=== PATIENT | female | born 1940 | race Caucasian/White ===

== ENCOUNTER 2022-06-25 14:17 | Outpatient (RCR) | payer MEDICARE, OTHER, SELFPAY ==
--- NOTE | 2022-06-26 09:41 | BUSTOPEVAL1 ---
Assessment and note entered by Mimi Patino TRANSPORTATION OPERATIONS MANAGER Evaluation Information Assessment Status Evaluation Reported Pain Level Pain Score 0: Self Report Assessment ST Clinical Summary Daly Larry is an 82 year old female who was referred to our clinic due to voice and swallowing concerns. Patient has a past medical history significant for essential tremors that impacts her voice. She also describes that when speaking a lot in one day , her voice becomes hoarse but she has never become aphonic. Patient lives alone and might go a day or more without using her voice, but then might have a day where she uses her voice extensively. On those days, she experiences difficulty, but never finds that she cannot communicate what she needs. She also reports that when she receives bad news that results in stress, her voice quality declines. Patient also reports an increase in difficulty/ coughing when swallowing both food and drink for the past 2-3 months. Because she lives alone, this has provided some anxiety. She has been able to compensate with solid food by eating more slowing and increasing mastication time, but has not found any compensatory strategies to prevent coughing when consuming liquids. Patient completed an oral mechanism evaluation with no significant findings other than slight perceived decrease in base of tongue strength (will confirm physiological impairment in Modified Barium Swallow Study). Patient trialed thin liquid, puree, and solid consistencies with no overt clinical signs of aspiration; however, it was noted that patinet consistently requires 2-3 swallows to clear a single bolus. Patient completed the EAT-10 Swallow Screening tool with a score of 8/40 indicating a likelihood of deficit to swallow efficiently and safely. Recommend patient to receive a Modified Barium Swallow Study in order to ensure a safe diet is being consumed and identify any impairments to target in a home exercise program. Additionally, recommend patient to receive skilled ST services 1x/week for 4 weeks in order to target deficits in voice and swallowing t
== END 2022-09-23 23:59 | disposition home or self-care (01) ==
LOC: ANHGOSHST 14:17
PROVIDERS: PCP Internal Medicine Endocrinology, Diabetes & Metabolism; Visit Provider Otolaryngology
DX: R13.10 Dysphagia, unspecified (principal); R49.8 Other voice and resonance disorders
CPT/HCPCS: 92524; 92610

== ENCOUNTER 2022-07-17 08:03 | Outpatient (CLI) | payer MEDICARE, OTHER, SELFPAY ==
--- NOTE | ~2022-07-17 | XR_ITS ---
EXAMINATION: XR barium swallow modified DATE: 07/17/2022 09:11 INDICATION: Dysphagia TECHNIQUE: Modified barium esophagram was performed by myself who administered fluoroscopy, in conju nction with speech pathologist who administered barium in varying consistencies as per speech patholo gist documentation. This was recorded on tape. A single fluoroscopic spot image was recorded. Fluoros copy exposure time was 2.6 minutes. The DAP for this procedure was 1.738 Gycm2. FINDINGS: Oral stage: Adequate function. Pharyngeal phase: Adequate function. Laryngeal penetration: None. Aspiration: None. Laryngeal sensitivity: Not applicable. IMPRESSION: Unremarkable modified esophagram. Please refer to speech pathologist findings and specifi c feeding recommendations. Reviewed, dictated and finalized at location A. IMPRESSION: Unremarkable modified esophagram. Please refer to speech pathologis t findings and specific feeding recommendations.
--- NOTE | 2022-07-17 13:48 | REHSTMBS ---
Assessment and note entered by Colleen Fontanez, PERIOPERATIVE MANAGER Modified Barium Swallow Evaluation Feeding Type Recommended Oral Food Consistency Regular, Level 7 Liquid Consistency Thin (0) Treatment Recommendations Effortful Swallow, Effortful Swallow ST Clinical Summary The patient was seen for an outpatient Modified Barium Swallow study at the request of her physician, Dr. Carranza. She reports she has essential tremors in her voice and hands and is going to be evaluated for possible Parkinson's disease. Patient states that she has difficulty swallowing dry foods, such as cookies and crackers and that she get choked and has to cough occasionally. Patient reports that her ENT informed her that she had thinning vocal cords and wondered if Speech Therapy would be beneficial as she feels her voice is not as strong as it used to be. Today the patient was presented with graduated amounts of thin liquid, pudding mixed with semi- solid contrast medium, and then cracker and cut-up fruit coated with the semi-solid mixture. She exhibited quick swallows with no evidence of penetration or aspiration. She may remain on Regular Diet and Regular Liquids. She was instructed in the use of head flexion to assist with swallowing. Patient may benefit from a Voice Evaluation by Speech Therapy at this facility to further assess her complaints with her voice. Please order Speech Therapy for Voice Evaluation and fax to [facility] for outpatient Speech Therapy. Thank you for this referral.
== END 2022-07-17 08:04 | disposition home or self-care (01) ==
PROVIDERS: PCP Internal Medicine Endocrinology, Diabetes & Metabolism; Visit Provider Otolaryngology
DX: R49.8 Other voice and resonance disorders (principal); R13.10 Dysphagia, unspecified
CPT/HCPCS: 92611

== ENCOUNTER 2022-08-28 09:06 | Observation (INO) | payer MEDICARE, OTHER, SELFPAY ==
[2022-08-28] VITALS (33 sets, daily range): BP systolic 108–158; BP diastolic 54–108; PULSE 57–100; RESP 14–18; TEMP 36.4–36.6; O2SAT 92–97; BMI 20.7
--- NOTE | ~2022-08-28 | XR_ITS ---
EXAMINATION: XR chest 1V portable DATE: 08/28/2022 21:30 INDICATION: Cough. TECHNIQUE: A single frontal view of the chest was obtained. COMPARISON: None. FINDINGS: The lungs are hyperexpanded with lucencies, consistent with emphysema. There is mild atelec tasis at the lung bases. No pleural effusion or pneumothorax. The heart size is normal. IMPRESSION: 1. Emphysema. 2. Mild atelectasis at the lung bases. Reviewed, dictated and finalized at location A. ME PLATER
--- NOTE | ~2022-08-28 | CT_ITS ---
EXAMINATION: CT lumbar spine wo con DATE: 08/28/2022 16:28 INDICATION: low back and left hip pain after a fall . TECHNIQUE: Computed tomography (CT) of the lumbar spine was performed without intravenous contrast. A utomated exposure control and iterative reconstruction technique were employed. The dose-length produ ct was 295.08 mGy-cm. COMPARISON: None. FINDINGS: 5 nonrib-bearing lumbar-type vertebral bodies. Pedicles intact. Normal vertebral body align ment. Vertebral body heights preserved. Multilevel mild and moderate degenerative disc disease. Multi level mild facet arthropathy. No severe central canal or neural foraminal narrowing. Nonobstructive b ilateral renal calculi. No suspicious renal mass. No hydronephrosis. Atherosclerotic aortic and arter ial calcifications. Ectatic abdominal aorta, with mild fusiform dilation up to 2.4 cm. IMPRESSION: No acute fracture or traumatic malalignment in the lumbar spine. Reviewed, dictated and finalized at location K. ING MACHINE OPERATOR
--- NOTE | ~2022-08-28 | XR_ITS ---
EXAMINATION: XR hip LT 2V w AP pelvis DATE: 08/28/2022 10:32 INDICATION: Left hip pain. Fall. TECHNIQUE: An anteroposterior view of the pelvis and 2 views of left hip were obtained. COMPARISON: None. FINDINGS: Bone alignment is normal. No fracture. There is mild osteoarthritis of the hips. There is m oderate lumbar spondylosis. IMPRESSION: 1. Mild osteoarthritis of the hips. Reviewed, dictated and finalized at location A. EWORK SUPERVISOR
--- NOTE | ~2022-08-28 | CT_ITS ---
EXAMINATION: CT hip LT wo con DATE: 08/28/2022 13:23 INDICATION: Left hip pain post trauma TECHNIQUE: High resolution computed tomography (CT) of the left hip was performed without intravenous contrast. Additional sagittal and coronal reconstructions were performed. The dose-length product wa s 95.44 mGy-cm. COMPARISON: Left hip and pelvis radiographs dated 08/28/2022 FINDINGS: Normal alignment at the left hip. No fracture. Mild osteoarthritis at the left hip with posterior pre dominant mild nonuniform joint space narrowing. Small amount of heterotopic ossification along the gr eater trochanteric insertion of the piriformis tendon. No left hip joint effusion or evident hematoma s. The uterus is not identified and has likely been surgically resected. Visualized portions of the b ladder and bowels are normal. No pathologically enlarged left pelvic or inguinal lymphadenopathy. Sma ll amount of atherosclerotic calcific location along the left common femoral artery. IMPRESSION: 1. Mild left hip osteoarthritis. No joint effusion or acute osseous abnormality. Reviewed, dictated and finalized at location A. ROAD CAR INSPECTOR IMPRESSION: 1. Mild left hip osteoarthritis. No joint effusion or acute osseous abnormality .
--- NOTE | 2022-08-28 10:11 | ED.GENADULT ---
HPI - General Adult General Chief complaint: Back Pain/Injury Stated complaint: LEFT SIDE PAIN Time Seen by Provider: 08/28/22 09:09 History of Present Illness HPI narrative: 82-year-old female presents for evaluation of left low back, hip pain which radiates down her posterior left leg to her ankle. Symptoms have been present and worsening for the past 3 days after she had a mechanical fall at home she is taking tramadol with minimal relief. Patient lives alone and is able to ambulate with a walker. The discomfort she feels is making it more difficult. Related Data Home Medications Medication Instructions Recorded Confirmed amlodipine 5 mg-valsartan 320 mg 1 tablet PO DAILY 04/06/20 04/24/22 tablet digoxin 250 mcg/mL (0.25 mg/mL) 0.2 mg IM DAILY 04/06/20 04/24/22 injection solution propranolol 120 mg capsule,24 120 mg PO DAILY 04/06/20 04/24/22 hr,extended release warfarin 5 mg tablet 5 mg PO DAILY 04/06/20 04/24/22 codeine 10 mg-guaifenesin 100 mg/5 5 ml PO 04/24/22 04/24/22 mL oral liquid primidone 50 mg tablet 50 mg PO 04/24/22 04/24/22 Allergies Allergy/AdvReac Type Severity Reaction Status Date / Time Sulfa (Sulfonamide Allergy Unknown Verified 08/28/22 09:22 Antibiotics) Review of Systems Review of Systems: CONSTITUTIONAL: Denies fever, chills, or sweats. EYES: Denies visual changes, redness, or discharge. ENT: Denies rhinorrhea, congestion, sore throat, or otalgia. CARDIOVASCULAR: Denies chest pain, palpitations, or edema. RESPIRATORY: Denies cough or dyspnea. GASTROINTESTINAL: Denies abdominal pain, nausea, vomiting, or diarrhea. GENITOURINARY: Denies dysuria or hematuria. SKIN: Denies rash or itching. MUSCULOSKELETAL: Denies back pain, joint pain, or myalgia. NEUROLOGIC: Denies headache, numbness, or weakness. PSYCHIATRIC: Denies anxiety or depression. [facility] Past Medical History Medical History (Updated 08/28/22 @ 15:31 by Ngozi Dpuont PA-C) Hypertension Social History Social History (Updated 08/28/22 @ 15:23 by Ngozi Dupont PA-C) Social History: Surrogate medical decision maker: Code status: Full code. Smoking status: Never smoker Exam Narrative: GENERAL: Well-appearing, well-nourished, and in no acute distress. HEAD: Normocephalic, atraumatic. EYES: PERRLA and EOMI. ENT: Nares clear, no rhinorrhea or epistaxis. Mucous membranes moist. NECK: Supple. CHEST: Clear to auscultation. No respiratory distress. HEART: Regular rate and rhythm. No murmur heard. Normal peripheral pulses. ABDOMEN: Soft, nontender, nondistended, normal active bowel sounds. EXTREMITIES: Normal range of motion. No edema. SKIN: Warm, dry, no rash. NEURO: No focal deficits. Alert and oriented x3. PSYCH: Normal mood and affect. Unable to ambulate due to discomfort Course Vital Signs Vital signs: Vital Signs Temperature 97.9 F 08/28/22 09:07 Pulse Rate 65 08/28/22 09:07 Respiratory Rate 15 08/28/22 09:07 Blood Pressure 126/96 H 08/28/22 09:07 Pulse Oximetry 95 08/28/22 09:07 Oxygen Delivery Room Air 08/28/22 09:07 Temperature 97.9 F 08/28/22 09:07 Pulse Rate 65 08/28/22 09:07 Respiratory Rate 15 08/28/22 09:07 Blood Pressure 126/96 H 08/28/22 09:07 Pulse Oximetry 95 08/28/22 09:07 Oxygen Delivery Room Air 08/28/22 09:07 Medical Decision Making MDM Narrative Medical decision making narrative: X-ray and CT without acute fracture. Patient is unable to ambulate despite pain medication. Her son is very concerned as she lives alone and has no help. Physical therapy has evaluated patient and due to the holiday we will be unable to do a physical therapy evaluation at home or provide any assistance. I discussed the case with Adrienne the hospitalist was accepted admission. Vital Signs Vital Signs: Vital Signs Temperature 97.9 F 08/28/22 09:07 Pulse Rate 65 08/28/22 09:07 Respiratory Rate 15 08/28/22 09:07 Blood Pressur
[2022-08-28] MEDS: DEXAMETHASONE 2 MG TABLET 10 MG PO (11:06)
[2022-08-28] MEDS: HYDROcodone/acetaminophen (*CRX) 5-325 MG TABLET 1 TAB PO (11:06)
--- NOTE | 2022-08-28 14:45 | PM.IMHP ---
H&P: HPI History of Present Illness Date/Time: 08/28/22 14:45 Chief Complaint: Difficulties ambulating after fall. Narrative: This is a very pleasant 82-year-old female with history of lupus, DVT, hypertension and paroxysmal atrial fibrillation who presented to the ED via EMS for evaluation of difficulties ambulating after fall. She lives alone and is typically quite independent. Two weeks ago while caring groceries into the home she got tripped up on a step and fell down onto her buttocks. She did not hurt herself and that fall however several days ago on Saturday she had a similar episode when she was caring a basket full of laundry and she fell down hard onto her left buttocks. Since that time she has had sharp and shooting pain radiating down her her left leg and the pain is worse with weight-bearing. Tylenol and tramadol have not helped much, heating pad and diclofenac have helped a little bit. Since that time she has been using a walker though she feels off balance as she cannot put much weight on the left leg and she is frightened that she is going to fall. She denies head trauma and loss of consciousness in the fall. There was no prodrome prior to the falls and she reports that it was strictly mechanical. Imaging of the hip, pelvis, and lumbar spine in the emergency department showed no acute findings but did demonstrate mild left hip osteoarthritis. PT/OT evaluated the patient in the emergency department at which time she required at least 1 person assist using gait belt and a walker. She is being admitted in this setting for pain control and further PT/OT as she is clearly unsafe to return home at this time due to being such a high fall risk. Review of Systems Review of Systems: Twelve systems were reviewed. No syncope or presyncope. She has had a mild cough the last couple of weeks, occasionally productive of clear to light yellow sputum. No fever, chills, or sweats. No sick contacts. She denies nausea and vomiting but reports not having a good appetite the last couple of days. No chest pain or shortness of breath. No focal weakness and paresthesias. Except as documented, all other systems were reviewed and are negative. [facility] Past Medical History Medical History (Updated 08/28/22 @ 21:10 by Ngozi Dupont PA-C) Chronic anticoagulation Essential tremor Hypertension Kidney stones Paroxysmal atrial fibrillation Recurrent deep vein thrombosis (DVT) Systemic lupus erythematosus Uterine cancer Surgical History Surgical History (Updated 08/28/22 @ 21:07 by Ngozi Dupont PA-C) History of cardiac catheterization History of hysterectomy For uterine cancer. History of tonsillectomy Status post excision of lipoma Family History Family History (Updated 08/28/22 @ 21:07 by Ngozi Dupont PA-C) Other Cancer Hypertension Social History Social History (Updated 08/28/22 @ 21:08 by Ngozi Dupont PA-C) Social History: Healthcare power of staff attorney: Kapil Song, son. Code status: Do not resuscitate. Smoking packs per day: 0.5 Smoking cigarettes per day: 10.0 Years smoked: 62 Smoking pack-years: 31.00 Smoking status: Current every day smoker Tobacco type: cigarettes Alcohol intake: never Substance use: never Lack of Transportation: No Lack of Food: Never True Current Housing: I Do Not Have Housing Concerned About Future Housing: No Difficulty Paying Gas/Electric Bills: No Difficulty Paying for Meds: No Currently Unemployed: No Education: Bachelor's Degree Difficulty w/ Childcare or Family Care: No Spiritual care concerns: No Meds Home Medications and Allergies Home Medications Medication Instructions Recorded Confirmed Type amlodipine 5 mg-valsartan 320 mg 1 tablet PO DAILY 04/06/20 08/28/22 History tablet digoxin 250 mcg/mL (0.25 mg/mL) 0.2 mg IM DAILY 04/06/20 08/28/22 History injection solution propranolol 120 mg capsule,24 120 mg PO HS 07
[2022-08-28 14:50] LABS: Basophils Percent Auto 0.4 % (0.2-1.2); Eosinophils Percent Auto 0.1 % (0-4.4); Hematocrit 43.9 % (37.0-47.0); Hemoglobin 14.9 g/dL (12.0-15.0); Immature Granulocyte Absolute 0.02 K/mm3 (0.00-0.031); Immature Granulocyte Percent A 0.2 % (0-0.5); Lymphocytes Absolute Auto 0.46 K/mm3 (0.9-3.2); Lymphocytes Percent Auto 5.6 % (18.3-44.2); Mean Corpuscular HGB Conc 33.9 g/dl (32-36); Mean Corpuscular Hemoglobin 33.8 pg (26-34); Mean Corpuscular Volume 99.5 fl (80-100); Mean Platelet Volume 10.6 fl (7.4-10.4); Monocytes Absolute Auto 0.1 K/mm3 (0.1-0.6); Monocytes Percent Auto 1.2 % (2.6-8.5); Neutrophils Absolute Auto 7.6 K/mm3 (1.3-6.7); Neutrophils Percent Auto 92.5 % (45.5-73.1); Platelet Count Result 242 k/mm3 (150-375); Red Blood Count 4.41 M/mm3 (4.2-5.4); Red Cell Distribution Width 12.3 % (11.5-14.5); White Blood Count 8.2 K/mm3 (4.5-10.0)
--- NOTE | 2022-08-28 14:56 | PCCCNOTE ---
Requested to set up HH and PT/OT for pt. Pt has [facility] as primary doctor so referral sent to [facility]. ([phone]).
[2022-08-28 15:03] LABS: Alanine Aminotransferase 13 U/L (6-35); Albumin Level 4.4 g/dL (3.5-5.1); Alkaline Phosphatase 69 U/L (38-126); Anion Gap 12 mmol/L (8-16); Aspartate Amino Transferase 21 U/L (14-36); Bilirubin,Total 0.8 mg/dL (0.2-1.3); Blood Urea Nitrogen 16 mg/dL (7-17); Calcium 8.9 mg/dL (8.4-10.2); Carbon Dioxide 26 mmol/L (22-30); Chloride 102 mmol/L (98-107); Estimated Glomerular Filt Rate > 60; Glucose 113 mg/dL (65-110); Potassium 4.2 mmol/L (3.4-5.0); Sodium 140 mmol/L (137-145)
[2022-08-28 17:15] LABS: Appearance Urine Slightly Cloudy (Clear); Bilirubin Urine 2+ (Negative); Blood Urine Negative (Negative); Color Urine Yellow (Yellow); Glucose Urine UA Negative (Negative); Ketones Urine 3+ mg/dL (Negative); Leukocyte Esterase Ur Negative LEU/UL (Negative); Nitrate Urine Negative (Negative); Protein Urine 1+ mg/dL (Negative); Specific Grav Ur >= 1.030 (1.001-1.035); pH Urine 5.5 (5.0-9.0)
--- NOTE | 2022-08-28 17:15 | ADMGEN ---
This patient, Daly Larry, was admitted to 2 Medical Room 258-01. Patient/family oriented to hospital policies and general routines including ID bracelet, bed and alarms, visiting hours, pain management, procedures, bathroom and other care routines, personal items, smoking policy, room service/diet, and visiting hours. Information on how to activate the Rapid Response Team has been discussed. Patient/Family are encouraged to report perceived risks to care and to ask questions if they do not understand what they are told or what they should do.
[2022-08-28 17:19] LABS: Bacteria Urine Trace /hpf; Mucus Urine Few /lpf; Squamous Epithelial Cell Urine Moderate /hpf (Few); WBC Urine 0-3 /hpf
[2022-08-28 17:21] LABS: Add Urine Microscopic? YES
[2022-08-28] MEDS: SODIUM CHLORIDE 0.9% IV 1,000 ML 100 ML IV CONT (22:21)
[2022-08-28] MEDS: traMADol HCL (*CRX) 25 MG TABLET PO (22:22)
[2022-08-28 23:07] LABS: INR 1.5; Prothrombin Time 17.9 Seconds (11.1-14.7)
[2022-08-28 23:47] LABS: Digoxin < 0.5 ng/mL (0.8-2.0)
[2022-08-29] VITALS (12 sets, daily range): BP systolic 125–151; BP diastolic 51–70; PULSE 51–100; RESP 14–20; TEMP 36.5–37.2; O2SAT 93–99
[2022-08-29] MEDS: PROPRANOLOL HCL 60 MG CAPSULE CR 120 MG PO ×2 (00:57→21:12)
[2022-08-29] MEDS: PRIMIDONE 50 MG TABLET PO ×2 (00:57→21:19)
[2022-08-29 05:55] LABS: Hematocrit 39.3 % (37.0-47.0); Hemoglobin 13.4 g/dL (12.0-15.0); Mean Corpuscular HGB Conc 34.1 g/dl (32-36); Mean Corpuscular Hemoglobin 34.2 pg (26-34); Mean Corpuscular Volume 100.3 fl (80-100); Mean Platelet Volume 11.1 fl (7.4-10.4); Platelet Count Result 236 k/mm3 (150-375); Red Blood Count 3.92 M/mm3 (4.2-5.4); Red Cell Distribution Width 12.2 % (11.5-14.5); White Blood Count 7.3 K/mm3 (4.5-10.0)
[2022-08-29 06:03] LABS: Anion Gap 5 mmol/L (8-16); Blood Urea Nitrogen 19 mg/dL (7-17); Calcium 8.5 mg/dL (8.4-10.2); Carbon Dioxide 28 mmol/L (22-30); Chloride 105 mmol/L (98-107); Estimated CRCL calculation 47 ml/min; Estimated Glomerular Filt Rate > 60; Glucose 135 mg/dL (65-110); Magnesium 1.9 mg/dL (1.6-2.3); Potassium 4.5 mmol/L (3.4-5.0); Sodium 138 mmol/L (137-145)
--- NOTE | 2022-08-29 07:36 | PC.NURSE ---
Lab called process description writer and reprots the COVID,FLU RSV PCR was collected in wrong swab median will need to be re-swabbed.
[2022-08-29] MEDS: DIGOXIN 250 MCG TABLET PO (09:00)
[2022-08-29] MEDS: amLODIPine BESYLATE 5 MG TABLET BY MOUTH (09:01)
[2022-08-29] MEDS: VALSARTAN 160 MG TABLET 320 MG BY MOUTH (09:01)
[2022-08-29 10:11] LABS: Influenza A QL RT-PCR Negative (Negative); Influenza B QL RT-PCR Negative (Negative); RSV RNA, RT-PCR Negative (Negative); SARS-CoV-2 RNA PCR Negative
[2022-08-29] MEDS: SODIUM CHLORIDE 0.9% IV 1,000 ML 100 ML IV CONT (12:25)
[2022-08-29] MEDS: traMADol HCL (*CRX) 25 MG TABLET PO (13:57)
--- NOTE | 2022-08-29 16:56 | PM.IMPN ---
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 CT hip and lumbar imaging showing no fracture. RSV, COVID and influenza negative. CXR showing emphysema and mild atelectasis. She has left-sided sciatica and was given a dose of dexamethasone in the ED but not continued. Analgesics available as needed in the form of Tramadol and Acetaminophen. She is asking for [place]. She was dehydrated on admission due to poor appetite. Digoxin level <0.5. Anti-HTN medications resumed. INR noted. Continue Coumadin. Daily INR. Continue with PT/OT. Heating pad. Check swallow given her complaints. Concern she may be constipated which could be causing her poor appetite. Add miralax. Add supplements. Subjective Date/time seen: 08/29/22 16:56 Interval history: 82yo female here for falls and left sciatic pain. She has had this issue for 5 weeks. Merline was taking Tramadol at home without benefit. She lives alone. She has had poor appetite. Eats very little breakfast and dinner and lunch is her bigget meal. She may have lost weight because her clothes are looser. No abd pain. No n/v. Does have chocking episodes with eating 1-2x/week. Since Saturday, she has been unable to walk due to pain. She wa able to walk 64 feet today with contact guard. Exam Narrative: AF 98.9 125/56 58 16 99% ra Gen - NARD Chest - CTA bilaterally, nml RR CV - RRR S1/S2 with 2/6 systolic murmur Abd - Soft, minimal LLQ pain. Ext - No pedal edema Psych - Nml mood and affect Skin - Warm and dry Objective Data Vital Signs Vital Signs: Vital Signs - 24 hr 08/28/22 18:01 08/28/22 21:28 08/28/22 21:48 Temperature 97.6 F Pulse Rate 70 71 Respiratory Rate 16 Blood Pressure 126/75 133/72 Pulse Oximetry 97 Oxygen Delivery Room Air 08/28/22 21:51 08/28/22 21:55 08/29/22 00:57 Temperature Pulse Rate 84 100 100 Respiratory Rate Blood Pressure 132/84 117/74 Pulse Oximetry Oxygen Delivery 08/28/22 22:00 08/29/22 06:17 08/29/22 09:00 Temperature 97.7 F Pulse Rate 60 65 Respiratory Rate 14 Blood Pressure 132/60 Pulse Oximetry 93 Oxygen Delivery Room Air 08/29/22 08:00 08/29/22 08:00 08/29/22 14:43 Temperature 97.8 F 97.9 F Pulse Rate 59 L 65 Respiratory Rate 16 16 Blood Pressure 135/56 L 131/66 Pulse Oximetry 99 99 Oxygen Delivery Room Air 08/29/22 14:44 08/29/22 14:00 Temperature 98.9 F 98.8 F Pulse Rate 58 L 57 L Respiratory Rate 16 16 Blood Pressure 125/56 L 135/56 L Pulse Oximetry 99 99 Oxygen Delivery Intake/Output Intake/Output: Intake & Output 08/26/22 08/27/22 08/28/22 08/29/22 23:59 23:59 23:59 23:59 Intake Total 1290 Balance 1290 Meds/Results Medications: Active Medications Generic Name Dose Route Start Last Admin Trade Name Freq PRN Reason Stop Dose Admin Acetaminophen 650 mg 08/28/22 21:15 Acetaminophen 325 Mg Tablet PO Q6H PRN Mild Pain (1-3) or Fever Amlodipine Besylate 5 mg 08/29/22 09
[2022-08-29] MEDS: WARFARIN (*PBKC) 4 MG TABLET PO (17:44)
[2022-08-29] MEDS: polyethylene glycoL 3350 17 GM POWD.PACK PO (17:44)
--- NOTE | 2022-08-29 17:54 | PCSTNOTE ---
Please refer to the Bedside Swallow Evaluation in the EMR. Please note, silent aspiration cannot be ruled out at bedside.
[2022-08-29] MEDS: traMADol HCL (*CRX) 50 MG TABLET PO (21:18)
[2022-08-30] MEDS: SODIUM CHLORIDE 0.9% IV 1,000 ML 60 ML IV CONT (03:04)
[2022-08-30 05:14] LABS: Anion Gap 8 mmol/L (8-16); Blood Urea Nitrogen 15 mg/dL (7-17); Calcium 8.2 mg/dL (8.4-10.2); Carbon Dioxide 28 mmol/L (22-30); Chloride 104 mmol/L (98-107); Estimated CRCL calculation 46 ml/min; Estimated Glomerular Filt Rate > 60; Glucose 86 mg/dL (65-110); INR 1.7; Potassium 3.9 mmol/L (3.4-5.0); Prothrombin Time 19.3 Seconds (11.1-14.7); Sodium 140 mmol/L (137-145)
[2022-08-30 06:48] VITALS: BP 136/42; PULSE 56; RESP 18; TEMP 36.7; O2SAT 96
[2022-08-30] MEDS: VALSARTAN 160 MG TABLET 320 MG BY MOUTH (08:39)
[2022-08-30 08:40] VITALS: PULSE 60
[2022-08-30] MEDS: DIGOXIN 250 MCG TABLET PO (08:40)
[2022-08-30] MEDS: polyethylene glycoL 3350 17 GM POWD.PACK PO (08:40)
[2022-08-30] MEDS: amLODIPine BESYLATE 5 MG TABLET BY MOUTH (08:40)
[2022-08-30] MEDS: traMADol HCL (*CRX) 50 MG TABLET PO (10:36)
--- NOTE | 2022-08-30 14:16 | PM.DS ---
DS: Admitting Diagnosis Discharge Date 08/30/22 Admitting Diagnosis Falls and left leg pain DS: Discharge Diagnosis Discharge Diagnosis (1) Fall from ground level: Code(s): W18.30XA - Fall on same level, unspecified, initial encounter Status: Acute (2) Left sided sciatica: Code(s): M54.32 - Sciatica, left side Status: Acute (3) Inability to ambulate due to left hip: Code(s): R26.2 - Difficulty in walking, not elsewhere classified Status: Acute (4) Dehydration: Code(s): E86.0 - Dehydration Status: Acute (5) Hypertension: Code(s): I10 - Essential (primary) hypertension Status: Acute (6) Chronic anticoagulation: Code(s): Z79.01 - watermaster (current) use of anticoagulants Status: Acute (7) Paroxysmal atrial fibrillation: Code(s): I48.0 - Paroxysmal atrial fibrillation Status: Acute (8) Essential tremor: Code(s): G25.0 - Essential tremor Status: Acute DS: Summary Hospital Course Reason for hospitalization: 82yo female here for falls and left sciatic pain. Please see H&P for details Hospital Course: The patient presents to ED for evaluation of difficulties walking after sustaining 2 falls in the last 2 weeks related to left sciatic pain. CT hip and lumbar imaging showing no fracture. RSV, COVID and influenza negative. CXR showing emphysema and mild atelectasis. She has left-sided sciatica and was given a dose of dexamethasone in the ED but steroids not continued. Analgesics available as needed in the form of [place], Tramadol and Acetaminophen. She did not require [place]. She was dehydrated on admission due to poor appetite. Digoxin level <0.5. Anti-HTN medications resumed. INR 1.7; patient on Coumadin 4mg and this was verified and continued. She worked with therapy. Care coordination discussed options with the patient. She did now want to go to a skilled facility but was agreeable for home health which was arranged. She was having dysphagia symptoms but bedside swallow evaluation was okay. She has poor appetite so supplements added. Patient felt the pain was better controlled and she was walking to the bathroom. Family was wanting steroids but explained the risks associated with steroids and anticoagulation. Family was agreeable with these risks but patient was not. She has tramadol at home so not ordered. She feels comfortable with discharge. She overall did well and was able to be discharged home on 08/30/22. All questions answered to the satisfaction of the patient and family. Status at Discharge Cognitive/behavioral status at discharge: stable Time Spent with Patient Time attestation: Total time spent providing and/or coordinating discharge services: 34 minutes Time spent: Greater than 30 minutes Specific discharge activities: Family discussion Exam Narrative: Feels tired. She doesn't 'feel well' but with further questioning, this is mostly her concerns about becoming dependent on others. 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 Left leg pain better. Up walking to the BR. INR usually very stable. AF 98.0 136/42 60 18 96% ra Gen - NARD Chest - left base crackles o/w clear CV - RRR S1/S2 Abd - Soft, NT/ND Ext - No pedal edema Psych - Nml mood and affect Skin - Warm and dry DS: Data Data Completed and Pending Labs on day of discharge: Labs from last 24 hours 08/30/22 08/30/22 08/28/22 04:51 04:51 22:46 PT 19.3 H INR 1.7 Sodium 140 Potassium 3.9 Chloride 104 Carbon Dioxide 28 Anion Gap 8 BUN 15 Creatinine 0.70 Estim Creat Clear Calc 46 Estimated GFR > 60 Glucose 86 Calcium 8.2 L Influenza A (RT-PCR) Cancelled Influenza B (RT-PCR) Cancelled RSV (RT-PCR) Cancelled SARS-CoV-2 RNA (RT-PCR) Cancelled Discharge Plan Discharge Attending physician on discharge: Bradford Celis Discharging Clinician: Bradford Celis
[2022-08-30] MEDS: WARFARIN (*PBKC) 4 MG TABLET PO (15:00)
[2022-08-30] MEDS: WARFARIN (*PBKC) 2 MG TABLET PO (15:00)
== END 2022-08-30 15:29 | disposition home health service (06) ==
LOC: ANHED 15:30 → ANH2MED 17:37
PROVIDERS: Physician Assistant; Admitting Provider Internal Medicine; Emergency Provider Emergency Medicine; PCP Internal Medicine Endocrinology, Diabetes & Metabolism; Visit Provider Internal Medicine
DX: M54.32 Sciatica, left side (principal); E86.0 Dehydration; R26.2 Difficulty in walking, not elsewhere classified; M32.9 Systemic lupus erythematosus, unspecified; I10 Essential (primary) hypertension; I48.0 Paroxysmal atrial fibrillation; M16.9 Osteoarthritis of hip, unspecified; R25.1 Tremor, unspecified; R13.10 Dysphagia, unspecified; F17.210 Nicotine dependence, cigarettes, uncomplicated; W18.30XA Fall on same level, unspecified, initial encounter; Z20.822 Contact with and (suspected) exposure to COVID-19; Z79.01 Long term (current) use of anticoagulants; Z86.718 Personal history of other venous thrombosis and embolism; Z85.42 Personal history of malignant neoplasm of other parts of uterus; Z87.442 Personal history of urinary calculi; Z90.710 Acquired absence of both cervix and uterus
CPT/HCPCS: 36415; 71045; 72131; 73502; 73700; 80048; 80053; 80162; 81001; 83735; 85025; 85027; 85610; 87637; 92610; 96360; 96361; 97110; 97161; 97165; 97530; 99285; A9270; G0378; J7030; J8540

== ENCOUNTER 2022-09-03 13:02 | Outpatient (NON) | payer MEDICARE, OTHER, SELFPAY ==
[2022-09-03 14:42] LABS: INR 1.6; Prothrombin Time 18.7 Seconds (11.1-14.7)
== END 2022-09-03 13:03 | disposition home or self-care (01) ==
LOC: HOME HLTH 13:05
PROVIDERS: PCP Internal Medicine Endocrinology, Diabetes & Metabolism; Visit Provider Internal Medicine
DX: I48.0 Paroxysmal atrial fibrillation (principal)
CPT/HCPCS: 85610

== ENCOUNTER 2023-03-02 15:46 | Inpatient (IN) | payer MEDICARE, OTHER, SELFPAY ==
[2023-03-02] VITALS (14 sets, daily range): BP systolic 117–130; BP diastolic 64–91; PULSE 69–81; RESP 14–22; TEMP 36.6–36.7; O2SAT 91–99; BMI 21.3
--- NOTE | ~2023-03-02 | XR_ITS ---
EXAMINATION: XR hip RT 2V w AP pelvis DATE: 03/02/2023 16:59 INDICATION: Right hip pain and deformity post fall TECHNIQUE: Anteroposterior view of the pelvis and anteroposterior and frog-leg lateral views of the r ight hip were obtained. COMPARISON: 08/28/2022 FINDINGS: Transcervical fracture of the proximal right femur with some external rotation, 1.5 cm proximal migra tion and 70 degree varus angulation. The right femoral head remains normally centered in the acetabul um but is rotated as with abduction. No other fractures identified. Joint space at the bilateral hips appear relatively preserved with tiny marginal osteophytes consistent with minimal osteoarthritis. A therosclerotic calcific a cyst at the bilateral iliac arteries. IMPRESSION: 1. , Displaced and angulated transcervical fracture of the proximal right femur with some additional external rotation. Reviewed, dictated and finalized at location A.
--- NOTE | ~2023-03-02 | XR_ITS ---
EXAMINATION: XR chest 1V portable DATE: 03/02/2023 16:58 INDICATION: Status post fall TECHNIQUE: frontal view of the chest was obtained. COMPARISON: Chest radiograph dated 08/28/2022 FINDINGS: Again seen is mild hyperexpansion of the lungs. Skinfold projects along the lateral aspect of the lef t lung. Mild curvilinear likely discoid atelectasis/scarring at the right lung base. No other airspac e opacities, pulmonary edema, pleural effusion or pneumothorax. Heart size is normal. IMPRESSION: 1. Hyperexpansion of lungs suggestive but not diagnostic of COPD. 2. Mild right basilar discoid atelectasis. Reviewed, dictated and finalized at location A.
--- NOTE | ~2023-03-02 | XR_ITS ---
EXAMINATION: XR hip RT min 2V DATE: 03/04/2023 10:07 INDICATION: Right hip arthroplasty. Postop. TECHNIQUE: 2 views of right hip were obtained. COMPARISON: Right hip radiograph 03/02/2023 FINDINGS: There is a bipolar right hip hemiarthroplasty in near-anatomic alignment. No fracture. Ther e is gas in the soft tissues, consistent with recent surgery. IMPRESSION: 1. Bipolar right hip hemiarthroplasty in near-anatomic alignment. Reviewed, dictated and finalized at location A.
--- NOTE | ~2023-03-02 | XR_ITS ---
EXAMINATION: XR hip RT 1V DATE: 03/02/2023 18:37 INDICATION: Right hip fracture TECHNIQUE: Cross-table lateral views of the right hip were obtained. COMPARISON: None. FINDINGS/IMPRESSION: No significant anteroposterior displacement of the previous noted fracture of the right femoral neck. Reviewed, dictated and finalized at location A.
[2023-03-02] MEDS: ONDANSETRON INJ 4 MG/2 ML VIAL IV PUSH (16:11)
--- NOTE | 2023-03-02 16:11 | ECG_ITS ---
Measurements Intervals Wallace Rate: 67 P: 80 MD: 180 QRS: 75 QRSD: 97 T: 81 QT: 434 QTc: 461 Interpretive Statements SINUS RHYTHM BASELINE ARTIFACT- I, II, III, AVR, AVL, AVF BORDERLINE ECG NO PREVIOUS ECG AVAILABLE FOR COMPARISON Electronically Signed On 03-03-2023 7:00:31 CDT by Panfilo Puentes D.O.
[2023-03-02] MEDS: MORPHINE SULFATE (*CRX) 4 MG/ML INJ IV PUSH (16:14)
--- NOTE | 2023-03-02 16:21 | ED.LOWEXIN ---
HPI - Extremity Injury (Lower) General Chief Complaint: Extremity Injury, Lower <MARLA Chen Last Filed: 03/02/23 18:41> Stated Complaint: fall - hip injury <MARLA Chen Last Filed: 03/02/23 18:41> Time Seen by Provider: 03/02/23 15:57 <MARLA Chen Last Filed: 03/02/23 18:41> Source: patient <MARLA Chen Last Filed: 03/02/23 18:41> Mode of arrival: EMS <MARLA Chen Last Filed: 03/02/23 18:41> Limitations: no limitations <MARLA Chen Last Filed: 03/02/23 18:41> History of Present Illness HPI Narrative: Patient is an 83-year-old female, with PMH of Parkinson's disease, who presents to the ED via EMS with report of right hip pain. Patient reports reports she stood up from the couch just prior to arrival and lost her balance and fell. She denied feeling dizzy or lightheaded prior to the fall. She landed on her right side and hip. She did not hit her head or lose consciousness. She was unable to get up off the ground due to the pain in her hip. EMS was called. Patient denies any other areas of pain. Denies numbness or tingling. She is on warfarin due to history of atrial fibrillation and blood clots related to SLE. <MARLA Chen Last Filed: 03/02/23 18:41> Related Data Home Medications: Home Medications Medication Instructions Recorded Confirmed amlodipine 5 mg-valsartan 320 mg 1 tablet PO DAILY 04/06/20 08/28/22 tablet propranolol 120 mg capsule,24 120 mg PO HS 04/06/20 08/28/22 hr,extended release primidone 50 mg tablet 50 mg PO HS 04/24/22 08/28/22 <MARLA Chen Last Filed: 03/02/23 18:41> Allergies/Adverse Reactions: Allergies Allergy/AdvReac Type Severity Reaction Status Date / Time Sulfa (Sulfonamide Allergy Unknown Verified 03/02/23 15:57 Antibiotics) <Jade Garcia PA-C - Last Filed: 03/02/23 18:41> Review of Systems Review of Systems: CONSTITUTIONAL: Denies fever, chills, or sweats. EYES: Denies visual changes. CARDIOVASCULAR: Denies chest pain. RESPIRATORY: Denies dyspnea. GASTROINTESTINAL: Denies abdominal pain, nausea, vomiting. MUSCULOSKELETAL: See HPI. NEUROLOGIC: See HPI. <Jade Garcia PA-C - Last Filed: 03/02/23 18:41> All systems reviewed & are unremarkable except as noted in HPI and below <Jade Garcia PA-C - Last Filed: 03/02/23 18:41> [facility] Past Medical History Medical History: Medical History Chronic anticoagulation Essential tremor Hypertension Kidney stones Paroxysmal atrial fibrillation Recurrent deep vein thrombosis (DVT) Systemic lupus erythematosus Uterine cancer <Jade Garcia PA-C - Last Filed: 03/02/23 18:41> Surgical History Surgical History: Surgical History History of cardiac catheterization History of hysterectomy For uterine cancer. History of tonsillectomy Status post excision of lipoma <Jade Garcia PA-C - Last Filed: 03/02/23 18:41> Family History Family History: Family History (Updated 03/02/23 @ 18:03 by Priya Harris NP) Father Cancer Mother Hypertension Sibling Hypertension <Jade Garcia PA-C - Last Filed: 03/02/23 18:41> Social History Social History: Social History (Updated 03/02/23 @ 18:06 by Priya Harris NP) Social History: lives alone and has 2 children and 2 step child. retired [employer]. 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 Code status: full code Smoking packs per day: 0.5 Smoking cigarettes per day: 10.0 Years smoked: 62 Smoking pack-years: 31.00 Smoking status: Current every day smoker Tobacco type: cigarettes Alcohol intake: never Substance use: never Lack of Transportation: No Lack of
[2023-03-02 16:27] LABS: Basophils Percent Auto 0.5 % (0.2-1.2); Eosinophils Absolute Auto 0.3 K/mm3 (0-0.3); Eosinophils Percent Auto 3.7 % (0-4.4); Hematocrit 37.6 % (37.0-47.0); Hemoglobin 12.9 g/dL (12.0-15.0); Immature Granulocyte Absolute 0.06 K/mm3 (0.00-0.031); Immature Granulocyte Percent A 0.8 % (0-0.5); Lymphocytes Absolute Auto 1.41 K/mm3 (0.9-3.2); Lymphocytes Percent Auto 19.1 % (18.3-44.2); Mean Corpuscular HGB Conc 34.3 g/dl (32-36); Mean Corpuscular Hemoglobin 34.6 pg (26-34); Mean Corpuscular Volume 100.8 fl (80-100); Mean Platelet Volume 10.8 fl (7.4-10.4); Monocytes Absolute Auto 0.6 K/mm3 (0.1-0.6); Monocytes Percent Auto 7.7 % (2.6-8.5); Neutrophils Percent Auto 68.2 % (45.5-73.1); Platelet Count Result 220 k/mm3 (150-375); Red Blood Count 3.73 M/mm3 (4.2-5.4); Red Cell Distribution Width 12.4 % (11.5-14.5); White Blood Count 7.4 K/mm3 (4.5-10.0)
[2023-03-02 16:37] LABS: INR 1.5; Prothrombin Time 19.1 Seconds (11.1-14.7)
[2023-03-02 16:39] LABS: Partial Thromboplastin Time 26.2 SECONDS (22.3-36.8)
[2023-03-02 16:40] LABS: Alanine Aminotransferase 9 U/L (6-35); Albumin Level 4.1 g/dL (3.5-5.1); Alkaline Phosphatase 48 U/L (38-126); Anion Gap 1 mmol/L (8-16); Aspartate Amino Transferase 26 U/L (14-36); Bilirubin,Total 0.6 mg/dL (0.2-1.3); Blood Urea Nitrogen 30 mg/dL (7-17); Calcium 8.4 mg/dL (8.4-10.2); Carbon Dioxide 34 mmol/L (22-30); Chloride 104 mmol/L (98-107); Estimated CRCL calculation 34 ml/min; Estimated Glomerular Filt Rate 60; Glucose 93 mg/dL (65-110); Potassium 4.7 mmol/L (3.4-5.0); Sodium 139 mmol/L (137-145)
[2023-03-02] MEDS: HYDROmorphone HCL INJ (*CRX) 1 MG/ML SYR 0.5 MG IV PUSH (17:46)
--- NOTE | 2023-03-02 18:01 | PM.IMHP ---
H&P: HPI History of Present Illness Date/Time: 03/02/23 18:01 Chief Complaint: Fall Narrative: this is a 83-year-old female patient who has a history of Parkinson's disease. The patient came to the emergency room with complaints of right hip pain. The patient stated that she stood up from the couch when she lost her balance. She denied feeling dizzy or lightheaded prior to the fall. The patient stated that she landed on her right side and hurt her hip. She denies hitting her head or losing consciousness. The patient was unable to get up off the ground due to the pain. The patient was noticed to have an externally rotated right lower extremity. When I assessed her she did not have any discomfort. The patient is on Coumadin for atrial fibrillation and a history of having multiple blood clots. Hip x-ray was read as No significant anteroposterior displacement of the previous noted fracture of the right femoral neck. hip and pelvis x-ray was read as a following 1. , Displaced and angulated transcervical fracture of the proximal right femur with some additional external rotation. chest x-ray was read as the following. Hyperexpansion of lungs suggestive but not diagnostic of COPD. 2. Mild right basilar discoid atelectasis. the patient was given morphine, Zofran, Dilaudid And vitamin K . Dr. WOODY was notified per ED provider and it was recommended that the patient receive vitamin K since her INR is 1.5. The patient is being admitted to observation status on the date of service of 03/02/2023. Review of Systems Review of Systems: All systems reviewed & are unremarkable except as noted in HPI and below Constitutional: Constitutional: Reports as per HPI and Reports no additional constitutional complaints Eyes: Eyes: Reports as per HPI and Reports no additional eye complaints ENT: Reports system reviewed and no additional complaints, except as documented and Reports Normal hearing present Cardiovascular: Cardiovascular: Reports no additional cardiovascular complaints Respiratory: Respiratory: Reports no additional respiratory complaints and Reports no additional respiratory complaints Gastrointestinal: Gastrointestinal: Reports as per HPI and Reports no additional gastrointestinal complaints Musculoskeletal: Musculoskeletal: Reports no additional musculoskeletal complaints Integumentary/Breasts: Skin/Breast: Reports system reviewed and no additional complaints, except as docu and Reports as per HPI Neurologic: Reports system reviewed and no additional complaints, except as documented, Reports as per HPI and Reports Normal hearing present Psychiatric: Psychiatric: Reports no additional psychiatric complaints and Reports as per HPI Endocrine: Endocrine: Reports no additional endocrine complaints Hematologic/Lymphatic: Hematologic/Lymphatic: Reports no additional hematologic/lymphatic complaints Allergic/Immunologic: Allergic/Immunologic: Reports no additional allergic/immunologic complaints [facility] Past Medical History Medical History Chronic anticoagulation Essential tremor Hypertension Kidney stones Paroxysmal atrial fibrillation Recurrent deep vein thrombosis (DVT) Systemic lupus erythematosus Uterine cancer Surgical History Surgical History History of cardiac catheterization History of hysterectomy For uterine cancer. History of tonsillectomy Status post excision of lipoma Family History Family History Father Cancer Mother Hypertension Sibling Hypertension Social History Social History (Updated 03/02/23 @ 21:31 by Priya Harris NP) Social History: lives alone and has 2 children and 2 step child. retired from [employer]. Healthcare power of home specialist: Kapil Song, son. Code status: full code Smoking packs per day: 0.5 Smoking
--- NOTE | 2023-03-02 20:10 | ADMGEN ---
This patient, Daly Larry, was admitted to 3 [facility] Room 315-01. Patient/family oriented to hospital policies and general routines including ID bracelet, bed and alarms, visiting hours, pain management, procedures, bathroom and other care routines, personal items, smoking policy, room service/diet, and visiting hours. Information on how to activate the Rapid Response Team has been discussed. Patient/Family are encouraged to report perceived risks to care and to ask questions if they do not understand what they are told or what they should do.
[2023-03-02] MEDS: PHYTONADIONE INJ 10 MG/ML AMP 5 MG SUB-Q (20:17)
[2023-03-02] MEDS: LORazepam INJ (*CRX) 2 MG/ML VIAL 0.5 MG IV PUSH (21:40)
[2023-03-02] MEDS: MORPHINE SULFATE (*CRX) 2 MG/ML INJ IV PUSH (21:42)
[2023-03-02] MEDS: PROPRANOLOL HCL 60 MG CAPSULE CR 120 MG PO (22:18)
[2023-03-02] MEDS: CARBIDOPA/LEVODOPA 25/100 MG TABLET 1 TABLET PO (22:18)
[2023-03-03] VITALS (9 sets, daily range): BP systolic 121–149; BP diastolic 54–79; PULSE 69–76; RESP 16–20; TEMP 36.4–36.8; O2SAT 88–96
[2023-03-03] MEDS: MORPHINE SULFATE (*CRX) 2 MG/ML INJ IV PUSH ×4 (05:32→19:51)
[2023-03-03] MEDS: LORazepam INJ (*CRX) 2 MG/ML VIAL 0.5 MG IV PUSH ×2 (05:33→19:50)
[2023-03-03 05:57] LABS: Basophils Percent Auto 0.4 % (0.2-1.2); Eosinophils Absolute Auto 0.1 K/mm3 (0-0.3); Eosinophils Percent Auto 1.3 % (0-4.4); Hematocrit 38.4 % (37.0-47.0); Immature Granulocyte Absolute 0.05 K/mm3 (0.00-0.031); Immature Granulocyte Percent A 0.6 % (0-0.5); Lymphocytes Percent Auto 14.3 % (18.3-44.2); Mean Corpuscular HGB Conc 33.9 g/dl (32-36); Mean Corpuscular Hemoglobin 34.3 pg (26-34); Mean Corpuscular Volume 101.3 fl (80-100); Mean Platelet Volume 10.9 fl (7.4-10.4); Monocytes Absolute Auto 0.8 K/mm3 (0.1-0.6); Monocytes Percent Auto 9.5 % (2.6-8.5); Neutrophils Absolute Auto 6.2 K/mm3 (1.3-6.7); Neutrophils Percent Auto 73.9 % (45.5-73.1); Platelet Count Result 214 k/mm3 (150-375); Red Blood Count 3.79 M/mm3 (4.2-5.4); Red Cell Distribution Width 12.4 % (11.5-14.5); White Blood Count 8.4 K/mm3 (4.5-10.0)
[2023-03-03 06:10] LABS: Anion Gap 5 mmol/L (8-16); Blood Urea Nitrogen 26 mg/dL (7-17); Calcium 8.5 mg/dL (8.4-10.2); Carbon Dioxide 32 mmol/L (22-30); Chloride 102 mmol/L (98-107); Estimated CRCL calculation 41 ml/min; Estimated Glomerular Filt Rate > 60; Glucose 104 mg/dL (65-110); INR 1.4; Potassium 4.7 mmol/L (3.4-5.0); Prothrombin Time 17.8 Seconds (11.1-14.7); Sodium 139 mmol/L (137-145)
--- NOTE | 2023-03-03 07:48 | PM.CNOR ---
Assessment and Plan Assessment and plan (1) Transcervical fracture of right femur: Qualifiers: Encounter type: initial encounter Fracture type: closed Qualified Code(s): S72.031A - Displaced midcervical fracture of right femur, initial encounter for closed fracture Code(s): S72.031A - Displaced midcervical fracture of right femur, initial encounter for closed fracture Status: Acute Assessment and Plan: 83-year-old female who has got an acute transcervical right femoral neck fracture. Best course of treatment for her is going to be surgical repair with bipolar replacement. Tentatively this is schedule for tomorrow morning. I did discuss with the hospitalist and I am anticipating medical clearance. The INR this morning is 1.4. Got vitamin K yesterday so by tomorrow morning it should be fine. She will be put back on her Coumadin postoperatively. Thank you for the consultation. History of Present Illness HPI Consult date: 03/03/23 Chief complaint: R Prox Femur Fx,GLF,Chronic Anticoagulation Narrative: This document created with [id number] technology and is subject to seat coverer irregularities. 83-year-old female who fell yesterday at her home when she lost her balance. She suffered a transcervical right femoral neck fracture. She is a reasonably active ambulator. This will need to be repaired surgically. She is a . She has to adult children in the area, one son and one daughter. She has a history of a familial tremor that she said during the workup was inconclusive for Parkinsonism. She is chronically anticoagulated and has a history of atrial fibrillation with heart disease. Upon admission she was subtherapeutic with her INR. She did get sublingual vitamin K yesterday. INR this morning is 1.4. Review of Systems Constitutional: Constitutional: Reports no additional constitutional complaints, Denies excessive sweating and Denies fatigue Eyes: Eyes: Reports no additional eye complaints ENT: Reports system reviewed and no additional complaints, except as documented Cardiovascular: Cardiovascular: Denies chest pain at rest and Denies dyspnea Respiratory: Respiratory: Reports no additional respiratory complaints and Denies dyspnea Gastrointestinal: Gastrointestinal: Reports no additional gastrointestinal complaints Musculoskeletal: Musculoskeletal: Reports as per HPI Integumentary/Breasts: Skin/Breast: Reports system reviewed and no additional complaints, except as docu Neurologic: Reports as per HPI Endocrine: Endocrine: Denies excessive sweating and Denies fatigue Hematologic/Lymphatic: Hematologic/Lymphatic: Denies easy bleeding and Denies easy bruising PMFSH Past Medical History Medical History Chronic anticoagulation Essential tremor Hypertension Kidney stones Paroxysmal atrial fibrillation Recurrent deep vein thrombosis (DVT) Systemic lupus erythematosus Uterine cancer Surgical History Surgical History History of cardiac catheterization History of hysterectomy For uterine cancer. History of tonsillectomy Status post excision of lipoma Family History Family History Father Cancer Mother Hypertension Sibling Hypertension Social History Social History Social History: lives alone and has 2 children and 2 step child. retired from [employer] in [employer]. Healthcare power of defense attorney: Kapil Song, son. Code status: full code Smoking packs per day: 0.5 Smoking cigarettes per day: 10.0 Years smoked: 62 Smoking pack-years: 31.00 Smoking status: Current every day smoker Tobacco type: cigarettes Alcohol intake: never Substance use: never Lack of Transportation: No Lack of Food: Never True Current Housing: I Do Not Have Housing
[2023-03-03] MEDS: ceFAZolin 2 GM/D5W 50 ML 2 GM/50 ML BAG IVPB (08:45)
[2023-03-03] MEDS: CARBIDOPA/LEVODOPA 25/100 MG TABLET 1 TABLET PO ×3 (08:46→16:44)
[2023-03-03] MEDS: amLODIPine BESYLATE 5 MG TABLET PO (08:46)
--- NOTE | 2023-03-03 09:55 | PM.IMPN ---
Progress Note: A&P Assessment and Plan (1) Transcervical fracture of right femur: Qualifiers: Encounter type: initial encounter Fracture type: closed Qualified Code(s): S72.031A - Displaced midcervical fracture of right femur, initial encounter for closed fracture Code(s): S72.031A - Displaced midcervical fracture of right femur, initial encounter for closed fracture Status: Acute Assessment and Plan: Dr. Arias orthopedic surgery Has been consulted. Plan to go to OR tomorrow. continue with analgesics the patient had an INR 1.5 and was given vitamin K. Coumadin is currently on hold at this time. Hold valsartan for surgery (2) Systemic lupus erythematosus: Code(s): M32.9 - Systemic lupus erythematosus, unspecified Status: Acute Assessment and Plan: Continue with current medications. (3) Essential tremor: Code(s): G25.0 - Essential tremor Status: Acute Assessment and Plan: Continue with propanolol a and carbidopa levodopa (4) Paroxysmal atrial fibrillation: Code(s): I48.0 - Paroxysmal atrial fibrillation Status: Acute Assessment and Plan: the patient is currently on propanolol and her Coumadin is on hold at this point due to possible surgery tomorrow. 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 The patient has a history of AFib as well as PEs and DVTs. Daily PT INR. (6) Hypertension: Code(s): I10 - Essential (primary) hypertension Status: Acute Assessment and Plan: Continue with amlodipine and propanolol. Hold valsartan to avoid any acute kidney injury Subjective Date/time seen: 03/03/23 09:55 Interval history: Limited range of motion. No other complaint Review of Systems Review of Systems: All systems reviewed & are unremarkable except as noted in HPI and below Constitutional: Constitutional: Reports as per HPI and Reports no additional constitutional complaints Eyes: Eyes: Reports as per HPI and Reports no additional eye complaints ENT: Reports system reviewed and no additional complaints, except as documented and Reports Normal hearing present Cardiovascular: Cardiovascular: Reports no additional cardiovascular complaints Respiratory: Respiratory: Reports no additional respiratory complaints and Reports no additional respiratory complaints Gastrointestinal: Gastrointestinal: Reports as per HPI and Reports no additional gastrointestinal complaints Musculoskeletal: Musculoskeletal: Reports no additional musculoskeletal complaints Integumentary/Breasts: Skin/Breast: Reports system reviewed and no additional complaints, except as docu and Reports as per HPI Neurologic: Reports system reviewed and no additional complaints, except as documented, Reports as per HPI and Reports Normal hearing present Psychiatric: Psychiatric: Reports no additional psychiatric complaints and Reports as per HPI Endocrine: Endocrine: Reports no additional endocrine complaints Hematologic/Lymphatic: Hematologic/Lymphatic: Reports no additional hematologic/lymphatic complaints Allergic/Immunologic: Allergic/Immunologic: Reports no additional allergic/immunologic complaints Exam Const: General: cooperative, healthy appearing, comfortable, no acute distress, well developed, alert, awake, Physically active, average body habitus and well nourished Nutritional Appearance: average body habitus and well nourished Orientation/consciousness: oriented to person, oriented to place, oriented to time and patient oriented x3 Limitations: no limitations HENMT: Head: normal to inspection, No palpable skull fracture present, normocephalic and atraumatic Ears: hearing grossly normal bilaterally and external ears normal Face/Nose/Sinus: Normal external nose present and Normal nares present Eyes: General: appe
[2023-03-03] MEDS: PROPRANOLOL HCL 60 MG CAPSULE CR 120 MG PO (20:40)
[2023-03-04] VITALS (21 sets, daily range): BP systolic 78–194; BP diastolic 53–101; PULSE 64–84; RESP 12–26; TEMP 36.2–36.7; O2SAT 90–97
[2023-03-04] MEDS: MORPHINE SULFATE (*CRX) 2 MG/ML INJ IV PUSH (04:58)
--- NOTE | 2023-03-04 07:53 | WPDANESEPPF ---
Anes - Initial Pre Proc Eval Procedure: Operation Date: 03/04/23 08:00 Proposed Procedures p Bipolar Hip Replacement(Right) - Lele Arias MD Date/Time: 03/04/23 07:53 Surgeon: Mj Celis MD Pre Op Diagnosis: R Prox Femur Fx,GLF,Chronic Anticoagulation Patient Data Age: 83 Gender: F Height: 1.63 m Weight: 56.4 kg Last Vital Signs Temp 36.2 C L 03/04/23 06:00 Pulse 64 03/04/23 06:00 Resp 16 03/04/23 06:00 BP 109/53 L 03/04/23 06:00 Pulse Ox 96 03/04/23 06:00 O2 Del Method Nasal Cannula 03/03/23 21:35 O2 Flow Rate 4 03/03/23 21:35 FiO2 36 03/03/23 21:35 Allergies Allergy/AdvReac Type Severity Reaction Status Date / Time Sulfa (Sulfonamide Allergy Unknown Verified 03/02/23 15:57 Antibiotics) Home Medications Medication Instructions Recorded Confirmed Type amlodipine 5 mg-valsartan 320 mg 1 tablet PO DAILY 04/06/20 03/02/23 History tablet propranolol 120 mg capsule,24 120 mg PO HS 04/06/20 03/02/23 History hr,extended release carbidopa 25 mg-levodopa 100 mg 1 tablet PO TID 03/02/23 03/02/23 History tablet warfarin 5 mg tablet 4 mg PO HS 03/02/23 03/03/23 History Patient hx anesthesia problems: none Family hx anesthesia problems: none Results Review: All pre-operative results and documents have been reviewed as part of the pre-operative evaluation. [facility] Past Medical History Medical History Chronic anticoagulation Essential tremor Hypertension Kidney stones Paroxysmal atrial fibrillation Recurrent deep vein thrombosis (DVT) Systemic lupus erythematosus Uterine cancer Surgical History Surgical History History of cardiac catheterization History of hysterectomy For uterine cancer. History of tonsillectomy Status post excision of lipoma Family History Family History Father Cancer Mother Hypertension Sibling Hypertension Social History Social History Social History: lives alone and has 2 children and 2 step child. retired from [employer] in [employer]. Healthcare power of report checker: Kapil Song, son. Code status: full code Smoking packs per day: 0.5 Smoking cigarettes per day: 10.0 Years smoked: 62 Smoking pack-years: 31.00 Smoking status: Current every day smoker Tobacco type: cigarettes Alcohol intake: never Substance use: never Lack of Transportation: No Lack of Food: Never True Current Housing: I Do Not Have Housing Concerned About Future Housing: No Difficulty Paying Gas/Electric Bills: No Difficulty Paying for Meds: No Currently Unemployed: No Education: Bachelor's Degree Difficulty w/ Childcare or Family Care: No Spiritual care concerns: No Anes - Eval Final PreProcedure Day of Procedure 03/04/23 07:53 Patient weight: normal Heart: regular rate and rhythm Lungs: clear to auscultation Airway: Mallampati scale class III Neurological: alert and oriented Last oral intake: >/= 8 hours ASA classification: III Emergent: no Anesthetic plan: proceed Anesthesia type and monitoring: general ETT and standard monitoring Results Review: All pre-operative results and documents have been reviewed as part of the pre-operative evaluation. Informed Consent: The patient's anesthetic plan and its attendant risks and benefits were discussed with the patient/family/POA. Questions were solicited and answers provided to the satisfaction of the patient/family/POA.
--- NOTE | 2023-03-04 07:57 | WPDHPUPDATE1 ---
History and Physical Update Update Date/Time: 03/04/23 07:57 History and Physical has been reviewed, including an updated exam of the patient. There are NO changes in the patient's condition. Risks, benefits, and alternatives have been discussed and questions answered. Patient agrees to proceed with procedure.
[2023-03-04] MEDS: ceFAZolin 2 GM/D5W 50 ML 2 GM/50 ML BAG IVPB ×2 (07:58→16:18)
[2023-03-04] MEDS: BUPivacaine HCL 0.5% 10 ML AMP 30 ML INFILTRATE (08:49)
--- NOTE | 2023-03-04 09:08 | PC.NURSE ---
To OR per bed at 0740, IV saline locked. Report given to HEIDY Barfield.
[2023-03-04] MEDS: LACTATED RINGERS 1,000 ML 30 ML IV CONT ×2 (09:53→09:55)
--- NOTE | 2023-03-04 10:03 | P.OP_ITS ---
Procedure Note - Detailed Date of Procedure 03/04/23 Pre-op Diagnosis transcervical right femoral neck fracture Post-op Diagnosis Same Procedure Performed bipolar right hip hemiarthroplasty Surgeon Lele Arias MD Player Services Representative Moy Moreno Anesthesia General Description of Procedure The patient was identified and proper site identified, then taken back to the operating room and transferred to the OR table. After general anesthetic induction and intubation, the patient was positioned in the left lateral decubitus position in the usual manner for a right hip procedure, and secured with padded hip positioner making sure the torso and extremities were properly padded. The right lower extremity was prepped and draped in the usual sterile fashion. A curvilinear incision was made over the greater trochanter and sharp dissection carried down through the subcutaneous tissue to the gluteus fascia and IT band which were divided in line with the incision. The anterior 1/2 of the abductors were sharply dissected off the greater trochanter developing the interval between the abductors and the capsule. The capsule was divided in an inverted-T fashion exposing the fracture site. A neck cut was made about one fingerbreadth above the level of the lesser trochanter. Head fragment was removed and the acetabulum cleared of debris. The acetabulum was sized to 47 mm. The proximal femur was prepared for the size nine Press-Fit. Trial reduction was undertaken and the hip was noted to be stable through range of motion. A size nine echo stem was impacted in about 15? of anteversion following the patient's anatomy. Through trialing it was noted that a 28, -6 head with 47 bipolar cup configuration gave mandaen of leg lengths with excellent stability. The neck of the femoral component was cleaned and dried and the real components in those sizes were attached to the femoral stem. After final thorough lavage of the joint, the hip was again reduced. The capsule and tremaine-incisional tissues were infiltrated with 30 milliliters of 0.5% plain Marcaine. Surgicel powder was placed deep and superficial to the deep fascia during the closure. The capsule was repaired with #2 Vicryl suture. The abductors were repaired to the greater trochanter with #5 Ethibond suture passed through a bony bridge. The deep fascia was reapproximated with 0 looped PDS suture. Deeper layers of the subcu reapproximated with 0 looped PDS. 3-0 Monocryl, 2-0 strata fix and tissue adhesive were used for the skin, and a sterile dressing was applied. Procedure was well tolerated and there were no known intraoperative complications. Estimated Blood Loss 100 Drains No Packing No Pathology None sent Complications No immediate complications Condition Stable Disposition PACU [facility] Billing Surgery - Charge Forward: Surgery Billing ([id number])
[2023-03-04] MEDS: fentaNYL CITRATE INJ (*CRX) 100 MCG/2 ML VIAL 25 MCG IV PUSH ×4 (10:36→11:45)
[2023-03-04] MEDS: LEVALBUTEROL NEB 1.25 MG/3 ML INHALATION (10:45)
--- NOTE | 2023-03-04 11:31 | PM.IMPN ---
Progress Note: A&P Assessment and Plan (1) Transcervical fracture of right femur: Qualifiers: Encounter type: initial encounter Fracture type: closed Qualified Code(s): S72.031A - Displaced midcervical fracture of right femur, initial encounter for closed fracture Code(s): S72.031A - Displaced midcervical fracture of right femur, initial encounter for closed fracture Status: Acute Assessment and Plan: Dr. Arias orthopedic surgery Has been consulted. Patient going for surgery today. Will continue to follow continue with analgesics Coumadin is currently on hold at this time. Hold valsartan for surgery (2) Systemic lupus erythematosus: Code(s): M32.9 - Systemic lupus erythematosus, unspecified Status: Acute Assessment and Plan: Continue with current medications. (3) Essential tremor: Code(s): G25.0 - Essential tremor Status: Acute Assessment and Plan: Continue with propanolol and carbidopa levodopa (4) Paroxysmal atrial fibrillation: Code(s): I48.0 - Paroxysmal atrial fibrillation Status: Acute Assessment and Plan: the patient is currently on propanolol and her Coumadin is on hold at this point due to surgery (5) Chronic anticoagulation: Code(s): Z79.01 - jail (current) use of anticoagulants Status: Acute Assessment and Plan: Coumadin is on hold. The patient has a history of AFib as well as PEs and DVTs. (6) Hypertension: Code(s): I10 - Essential (primary) hypertension Status: Acute Assessment and Plan: Continue with amlodipine and propanolol. Hold valsartan to avoid any acute kidney injury Subjective Date/time seen: 03/04/23 11:31 Interval history: Patient going for surgery today Review of Systems Review of Systems: All systems reviewed & are unremarkable except as noted in HPI and below Constitutional: Constitutional: Reports as per HPI and Reports no additional constitutional complaints Eyes: Eyes: Reports as per HPI and Reports no additional eye complaints ENT: Reports system reviewed and no additional complaints, except as documented and Reports Normal hearing present Cardiovascular: Cardiovascular: Reports no additional cardiovascular complaints Respiratory: Respiratory: Reports no additional respiratory complaints and Reports no additional respiratory complaints Gastrointestinal: Gastrointestinal: Reports as per HPI and Reports no additional gastrointestinal complaints Musculoskeletal: Musculoskeletal: Reports no additional musculoskeletal complaints Integumentary/Breasts: Skin/Breast: Reports system reviewed and no additional complaints, except as docu and Reports as per HPI Neurologic: Reports system reviewed and no additional complaints, except as documented, Reports as per HPI and Reports Normal hearing present Psychiatric: Psychiatric: Reports no additional psychiatric complaints and Reports as per HPI Endocrine: Endocrine: Reports no additional endocrine complaints Hematologic/Lymphatic: Hematologic/Lymphatic: Reports no additional hematologic/lymphatic complaints Allergic/Immunologic: Allergic/Immunologic: Reports no additional allergic/immunologic complaints Exam Const: General: cooperative, healthy appearing, comfortable, no acute distress, well developed, alert, awake, Physically active, average body habitus and well nourished Nutritional Appearance: average body habitus and well nourished Orientation/consciousness: oriented to person, oriented to place, oriented to time and patient oriented x3 Limitations: no limitations HENMT: Head: normal to inspection, No palpable skull fracture present, normocephalic and atraumatic Ears: hearing grossly normal bilaterally and external ears normal Face/Nose/Sinus: Normal external nose present and Normal nares present Eyes: General: appearance normal, both eyes and all related structures Alignment and Po
--- NOTE | 2023-03-04 12:25 | PC.NURSE ---
Returned from OR per bed at 1205. Report received from HEIDY Salmeron.
[2023-03-04] MEDS: FUROSEMIDE INJ 40 MG/4 ML VIAL 20 MG IV PUSH (12:39)
[2023-03-04] MEDS: CARBIDOPA/LEVODOPA 25/100 MG TABLET 1 TABLET PO ×2 (14:53→18:01)
[2023-03-04] MEDS: amLODIPine BESYLATE 5 MG TABLET PO (14:53)
[2023-03-04] MEDS: HYDROcodone/acetaminophen (*CRX) 7.5-325 MG TABLET 1 TAB PO (14:58)
[2023-03-04] MEDS: SENNA/DOCUSATE SODIUM TABLET 2 TAB PO (18:01)
[2023-03-04] MEDS: SODIUM CHLORIDE 0.9% IV 500 ML 999 ML IV CONT (18:36)
[2023-03-04] MEDS: FAMOTIDINE 20 MG TABLET PO (20:15)
[2023-03-04] MEDS: WARFARIN (*PBKC) 5 MG TABLET 10 MG PO (20:15)
[2023-03-04] MEDS: SODIUM CHLORIDE 0.9% IV 500 ML IV CONT (20:32)
[2023-03-05] VITALS (7 sets, daily range): BP systolic 90–106; BP diastolic 40–67; PULSE 70–84; RESP 16–20; TEMP 36.5–36.9; O2SAT 92–98
[2023-03-05] MEDS: HYDROcodone/acetaminophen (*CRX) 7.5-325 MG TABLET 1 TAB PO (04:46)
[2023-03-05 06:20] LABS: Basophils Percent Auto 0.3 % (0.2-1.2); Eosinophils Percent Auto 0.2 % (0-4.4); Hematocrit 32.2 % (37.0-47.0); Hemoglobin 11.1 g/dL (12.0-15.0); Immature Granulocyte Absolute 0.03 K/mm3 (0.00-0.031); Immature Granulocyte Percent A 0.3 % (0-0.5); Lymphocytes Absolute Auto 0.52 K/mm3 (0.9-3.2); Lymphocytes Percent Auto 5.8 % (18.3-44.2); Mean Corpuscular HGB Conc 34.5 g/dl (32-36); Mean Corpuscular Hemoglobin 34.4 pg (26-34); Mean Corpuscular Volume 99.7 fl (80-100); Mean Platelet Volume 10.4 fl (7.4-10.4); Monocytes Absolute Auto 0.9 K/mm3 (0.1-0.6); Neutrophils Absolute Auto 7.5 K/mm3 (1.3-6.7); Neutrophils Percent Auto 83.4 % (45.5-73.1); Platelet Count Result 154 k/mm3 (150-375); Red Blood Count 3.23 M/mm3 (4.2-5.4); Red Cell Distribution Width 12.3 % (11.5-14.5); White Blood Count 8.9 K/mm3 (4.5-10.0)
[2023-03-05 06:32] LABS: Anion Gap 4 mmol/L (8-16); Blood Urea Nitrogen 23 mg/dL (7-17); Calcium 7.7 mg/dL (8.4-10.2); Carbon Dioxide 31 mmol/L (22-30); Chloride 101 mmol/L (98-107); Estimated CRCL calculation 41 ml/min; Estimated Glomerular Filt Rate > 60; Glucose 112 mg/dL (65-110); Potassium 3.8 mmol/L (3.4-5.0); Sodium 136 mmol/L (137-145)
--- NOTE | 2023-03-05 07:41 | WPDANESPN ---
Anes - Prog Note Post-Op Date/Time: 03/05/23 07:41 Vital Signs: Last Vital Signs Temp 36.6 C 03/05/23 05:45 Pulse 84 03/05/23 05:45 Resp 20 03/05/23 05:45 BP 100/50 L 03/05/23 05:45 Pulse Ox 97 03/05/23 05:45 O2 Del Method Nasal Cannula 03/04/23 18:06 O2 Flow Rate 3 03/04/23 18:06 FiO2 36 03/03/23 21:35 Pain Score (VAS): 2 I/O: Intake & Output 03/04/23 03/04/23 03/05/23 15:59 23:59 07:59 Intake Total 800 650 500 Output Total 1000 Balance 800 -350 500 Laboratory Tests 03/05/23 06:16 03/05/23 06:16 03/05/23 06:16 WBC 8.9 RBC 3.23 L Hgb 11.1 L Hct 32.2 L MCV 99.7 MCH 34.4 H MCHC 34.5 RDW 12.3 Plt Count 154 MPV 10.4 Immature Gran % (Auto) 0.3 Neut % (Auto) 83.4 H Lymph % (Auto) 5.8 L [place] % (Auto) 10.0 H Eos % (Auto) 0.2 Baso % (Auto) 0.3 Lymph # (Auto) 0.52 L [place] # (Auto) 0.9 H Eos # (Auto) 0.0 Baso # (Auto) 0.0 Abs Immat Gran (auto) 0.03 Absolute Neuts (auto) 7.5 H Absolute Nucleated RBC 0.0 Nucleated RBC % 0.0 Sodium 136 L Potassium 3.8 Chloride 101 Carbon Dioxide 31 H Anion Gap 4 L BUN 23 H Creatinine 0.80 Estim Creat Clear Calc 41 Estimated GFR > 60 Glucose 112 H Calcium 7.7 L Patient Feedback: Patient satisfied with anesthetic care.
[2023-03-05] MEDS: ceFAZolin 2 GM/D5W 50 ML 2 GM/50 ML BAG IVPB ×2 (08:28)
[2023-03-05] MEDS: SENNA/DOCUSATE SODIUM TABLET 2 TAB PO ×2 (08:29→17:09)
[2023-03-05] MEDS: FAMOTIDINE 20 MG TABLET PO ×2 (08:30→19:48)
[2023-03-05] MEDS: CARBIDOPA/LEVODOPA 25/100 MG TABLET 1 TABLET PO ×3 (08:30→17:08)
[2023-03-05] MEDS: polyethylene glycoL 3350 17 GM POWD.PACK PO (08:38)
--- NOTE | 2023-03-05 10:52 | PM.IMPN ---
Progress Note: A&P Assessment and Plan (1) Transcervical fracture of right femur: Qualifiers: Encounter type: initial encounter Fracture type: closed Qualified Code(s): S72.031A - Displaced midcervical fracture of right femur, initial encounter for closed fracture Code(s): S72.031A - Displaced midcervical fracture of right femur, initial encounter for closed fracture Status: Acute Assessment and Plan: Status post surgical fixation continue with analgesics Coumadin resumed Resume valsartan Pending PT OT and rehab placement (2) Systemic lupus erythematosus: Code(s): M32.9 - Systemic lupus erythematosus, unspecified Status: Acute Assessment and Plan: Continue with current medications. (3) Essential tremor: Code(s): G25.0 - Essential tremor Status: Acute Assessment and Plan: Continue with propanolol and carbidopa levodopa (4) Paroxysmal atrial fibrillation: Code(s): I48.0 - Paroxysmal atrial fibrillation Status: Acute Assessment and Plan: the patient is currently on propanolol and her Coumadin is on hold at this point due to surgery (5) Chronic anticoagulation: Code(s): Z79.01 - residential (current) use of anticoagulants Status: Acute Assessment and Plan: The patient has a history of AFib as well as PEs and DVTs. Coumadin restarted (6) Hypertension: Code(s): I10 - Essential (primary) hypertension Status: Acute Assessment and Plan: Continue with amlodipine and propanolol. Resume valsartan with holding parameters Subjective Date/time seen: 03/05/23 10:52 Interval history: Patient reports pain around the surgical site. No other complaints Review of Systems Review of Systems: All systems reviewed & are unremarkable except as noted in HPI and below Constitutional: Constitutional: Reports as per HPI and Reports no additional constitutional complaints Eyes: Eyes: Reports as per HPI and Reports no additional eye complaints ENT: Reports system reviewed and no additional complaints, except as documented and Reports Normal hearing present Cardiovascular: Cardiovascular: Reports no additional cardiovascular complaints Respiratory: Respiratory: Reports no additional respiratory complaints and Reports no additional respiratory complaints Gastrointestinal: Gastrointestinal: Reports as per HPI and Reports no additional gastrointestinal complaints Musculoskeletal: Musculoskeletal: Reports no additional musculoskeletal complaints Integumentary/Breasts: Skin/Breast: Reports system reviewed and no additional complaints, except as docu and Reports as per HPI Neurologic: Reports system reviewed and no additional complaints, except as documented, Reports as per HPI and Reports Normal hearing present Psychiatric: Psychiatric: Reports no additional psychiatric complaints and Reports as per HPI Endocrine: Endocrine: Reports no additional endocrine complaints Hematologic/Lymphatic: Hematologic/Lymphatic: Reports no additional hematologic/lymphatic complaints Allergic/Immunologic: Allergic/Immunologic: Reports no additional allergic/immunologic complaints Exam Const: General: cooperative, alert, awake and Physically active Nutritional Appearance: average body habitus and well nourished Orientation/consciousness: oriented to person, oriented to place, oriented to time and patient oriented x3 Limitations: no limitations HENMT: Head: normal to inspection, No palpable skull fracture present, normocephalic and atraumatic Ears: hearing grossly normal bilaterally and external ears normal Face/Nose/Sinus: Normal external nose present and Normal nares present Eyes: General: appearance normal, both eyes and all related structures Alignment and Position: alignment normal Periorbital: periorbital findings normal Eyelids: eyelids normal Sclera: sclerae normal Pupils: Equal, round and reactive pupils
[2023-03-05 11:08] LABS: INR 1.6; Prothrombin Time 19.7 Seconds (11.1-14.7)
--- NOTE | 2023-03-05 12:56 | PM.PNORT ---
Progress Note: A&P Assessment and Plan (1) Transcervical fracture of right femur: Qualifiers: Encounter type: initial encounter Fracture type: closed Qualified Code(s): S72.031A - Displaced midcervical fracture of right femur, initial encounter for closed fracture Code(s): S72.031A - Displaced midcervical fracture of right femur, initial encounter for closed fracture Status: Resolved Plan plan to start to mobilize. Agree with the tentative plan of acute rehab followed by longer term convalescence. I spoke with her son who indicated the desire to have her venture sleepy in assisted living and I would agree with that plan. I think moving forward she should use a walker full-time and not try to progress back to a cane. We also did discuss in detail yesterday and today the implications of this type of an injury in somebody of her age and with her medical issues. Coumadin has been restarted. Was subtherapeutic on admission and so the current home dose may need to be adjusted. Subjective Subjective Date/Time Seen: 03/05/23 12:56 Post Op day: 1 ( Right hip bipolar replacement) Interval history: 83-year-old female postop day one right hip bipolar replacement. Appears a bit more comfortable than yesterday. Is complaining of some pain in the right hip area, not unexpected. Review of Systems Review of Systems: ROS unobtainable: Yes other ( No change from admission) Exam Const: General: cooperative and no acute distress GI: Inspection: non-distended Extrem: Other: right hip wound dry. No significant bruising. Very little swelling. Grossly motor and sensory function intact right lower extremity however exam limited somewhat secondary to right hip discomfort. Radiology Reports: Comments: EXAMINATION: XR hip RT min 2V DATE: 03/04/2023 10:07 INDICATION: Right hip arthroplasty. Postop. TECHNIQUE: 2 views of right hip were obtained. COMPARISON: Right hip radiograph 03/02/2023 FINDINGS: There is a bipolar right hip hemiarthroplasty in near-anatomic alignment. No fracture. There is gas in the soft tissues, consistent with recent surgery. IMPRESSION: 1. Bipolar right hip hemiarthroplasty in near-anatomic alignment. Reviewed, dictated and finalized at location A. Objective Data Vital Signs Vital Signs: Vital Signs - 24 hr 03/04/23 13:45 03/04/23 18:06 03/04/23 17:45 Temperature 97.5 F L 97.5 F L Pulse Rate 82 69 Respiratory Rate 16 14 Blood Pressure 113/62 78/54 L Pulse Oximetry 96 92 97 Oxygen Delivery Nasal Cannula Oxygen Flow Rate 3 03/04/23 19:12 03/04/23 21:27 03/05/23 00:35 Temperature 97.2 F L 98.4 F Pulse Rate 73 73 Respiratory Rate 20 20 Blood Pressure 102/70 104/55 L 104/56 L Pulse Oximetry 95 96 Oxygen Delivery Oxygen Flow Rate 03/05/23 05:45 03/05/23 07:35 03/05/23 08:27 Temperature 97.8 F 97.9 F Pulse Rate 84 78 Respiratory Rate 20 20 Blood Pressure 100/50 L 90/60 L Pulse Oximetry 97 94 Oxygen Delivery Nasal Cannula Oxygen Flow Rate 1 03/05/23 08:00 03/05/23 07:54 03/05/23 08:00 Temperature Pulse Rate Respiratory Rate Blood Pressure 106/54 L Pulse Oximetry 97 Oxygen Delivery Nasal Cannula Nasal Cannula Oxygen Flow Rate 3 1 03/05/23 08:05 03/05/23 12:14 Temperature 97.7 F Pulse Rate 81 Respiratory Rate 16 Blood Pressure 96/67 L Pulse Oximetry 92 98 Oxygen Delivery Nasal Cannula Oxygen Flow Rate 1 Intake/Output Intake/Output: Intake & Output 03/02/23 03/03/23 03/04/23 03/05/23 23:59 23:59 23:59 23:59 Intake Total 305 / 305 1450 / 1450 550 / 550 Output Total 975 / 975 1300 / 1300 Balance -670 / -670 150 / 150 550 / 550 Meds/Results Medications: Active Medications Generic Name Dose Route Start Last Admin Trade Name Freq PRN Reaso
[2023-03-05] MEDS: ACETAMINOPHEN 325 MG TABLET 650 MG PO ×2 (13:57→19:46)
[2023-03-05] MEDS: WARFARIN (*PBKC) 4 MG TABLET PO (19:48)
[2023-03-05] MEDS: KETOROLAC 15 MG/ML VIAL (*BKC) IV PUSH (23:42)
[2023-03-06] MEDS: HYDROcodone/acetaminophen (*CRX) 7.5-325 MG TABLET 1 TAB PO (01:48)
[2023-03-06 06:32] LABS: INR 1.9
[2023-03-06 06:33] VITALS: BP 123/56; PULSE 70; RESP 20; TEMP 37.2; O2SAT 96
[2023-03-06 09:27] VITALS: BP 110/72
[2023-03-06] MEDS: SENNA/DOCUSATE SODIUM TABLET 2 TAB PO (09:33)
[2023-03-06] MEDS: FAMOTIDINE 20 MG TABLET PO (09:33)
[2023-03-06] MEDS: CARBIDOPA/LEVODOPA 25/100 MG TABLET 1 TABLET PO (09:33)
[2023-03-06] MEDS: polyethylene glycoL 3350 17 GM POWD.PACK PO (09:34)
--- NOTE | 2023-03-06 12:57 | PM.PNORT ---
Progress Note: A&P Assessment and Plan (1) Transcervical fracture of right femur: Qualifiers: Encounter type: initial encounter Fracture type: closed Qualified Code(s): S72.031A - Displaced midcervical fracture of right femur, initial encounter for closed fracture Code(s): S72.031A - Displaced midcervical fracture of right femur, initial encounter for closed fracture Status: Resolved Plan Agree with plan for acute rehab. Instructions put into the discharge orders for follow-up with me in eight weeks. Subjective Subjective Date/Time Seen: 03/06/23 12:57 Post Op day: 3 Interval history: 83-year-old female postop day three right bipolar replacement. Doing little bit better each day. Exam Const: General: cooperative and no acute distress GI: Inspection: non-distended Extrem: Other: Right hip wound clean and dry. No erythema or swelling of significance. Neurovascular status right lower extremity grossly intact. Calves negative. Objective Data Vital Signs Vital Signs: Vital Signs - 24 hr 03/05/23 20:00 03/06/23 06:33 03/06/23 09:27 Temperature 98.5 F 98.9 F Pulse Rate 70 70 Respiratory Rate 20 20 Blood Pressure 92/40 L 123/56 L 110/72 Pulse Oximetry 97 96 Intake/Output Intake/Output: Intake & Output 03/03/23 03/04/23 03/05/23 03/06/23 23:59 23:59 23:59 23:59 Intake Total 305 / 305 1450 / 1450 550 / 550 120 / 120 Output Total 975 / 975 1300 / 1300 175 / 175 Balance -670 / -670 150 / 150 550 / 550 -55 / -55 Meds/Results Medications: Active Medications Generic Name Dose Route Start Last Admin Trade Name Freq PRN Reason Stop Dose Admin Acetaminophen 650 mg 03/02/23 21:21 Acetaminophen 325 Mg Tablet PO Q4H PRN Headache Acetaminophen 650 mg 03/04/23 12:00 03/05/23 19:46 Acetaminophen 325 Mg Tablet PO 650 mg Q6H PRN Administration Mild Pain (1-3) or Fever Hydrocodone Bitart/Acetaminophen 1 tab 03/05/23 08:29 03/06/23 01:48 Hydrocodone/Acetaminophen (*Crx) 7.5-325 Mg Tablet PO 1 tab Q4H PRN Administration Pain Rated 4-6 Amlodipine Besylate 5 mg 03/03/23 09:00 03/06/23 09:32 Amlodipine Besylate 5 Mg Tablet PO 04/02/23 08:59 Not Given DAILY JOSY Carbidopa/Levodopa 1 tablet 03/02/23 21:20 03/06/23 09:33 Carbidopa/Levodopa 25/100 Mg Tablet PO 1 tablet TID JOSY Administration Famotidine 20 mg 03/04/23 21:00 03/06/23 09:33 Famotidine 20 Mg Tablet PO 20 mg Q12HR JOSY Administration Fentanyl Citrate 25 mcg 03/04/23 07:54 03/04/23 11:45 Fentanyl Citrate Inj (*Crx) 100 Mcg/2 Ml Vial IV PUSH 25 mcg Q2M PRN Administration Pain Lorazepam 0.5 mg 03/02/23 21:18 03/03/23 19:50 Lorazepam Inj (*Crx) 2 Mg/Ml Vial IV PUSH 0.5 mg Q6H PRN Administration Anxiety Naloxone HCl 0.1 mg 03/04/23 12:00 Naloxone Hcl 0.4 Mg/Ml Vial IV PUSH Q2M PRN Opiate Reversal Ondansetron HCl 4 mg 03/02/23 23:18 Ondansetron Inj 4 Mg/2 Ml Vial IV PUSH Q4H PRN Nausea And Vomiting Polyethylene Glycol 17 gm 03/05/23 09:00 03/06/23 09:34 Polyethylene Glycol 3350 17 Gm Powd.Pack PO 17 gm QAM JOSY Administration Propranolol HCl 120 mg 03/02/23 21:00 03/05/23 19:43 Propranolol Hcl 60 Mg Capsule Cr PO 04/01/23 20:59 Not Given HS JOSY Senna/Docusate Sodium 2 tab 03/04/23 17:00 03/06/23 09:33 Senna/Docusate Sodium Tablet PO 2 tab BID JOSY Administration Valsartan 320 mg 03/06/23 09:00 03/06/23 09:33 Valsartan 160 Mg Tablet PO Not Given DAILY JOSY Warfarin Sodium 4 mg 03/05/23 21:00 03/05/23 19:48 Warfarin (*Pbkc) 4 Mg Tablet PO 4 mg HS JOSY Administration Radiology Results: ITS Impressions Chest X-Ray 03/02/23 17:04 IMPRESSION: 1. Hyperexpansion of lungs suggestive but not diagnostic of COPD. 2. Mild right basilar discoid atelectasis. Hip/Pelvis X-Ray 03/02/23 17:09 IMPRESSION: 1. , Di
--- NOTE | 2023-04-04 16:38 | PM.DS ---
DS: Admitting Diagnosis Discharge Date 03/06/23 Admitting Diagnosis Femur fracture DS: Discharge Diagnosis Discharge Diagnosis (1) Transcervical fracture of right femur: Qualifiers: Encounter type: initial encounter Fracture type: closed Qualified Code(s): S72.031A - Displaced midcervical fracture of right femur, initial encounter for closed fracture Code(s): S72.031A - Displaced midcervical fracture of right femur, initial encounter for closed fracture Status: Resolved Assessment and Plan: Status post surgical fixation continue with analgesics Coumadin resumed Resume valsartan Pending PT OT and rehab placement (2) Systemic lupus erythematosus: Code(s): M32.9 - Systemic lupus erythematosus, unspecified Status: Acute Assessment and Plan: Continue with current medications. 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 Coumadin restarted (6) Hypertension: Code(s): I10 - Essential (primary) hypertension Status: Acute Assessment and Plan: Continue with amlodipine and propanolol. Resume valsartan with holding parameters DS: Summary Hospital Course Hospital Course: Patient is admitted for femoral fracture. Status post fixation by Orthopedics. Anticoagulation on discharge. Otherwise patient can be discharged to rehab facility Time Spent with Patient Time attestation: Total time spent providing and/or coordinating discharge services: Exam Const: General: cooperative, healthy appearing, comfortable, no acute distress, well developed, alert, awake, Physically active, average body habitus and well nourished Nutritional Appearance: average body habitus and well nourished Orientation/consciousness: oriented to person, oriented to place, oriented to time and patient oriented x3 Limitations: no limitations HENMT: Head: normal to inspection, No palpable skull fracture present, normocephalic and atraumatic Ears: hearing grossly normal bilaterally and external ears normal Face/Nose/Sinus: Normal external nose present and Normal nares present Eyes: General: appearance normal, both eyes and all related structures Alignment and Position: alignment normal Periorbital: periorbital findings normal Eyelids: eyelids normal Sclera: sclerae normal Pupils: Equal, round and reactive pupils present EOM: EOMs intact bilaterally Neck: Neck: normal visual inspection, full ROM, no lymphadenopathy, trachea midline and supple Chest: Chest palpation & inspection: normal inspection of the chest Resp: Effort & Inspection: normal respiratory effort Auscultation: clear to auscultation bilaterally Cardio: Palpation: normal PMI Rate: regular rate Rhythm: regular rhythm Heart sounds: S1 normal heart sound present and S2 normal heart sound present Peripheral pulses: Peripheral pulses 2+ throughout GI: Inspection: normal to inspection Auscultation: normal bowel sounds Rectal Exam: deferred Back/Spine/Pelvis: Cervical Spine: cervical ROM normal Skin: General skin exam: normal color Lesions: no lesions Rashes: no rashes Trauma: no lacerations or abrasions Wounds: no wounds Hair: normal Nails: normal Neuro: General: oriented to person, oriented to place, oriented to time and patient oriented x3 Cranial nerves: Yes Equal, round and reactive pupils present and Yes Normal hearing present Cognition (Neuro): normal cognit
== END 2023-03-06 13:20 | DRG 522 ==
LOC: ANHED 16:02 → ANH3MEDSUR 18:18
PROVIDERS: Orthopaedic Surgery; Admitting Provider Internal Medicine; Emergency Provider Physician Assistant; PCP Internal Medicine Endocrinology, Diabetes & Metabolism; Visit Provider Chiropractor
PROC: 0SRR01A Replacement of Right Hip Joint, Femoral Surface with Metal Synthetic Substitute, Uncemented, Open Approach (ICD-10-PCS; CPT 27125; principal; 2023-03-04 08:00)
DX: S72.031A Displaced midcervical fracture of right femur, initial encounter for closed fracture (principal); G20 Parkinson's disease; W19.XXXA Unspecified fall, initial encounter; I48.0 Paroxysmal atrial fibrillation; M32.9 Systemic lupus erythematosus, unspecified; F17.210 Nicotine dependence, cigarettes, uncomplicated; Z79.01 Long term (current) use of anticoagulants; Z85.42 Personal history of malignant neoplasm of other parts of uterus; Z90.710 Acquired absence of both cervix and uterus; Z86.718 Personal history of other venous thrombosis and embolism; Z87.442 Personal history of urinary calculi
CPT/HCPCS: 36415; 51702; 71045; 73501; 73502; 80048; 80053; 85025; 85610; 85730; 93005; 94640; 96374; 96375; 96376; 97110; 97161; 97165; 97530; 97535; 99285; A9270; C1776; G0378; J0690; J1170; J1885; J1940; J2060; J2270; J2405; J3010; J3430; J7030; J7040; J7120

== ENCOUNTER 2025-01-19 15:25 | Outpatient (CLI) | payer MEDICARE, OTHER, SELFPAY ==
--- OUTSIDE RECORDS SUMMARY | 2025-01-19 16:28 | XMS_ITS | Encounter Summary ---
Author Organization [facility] Address [address] [place] [address] Care Team Providers Care First Grade Teacher Name Role Phone Josiah Mccormick MD Primary Care Provider + Encounter Details Date Type Department Care Team (Late st Contact Info) Description 01/12/2025 Results Follow-Up [facility] [address] [facility] [address], [place] [phone] Josiah Mccormick MD [address] [facility] [address], [place] [id number] Social History Tobacco Use Types Packs/Day Years Used Date Smoking Tobacco: Former Cigarettes 0.5 40 0 02/1983 - 02/2023 Smokeless Tobacco: Never Alcohol Use Standard Drinks/Week Comments Not Currently 0 (1 standard drink = 0.6 oz pur e alcohol) Comments No Sex and Gender Information Value Date Recorded Sex Assigned at Not on file Legal Sex 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
--- OUTSIDE RECORDS SUMMARY | 2025-01-19 16:28 | XMS_ITS | Referral Summary ---
Author Organization [place] [id number] Address [address] [place] [address] Care Team Providers Care Disaster Recovery Manager Name Role Phone Josiah Mccormick MD Primary Care Provider + Encounters Date Type Department Care Team Description 01/12/2025 Results Follow-Up [facility] [address] [place] [phone] Josiah Mccormick MD 01/12/2025 10:30 AM CDT Office Visit [facility] [address] [place] [phone] Josiah Gary MD 01/11/2025 3:45 PM CDT Lab [facility] [address] [place] [phone] Essential hypertension; Parkinson's disease, unspecified whether dyskinesia present, unspecified whether manifestations fluctuate (HCC); Essential tremor; Longstanding persistent atrial fibrillation (HCC); Lupus anticoagulant disorder; Vitamin D deficiency 01/11/2025 12:00 PM CDT Office Visit [facility] [address] [place] [phone] Josiah Mccormick MD Essential hypertension (Primary Dx); Parkinson's disease, unspecified whether dyskinesia present, unspecified whether manifestations fluctuate (HCC); Essential tremor; Longstanding persistent atrial fibrillation (HCC); Lupus anticoagulant disorder; Vitamin D deficiency from Last 3 Months Allergies Active Allergy Reactions Criticality Noted Date Comments Sulfa (Sulfonamide Antibiotics) Unknown 06/2020 Medications guaiFENesin-cod eine (GUAITUSS AC) liquid 100-10 mg/5 mL Take 10 mL by mouth 4 (four) times a day as needed for cough 120 mL 1 01/16/2024 Active propranolol LA (INDERAL LA) 120 mg 24 hr capsule TAKE 1 CAPSULE BY MOUTH EVERYDAY AT BEDTIME 90 capsule 3 01/22/2024 Active Eliquis 5 mg tablet TAKE 1 TABLET BY MOUTH TWICE A DAY 180 tablet 3 05/22/2024 Active amlodipine-vals jesús (EXFORGE) 5-320 mg per tablet TAKE 1 TABLET BY MOUTH EVERY DAY 90 tablet 3 05/22/2024 Active carbidopa-levod opa (SINEMET) 25-100 mg per tablet TAKE 1 TABLET BY MOUTH THREE TIMES A DAY 270 tablet 3 09/24/2024 Active flecainide (TAMBOCOR) 50 mg tablet TAKE 1 TABLET BY MOUTH EVERY 12 HOURS 180 tablet 1 11/05/2024 Active Active Problems Problem Noted Date Diagnosed Date Parkinson's disease, unspeci fied whether dyskinesia present, unspecified whether manifestations fluctuate 01/16/2024 Essential tremor 02/14/2023 Essential hypertension 2021 Longstanding persistent atrial fibrillation 02/2021 Assessment & Plan (09/18/2022 2:29 PM BERRY PICKER MACHINE OPERATOR): Irr Irr HR noted today, reports SOB and fatigue ER encouraged, son and patient in agreement Resolved Problems Problem Noted Date Diagnosed Date Resolved Date Weight loss, non-intentional 09/04/2022 01/11/2025 Assessment & Plan (09/04/2022 2:28 PM BERRY PICKER MACHINE OPERATOR): Will get CXR Records for recent hospitalization requested Left leg pain 09/04/2022 09/18/2022 Assessment & Plan (09/04/2022 2:31 PM BERRY PICKER MACHINE OPERATOR): Suspect some lumbar stenosis may be contributing, will try to obtain OSH records and go from there Will do MDP, advised she needs to eat with this Gait difficulty 07/10/2022 01/16/2024 Assessment & Plan (09/04/2022 2:28 PM BERRY PICKER MACHINE OPERATOR): Home PT/OT Unsteadiness on feet 07/10/2022 022 Overview (07/10/2022): order physical therapy for balance Parkinsonian tremor 07/11/2021 07/30/20 Assessment & Plan (09/04/2022 2:29 PM BERRY PICKER MACHINE OPERATOR): Has upcoming Neuro appt 09/21/22 Lupus anticoagulant disorder 2021 07/30/2024 Immunizations Immunization Administration Dates Next Due Influenza, Quad, Adjuvantate d, Intramuscular 07/24/2021 Influenza, Quadrivalent, Meka l Culture-based MDCK, Preservative Free, Antibiotic Free, Intramuscular 07/24/2019 Influenza, Quadrivalent, Hig h Dose, Preservative Free, Intrr 07/25/2020 Influenza, Trivalent, High D ose, Split, Preservative Free, Intramuscular 07/27/2018,07/26/2018,07/10/2016,07/16 Moderna SARS-CoV-2 Monovalen t Vaccination (12+ YRS) 12/26/2020,11/24/2020 ZOSTER LIVE 10/03/2014 Social History Tobacco Use Types Packs/Day Years Used Date Smoking Tobacco: Former Cigarettes 0.5 40 0 02/1983 - 02/2023 Smokeless Tobacco: Never Tobacco Cessation:Counseling Given: Not Answered Alcohol Use Standard Drinks/Week Comments Not Currently 0 (1 standard drink = 0.6 oz pur e alcohol) Comments No Sex and Gender Information Value Date Recorded Sex Assigned at Not on file Legal Sex Female 7:53 AM BERRY PICKER MACHINE OPERATOR Gender Identity Not on file Sexual Orientation Not on file Last Filed Vital Signs Vital Sign Reading Time Taken Comments Blood Pressure 121/58 01/12/2025 10:35 AM CDT Pulse 120 01/12/2025 10:35 AM CDT Temperature 37 C (98.6 F) 01/16/2024 9:53 AM CDT Respiratory Rate 18 01/28/2024 1:56 PM CDT Oxygen Saturation 94% 01/12/2025 10:35 AM CDT Inhaled Oxygen Concentration - - Weight 56.8 kg (125 lb 3.2 oz) 01/12/2025 10:35 AM CDT Height 162.6 cm (5' 4.02 ) 01/12/2025 10:35 AM C DT Body Mass Index 21.48 01/12/2025 10:35 AM CDT Plan of Treatment Not on file Procedures Procedure Name Priority Date/Time Associated Diagnosis Comments EGFR Routine 01/11/2025 1:33 PM CDT Essential hypertension Parkinson's disease, unspecified whether dyskinesia present, unspecified whether manifestations fluctuate (HCC) Essential tremor Longstanding persistent atrial fibrillation (HCC) Lupus anticoagulant disorder Vitamin D deficiency DIFFERENTIAL AUTO Routine 01/11/2025 1:3 3 PM CDT Essential hypertension Parkinson's disease, unspecified whether dyskinesia present, unspecified whether manifestations fluctuate (HCC) Essential tremor Longstanding persistent atrial fibrillation (HCC) Lupus anticoagulant disorder Vitamin D deficiency CBC WITH AUTO DIFFERENTIAL Routine 01/11/2025 1:33 PM CDT Essential hypertension Parkinson's disease, unspecified whether dyskinesia present, unspecified whether manifestations fluctuate (HCC) Essential tremor Longstanding persistent atrial fibrillation (HCC) Lupus anticoagulant disorder Vitamin D deficiency COMPREHENSIVE METABOLIC PANEL Routine 01/11/2025 1:33 PM CDT Essential hypertension Parkinson's disease, unspecified whether dyskinesia present, unspecified whether manifestations fluctuate (HCC) Essential tremor Longstanding persistent atrial fibrillation (HCC) Lupus anticoagulant disorder Vitamin D deficiency T4, FREE Routine 01/11/2025 1:33 PM CDT Essential hypertension Parkinson's disease, unspecified whether dyskinesia present, unspecified whether manifestations fluctuate (HCC) Essential tremor Longstanding persistent atrial fibrillation (HCC) Lupus anticoagulant disorder Vitamin D deficiency TSH Routine 01/11/2025 1:33 PM CDT Essential hypertension Parkinson's disease, unspecified whether dyskinesia present, unspecified whether manifestations fluctuate (HCC) Essential tremor Longstanding persistent atrial fibrillation (HCC) Lupus anticoagulant disorder Vitamin D deficiency VITAMIN D 25 HYDROXY Routine 01/11/2025 1:33 PM CDT Essential hypertension Parkinson's disease, unspecified whether dyskinesia present, unspecified whether manifestations fluctuate (HCC) Essential tremor Longstanding persistent atrial fibrillation (HCC) Lupus anticoagulant disorder Vitamin D deficiency from Last 3 Months Results * eGFR (01/11/2025 1:33 PM CDT) eGFR 66 >=60 mL/min/1. 73 m2 Comment: Interpretive Data Reference Interval Normal >/= 90 mL/min/1.73m2 Mildly decreased* 60 - 89 mL/min/1.73m2 Mildly to moderately decreased 45 - 59 mL/min/1.73m2 Moderately to severely decreased 30 - 44 mL/min/1.73m2 Severely decreased 15 - 29 mL/min/1.73m2 Kidney Failure < 15 mL/min/1.73m2 *Relative to young adult level Estimated glomerular filtration rate is determined by the 2020 CKD-EPI equation recommended by the National Kidney Foundation (A Unifying Approach to GFR Estimation: Recommendations of the NKF-ASK Task Force on Reassessing the Inclusion of Race in Diagnosing Kidney Disease, JASN 2020). The CKD-EPI equation should not be used for patients with unstable renal function and has not been validated in children and those over 70. Current interpretive data was last reviewed 2021. Blood 01/11/2025 1:33 PM CDT 01/11/2025 2:51 PM CDT us Josiah Mccormick MD LAB BLOOD ORDERABLES Fin al Result [facility] Department [place] [address] * Differential, auto (01/11/2025 1:33 PM CDT) Neutrophil abs 5.02 1.50 - 6.50 K/cumm Imm gran abs 0.02 0.00 - 0.10 K/cumm [facility] Lymphocyte abs 0.86 0.80 - 3.30 K/cumm [facility] Monocyte abs 0.49 0.20 - 0.80 K/cumm [facility] Eosinophil abs 0.13 0.00 - 0.50 K/cumm [facility] Basophil abs 0.02 0.00 - 0.10 K/cumm [facility] Neutrophil pct 76.8 % [facility] Comment: Interpretive Data Percent cell count reference ranges are not reported, since discordance with absolute values may lead to misinterpretation of CBC data. Current Interpretive Data was last revised on 2018. Imm gran pct 0.3 % [facility] Comment: Interpretive Data Percent cell count reference ranges are not reported, since discordance with absolute values may lead to misinterpretation of CBC data. Current Interpretive Data was last revised on 2018. Lymphocyte pct 13.1 % [facility] Comment: Interpretive Data Percent cell count reference ranges are not reported, since discordance with absolute values may lead to misinterpretation of CBC data. Current Interpretive Data was last revised on 2018. Monocyte pct 7.5 % [facility] Comment: Interpretive Data Percent cell count reference ranges are not reported, since discordance with absolute values may lead to misinterpretation of CBC data. Current Interpretive Data was last revised on 2018. Eosinophil pct 2.0 % [facility] Comment: Interpretive Data Percent cell count reference ranges are not reported, since discordance with absolute values may lead to misinterpretation of CBC data. Current Interpretive Data was last revised on 2018. Basophil pct 0.3 % [facility] Comment: Interpretive Data Percent cell count reference ranges are not reported, since discordance with absolute values may lead to misinterpretation of CBC data. Current Interpretive Data was last revised on 2018. Blood 01/11/2025 1:33 PM CDT 01/11/2025 2:51 PM CDT us Josiah Mccormick MD LAB BLOOD ORDERABLES Fin al Result [facility] Department [place] [address] * (ABNORMAL) CBC with auto differential (01/11/2025 1:33 PM CDT) WBC 6.54 3.80 - 9.90 K/cumm Hgb 14.3 11.9 - 15.5 g/dL [facility] Hct 41.3 35.6 - 45.5 % [facility] Plt 267 150 - 400 K/cumm [facility] MPV 10.8 9.1 - 12.3 fL [facility] RBC 4.13 3.90 - 5.20 M/cumm [facility] MCV 100.0(H) 81.3 - 96.4 fL [facility] MCH 34.6(H) 27.1 - 33.3 pg [facility] MCHC 34.6 32.3 - 35.7 g/dL [facility] RDW CV 12.1 11.1 - 14.9 % [facility] RDW SD 44.8 35.7 - 48.1 fL [facility] NRBC abs 0.00 0.00 - 0.01 K/cumm [facility] Blood 01/11/2025 1:33 PM CDT 01/11/2025 2:51 PM CDT Josiah Mccormick MD LAB BLOOD ORDERABLES Fin al Result Performing Organization Address City/[facility]/ZIP Co de Phone Number [facility] [place] [address] * Vitamin D 25 hydroxy (01/11/2025 1:33 PM CDT) [facility] Vitamin D 25-OH 43 30 - 80 ng/mL Blood 01/11/2025 1:33 PM CDT 01/11/2025 2:51 PM CDT Josiah Mccormick MD LAB BLOOD ORDERABLES Fin al Result [facility] [place] [address] * TSH (01/11/2025 1:33 PM CDT) [facility] Thyroid Stimulating Hormone 1.59 0.30 - 4.20 mcIUnit/mL Blood 01/11/2025 1:33 PM CDT 01/11/2025 2:51 PM CDT Josiah Mccormick MD LAB BLOOD ORDERABLES Fin al Result Performing Organization Address City/[facility] Co de Phone Number [facility] [place] [address] * T4, free (01/11/2025 1:33 PM CDT) Free T4 1.26 0.90 - 1.70 ng/dL Blood 01/11/2025 1:33 PM CDT 01/11/2025 2:51 PM CDT Josiah Mccormick MD LAB BLOOD ORDERABLES Fin al Result Performing Organization Address [facility] de Phone Number [facility] [place] [address] * (ABNORMAL) Comprehensive metabolic panel (01/11/2025 1:33 PM CDT) [facility] Sodium 143 135 - 145 mmol/L Potassium, pl 4.3 3.3 - 4.9 mmol/L [facility] Chloride 104 97 - 110 mmol/L [facility] CO2 29 22 - 32 mmol/L [facility] Anion gap 10 2 - 15 mmol/L [facility] BUN 23 6 - 25 mg/dL [facility] Creatinine 0.87 0.60 - 1.10 mg/dL [facility] Glucose 83 70 - 199 mg/dL [facility] Comment: Interpretive Data Fasting glucose >/= 126 mg/dl is diagnostic for diabetes. Fasting is defined as no caloric intake for at least 8 hours. Fasting glucose between 100 mg/dl to 125 mg/dl is diagnostic of prediabetes. In a patient with classic symptoms of hyperglycemia or hyperglycemic crisis, a random glucose >/= 200 mg/dl is diagnostic for diabetes. In the absence of unequivocal hyperglycemia, results should be confirmed by repeat testing. The classification and Diagnosis of Diabetes Diabetes Care 2021; 46: S19-S40. Current interpretive data was last revised 2022. Calcium 9.4 8.5 - 10.3 mg/dL [facility] Bilirubin, total 0.6 0.1 - 1.2 mg/dL [facility] Protein, pl 7.4 6.5 - 8.5 g/dL [facility] Albumin 4.3 3.5 - 5.0 g/dL [facility] Alk phos 68 40 - 130 Units/L [facility] ALT 5(L) 7 - 45 Units/L [facility] AST 21 10 - 45 Units/L [facility] Blood 01/11/2025 1:33 PM CDT 01/11/2025 2:51 PM CDT Josiah Mccormick MD LAB BLOOD ORDERABLES Fin al Result [facility] Department [place] [address] from Last 3 [place] [phone] MEDICARE [facility] MEDIC[facility] [place] MEDICARE [facility] [employer] [employer] [place] Care Teams Disaster Recovery Manager Relationship Specialty Start Date End Date Josiah Mccormick MD [address] [facility] [address] [place] [address] PCP - General 10/06/17
--- OUTSIDE RECORDS SUMMARY | 2025-01-19 16:28 | XMS_ITS | Clinical Summary ---
Author Organization [place] [address] [facility] Address [address] [place] [address] Care Team Providers Care Memorial Adviser Name Role Phone Josiah Mccormick MD Primary Care Provider + Allergies Active Allergy Reactions Criticality Noted Date [...] 02/2021 Assessment & Plan (09/18/2022 2:29 PM FIELD RESEARCH ASSISTANT): Irr Irr HR noted today, reports SOB and fatigue ER encouraged, son and patient in agreement Resolved Problems Problem Noted Date Diagnosed Date Resolved Date Weight loss, non-intentional 09/04/2022 01/11/2025 Assessment & Plan (09/04/2022 2:28 PM FIELD RESEARCH ASSISTANT): Will get CXR Records for recent hospitalization requested Left leg pain 09/04/2022 09/18/2022 Assessment & Plan (09/04/2022 2:31 PM FIELD RESEARCH ASSISTANT): Suspect some lumbar stenosis may be contributing, will try to obtain OSH records and go from there Will do MDP, advised she needs to eat with this Gait difficulty 07/10/2022 01/16/2024 Assessment & Plan (09/04/2022 2:28 PM FIELD RESEARCH ASSISTANT): Home PT/OT Unsteadiness on feet 07/10/2022 022 Overview (07/10/2022): order physical therapy for balance Parkinsonian tremor 07/11/2021 07/30/20 Assessment & Plan (09/04/2022 2:29 PM FIELD RESEARCH ASSISTANT): Has upcoming Neuro appt 09/21/22 Lupus anticoagulant disorder 2021 07/30/2024 Encounters Date Type Department Care Team Description 01/12/2025 10:30 AM CDT Office Visit [facility] [address] [place] [address] [address] [place] [id number] Josiah Gary MD 01/12/2025 Results Follow-Up [facility] [address] [facility] [facility] [address] [facility] [place] [phone] Josiah Mccormick MD 01/11/2025 3:45 PM CDT Lab [facility] [address] [place] [phone] Essential hypertension; Parkinson's disease, unspecified whether dyskinesia present, unspecified whether manifestations fluctuate (HCC); Essential tremor; Longstanding persistent atrial fibrillation (HCC); Lupus anticoagulant disorder; Vitamin D deficiency 01/11/2025 12:00 PM CDT Office Visit [facility] [address] [facility] [facility] [address] [place] [address] Josiah Mccormick MD Essential hypertension (Primary Dx); Parkinson's disease, unspecified whether dyskinesia present, unspecified whether manifestations fluctuate (HCC); Essential tremor; Longstanding persistent atrial fibrillation (HCC); Lupus anticoagulant disorder; Vitamin D deficiency from Last 3 Months Immunizations Immunization Administration Dates Next Due Influenza, Quad, Adjuvantate d, Intramuscular 07/24/2021 Influenza, Quadrivalent, Meka l Culture-based MDCK, Preservative Free, Antibiotic Free, Intramuscular 07/24/2019 Influenza, Quadrivalent, Hig h Dose, Preservative Free, Intrr 07/25/2020 Influenza, Trivalent, High D ose, Split, Preservative Free, Intramuscular 07/27/2018,07/26/2018,07/10/2016,07/16 Moderna SARS-CoV-2 Monovalen t Vaccination (12+ YRS) 12/26/2020,11/24/2020 ZOSTER LIVE 10/03/2014 Surgical History Surgery Date Site/Laterality Comments HYSTERECTOMY Medical History Medical History Date Comments Atrial fibrillation (HCC) Hypertension Lupus Tremor Uterine cancer (HCC) Social History Tobacco Use Types Packs/Day Years [...] on file Legal Sex Female 7:53 AM FIELD RESEARCH ASSISTANT Gender Identity Not on file Sexual Orientation Not on file Obstetrics History Last Filed Vital Signs Vital Sign Reading [...] 01/12/2025 10:35 AM CDT Plan of Treatment Health Maintenance Due Date Last Done Comments Depression Screening 1941 Fall Risk Assessment 1941 Osteoporosis Screening-Bone Density Scan 1941 DTaP/Tdap/Td Vaccine (1 - Tdap) 01/10/1952 Hepatitis B Screening 1959 Pneumococcal vaccine 65+ (1 of 1 - PCV) 1991 Well Visit 65+ 2006 Zoster Vaccine (2 of 3) 11/28/2014 10/03/2014 Covid-19 Vaccine (4 - 2023-2 5 season) 2024 08/24/2021, 12/26/2020, 11/24/2020 Influenza Vaccine Completed 08/22/2024, , 07/25/2020, Additional history exists Procedures Procedure Name Priority Date/Time Associated Diagnosis [...] MD LAB BLOOD ORDERABLES Fin al Result [facility] [place] [address] * Differential, auto (01/11/2025 1:33 PM CDT) Pathologist [facility] Neutrophil abs 5.02 1.50 - 6.50 K/cumm Imm gran abs 0.02 0.00 - 0.10 K/cumm [facility] Lymphocyte abs 0.86 0.80 - 3.30 K/cumm [facility] Monocyte abs 0.49 0.20 - 0.80 K/cumm [facility] Eosinophil abs 0.13 0.00 - 0.50 K/cumm [facility] Basophil abs 0.02 0.00 - 0.10 K/cumm [facility] Neutrophil pct 76.8 % [facility] Comment: Interpretive Data Percent cell count reference ranges are not reported, since discordance with absolute values may lead to misinterpretation of CBC data. Current Interpretive Data was last revised on 2018. Imm gran pct 0.3 % [facility] Comment: Interpretive Data Percent cell count reference ranges are not reported, since discordance with absolute values may lead to misinterpretation of CBC data. Current Interpretive Data was last revised on 2018. Lymphocyte pct 13.1 % [facility] Comment: Interpretive Data Percent cell count reference ranges are not reported, since discordance with absolute values may lead to misinterpretation of CBC data. Current Interpretive Data was last revised on 2018. Monocyte pct 7.5 % [facility] Comment: Interpretive Data Percent cell count reference ranges are not reported, since discordance with absolute values may lead to misinterpretation of CBC data. Current Interpretive Data was last revised on 2018. Eosinophil pct 2.0 % [facility] Comment: Interpretive Data Percent cell count reference ranges are not reported, since discordance with absolute values may lead to misinterpretation of CBC data. Current Interpretive Data was last revised on 2018. Basophil pct 0.3 % [facility] Comment: Interpretive Data Percent cell count reference ranges are not reported, since discordance with absolute values may lead to misinterpretation of CBC data. Current Interpretive Data was last revised on 2018. Blood 01/11/2025 1:33 PM CDT 01/11/2025 2:51 PM CDT Josiah Mccormick MD LAB BLOOD ORDERABLES Fin al Result Performing Organization Address City/[facility]/ZIP Co de Phone Number [facility] [place] [address] * (ABNORMAL) CBC with auto differential (01/11/2025 1:33 PM CDT) WBC 6.54 3.80 - 9.90 K/cumm Hgb 14.3 11.9 - 15.5 g/dL [facility] Hct 41.3 35.6 - 45.5 % [facility] Plt 267 150 - 400 K/cumm [facility] MPV 10.8 9.1 - 12.3 fL [facility] RBC 4.13 3.90 - 5.20 M/cumm [facility] MCV 100.0(H) 81.3 - 96.4 fL [facility] MCH 34.6(H) 27.1 - 33.3 pg [facility] MCHC 34.6 32.3 - 35.7 g/dL [facility] RDW CV 12.1 11.1 - 14.9 % [facility] RDW SD 44.8 35.7 - 48.1 fL [facility] NRBC abs 0.00 0.00 - 0.01 K/cumm [facility] Blood 01/11/2025 1:33 PM CDT 01/11/2025 2:51 PM CDT Josiah Mccormick MD LAB BLOOD ORDERABLES Fin al Result Performing Organization Address City/[facility]/ZIP Co de Phone Number [facility] [place] [address] * Vitamin D 25 hydroxy (01/11/2025 1:33 PM CDT) Pathologist [facility] Vitamin D 25-OH 43 30 - 80 ng/mL Blood 01/11/2025 1:33 PM CDT 01/11/2025 2:51 PM CDT Josiah Mccormick MD LAB BLOOD ORDERABLES Fin al Result [facility] [place] [address] * TSH (01/11/2025 1:33 PM CDT) [facility] Thyroid Stimulating Hormone 1.59 0.30 - 4.20 mcIUnit/mL Blood 01/11/2025 1:33 PM CDT 01/11/2025 2:51 PM CDT Josiah Mccormick MD LAB BLOOD ORDERABLES Fin al Result Performing Organization Address City/[facility] Co de Phone Number [facility] [place] [address] * T4, free (01/11/2025 1:33 PM CDT) [facility] Free T4 1.26 0.90 - 1.70 ng/dL Blood 01/11/2025 1:33 PM CDT 01/11/2025 2:51 PM CDT Josiah Mccormick MD LAB BLOOD ORDERABLES Fin al Result Performing Organization Address City/[facility]/[place] [address] * (ABNORMAL) Comprehensive metabolic panel (01/11/2025 1:33 PM CDT) Sodium 143 135 - 145 mmol/L Potassium, pl 4.3 3.3 - 4.9 mmol/L [facility] Chloride 104 97 - 110 mmol/L [facility] CO2 29 22 - 32 mmol/L [facility] Anion gap 10 2 - 15 mmol/L [facility] BUN 23 6 - 25 mg/dL [facility] Creatinine 0.87 0.60 - 1.10 mg/dL [facility] Glucose 83 70 - 199 mg/dL [facility] Comment: Interpretive Data Fasting glucose >/= 126 [...] 2022. Calcium 9.4 8.5 - 10.3 mg/dL [facility] Bilirubin, total 0.6 0.1 - 1.2 mg/dL [facility] Protein, pl 7.4 6.5 - 8.5 g/dL [facility] Albumin 4.3 3.5 - 5.0 g/dL [facility] Alk phos 68 40 - 130 Units/L [facility] ALT 5(L) 7 - 45 Units/L [facility] AST 21 10 - 45 Units/L [facility] Blood 01/11/2025 1:33 PM CDT 01/11/2025 2:51 PM CDT us Josiah Mccormick MD LAB BLOOD ORDERABLES Fin al Result [facility] [place] [address] from Last 3 Months Insurance MEDICARE [facility] [employer] MEDICARE MEDICARE [facility] [place] [address] [facility] [employer] MEDICARE Care Teams Memorial Adviser Relationship Specialty Start Date End Date Josiah Mccormick MD [address] [facility] [address], [place] [address] PCP - General 10/06/17
--- OUTSIDE RECORDS SUMMARY | 2025-01-19 16:28 | XMS_ITS | Continuity of Care Document ---
Author Organization [facility] Address [address] [place] [address] [address] [place] [address] Phone Care Team Providers Care Lay Out Technician Name Role Phone Randall Uribe Unavailable Unavailable Advance Directives Directive Yes / No Effective Date File Name No Information Encounters Encounter Description Practice Location Reason(s) For Visit Diagnoses Date Provider Providers Copied on Encounter [facility], [id number] [place] [address] [address], [place], [place], [id number], [place] tel:[phone] [facility] No Information 6-[address]. [address] , [address], [place], [address], [place]. tel:[phone] Referring Provider: Pasquale Neely, [address] [facility], [place], [address]. tel:[phone] Family History Family Member Type Diagnosis Age At Onset No Information Payers Payer name Insurance type Covered republican ID Authoriza tion(s) No Information Social History Type Description Quantity Date Captured Comments Sex Female Smoking Status No Information Chief Complaint And Reason For Visit No Information Reason For Referral Reason For Referral No Information History Of Present Illness Encounter Date Complaint History Of Prese nt Illness No Information Functional Status Date Functional Assessmen t No Information Instructions Date Instruction Additional Infor mation No Information Assessments Type Assessment Date No Information Patient Care Teams Name Effective Dates (start - stop) Status Members No Information
== END 2025-01-19 15:26 | disposition home or self-care (01) ==
LOC: ANHGOSHLAB 15:26
PROVIDERS: PCP Nurse Practitioner Family; Visit Provider Nurse Practitioner Family
DX: I48.91 Unspecified atrial fibrillation (principal)
CPT/HCPCS: 36415; 84443

== ENCOUNTER 2025-03-29 12:22 | Inpatient (IN) | payer MEDICARE, OTHER, SELFPAY ==
[2025-03-29] VITALS (7 sets, daily range): BP systolic 103–144; BP diastolic 47–85; PULSE 73–83; RESP 16–20; TEMP 36.5–37; O2SAT 94–98; BMI 21.3
--- NOTE | ~2025-03-29 | XR_ITS ---
HISTORY: fall COMPARISON: 05/01/2023 and 08/28/2022 TECHNIQUE: 2 views of the bilateral hips along with an AP view of the pelvis FINDINGS: Vertical lucency is identified within the left superior and inferior pubic ramus artifactual in origi n as only present on the AP left hip. Right-sided total hip prosthetic in position, unchanged from 2022. No periprosthetic fracture is appreciated. Superior lateral sclerosis of the left femoral acetabular joint space is present consistent with oste oarthritis. Densely calcified atherosclerotic disease. Age-appropriate mineralization. IMPRESSION: Degenerative disease without acute fracture or dislocation. If clinical suspicion persists, cross-sectional imaging (noncontrast enhanced CT examination of the p miguel) is suggested for further evaluation. Reviewed, dictated and finalized at location A. IMPRESSION: Degenerative disease without acute fracture or dislocation. If clinical suspicion persists, cross-sectional imaging (noncontrast enhanced C T examination of the pelvis) is suggested for further evaluation.
--- NOTE | ~2025-03-29 | XR_ITS ---
MODIFIED ESOPHAGRAM HISTORY: Dysphagia. TECHNIQUE: Modified barium esophagram was performed by speech pathologist under radiologist fluorosco pic guidance. This was recorded on tape. The exam was reviewed on 04/06/2025 16:41 CDT. The DAP for this procedure was 0.62 Gycm2. Fluoroscopy time is 1.2 minutes. FINDINGS: Lateral projection of the cervical spine demonstrates age-appropriate degenerative change . No penetration or aspiration is identified. IMPRESSION: No penetration or aspiration. Reviewed, dictated and finalized at location A.
--- NOTE | ~2025-03-29 | XR_ITS ---
EXAMINATION: XR chest 1V portable Exam Date/Time: 04/03/2025 18:40 CDT HISTORY: productive cough Comparison: 03/29/2025. RESULT: Lines, tubes, and devices: None. Lungs and pleura: Emphysematous/senescent change. Biapical pleural scarring and calcification. Cardiomediastinal silhouette: Stable. Other: No acute osseous or upper abdominal finding. IMPRESSION: No acute cardiopulmonary process. Reviewed, dictated and finalized at location K.
--- NOTE | ~2025-03-29 | CT_ITS ---
CT thoracic spine wo con Ordering provider: Dia Lindquist PA-C History: . unwitnessed fall . Comparison: None. Technique: CT thoracic spine without contrast. Automated exposure control and iterative reconstructi on technique were employed. The dose-length product was 447.58 mGy-cm. FINDINGS: VERTEBRAE: Normal height and alignment. No subluxation or visible acute fracture. Degenerative change s of the spine. DISC SPACES: Well maintained. PARASPINOUS SOFT TISSUES: Normal. Left apical nodule is seen measuring 6 mm. Right apical pleural thickening. Atelectatic changes in th e left lung base. IMPRESSION: No acute osseous abnormality of the thoracic spine. Reviewed, dictated and finalized at location A.
--- NOTE | ~2025-03-29 | CT_ITS ---
CT brain wo con Ordering provider: Dia Lindquist PA-C History: 85 years Female with . fall . Comparison: None. Technique: CT of the head without contrast. Radiation reduction technique utilized. The dose-length p roduct was 605.33 mGy-cm. FINDINGS: BRAIN PARENCHYMA AND CSF SPACES: Mild leukoaraiosis and diffuse cortical atrophy. Mild atheromatous d isease. No midline shift, mass effect or hemorrhage. The brain parenchyma and CSF spaces are otherwise norm al. VISUALIZED PARANASAL SINUSES: Well aerated. MASTOIDS: Well aerated. BONES: The bones appear intact. SOFT TISSUES: Visualized nasopharynx is normal. Superficial soft tissues are normal. IMPRESSION: No acute intracranial findings. Reviewed, dictated and finalized at location A.
--- NOTE | ~2025-03-29 | XR_ITS ---
CHEST RADIOGRAPH CLINICAL HISTORY: weak . COMPARISON: 03/02/2023 TECHNIQUE: Single portable view of the chest. FINDINGS The cardiomediastinal silhouette is unremarkable. The lungs are clear. IMPRESSION: No focal infiltrate or effusion. Reviewed, dictated and finalized at location A.
--- NOTE | ~2025-03-29 | MR_ITS ---
EXAMINATION: MR hip LT wo con, MR hip RT wo con DATE: 03/31/2025 13:44 INDICATION: Bilateral hip pain post fall TECHNIQUE: 1. Magnetic resonance imaging (MRI) of the left hip was performed without intravenous contrast. Seque nces included full-field axial and coronal fluid sensitive FSE STIR and T1-weighted FSE, coronal of t he pelvis with T2-weighted FSE, small field of view of the left hip with axial, sagittal and coronal PD-weighted FS FSE, coronal T2-weighted FSE and additional radial T1-weighted FGR oriented orthogona l to the acetabular rim were obtained for evaluation of the labrum. 2. MRI of the right hip was performed without intravenous contrast. Sequences included small field of view of the right hip with axial, sagittal and coronal PD-weighted FS FSE, coronal T2-weighted FSE and additional radial T1-weighted FGR oriented orthogonal to the acetabular rim were obtained for alana luation of the labrum. COMPARISON: Radiographs dated 03/29/2025 FINDINGS: Bones/labrum/cartilage: Magnetic metallic field artifact associated with a bipolar type right hip hemiarthroplasty. Alignment is normal. No fracture, avascular necrosis or pathologic marrow replacing process. Left acetabular labrum is normal. Mild left hip and bilateral sacroiliac osteoarthritis. Mild lower lumbar spondylosi s. Fluid: Physiologic amount fluid in the left hip joint. No evident right hip joint effusion although assessme nt is limited in the immediate vicinity of the field artifact associated with the arthroplasty. Soft tissues: Relatively symmetric mild diffuse likely age-related muscle atrophy with normal muscle signal.. The i liopsoas, gluteal and proximal hamstring tendons are normal. Mild diverticulosis along the sigmoid co matt without adjacent comparison to suggest diverticulitis. The uterus is not identified and has likel y been surgically resected. Limited evaluation of visceral organs of the pelvis is otherwise unremark able. No pathologically enlarged pelvic/inguinal lymphadenopathy. IMPRESSION: 1. No fracture or other acute osseous abnormality in the pelvis or bilateral hips. 2. Bipolar type right hip hemiarthroplasty. Reviewed, dictated and finalized at location A. IMPRESSION: 1. No fracture or other acute osseous abnormality in the pelvis or bilateral hi ps. 2. Bipolar type right hip hemiarthroplasty.
--- NOTE | ~2025-03-29 | MR_ITS ---
EXAMINATION: MR brain/brain stem wo/w con DATE: 04/02/2025 14:12 INDICATION: Transient paralysis TECHNIQUE: Magnetic resonance imaging (MRI) of the brain and brainstem was performed without and with 11 mL ProHance intravenous contrast. Sequences included sagittal and axial T1-weighted SE, axial dif fusion-weighted FS SE, axial 3D SWAN, axial T2-weighted FLAIR, and axial T2-weighted FSE. Postcontras t axial and coronal T1-weighted SE was obtained. Apparent diffusion coefficient (ADC) maps were creat ed. COMPARISON: Head CT dated 03/29/2025 FINDINGS: There are no areas of restricted diffusion to suggest acute infarction. No intracranial hemorrhage or abnormal intracranial mass lesion. There are scattered areas of nonspecific increased T2-weighted si gnal intensity in the cerebral white matter, predominantly involving the deep and periventricular whi te matter. There are no intraparenchymal signal abnormalities seen on the other pulse sequences. Symm etric prominence of the sulci and ventricles consistent with mild age-appropriate diffuse cerebral vo lume loss. There are no abnormal extra-axial fluid collections. Flow voids are seen in the cerebral arteries on the T2-weighted sequences consistent with their expected patency. Changes of bilateral i ntraocular lens replacement. Visualized orbits and soft tissues are unremarkable. There are no areas of abnormal enhancement on the post contrast images. IMPRESSION: 1. No acute intracranial process or abnormally enhancing brain lesions. 2. Age-related changes including mild diffuse volume loss and mild to moderate scattered nonspecific white matter T2 hyperintensity consistent with chronic small vessel ischemic disease. Reviewed, dictated and finalized at location A. IMPRESSION: 1. No acute intracranial process or abnormally enhancing brain lesions. 2. Age-related changes including mild diffuse volume loss and mild to moderate scattered nonspecific white matter T2 hyperintensity consistent with chronic sm all vessel ischemic disease.
--- NOTE | ~2025-03-29 | MR_ITS ---
MRI of the thoracic spine Clinical History: Injury and paralysis Technique: Axial T2-weighted and gradient images, and sagittal T1-weighted, T2-weighted, and STIR raman ges were acquired. Following intravenous administration of 11 cc MultiHance gadolinium, T1-weighted f at-sat imaging was performed in the axial and sagittal planes. Findings: There is acute mild compression fracture of T11, mild loss of height no associated marrow e connie, and hypointense fracture line. No other fracture or subluxation seen in the thoracic spine. No other bone marrow signal seen in the thoracic spine. No significant disc bulge or herniation seen at any thoracic level. No spinal canal stenosis or cord compression identified. Neural foramina are preserved throughout the thoracic spine. No abnormal signal seen in the spinal cord. Paravertebral soft tissues are unremarkable. There is mild enhancement involving the fracture T11. No other abnormal enhancement identified. Impression: Mild acute compression fracture of T11. Reviewed, dictated and finalized at [facility]. Impression: Mild acute compression fracture of T11.
--- NOTE | ~2025-03-29 | MR_ITS ---
EXAMINATION: MR cervical spine wo/w con DATE: 04/02/2025 14:13 INDICATION: Transient paralysis TECHNIQUE: Magnetic resonance imaging (MRI) of the cervical spine was performed without and with 11 m L ProHance intravenous contrast. Sequences included sagittal T2-weighted FSE, sagittal T2-weighted FS FSE, sagittal T1-weighted FSE, axial T2-weighted FSE, and axial T1-weighted SE. Postcontrast sequenc es included sagittal T1-weighted FS FSE, and axial T1-weighted FS SE. . COMPARISON: Cervical spine CT dated 03/29/2023 FINDINGS: Moderate motion artifact on the axial T1 and T2*sequences as well as the axial and sagittal post cont rast sequences. Mild motion artifact in the remaining precontrast images. Bone alignment is normal. N o interval change in minimal chronic anterior wedging at C7 and T1 and chronic Schmorl's node along t he superior endplate of T1. Bone marrow signal intensity is normal. Severe disc height loss at C5-C6 and moderate disc height loss at C6-C7. Mild disc height loss at C2-C3 through C4-C5. Cord signal int ensity is normal. No abnormally enhancing lesions identified on the postcontrast imaging. The followi ng disc levels are specifically discussed: C2-C3: Disc is mildly bulging. There is mild right uncovertebral joint osteoarthritis. There is sever e bilateral facet joint osteoarthritis. There is no neural foraminal stenosis. There is no central ca nal stenosis. C3-C4: The disc does not extend beyond the endplate margin. There is mild left and moderate right unc overtebral joint osteoarthritis. There is severe bilateral facet joint osteoarthritis. There is mild bilateral neural foraminal stenosis. There is no central canal stenosis. C4-C5: The disc does not extend beyond the endplate margin. There is mild bilateral uncovertebral viri nt osteoarthritis. There is moderate left and severe right facet joint osteoarthritis. There is no ne ural foraminal stenosis. There is no central canal stenosis. C5-C6: Posterior disc osteophyte complex. There is severe left and moderate right uncovertebral joint osteoarthritis. There is mild bilateral facet joint osteoarthritis. There is mild bilateral neural f oraminal stenosis. There is mild central canal stenosis. C6-C7: Posterior disc osteophyte complex. There is severe bilateral uncovertebral joint osteoarthriti s. There is mild bilateral facet joint osteoarthritis. There is mild bilateral neural foraminal steno sis. There is mild central canal stenosis. C7-T1: The disc does not extend beyond the endplate margin. There is mild bilateral uncovertebral viri nt osteoarthritis. There is mild bilateral facet joint osteoarthritis. There is no neural foraminal s tenosis. There is no central canal stenosis. IMPRESSION: 1. Severe cervical spondylosis. No cord signal abnormalities or abnormally enhancing lesions. Evaluat ion mildly limited by some motion artifact primarily on the post contrast imaging. Reviewed, dictated and finalized at location A. IMPRESSION: 1. Severe cervical spondylosis. No cord signal abnormalities or abnormally enha ncing lesions. Evaluation mildly limited by some motion artifact primarily on t he post contrast imaging.
--- NOTE | ~2025-03-29 | CT_ITS ---
EXAMINATION: CT cervical spine wo con DATE: 03/29/2025 15:34 INDICATION: Unwitnessed fall TECHNIQUE: Computed tomography (CT) of the cervical spine was performed without intravenous contrast. Automated exposure control and iterative reconstruction technique were employed. The dose-length pro duct was 115.58 mGy-cm. COMPARISON: None FINDINGS: Alignment is normal. Chronic appearing mild anterior wedging at T1 with Schmorl's node along the supe rior endplate. Cervical vertebral body heights are normal. No fracture. Severe disc height loss with prominent degenerative endplate changes at C5-C6. Moderate disc height loss at C6-C7. Posterior disc osteophyte complexes result in mild central canal stenosis at both levels. Mild disc height loss at C 2-C3 through C4-C5. Severe uncovertebral osteoarthritis on the right at C3-C4, left at C5-C6 and bila terally at C6-C7 and moderate uncovertebral osteoarthritis on the right at C5-C6. Mild uncovertebral osteoarthritis at the remaining cervical levels. There is also a multilevel cervical facet osteoarthr itis, severe the bilaterally at C3-C4 and on the right at C4-C5. Mild to moderate facet osteoarthriti s the remaining cervical levels. There is mild neural foraminal stenosis at the majority the bilatera l cervical neural foramina. Atherosclerotic calcification at the bilateral carotid bulbs. Cervical so ft tissues are otherwise unremarkable. Biapical calcified pleural-parenchymal scarring. IMPRESSION: 1. Severe cervical spondylosis with no acute osseous abnormality. Reviewed, dictated and finalized at location A.
--- NOTE | ~2025-03-29 | MR_ITS ---
MRI of the lumbar spine Clinical History: Transient paralysis Technique: Axial T2-weighted images, and sagittal T1-weighted, T2-weighted, and T2 fat-sat images wer e acquired. Following intravenous administration of 11 cc MultiHance gadolinium, T1-weighted fat-sat imaging was performed in the axial and sagittal planes. Findings: There is acute compression fracture near the superior plate of L3 with minimal loss of heig ht, but T1 hypointense fracture line is running marrow edema are present. No other fracture or sublux ation lumbar spine. No other bone marrow signal abnormality. At L1-L2, there is no significant disc bulge or herniation. No spinal canal stenosis or neural forami nal narrowing. At L2-L3, there is mild degenerative thinning. There is minimal disc bulge and mild facet arthropathy . No central canal stenosis or definite neural foraminal narrowing. At L3-L4, there is minimal disc bulge with mild facet hypertrophy. No spinal canal stenosis or neural foraminal narrowing. At L4-L5, there is mild disc bulge. No spinal canal stenosis or neural foraminal narrowing. At L5-S1, there is minimal disc bulge with mild facet arthropathy. No central canal stenosis or neura l foraminal narrowing. Paravertebral soft tissues are unremarkable. No suspicious postcontrast enhancement seen. There is mi ld enhancement involving the fracture noted above. Impression: Minimal acute compression fracture of L3. Minimal degenerative spondylosis, as above. Reviewed, dictated and finalized at [facility]. Impression: Minimal acute compression fracture of L3. Minimal degenerative spondylosis, as above.
--- NOTE | 2025-03-29 12:51 | PC.NURSE ---
Pt. taken to bathroom in [place] by arch support technician. Attempted for urine sample but missed the cup.
--- NOTE | 2025-03-29 14:41 | ECG_ITS ---
Test Date: 2025-03-29 16:25:52 Measurements Intervals [place] Rate: 81 P: 92 WY: 191 QRS: 75 QRSD: 102 T: 78 QT: 415 QTc: 484 Interpretive Statements SINUS RHYTHM BORDERLINE ST-T WAVE ABNORMALITY- ANTEROLAT/HIGH LAT LEADS BASELINE ARTIFACT- I, II, III, AVR, AVL, AVF, V1-V6 BORDERLINE ECG No previous ECG available for comparison Electronically Signed On 03-29-2025 16:28:23 CDT by Panfilo Puentes D.O.
--- NOTE | 2025-03-29 14:43 | ED_ITS ---
HPI - Fall General Chief Complaint: Fall <Dia Lindquist PA-C - Last Filed: 03/29/25 19:00> Stated Complaint: fall-back pain <Dia Lindquist PA-C - Last Filed: 03/29/25 19:00> Time Seen by Provider: 03/29/25 16:09 <Dia Lindquist PA-C - Last Filed: 03/29/25 19:00> Focused HPI: 85-year-old female presents to the ED with son at bedside for a fall that occurred at 4:00 a.m. this morning. Patient lives at home alone. States she got up in the middle the night to go to the bathroom when she lost her balance and fell backwards landing on her midback. She does not believe she hit her head or lost consciousness. She is on Eliquis. She states she laid on the floor from 4:00 a.m. until noon until her neighbor noticed she was not partaking in her normal routine, so her neighbor called her son who came over and her on floor. She is reporting diffuse weakness and unsteadiness on her feet. She normally ambulates with a walker. She also endorses bilateral groin/hip pain that she noticed last night when she flexes her hips. She denies saddle anesthesia, bowel or bladder incontinence, chest pain of breath, other injuries acquired. GENERAL: Elderly, frail HEAD: Normocephalic, atraumatic. NECK: Minimal midline cervical spinous tenderness without crepitus, step-offs or deformities BACK: Tenderness over the midthoracic spine without crepitus, step-offs or deformities. No tenderness to the lumbar spine EXT: Full range of motion of lower extremities with pain to bilateral hips with anterior flexion. Extremities are pink, warm and dry. CHEST: Clear to auscultation. ?No respiratory distress. No tenderness to chest wall HEART: Regular rate and rhythm.? NEURO: ?Alert and oriented x3. Patient screened in triage and initial orders placed.? ?Additional care and disposition to be based upon?diagnostic testing and treatment. <Dia Lindquist PA-C - Last Filed: 03/29/25 19:00> History of Present Illness HPI Narrative: as per mse <Daivd Cook III, DO - Last Filed: 03/29/25 20:24> Related Data Home Medications: Home Medications ?Medication ?Instructions ?Recorded ?Confirmed ?Last Taken ?Type flecainide 50 mg tablet 50 mg PO Q12H 05/01/23 03/29/25 Unknown History codeine 10 mg-guaifenesin 100 mg/5 10 ml PO QID PRN cough 03/29/25 03/29/25 Unknown History mL oral liquid propranolol 60 mg capsule,24 120 mg PO HS 03/29/25 03/29/25 Unknown History hr,extended release (Inderal LA) <Dia Lindquist PA-C - Last Filed: 03/29/25 19:00> Allergies/Adverse Reactions: Allergies Allergy/AdvReac Type Severity Reaction Status Date / Time Sulfa (Sulfonamide Allergy Unknown Verified 03/29/25 12:36 Antibiotics) <Dia Lindquist PA-C - Last Filed: 03/29/25 19:00> Review of Systems 2 Review of Systems: All systems reviewed & are unremarkable except as noted in HPI and below <David Cook III, DO - Last Filed: 03/29/25 20:24> [facility] Past Medical History Medical History: Medical History (Updated 03/29/25 @ 17:44 by David Cook III, DO) Immunization due 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 <Dia Lindquist PA-C - Last Filed: 03/29/25 19:00> Family History Family History: Family History Father Cancer Mother Dementia Hypertension Migraine headache Sibling Hypertension Migraine headache <Dia Lindquist PA-C - Last Filed: 03/29/25 19:00> Social History Social History: Social History Social History: lives alone and has 2 children and 2 step child. retired from [employer] in [employer]. Healthcare power of deputy county attorney: Kapil Song, son. Code status: full code Smoking packs per day: 0.5 Smoking cigarettes per day: 10.0 Years smoked: 63 Smoking pack-years: 31.50 Smoking status: Former smoker Tobacco type: cigarettes Smoking end date: 03/04/23 Alcohol intake: never Substance use: never Do You Feel Safe in your Home?: Yes Lack of Transportation: No Lack of Food: Never True Current Housing: I Have Housing Concerned About Future Housing: No Difficulty Paying Gas/Electric Bills: No Difficulty Paying for Meds: No Currently Unemployed: No Education: Bachelor's Degree Difficulty w/ Childcare or Family Care: No Living arrangements: alone Occupation/Education: retired Spiritual care concerns: No <Dia Lindquist PA-C - Last Filed: 03/29/25 19:00> Exam 2 Const: General: healthy appearing and no acute distress <David Yfn Cook III, DO - Last Filed: 03/29/25 20:24> Nutritional Appearance: thin <David Yfn Cook III, DO - Last Filed: 03/29/25 20:24> Orientation/consciousness: patient oriented x3 <David Yfn Cook III, DO - Last Filed: 03/29/25 20:24> Limitations: no limitations <David Yfn Cook III, DO - Last Filed: 03/29/25 20:24> HENMT: Head: normal to inspection <David Yfn Cook III, DO - Last Filed: 03/29/25 20:24> Neck: Neck: normal visual inspection and no meningeal signs <David Yfn Cook III, DO - Last Filed: 03/29/25 20:24> Chest: Chest palpation & inspection: normal inspection of the chest < David Yfn Cook III, DO - Last Filed: 03/29/25 20:24> Resp: Effort & Inspection: normal respiratory effort <David Yfn Cook III, DO - Last Filed: 03/29/25 20:24> Auscultation: clear to auscultation bilaterally <David Yfn Cook III, DO - Last Filed: 03/29/25 20:24> Cardio: Rate: regular rate <Daivd Yfn Cook III, DO - Last Filed: 03/29/25 20:24> Rhythm: regular rhythm <David Yfn Cook III, DO - Last Filed: 03/29/25 20:24> GI: GI Palp: Yes Soft to palpation and No Tenderness to palpation present (GI) <David Yfn Cook III, DO - Last Filed: 03/29/25 20:24> Auscultation: normal bowel sounds <David Yfn Cook III, DO - Last Filed: 03/29/25 20:24> Back/Spine/Pelvis: Other: tender mid t spine to palpation no crepitance or step off <David Yfn Cook III, DO - Last Filed: 03/29/25 20:24> Skin: General skin exam: normal color <David Yfn Cook III, DO - Last Filed: 03/29/25 20:24> Rashes: no rashes <David Yfn Cook III, DO - Last Filed: 03/29/25 20:24> Wounds: no wounds <David Yfn Cook III, DO - Last Filed: 03/29/25 20:24> Neuro: General: patient oriented x3, moves all extremities, no meningeal signs, no focal motor deficits and CN's II-XI intact bilaterally <David Yfn Cook III, DO - Last Filed: 03/29/25 20:24> Cranial nerves: Yes Nystagmus not present <David Yfn Cook III, DO - Last Filed: 03/29/25 20:24> Speech: normal speech <David Yfn Cook III, DO - Last Filed: 03/29/25 20:24> Extrem: General: normal to inspection and no clubbing, cyanosis or edema < David Yfn Cook III, DO - Last Filed: 03/29/25 20:24> Psych: Mental Status: mental status grossly normal <David Yfn Cook III, DO - Last Filed: 03/29/25 20:24> Affect: normal affect <David Yfn Cook III, DO - Last Filed: 03/29/25 20:24> Attitude: cooperative <Davidsandip Coulter Cook III, DO - Last Filed: 03/29/25 20:24> Course Vital Signs Vital signs: Vital Signs Temperature 98.6 F 03/29/25 12:33 Pulse Rate 81 03/29/25 12:33 Respiratory Rate 18 03/29/25 12:33 Blood Pressure 103/60 03/29/25 12:33 Pulse Oximetry 95 03/29/25 12:33 Oxygen Delivery Room Air 03/29/25 12:33 Temperature 97.8 F 03/29/25 17:15 Pulse Rate 83 03/29/25 19:41 Respiratory Rate 18 03/29/25 19:41 Blood Pressure 111/75 03/29/25 17:15 Pulse Oximetry 96 03/29/25 19:41 Oxygen Delivery Room Air 03/29/25 19:41 <Dia Lindquist PA-C - Last Filed: 03/29/25 19:00> Vital Signs Temperature 98.6 F 03/29/25 12:33 Pulse Rate 81 03/29/25 12:33 Respiratory Rate 18 03/29/25 12:33 Blood Pressure 103/60 03/29/25 12:33 Pulse Oximetry 95 03/29/25 12:33 Oxygen Delivery Room Air 03/29/25 12:33 Temperature 97.8 F 03/29/25 17:15 Pulse Rate 83 03/29/25 19:41 Respiratory Rate 18 03/29/25 19:41 Blood Pressure 111/75 03/29/25 17:15 Pulse Oximetry 96 03/29/25 19:41 Oxygen Delivery Room Air 03/29/25 19:41 <David Yfn Cook III, DO - Last Filed: 03/29/25 20:24> MDM - Fall MDM Narrative Medical decision making narrative: no fx on ct or hip x rays. tried to get patient up to assess gait and not able to get out of bed to walker. discussed with Anni Persaud and agrees to admit and get rehab <David Coulter Cook III, DO - Last Filed: 03/29/25 20:24> Lab Data Result diagrams: 03/29/25 16:22 03/29/25 16:22 <Dia Lindquist PA-C - Last Filed: 03/29/25 19:00> Labs: Lab Results 03/29/25 Range/Units 16:22 WBC 9.8 (4.5-10.0) K/mm3 RBC 3.90 L (4.2-5.4) M/mm3 Hgb 13.4 (12.0-15.0) g/dL Hct 38.9 (37.0-47.0) % MCV 99.7 (80-100) fl MCH 34.4 H (26-34) pg MCHC 34.4 (32-36) g/dl RDW 11.9 (11.5-14.5) % Plt Count 217 (150-375) k/mm3 MPV 9.9 (7.4-10.4) fl Immature Gran % (Auto) 0.6 H (0-0.5) % Neut % (Auto) 88.2 H (45.5-73.1) % Lymph % (Auto) 4.2 L (18.3-44.2) % Adams % (Auto) 6.9 (2.6-8.5) % Eos % (Auto) 0.0 (0-4.4) % Baso % (Auto) 0.1 L (0.2-1.2) % Lymph # (Auto) 0.41 L (0.9-3.2) K/mm3 Adams # (Auto) 0.7 H (0.1-0.6) K/mm3 Eos # (Auto) 0.0 (0-0.3) K/mm3 Baso # (Auto) 0.0 (0.0-0.1) K/mm3 Abs Immat Gran (auto) 0.06 H (0.00-0.031) K/mm3 Absolute Neuts (auto) 8.7 H (1.3-6.7) K/mm3 Absolute Nucleated RBC 0.000 (0.0-0.012) K/mm3 Nucleated RBC % 0.0 (0.0-0.2) % PT 15.7 H (11.1-14.7) Seconds INR 1.3 APTT 28.2 (22.3-36.8) Seconds Sodium 138 (137-145) mmol/L Potassium 4.1 (3.4-5.0) mmol/L Chloride 101 (98-107) mmol/L Carbon Dioxide 27 (22-30) mmol/L Anion Gap 10 (4-12) mmol/L BUN 18 H (7-17) mg/dL Creatinine 0.78 (0.7-1.0) mg/dL Estim Creat Clear Calc 40 ml/min Estimated GFR > 60 (59 - ) Glucose 114 H (65-110) mg/dL Calcium 9.2 (8.4-10.2) mg/dL Magnesium 1.9 (1.6-2.3) mg/dL Total Bilirubin 1.1 (0.2-1.3) mg/dL AST 33 (14-36) U/L ALT 26 (6-35) U/L Alkaline Phosphatase 62 (38-126) U/L Total Creatine Kinase 82 (30-135) U/L Total Protein 7.6 (6.3-8.2) g/dL Albumin 4.5 (3.5-5.1) g/dL <Dia Lindquist PA-C - Last Filed: 03/29/25 19:00> Lab Results 03/29/25 Range/Units 16:22 WBC 9.8 (4.5-10.0) K/mm3 RBC 3.90 L (4.2-5.4) M/mm3 Hgb 13.4 (12.0-15.0) g/dL Hct 38.9 (37.0-47.0) % MCV 99.7 (80-100) fl MCH 34.4 H (26-34) pg MCHC 34.4 (32-36) g/dl RDW 11.9 (11.5-14.5) % Plt Count 217 (150-375) k/mm3 MPV 9.9 (7.4-10.4) fl Immature Gran % (Auto) 0.6 H (0-0.5) % Neut % (Auto) 88.2 H (45.5-73.1) % Lymph % (Auto) 4.2 L (18.3-44.2) % Adams % (Auto) 6.9 (2.6-8.5) % Eos % (Auto) 0.0 (0-4.4) % Baso % (Auto) 0.1 L (0.2-1.2) % Lymph # (Auto) 0.41 L (0.9-3.2) K/mm3 Adams # (Auto) 0.7 H (0.1-0.6) K/mm3 Eos # (Auto) 0.0 (0-0.3) K/mm3 Baso # (Auto) 0.0 (0.0-0.1) K/mm3 Abs Immat Gran (auto) 0.06 H (0.00-0.031) K/mm3 Absolute Neuts (auto) 8.7 H (1.3-6.7) K/mm3 Absolute Nucleated RBC 0.000 (0.0-0.012) K/mm3 Nucleated RBC % 0.0 (0.0-0.2) % PT 15.7 H (11.1-14.7) Seconds INR 1.3 APTT 28.2 (22.3-36.8) Seconds Sodium 138 (137-145) mmol/L Potassium 4.1 (3.4-5.0) mmol/L Chloride 101 (98-107) mmol/L Carbon Dioxide 27 (22-30) mmol/L Anion Gap 10 (4-12) mmol/L BUN 18 H (7-17) mg/dL Creatinine 0.78 (0.7-1.0) mg/dL Estim Creat Clear Calc 40 ml/min Estimated GFR > 60 (59 - ) Glucose 114 H (65-110) mg/dL Calcium 9.2 (8.4-10.2) mg/dL Magnesium 1.9 (1.6-2.3) mg/dL Total Bilirubin 1.1 (0.2-1.3) mg/dL AST 33 (14-36) U/L ALT 26 (6-35) U/L Alkaline Phosphatase 62 (38-126) U/L Total Creatine Kinase 82 (30-135) U/L Total Protein 7.6 (6.3-8.2) g/dL Albumin 4.5 (3.5-5.1) g/dL <David Cook III, DO - Last Filed: 03/29/25 20:24> Discharge Plan Discharge Clinical Impression: Fall from ground level, Back pain, Unsteady gait when walking <Dia Lindquist PA-C - Last Filed: 03/29/25 19:00> Patient Disposition: Still a Patient <Dia Lindquist PA-C - Last Filed: 03/29/25 19:00> Condition: Stable <Dia Lindquist PA-C - Last Filed: 03/29/25 19:00>
--- NOTE | 2025-03-29 15:22 | PC.NURSE ---
Pt called for VS, no answer. Pt reported to be in CT by family.
[2025-03-29 16:25] LABS: Hematocrit 38.9 % (37.0-47.0); Hemoglobin 13.4 g/dL (12.0-15.0); Immature Granulocyte Percent A 0.6 % (0-0.5); Lymphocytes Absolute Auto 0.41 K/mm3 (0.9-3.2); Mean Corpuscular HGB Conc 34.4 g/dl (32-36); Mean Corpuscular Hemoglobin 34.4 pg (26-34); Mean Corpuscular Volume 99.7 fl (80-100); Nucleated Red Blood Cells Absolute Auto 0.000 K/mm3 (0.0-0.012); Nucleated Red Blood Cells Perc 0.0 % (0.0-0.2); Platelet Count Result 217 k/mm3 (150-375); Red Blood Count 3.90 M/mm3 (4.2-5.4); White Blood Count 9.8 K/mm3 (4.5-10.0)
[2025-03-29 16:35] LABS: Alanine Aminotransferase 26 U/L (6-35); Albumin Level 4.5 g/dL (3.5-5.1); Alkaline Phosphatase 62 U/L (38-126); Anion Gap 10 mmol/L (4-12); Aspartate Amino Transferase 33 U/L (14-36); Bilirubin,Total 1.1 mg/dL (0.2-1.3); Blood Urea Nitrogen 18 mg/dL (7-17); Calcium 9.2 mg/dL (8.4-10.2); Carbon Dioxide 27 mmol/L (22-30); Chloride 101 mmol/L (98-107); Creatine Kinase 82 U/L (30-135); Estimated CRCL calculation 40 ml/min; Estimated Glomerular Filt Rate > 60; Glucose 114 mg/dL (65-110); Magnesium 1.9 mg/dL (1.6-2.3); Potassium 4.1 mmol/L (3.4-5.0); Sodium 138 mmol/L (137-145); Total Protein 7.6 g/dL (6.3-8.2)
[2025-03-29 16:42] LABS: INR 1.3; Prothrombin Time 15.7 Seconds (11.1-14.7)
[2025-03-29 16:43] LABS: Partial Thromboplastin Time 28.2 Seconds (22.3-36.8)
[2025-03-29] MEDS: ONDANSETRON INJ 4 MG/2 ML VIAL IV PUSH (16:47)
[2025-03-29] MEDS: MORPHINE SULFATE (*CRX) 2 MG/ML INJ IV PUSH (16:47)
--- NOTE | 2025-03-29 19:44 | ADMGEN ---
This patient, Daly Larry, was admitted to Medical Room 343-01. Patient/family oriented to hospital policies and general routines including ID bracelet, bed and alarms, visiting hours, pain management, procedures, bathroom and other care routines, personal items, smoking policy, room service/diet, and visiting hours. Information on how to activate the Rapid Response Team has been discussed. Patient/Family are encouraged to report perceived risks to care and to ask questions if they do not understand what they are told or what they should do.
[2025-03-29 20:48] LABS: Add Urine Microscopic? YES; Appearance Urine Cloudy (Clear); Glucose Urine UA Negative (Negative); Leukocyte Esterase Ur 1+ LEU/UL (Negative); Nitrate Urine Negative (Negative); Non Pathogenic Casts 0-2; Specific Grav Ur 1.022 (1.001-1.035)
[2025-03-30] MEDS: APIXABAN 5 MG TABLET PO ×3 (02:14→20:55)
[2025-03-30] MEDS: ACETAMINOPHEN 325 MG TABLET 650 MG PO ×2 (02:14→10:34)
[2025-03-30] MEDS: FLECAINIDE ACETATE 50 MG TABLET PO ×3 (02:14→20:55)
[2025-03-30 06:00] VITALS: BP 120/56; PULSE 69; RESP 16; TEMP 36.7; O2SAT 93
[2025-03-30 08:00] VITALS: O2SAT 93
[2025-03-30 09:34] VITALS: BMI 21.3
--- NOTE | 2025-03-30 09:53 | PM.IMHP ---
H&P: HPI History of Present Illness Date/Time: 03/30/25 09:53 Chief Complaint: Fall Narrative: Patient is an 85 year old female that lost her balance when she got up to go to the bathroom and fell backwards landing on her mid back. Patient rates pain in mid back and bilateral groins a 6, pain is constant, and aching. Patient denies chest pain, palpitations, headache, dizziness, nausea, or vomiting. Patient lives alone and uses a wheeled walker for mobility. Son reports that patient had a fall before that they did not see the break on X-ray and that they found on an MRI. ER work up: BUN 18. Urine cloudy, 1+ protein, 1+ ketones, 1+ leukocytes, RBC 11-20, WBC 11-20. Urine culture pending. No urinary symptoms. Chest x-ray showed no focal infiltrate or effusion. Xray of hips and pelvis: Degenerative disease without acute fracture or dislocation. Head CT negative. Cervical spine CT showed Severe cervical spondylosis with no acute osseous abnormality. Thoracic spine CT: No acute osseous abnormality of the thoracic spine. Ekg SR 81 with QTc 484. 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 Family History Family History Father Cancer Mother Dementia Hypertension Migraine headache Sibling Hypertension Migraine headache Social History Social History Social History: lives alone and has 2 children and 2 step child. retired from [employer] in [employer]. Healthcare power of matchbook maker: Kapil Song, son. Code status: full code Smoking packs per day: 0.5 Smoking cigarettes per day: 10.0 Years smoked: 63 Smoking pack-years: 31.50 Smoking status: Former smoker Tobacco type: cigarettes Smoking end date: 03/04/23 Alcohol intake: never Substance use: never Do You Feel Safe in your Home?: Yes Lack of Transportation: No Lack of Food: Never True Current Housing: I Have Housing Concerned About Future Housing: No Difficulty Paying Gas/Electric Bills: No Difficulty Paying for Meds: No Currently Unemployed: No Education: Bachelor's Degree Difficulty w/ Childcare or Family Care: No Living arrangements: alone Occupation/Education: retired Spiritual care concerns: No Meds Home Medications and Allergies Home Medications ?Medication ?Instructions ?Recorded ?Confirmed ?Type amlodipine 5 mg tablet (Norvasc) 5 mg PO QAM 03/20/23 03/29/25 Rx carbidopa 25 mg-levodopa 100 mg 1 tablet PO TID 03/20/23 03/29/25 Rx tablet (Sinemet) flecainide 50 mg tablet 50 mg PO Q12H 05/01/23 03/29/25 History apixaban 5 mg tablet (Eliquis) 5 mg PO BID #60 tabs 01/19/25 03/29/25 Rx codeine 10 mg-guaifenesin 100 mg/5 10 ml PO QID PRN cough 03/29/25 03/29/25 History mL oral liquid propranolol 60 mg capsule,24 120 mg PO HS 03/29/25 03/29/25 History hr,extended release (Inderal [place]) Allergies Allergy/AdvReac Type Severity Reaction Status Date / Time Sulfa (Sulfonamide Allergy Unknown Verified 03/29/25 12:36 Antibiotics) Vital Signs Vital Signs - 24 hr 03/29/25 12:33 03/29/25 16:21 03/29/25 16:40 Temperature 98.6 F 98.0 F Pulse Rate 81 73 82 Respiratory Rate 18 18 18 Blood Pressure 103/60 144/85 H 120/70 Pulse Oximetry 95 94 98 Oxygen Delivery Room Air Room Air Fraction of Inspired Oxygen 03/29/25 17:15 03/29/25 19:41 03/29/25 21:34 Temperature 97.8 F Pulse Rate 83 83 73 Respiratory Rate 18 18 20 Blood Pressure 111/75 Pulse Oximetry 96 96 96 Oxygen Delivery Room Air Room Air Fraction of Inspired Oxygen 03/29/25 22:21 03/30/25 06:00 03/30/25 08:18 Temperature 97.7 F 98.0 F Pulse Rate 78 69 Respiratory Rate 16 16 Blood Pressure 117/47 L 120/56 L Pulse Oximetry 94 93 Oxygen Delivery Room Air Fraction of Inspired Oxygen Exam Const: General: no acute distress and uncomfortable Eyes: Sclera: sclerae normal Resp: Effort & Inspection: normal respiratory effort Auscultation: clear to auscultation bilaterally Cardio: Rate: regular rate Rhythm: regular rhythm GI: GI Palp: Yes Soft to palpation Auscultation: normal bowel sounds Neuro: Speech: normal speech Extrem: General: no pedal edema Other: Right hand tremor. Psych: Mental Status: mental status grossly normal Affect: normal affect H&P: Results Labs Labs: Short CBC 03/29/25 Range/Units 16:22 WBC 9.8 (4.5-10.0) K/mm3 Hgb 13.4 (12.0-15.0) g/dL Hct 38.9 (37.0-47.0) % Plt Count 217 (150-375) k/mm3 BMP 03/29/25 16:22 Sodium 138 Potassium 4.1 Chloride 101 Carbon Dioxide 27 BUN 18 H Creatinine 0.78 Glucose 114 H Calcium 9.2 Cardiac Enzymes 03/29/25 Range/Units 16:22 Total Creatine Kinase 82 (30-135) U/L Liver Function 03/29/25 Range/Units 16:22 Total Bilirubin 1.1 (0.2-1.3) mg/dL AST 33 (14-36) U/L ALT 26 (6-35) U/L Alkaline Phosphatase 62 (38-126) U/L Albumin 4.5 (3.5-5.1) g/dL Urine 03/29/25 Range/Units 20:36 Urine Color Yellow (Yellow) Urine Appearance Cloudy H (Clear) Urine pH 5.5 (5.0-9.0) Ur Specific [place] 1.022 (1.001-1.035) Urine Protein 1+ H (Negative) mg/dL Urine Glucose (UA) Negative (Negative) mg/dL Assessment and Plan Assessment and plan (1) Fall from ground level: Code(s): W18.30XA - Fall on same level, unspecified, initial encounter Status: Acute Assessment and Plan: Urine cloudy, 1+ protein, 1+ ketones, 1+ leukocytes, RBC 11-20, WBC 11-20. Urine culture pending. No urinary symptoms. Chest x-ray showed no focal infiltrate or effusion. Xray of hips and pelvis: Degenerative disease without acute fracture or dislocation. Head CT negative. Cervical spine CT showed Severe cervical spondylosis with no acute osseous abnormality. Thoracic spine CT: No acute osseous abnormality of the thoracic spine. MRI of hips/pelvis ordered. Patient would like to wait to start PT until verified on MRI no fracture. (2) Back pain: Code(s): M54.9 - Dorsalgia, unspecified Status: Acute Assessment and Plan: Acetaminophen and Tramadol. (3) Parkinson disease: Code(s): G20 - Parkinson's disease Status: Acute Assessment and Plan: Carbidopa/ Levodopa. Quality VTE Prophylaxis VTE prophylaxis: pharmacologic ordered Hospitalist [facility] Advance Care Plan I have confirmed that the patient's Advanced Care Plan is present, code status is documented, or surrogate decision maker is listed in patient medical record.: Yes Medication Reconciliation I have utilized all available resources to obtain, update and review the patients current medications (includes all prescriptions, OTC, herbals, cannabis, and nutritional supplements).: Yes
[2025-03-30 10:38] VITALS: PULSE 80
[2025-03-30] MEDS: CARBIDOPA/LEVODOPA 25/100 MG TABLET 1 TABLET PO ×3 (10:39→17:59)
--- NOTE | 2025-03-30 13:54 | PCPTNOTE ---
Attempted PT evaluation. Per hospitalist, ok to hold therapy if pt wants MRI first. Pt would like MRI prior to physical therapy. Will follow.
[2025-03-30] MEDS: traMADol HCL (*CRX) 50 MG TABLET PO ×2 (15:12→20:55)
[2025-03-30 15:22] VITALS: BP 106/51; PULSE 63; RESP 18; TEMP 36.6; O2SAT 93
[2025-03-30 20:33] VITALS: BP 121/71; PULSE 80; RESP 16; TEMP 36.9; O2SAT 94
[2025-03-30] MEDS: PROPRANOLOL HCL 60 MG CAPSULE CR 120 MG PO (20:55)
[2025-03-31 03:54] VITALS: BP 120/60; PULSE 63; RESP 16; TEMP 36.4; O2SAT 93
[2025-03-31] MEDS: traMADol HCL (*CRX) 50 MG TABLET PO ×3 (04:11→21:55)
[2025-03-31 06:02] LABS: Hematocrit 36.3 % (37.0-47.0); Hemoglobin 12.1 g/dL (12.0-15.0); Immature Granulocyte Percent A 0.4 % (0-0.5); Lymphocytes Absolute Auto 0.48 K/mm3 (0.9-3.2); Mean Corpuscular HGB Conc 33.3 g/dl (32-36); Mean Corpuscular Hemoglobin 34.3 pg (26-34); Mean Corpuscular Volume 102.8 fl (80-100); Nucleated Red Blood Cells Absolute Auto 0.000 K/mm3 (0.0-0.012); Nucleated Red Blood Cells Perc 0.0 % (0.0-0.2); Platelet Count Result 181 k/mm3 (150-375); Red Blood Count 3.53 M/mm3 (4.2-5.4); White Blood Count 4.8 K/mm3 (4.5-10.0)
[2025-03-31 06:13] LABS: Alanine Aminotransferase 11 U/L (6-35); Albumin Level 3.6 g/dL (3.5-5.1); Alkaline Phosphatase 49 U/L (38-126); Anion Gap 7 mmol/L (4-12); Aspartate Amino Transferase 33 U/L (14-36); Bilirubin,Total 0.6 mg/dL (0.2-1.3); Blood Urea Nitrogen 20 mg/dL (7-17); Calcium 8.4 mg/dL (8.4-10.2); Carbon Dioxide 27 mmol/L (22-30); Chloride 103 mmol/L (98-107); Estimated CRCL calculation 41 ml/min; Estimated Glomerular Filt Rate > 60; Glucose 87 mg/dL (65-110); Magnesium 2.0 mg/dL (1.6-2.3); Potassium 3.8 mmol/L (3.4-5.0); Sodium 137 mmol/L (137-145); Total Protein 6.3 g/dL (6.3-8.2)
[2025-03-31 08:49] VITALS: PULSE 63
[2025-03-31] MEDS: CARBIDOPA/LEVODOPA 25/100 MG TABLET 1 TABLET PO ×3 (08:49→16:47)
[2025-03-31] MEDS: FLECAINIDE ACETATE 50 MG TABLET PO ×2 (08:49→21:53)
[2025-03-31] MEDS: APIXABAN 5 MG TABLET PO ×2 (08:49→21:53)
--- NOTE | 2025-03-31 09:19 | P.PNIM_ITS ---
Progress Note: A&P Assessment and Plan (1) Fall from ground level: Code(s): W18.30XA - Fall on same level, unspecified, initial encounter Status: Acute Assessment and Plan: * Urine cloudy, 1+ protein, 1+ ketones, 1+ leukocytes, RBC 11-20, WBC 11-20. Urine culture pending. No urinary symptoms. * Chest x-ray showed no focal infiltrate or effusion. * Xray of hips and pelvis: Degenerative disease without acute fracture or dislocation. * Head CT negative. * Cervical spine CT showed Severe cervical spondylosis with no acute osseous abnormality. * Thoracic spine CT: No acute osseous abnormality of the thoracic spine. * MRI of hips/pelvis ordered. * Lumbar spine x-ray * PT/OT (2) Back pain: Code(s): M54.9 - Dorsalgia, unspecified Status: Acute Assessment and Plan: * Acetaminophen and Tramadol, oxycodone prn (3) Parkinson disease: Code(s): G20 - Parkinson's disease Status: Acute Assessment and Plan: * Carbidopa/ Levodopa. (4) Transient limb paralysis: Code(s): R29.818 - Other symptoms and signs involving the nervous system Status: Acute Assessment and Plan: She reports inability to move arms and legs during episode for several hours, which is atypical --Neurology consult --MRI Total spine if new symptoms or not resolving Time Spent With Patient Time: 53 minutes Subjective Date/time seen: 03/31/25 09:19 Interval history: VSS 85 y/o F admitted after a fall at home. She reports that her legs gave out, and her arms gave out. Unable to move at all for several hours. Symptoms resolved Review of Systems Review of Systems: All systems reviewed & are unremarkable except as noted in HPI and below Exam Narrative: General - Awake and alert. No acute distress Eyes - PERRLA, EOM intact ENT - No thrush, No erythema Neck - No noticeable or palpable swelling Lymph Nodes - No lymphadenopathy Cardiovascular - RRR no m/r/g, no JVD Lungs: Clear to auscultation, No wheezing, use of accessory muscles, no crackles or wheezes. Skin - Skin warm and dry, no wounds or rashes Abdomen - Normal bowel sounds, abdomen soft and nontender Extremities - No edema, cyanosis or clubbing Musculoskeletal - 4/5 strength, normal range of motion, no swollen or er ythematous joints. Pain to low back and hips Neurological ? Alert and oriented x 3, CN 2-12 grossly intact. Psych: Normal mood and affect Objective Data Vital Signs Vital Signs: Vital Signs - 24 hr 03/30/25 10:38 03/30/25 15:22 03/30/25 20:00 Temperature 97.8 F Pulse Rate 80 63 Respiratory Rate 18 Blood Pressure 106/51 L Pulse Oximetry 93 Oxygen Delivery Room Air 03/30/25 20:33 03/31/25 03:54 03/31/25 08:49 Temperature 98.4 F 97.6 F Pulse Rate 80 63 63 Respiratory Rate 16 16 Blood Pressure 121/71 120/60 Pulse Oximetry 94 93 Oxygen Delivery Intake/Output Intake/Output: Intake & Output 03/28/25 03/29/25 03/30/25 03/31/25 23:59 23:59 23:59 23:59 Intake Total 1760 250 Balance 1760 250 Meds/Results Medications: Active Medications Generic Name Dose Route Start Last Admin Trade Name Freq PRN Reason Stop Dose Admin Acetaminophen 650 mg 03/29/25 20:06 03/30/25 10:34 Acetaminophen 325 Mg Tablet PO 650 mg Q4H PRN Administration Mild Pain (1-3) or Fever Amlodipine Besylate 5 mg 03/30/25 09:00 03/31/25 08:49 Amlodipine Besylate 5 Mg Tablet PO 5 mg QAM OJSY Administration Apixaban 5 mg 03/29/25 22:30 03/31/25 08:49 Apixaban 5 Mg Tablet PO 5 mg Q12HR JOSY Administration Calcium Carbonate 200 mg 03/29/25 20:06 Calcium Carbonate (Tums) 500 Mg (200 Mg Elemental) PO Q6H PRN Indigestion Carbidopa/Levodopa 1 tablet 03/30/25 08:00 03/31/25 08:49 Carbidopa/Levodopa 25/100 Mg Tablet PO 1 tablet TIDWM JOSY Administration Flecainide Acetate 50 mg 03/29/25 22:25 03/31/25 08:49 Flecainide Acetate 50 Mg Tablet PO 50 mg Q12HR JOSY Administration Propranolol HCl 120 mg 03/30/25 21:00 03/30/25 20:55 Propranolol Hcl 60 Mg Capsule Cr PO 120 mg HS JOSY Administration Tramadol HCl 50 mg 03/30/25 10:42 03/31/25 04:11 Tramadol Hcl (*Crx) 50 Mg Tablet PO 50 mg Q6H PRN Administration Pain Rated 4-6 Radiology Results: ITS Impressions Chest X-Ray 03/29/25 15:19 IMPRESSION: No focal infiltrate or effusion. Hip/Pelvis X-Ray 03/29/25 15:19 IMPRESSION: Degenerative disease without acute fracture or dislocation. If clinical suspicion persists, cross-sectional imaging (noncontrast enhanced CT examination of the pelvis) is suggested for further evaluation. Head CT 03/29/25 15:34 IMPRESSION: No acute intracranial findings. Cervical Spine CT 03/29/25 15:36 IMPRESSION: 1. Severe cervical spondylosis with no acute osseous abnormality. Thoracic Spine CT 03/29/25 15:46 IMPRESSION: No acute osseous abnormality of the thoracic spine. Labs Labs: Laboratory Results - last 24 hr 03/31/25 05:41 WBC 4.8 RBC 3.53 L Hgb 12.1 Hct 36.3 L MCV 102.8 H MCH 34.3 H MCHC 33.3 RDW 12.3 Plt Count 181 MPV 10.4 Immature Gran % (Auto) 0.4 Neut % (Auto) 72.9 Lymph % (Auto) 10.1 L [place] % (Auto) 15.1 H Eos % (Auto) 1.3 Baso % (Auto) 0.2 Lymph # (Auto) 0.48 L [place] # (Auto) 0.7 H Eos # (Auto) 0.1 Baso # (Auto) 0.0 Abs Immat Gran (auto) 0.02 Absolute Neuts (auto) 3.5 Absolute Nucleated RBC 0.000 Nucleated RBC % 0.0 Sodium 137 Potassium 3.8 Chloride 103 Carbon Dioxide 27 Anion Gap 7 BUN 20 H Creatinine 0.77 Estim Creat Clear Calc 41 Estimated GFR > 60 Glucose 87 Calcium 8.4 Magnesium 2.0 Total Bilirubin 0.6 AST 33 ALT 11 Alkaline Phosphatase 49 Total Protein 6.3 Albumin 3.6 Quality VTE Prophylaxis VTE prophylaxis: pharmacologic ordered Hospitalist [facility] Advance Care Plan I have confirmed that the patient's Advanced Care Plan is present, code status is documented, or surrogate decision maker is listed in patient medical record.: Yes Medication Reconciliation I have utilized all available resources to obtain, update and review the patients current medications (includes all prescriptions, OTC, herbals, cannabis, and nutritional supplements).: Yes
--- NOTE | 2025-03-31 11:58 | PCOTNOTE ---
Patient out of the room at this time. Patient went down for a MRI, per RN, wait till results to see. Will check back at a later time.
--- NOTE | 2025-03-31 13:40 | PCOTNOTE ---
Per RN, awaiting MRI results prior to therapy session. Patient also still needs her PT evaluation completed. Will check back tomorrow for OT treatment session.
[2025-03-31 14:00] VITALS: BP 125/55; PULSE 63; RESP 16; TEMP 36.8; O2SAT 93
[2025-03-31] MEDS: oxyCODONE HCL (*CRX) 2.5 MG TAB IR PO (16:47)
[2025-03-31] MEDS: MORPHINE SULFATE (*CRX) 2 MG/ML INJ 1 MG IV PUSH (19:36)
[2025-03-31] MEDS: ONDANSETRON INJ 4 MG/2 ML VIAL IV PUSH (19:36)
[2025-03-31 20:52] VITALS: BP 114/58; PULSE 60; RESP 16; TEMP 36.5; O2SAT 92
[2025-03-31] MEDS: PROPRANOLOL HCL 60 MG CAPSULE CR 120 MG PO (21:52)
[2025-04-01] VITALS (7 sets, daily range): BP systolic 101–118; BP diastolic 55–60; PULSE 49–92; RESP 16–18; TEMP 36–36.8; O2SAT 92–94
[2025-04-01] MEDS: MORPHINE SULFATE (*CRX) 2 MG/ML INJ 1 MG IV PUSH (00:57)
[2025-04-01] MEDS: traMADol HCL (*CRX) 50 MG TABLET PO ×2 (06:07→12:04)
[2025-04-01 06:21] LABS: Hematocrit 38.8 % (37.0-47.0); Hemoglobin 13.1 g/dL (12.0-15.0); Immature Granulocyte Percent A 0.2 % (0-0.5); Lymphocytes Absolute Auto 0.70 K/mm3 (0.9-3.2); Mean Corpuscular HGB Conc 33.8 g/dl (32-36); Mean Corpuscular Hemoglobin 34.2 pg (26-34); Mean Corpuscular Volume 101.3 fl (80-100); Nucleated Red Blood Cells Absolute Auto 0.000 K/mm3 (0.0-0.012); Nucleated Red Blood Cells Perc 0.0 % (0.0-0.2); Platelet Count Result 203 k/mm3 (150-375); Red Blood Count 3.83 M/mm3 (4.2-5.4); White Blood Count 4.1 K/mm3 (4.5-10.0)
[2025-04-01 06:39] LABS: Alanine Aminotransferase 6 U/L (6-35); Albumin Level 3.6 g/dL (3.5-5.1); Alkaline Phosphatase 48 U/L (38-126); Anion Gap 8 mmol/L (4-12); Aspartate Amino Transferase 31 U/L (14-36); Bilirubin,Total 0.5 mg/dL (0.2-1.3); Blood Urea Nitrogen 16 mg/dL (7-17); Calcium 8.4 mg/dL (8.4-10.2); Carbon Dioxide 28 mmol/L (22-30); Chloride 102 mmol/L (98-107); Estimated CRCL calculation 48 ml/min; Estimated Glomerular Filt Rate > 60; Glucose 83 mg/dL (65-110); Magnesium 2.0 mg/dL (1.6-2.3); Potassium 3.5 mmol/L (3.4-5.0); Sodium 138 mmol/L (137-145); Total Protein 6.5 g/dL (6.3-8.2)
[2025-04-01] MEDS: FLECAINIDE ACETATE 50 MG TABLET PO ×2 (08:56→20:55)
[2025-04-01] MEDS: APIXABAN 5 MG TABLET PO ×2 (08:56→20:55)
[2025-04-01] MEDS: CARBIDOPA/LEVODOPA 25/100 MG TABLET 1 TABLET PO ×4 (08:56→23:53)
[2025-04-01] MEDS: POTASSIUM CHLORIDE 20 MEQ ER TABLET PO (08:57)
--- NOTE | 2025-04-01 12:09 | P.CONNEU_ITS ---
Assessment and Plan Assessment and plan (1) Parkinson disease: Code(s): G20 - Parkinson's disease Status: Acute (2) Paroxysmal atrial fibrillation: Code(s): I48.0 - Paroxysmal atrial fibrillation Status: Acute Plan The patient was noted to have rest tremor and cogwheeling. I do not find any evidence to suggest essential tremor at this time. She appears to have mild Parkinson disease nevertheless sometimes freezing spells can occur and that may have been the reason why she fell at 4:00 a.m. in the morning. The patient states that her arms and legs felt weak but this can happen due to freezing spells also. S dose of Sinemet taken in the evening may be out of her system by that time. She may require some further adjustment of medications. We can increase the dose of Sinemet to 25/101 tablet 4 times a day and further adjustment depending upon the progress. Another option would be to consider a long-acting formulation of Sinemet to be taken at bedtime if she has a frequent problem when she gets up to go to bathroom at night. She requires continued follow-up with a neurologist and she has [address] [facility] I can defer this to them. She also should have a physical therapy for gait strengthening and balance training which is common problem given her diagnosis in the particularly in this age group. A CT scan of the brain and that of the cervical and thoracic spine was performed did not show any significant abnormalities. She had MRI of the right hip which also did not show any evidence for Fractures. She has had a surgery in the right hip in the past additionally I did not find any evidence to suggest myelopathy on the clinical examination however if she has any frequent fall further investigations can be under if necessary. During the course of examination she also states that she sees double more to the right than left side. I did not see any asymmetry of the visual axis. This may require some follow-up. Her P was also equal reactive to light. The possibility is mild right 6th nerve palsy cannot be ruled out. Hence an MRI of the brain and blood work for acetylcholine receptor antibody is recommended. Consult date: 04/01/25 HPI: Daly Larry is a 85 year old female with history of Parkinson's disease presented to the hospital her own home with history of fall. She is also having pain in the right hip. She follows up with a neurologist and [facility] and is currently on Sinemet 25/100 1 tablet 3 times a day. Shear injury to the right hip where she also had a hip replacement in the past. She is able to take care of herself at home and also has a son who helps. According history the patient woke up at 4:00 a.m. in the morning and drove past and as she stood up her legs gave away and she fell backward. She laid on the floor from 4:00 a.m. until known what her neibour noted that she was not taking part in her normal routine and she called her son who came over and found her on the floor. She was feeling of generalized weakness and unsteadiness on her feet. She normally ambulates with a walker. She denies any bowel or bladder incontinence however she states that she cannot get to the bathroom fast enough but sometimes the leakage due to that but she has a feeling when she wants to go. She denies any headache. No history of seizures or stroke or any significant cardiac disease. Review of Systems 2 Review of Systems: In general the patient is able to get around using the walker in her own home. She denies any problem with memory. She is on Eliquis with history of intermittent atrial fibrillation. She denies any vertigo. she denies any difficulty with the swallowing or speech. The tremors appear to be more when she is at rest and she pointed out that she also have tremor of the jaw however she has no tremor of the head or voice. She is also having pain in the right hip where she has had surgery in the past. She has her MRI of the right hip which did not show any acute injuries. No other symptoms reported. 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 Family History Family History Father Cancer Mother Dementia Hypertension Migraine headache Sibling Hypertension Migraine headache Social History Social History Social History: lives alone and has 2 children and 2 step child. retired from [employer] in [place]. 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 Code status: full code Smoking packs per day: 0.5 Smoking cigarettes per day: 10.0 Years smoked: 63 Smoking pack-years: 31.50 Smoking status: Former smoker Tobacco type: cigarettes Smoking end date: 03/04/23 Alcohol intake: never Substance use: never Do You Feel Safe in your Home?: Yes Lack of Transportation: No Lack of Food: Never True Current Housing: I Have Housing Concerned About Future Housing: No Difficulty Paying Gas/Electric Bills: No Difficulty Paying for Meds: No Currently Unemployed: No Education: Bachelor's Degree Difficulty w/ Childcare or Family Care: No Living arrangements: alone Occupation/Education: retired Spiritual care concerns: No Meds Home Medications and Allergies Home Medications ?Medication ?Instructions ?Recorded ?Confirmed ?Type amlodipine 5 mg tablet (Norvasc) 5 mg PO QAM 03/20/23 03/29/25 Rx carbidopa 25 mg-levodopa 100 mg 1 tablet PO TID 03/20/23 03/29/25 Rx tablet (Sinemet) flecainide 50 mg tablet 50 mg PO Q12H 05/01/23 03/29/25 History apixaban 5 mg tablet (Eliquis) 5 mg PO BID #60 tabs 01/19/25 03/29/25 Rx codeine 10 mg-guaifenesin 100 mg/5 10 ml PO QID PRN cough 03/29/25 03/29/25 History mL oral liquid propranolol 60 mg capsule,24 120 mg PO HS 03/29/25 03/29/25 History hr,extended release (Inderal LA) Allergies Allergy/AdvReac Type Severity Reaction Status Date / Time Sulfa (Sulfonamide Allergy Unknown Verified 03/29/25 12:36 Antibiotics) Vital Signs Vital Signs - 24 hr 03/31/25 14:00 03/31/25 15:02 03/31/25 20:00 Temperature 98.2 F Pulse Rate 63 Respiratory Rate 16 Blood Pressure 125/55 L Pulse Oximetry 93 Oxygen Delivery Room Air Room Air 03/31/25 20:52 04/01/25 05:03 04/01/25 08:56 Temperature 97.7 F 97.6 F Pulse Rate 60 58 L 58 L Respiratory Rate 16 18 Blood Pressure 114/58 L 101/60 Pulse Oximetry 92 92 Oxygen Delivery 04/01/25 09:00 Temperature Pulse Rate Respiratory Rate Blood Pressure Pulse Oximetry Oxygen Delivery Room Air Exam 2 Const: General: cooperative, well developed and alert O rientation/consciousness: patient oriented x3 HENMT: Head: atraumatic Mouth: Yes oropharynx normal Eyes: Alignment and Position: position normal Pupils: Equal, round and reactive pupils present EOM: EOMs intact bilaterally Neck: Neck: supple Resp: Effort & Inspection: normal respiratory effort Cardio: Rate: regular rate Rhythm: regular rhythm Skin: General skin exam: normal color Neuro: General: patient oriented x3 Cranial nerves: Yes CN's II-XII intact bilaterally, Yes facial sensation intact/muscles of mastication intact, Yes Equal, round and reactive pupils present, Yes facial symmetry and Yes Midline tongue present Cognition (Neuro): normal cognition Speech: normal speech Motor exam (neuro): 5/5 motor strength present throughout Coordination: f [id number] test normal Other: Rest tremor of both hands were noted slightly more on the right than left side. Also mild tremor of the lower jaw noted. No tremor of the voice or head were seen. She has mild cogwheeling. Gait could not be tested at this time. No dyskinesia were seen. Extrem: General: normal to inspection Psych: Mental Status: mental status grossly normal Affect: normal affect Results Labs 04/01/25 05:46 04/01/25 05:46 Labs: Short CBC 04/01/25 Range/Units 05:46 WBC 4.1 L (4.5-10.0) K/mm3 Hgb 13.1 (12.0-15.0) g/dL Hct 38.8 (37.0-47.0) % Plt Count 203 (150-375) k/mm3 [facility] 04/01/25 05:46 Sodium 138 Potassium 3.5 Chloride 102 Carbon Dioxide 28 BUN 16 Creatinine 0.65 L Glucose 83 Calcium 8.4 Liver Function 04/01/25 Range/Units 05:46 Total Bilirubin 0.5 (0.2-1.3) mg/dL AST 31 (14-36) U/L ALT 6 (6-35) U/L Alkaline Phosphatase 48 (38-126) U/L Albumin 3.6 (3.5-5.1) g/dL
--- NOTE | 2025-04-01 13:55 | PM.IMPN ---
Progress Note: A&P Assessment and Plan (1) Fall from ground level: Code(s): W18.30XA - Fall on same level, unspecified, initial encounter Status: Acute Assessment and Plan: Urine cloudy, 1+ protein, 1+ ketones, 1+ leukocytes, RBC 11-20, WBC 11-20. Urine culture pending. No urinary symptoms. Chest x-ray showed no focal infiltrate or effusion. Xray of hips and pelvis: Degenerative disease without acute fracture or dislocation. Head CT negative. Cervical spine CT showed Severe cervical spondylosis with no acute osseous abnormality. Thoracic spine CT: No acute osseous abnormality of the thoracic spine. MRI of hips/pelvis no acute findings Lumbar spine x-ray PT/OT (2) Back pain: Code(s): M54.9 - Dorsalgia, unspecified Status: Acute Assessment and Plan: Acetaminophen and Tramadol, oxycodone prn (3) Parkinson disease: Code(s): G20 - Parkinson's disease Status: Acute Assessment and Plan: Carbidopa/ Levodopa. (4) Transient limb paralysis: Code(s): R29.818 - Other symptoms and signs involving the nervous system Status: Acute Assessment and Plan: She reports inability to move arms and legs during episode for several hours, which is atypical --Neurology consulted, appreciate recommendations --MRI brain with contrast --MRI Total spine since on chronic eliquis --Acetylcholinesterase ab Time Spent With Patient Time: 56 minutes Subjective Date/time seen: 04/01/25 13:55 Interval history: VSS 85 y/o F admitted after a fall at home. She reports that her legs gave out, and her arms gave out. Unable to move at all for several hours. Symptoms resolved Neurology consulted Review of Systems Review of Systems: All systems reviewed & are unremarkable except as noted in HPI and below Exam Narrative: General - Awake and alert. No acute distress Eyes - PERRLA, EOM intact ENT - No thrush, No erythema Neck - No noticeable or palpable swelling Lymph Nodes - No lymphadenopathy Cardiovascular - RRR no m/r/g, no JVD Lungs: Clear to auscultation, No wheezing, use of accessory muscles, no crackles or wheezes. Skin - Skin warm and dry, no wounds or rashes Abdomen - Normal bowel sounds, abdomen soft and nontender Extremities - No edema, cyanosis or clubbing Musculoskeletal - 4/5 strength, normal range of motion, no swollen or erythematous joints. Pain to low back and hips Neurological ? Alert and oriented x 3, CN 2-12 grossly intact. Psych: Normal mood and affect Objective Data Vital Signs Vital Signs: Vital Signs - 24 hr 03/31/25 14:00 03/31/25 15:02 03/31/25 20:00 Temperature 98.2 F Pulse Rate 63 Respiratory Rate 16 Blood Pressure 125/55 L Pulse Oximetry 93 Oxygen Delivery Room Air Room Air 03/31/25 20:52 04/01/25 05:03 04/01/25 08:56 Temperature 97.7 F 97.6 F Pulse Rate 60 58 L 58 L Respiratory Rate 16 18 Blood Pressure 114/58 L 101/60 Pulse Oximetry 92 92 Oxygen Delivery 04/01/25 09:00 Temperature Pulse Rate Respiratory Rate Blood Pressure Pulse Oximetry Oxygen Delivery Room Air Intake/Output Intake/Output: Intake & Output 03/29/25 03/30/25 03/31/25 04/01/25 23:59 23:59 23:59 23:59 Intake Total 1760 1010 699 Output Total 600 Balance 1760 410 699 Meds/Results Medications: Active Medications Generic Name Dose Route Start Last Admin Trade Name Freq PRN Reason Stop Dose Admin Acetaminophen 1,000 mg 04/01/25 13:00 Acetaminophen 500 Mg Tablet PO TID [facility] Amlodipine Besylate 5 mg 03/30/25 09:00 04/01/25 08:56 Amlodipine Besylate 5 Mg Tablet PO 5 mg QAM JOSY Administration Apixaban 5 mg 03/29/25 22:30 04/01/25 08:56 Apixaban 5 Mg Tablet PO 5 mg Q12HR [facility] Administration Calcium Carbonate 200 mg 03/29/25 20:06 Calcium Carbonate (Tums) 500 Mg (200 Mg Elemental) PO Q6H PRN Indigestion Carbidopa/Levodopa 1 tablet 04/01/25 18:00 Carbidopa/Levodopa 25/100 Mg Tablet PO Q6HR [facility] Flecainide Acetate 50 mg 03/29/25 22:25 04/01/25 08:56 Flecainide Acetate 50 Mg Tablet PO 50 mg Q12HR [facility] Administration Ketorolac Tromethamine 15 mg 04/01/25 12:07 Ketorolac 15 Mg/Ml Vial (*Bk) IV PUSH 04/04/25 12:06 Q6H PRN Breakthrough Pain Morphine Sulfate 1 mg 03/31/25 16:35 04/01/25 00:57 Morphine Sulfate (*Crx) 2 Mg/Ml Inj IV PUSH 1 mg Q4H PRN Administration Breakthrough Pain Ondansetron HCl 4 mg 04/01/25 12:22 Ondansetron Inj 4 Mg/2 Ml Vial IV PUSH Q6H PRN Nausea And Vomiting Oxycodone HCl 2.5 mg 03/31/25 16:35 03/31/25 16:47 Oxycodone Hcl (*Crx) 2.5 Mg Tab Ir PO 2.5 mg Q4H PRN Administration Pain Rated 7-10 Pantoprazole Sodium 40 mg 04/02/25 09:00 Pantoprazole 40 Mg Tablet PO QAM JOSY Propranolol HCl 120 mg 03/30/25 21:00 03/31/25 21:52 Propranolol Hcl 60 Mg Capsule Cr PO 120 mg HS JOSY Administration Tramadol HCl 50 mg 03/30/25 10:42 04/01/25 12:04 Tramadol Hcl (*Crx) 50 Mg Tablet PO 50 mg Q6H PRN Administration Pain Rated 4-6 Radiology Results: ITS Impressions Chest X-Ray 03/29/25 15:19 IMPRESSION: No focal infiltrate or effusion. Hip/Pelvis X-Ray 03/29/25 15:19 IMPRESSION: Degenerative disease without acute fracture or dislocation. If clinical suspicion persists, cross-sectional imaging (noncontrast enhanced CT examination of the pelvis) is suggested for further evaluation. Head CT 03/29/25 15:34 IMPRESSION: No acute intracranial findings. Cervical Spine CT 03/29/25 15:36 IMPRESSION: 1. Severe cervical spondylosis with no acute osseous abnormality. Thoracic Spine CT 03/29/25 15:46 IMPRESSION: No acute osseous abnormality of the thoracic spine. Hip MRI 03/31/25 15:24 IMPRESSION: 1. No fracture or other acute osseous abnormality in the pelvis or bilateral hips. 2. Bipolar type right hip hemiarthroplasty. Hip MRI 03/31/25 15:24 IMPRESSION: 1. No fracture or other acute osseous abnormality in the pelvis or bilateral hips. 2. Bipolar type right hip hemiarthroplasty. Labs Labs: Laboratory Results - last 24 hr 04/01/25 05:46 WBC 4.1 L RBC 3.83 L Hgb 13.1 Hct 38.8 MCV 101.3 H MCH 34.2 H MCHC 33.8 RDW 12.0 Plt Count 203 MPV 10.4 Immature Gran % (Auto) 0.2 Neut % (Auto) 61.7 Lymph % (Auto) 17.2 L Wise % (Auto) 17.0 H Eos % (Auto) 3.4 Baso % (Auto) 0.5 Lymph # (Auto) 0.70 L Wise # (Auto) 0.7 H Eos # (Auto) 0.1 Baso # (Auto) 0.0 Abs Immat Gran (auto) 0.01 Absolute Neuts (auto) 2.5 Absolute Nucleated RBC 0.000 Nucleated RBC % 0.0 Sodium 138 Potassium 3.5 Chloride 102 Carbon Dioxide 28 Anion Gap 8 BUN 16 Creatinine 0.65 L Estim Creat Clear Calc 48 Estimated GFR > 60 Glucose 83 Calcium 8.4 Magnesium 2.0 Total Bilirubin 0.5 AST 31 ALT 6 Alkaline Phosphatase 48 Total Protein 6.5 Albumin 3.6 Quality VTE Prophylaxis VTE prophylaxis: pharmacologic ordered Hospitalist [facility] Advance Care Plan I have confirmed that the patient's Advanced Care Plan is present, code status is documented, or surrogate decision maker is listed in patient medical record.: Yes Medication Reconciliation I have utilized all available resources to obtain, update and review the patients current medications (includes all prescriptions, OTC, herbals, cannabis, and nutritional supplements).: Yes
[2025-04-01 14:59] LABS: Vitamin B12 > 1000.0 pg/mL (239-931)
[2025-04-01] MEDS: ACETAMINOPHEN 500 MG TABLET 1000 MG PO (16:03)
[2025-04-01] MEDS: PROPRANOLOL HCL 60 MG CAPSULE CR 120 MG PO (20:56)
[2025-04-01] MEDS: guaiFENesin 12 HR 600 MG TABCR PO (23:53)
[2025-04-02 04:27] VITALS: BP 106/58; PULSE 55; RESP 16; TEMP 36.6; O2SAT 92
[2025-04-02] MEDS: CARBIDOPA/LEVODOPA 25/100 MG TABLET 1 TABLET PO ×4 (05:33→23:16)
[2025-04-02 07:29] LABS: Hematocrit 37.0 % (37.0-47.0); Hemoglobin 12.3 g/dL (12.0-15.0); Immature Granulocyte Percent A 0.4 % (0-0.5); Lymphocytes Absolute Auto 0.59 K/mm3 (0.9-3.2); Mean Corpuscular HGB Conc 33.2 g/dl (32-36); Mean Corpuscular Hemoglobin 33.6 pg (26-34); Mean Corpuscular Volume 101.1 fl (80-100); Nucleated Red Blood Cells Absolute Auto 0.000 K/mm3 (0.0-0.012); Nucleated Red Blood Cells Perc 0.0 % (0.0-0.2); Platelet Count Result 204 k/mm3 (150-375); Red Blood Count 3.66 M/mm3 (4.2-5.4); White Blood Count 5.3 K/mm3 (4.5-10.0)
--- NOTE | 2025-04-02 07:42 | P.PNIM_ITS ---
Progress Note: A&P Assessment and Plan (1) Fall from ground level: Code(s): W18.30XA - Fall on same level, unspecified, initial encounter Status: Acute Assessment and Plan: * Urine cloudy, 1+ protein, 1+ ketones, 1+ leukocytes, RBC 11-20, WBC 11-20. Urine culture pending. No urinary symptoms. * Chest x-ray showed no focal infiltrate or effusion. * Xray of hips and pelvis: Degenerative disease without acute fracture or dislocation. * Head CT negative. * Cervical spine CT showed Severe cervical spondylosis with no acute osseous abnormality. * Thoracic spine CT: No acute osseous abnormality of the thoracic spine. * MRI of hips/pelvis no acute findings * Lumbar spine x-ray * PT/OT (2) Back pain: Code(s): M54.9 - Dorsalgia, unspecified Status: Acute Assessment and Plan: * Acetaminophen and Tramadol, oxycodone prn (3) Parkinson disease: Code(s): G20 - Parkinson's disease Status: Acute Assessment and Plan: * Carbidopa/ Levodopa. * Patient hasn't noticed a difference in tremors after taking medication. Will discuss with neurology if she needs a higher dose (4) Transient limb paralysis: Code(s): R29.818 - Other symptoms and signs involving the nervous system Status: Acute Assessment and Plan: She reports inability to move arms and legs during episode for several hours, which is an atypical symptom and she has never experienced before. Differential incluses parkinson's, transient cord compression, transient vascular spinal event. She has double vision but normal with one eye covered (has been told he has a weak eye muscle on the left) --Neurology consulted, appreciate recommendations --MRI Thoracic and lumbar spine tomorrow. --On chronic eliquis --Acetylcholinesterase ab pending 04/02 MRI Brain showed: 1. No acute intracranial process or abnormally enhancing brain lesions. 2. Age-related changes including mild diffuse volume loss and mild to moderate scattered nonspecific white matter T2 hyperintensity consistent with chronic small vessel ischemic disease. 04/02 MRI C-spine Severe cervical spondylosis. No cord signal abnormalities or abnormally enhancing lesions. Evaluation mildly limited by some motion artifact primarily on the post contrast imaging. Time Spent With Patient Time: 48 minutes Subjective Date/time seen: 04/02/25 07:42 Interval history: VSS Still having mid back pain and strength not yet back to baseline prior to fall, though is improved MRI Brain and Cspine completed but unable to complete entire test due to pain. Second half scheduled for tomorrow. MRI brain no acute findings. C-spine read showed no cord signal abnormalities but does have severe cervical spondylosis Review of Systems Review of Systems: All systems reviewed & are unremarkable except as noted in HPI and below Exam Narrative: General - Awake and alert. No acute distress Eyes - PERRLA, EOM intact ENT - No thrush, No erythema Neck - No noticeable or palpable swelling Lymph Nodes - No lymphadenopathy Cardiovascular - RRR no m/r/g, no JVD Lungs: Clear to auscultation, No wheezing, use of accessory muscles, no crackles or wheezes. Skin - Skin warm and dry, no wounds or rashes Abdomen - Normal bowel sounds, abdomen soft and nontender Extremities - No edema, cyanosis or clubbing Musculoskeletal - 4/5 strength, range of motion limited by pain, pain with straight leg raise, no swollen or erythematous joints. Pain to low back and hips Neurological ? Alert and oriented x 3, CN 2-12 grossly intact with exception of left eye disconjugate gaze. Tremors to bilateral arms/hands noted Psych: Normal mood and affect Objective Data Vital Signs Vital Signs: Vital Signs - 24 hr 04/01/25 08:56 04/01/25 09:00 04/01/25 14:00 Temperature 96.8 F L Pulse Rate 58 L 49 L Respiratory Rate 16 Blood Pressure 111/58 L Pulse Oximetry 92 Oxygen Delivery Room Air 04/01/25 19:53 04/01/25 20:00 04/01/25 20:55 Temperature 98.2 F Pulse Rate 55 L 92 Respiratory Rate 16 Blood Pressure 118/55 L Pulse Oximetry 94 Oxygen Delivery Room Air 04/01/25 20:56 04/01/25 22:18 04/02/25 04:27 Temperature 97.9 F Pulse Rate 62 55 L Respiratory Rate 16 Blood Pressure 106/58 L Pulse Oximetry 94 92 Oxygen Delivery Room Air Intake/Output Intake/Output: Intake & Output 03/30/25 03/31/25 04/01/25 04/02/25 23:59 23:59 23:59 23:59 Intake Total 1760 1010 1179 240 Output Total 600 Balance 6937 430 7654 240 Meds/Results Medications: Active Medications Generic Name Dose Route Start Last Admin Trade Name Freq PRN Reason Stop Dose Admin Acetaminophen 1,000 mg 04/01/25 13:00 04/01/25 16:03 Acetaminophen 500 Mg Tablet PO 1,000 mg TID JOSY Administration Amlodipine Besylate 5 mg 03/30/25 09:00 04/01/25 08:56 Amlodipine Besylate 5 Mg Tablet PO 5 mg QAM JOSY Administration Apixaban 5 mg 03/29/25 22:30 04/01/25 20:55 Apixaban 5 Mg Tablet PO 5 mg Q12HR JOSY Administration Calcium Carbonate 200 mg 03/29/25 20:06 Calcium Carbonate (Tums) 500 Mg (200 Mg Elemental) PO Q6H PRN Indigestion Carbidopa/Levodopa 1 tablet 04/01/25 18:00 04/02/25 05:33 Carbidopa/Levodopa 25/100 Mg Tablet PO 1 tablet Q6HR JOSY Administration Flecainide Acetate 50 mg 03/29/25 22:25 04/01/25 20:55 Flecainide Acetate 50 Mg Tablet PO 50 mg Q12HR JOSY Administration Guaifenesin 600 mg 04/01/25 22:30 04/01/25 23:53 Guaifenesin 12 Hr 600 Mg Tabcr PO 600 mg Q12HR JOSY Administration Ketorolac Tromethamine 15 mg 04/01/25 12:07 Ketorolac 15 Mg/Ml Vial (*Bkc) IV PUSH 04/04/25 12:06 Q6H PRN Breakthrough Pain Morphine Sulfate 1 mg 03/31/25 16:35 04/01/25 00:57 Morphine Sulfate (*Crx) 2 Mg/Ml Inj IV PUSH 1 mg Q4H PRN Administration Breakthrough Pain Ondansetron HCl 4 mg 04/01/25 12:22 Ondansetron Inj 4 Mg/2 Ml Vial IV PUSH Q6H PRN Nausea And Vomiting Oxycodone HCl 2.5 mg 03/31/25 16:35 03/31/25 16:47 Oxycodone Hcl (*Crx) 2.5 Mg Tab Ir PO 2.5 mg Q4H PRN Administration Pain Rated 7-10 Pantoprazole Sodium 40 mg 04/02/25 09:00 Pantoprazole 40 Mg Tablet PO QAM [facility] Propranolol HCl 120 mg 03/30/25 21:00 04/01/25 20:56 Propranolol Hcl 60 Mg Capsule Cr PO 120 mg HS JOSY Administration Tramadol HCl 50 mg 03/30/25 10:42 04/01/25 12:04 Tramadol Hcl (*Crx) 50 Mg Tablet PO 50 mg Q6H PRN Administration Pain Rated 4-6 Radiology Results: ITS Impressions Chest X-Ray 03/29/25 15:19 IMPRESSION: No focal infiltrate or effusion. Hip/Pelvis X-Ray 03/29/25 15:19 IMPRESSION: Degenerative disease without acute fracture or dislocation. If clinical suspicion persists, cross-sectional imaging (noncontrast enhanced CT examination of the pelvis) is suggested for further evaluation. Head CT 03/29/25 15:34 IMPRESSION: No acute intracranial findings. Cervical Spine CT 03/29/25 15:36 IMPRESSION: 1. Severe cervical spondylosis with no acute osseous abnormality. Thoracic Spine CT 03/29/25 15:46 IMPRESSION: No acute osseous abnormality of the thoracic spine. Hip MRI 03/31/25 15:24 IMPRESSION: 1. No fracture or other acute osseous abnormality in the pelvis or bilateral hips. 2. Bipolar type right hip hemiarthroplasty. Hip MRI 03/31/25 15:24 IMPRESSION: 1. No fracture or other acute osseous abnormality in the pelvis or bilateral hips. 2. Bipolar type right hip hemiarthroplasty. Labs Labs: Laboratory Results - last 24 hr 04/01/25 04/02/25 13:19 06:34 WBC 5.3 RBC 3.66 L Hgb 12.3 Hct 37.0 MCV 101.1 H MCH 33.6 MCHC 33.2 RDW 12.1 Plt Count 204 MPV 10.8 H Immature Gran % (Auto) 0.4 Neut % (Auto) 70.4 Lymph % (Auto) 11.2 L [place] % (Auto) 14.4 H Eos % (Auto) 3.4 Baso % (Auto) 0.2 Lymph # (Auto) 0.59 L [place] # (Auto) 0.8 H Eos # (Auto) 0.2 Baso # (Auto) 0.0 Abs Immat Gran (auto) 0.02 Absolute Neuts (auto) 3.7 Absolute Nucleated RBC 0.000 Nucleated RBC % 0.0 Vitamin B12 > 1000.0 H Vitamin D 25-Hydroxy 35.6 Folate > 20.0 H Quality VTE Prophylaxis VTE prophylaxis: pharmacologic ordered Hospitalist [facility] Advance Care Plan I have confirmed that the patient's Advanced Care Plan is present, code status is documented, or surrogate decision maker is listed in patient medical record.: Yes Medication Reconciliation I have utilized all available resources to obtain, update and review the patients current medications (includes all prescriptions, OTC, herbals, cannabis, and nutritional supplements).: Yes
[2025-04-02 08:02] LABS: Albumin Level 3.4 g/dL (3.5-5.1); Alkaline Phosphatase 46 U/L (38-126); Anion Gap 9 mmol/L (4-12); Aspartate Amino Transferase 28 U/L (14-36); Bilirubin,Total 0.8 mg/dL (0.2-1.3); Blood Urea Nitrogen 17 mg/dL (7-17); Calcium 8.5 mg/dL (8.4-10.2); Carbon Dioxide 25 mmol/L (22-30); Chloride 102 mmol/L (98-107); Estimated CRCL calculation 47 ml/min; Estimated Glomerular Filt Rate > 60; Glucose 79 mg/dL (65-110); Magnesium 2.0 mg/dL (1.6-2.3); Sodium 136 mmol/L (137-145); Total Protein 6.1 g/dL (6.3-8.2)
[2025-04-02 08:03] LABS: Potassium 3.5 mmol/L (3.4-5.0)
[2025-04-02] MEDS: FLECAINIDE ACETATE 50 MG TABLET PO ×2 (08:39→21:17)
[2025-04-02] MEDS: ACETAMINOPHEN 500 MG TABLET 1000 MG PO ×3 (08:39→18:22)
[2025-04-02] MEDS: APIXABAN 5 MG TABLET PO ×2 (08:39→21:16)
[2025-04-02] MEDS: PANTOPRAZOLE 40 MG TABLET PO (08:39)
[2025-04-02] MEDS: guaiFENesin 12 HR 600 MG TABCR PO (08:40)
[2025-04-02] MEDS: traMADol HCL (*CRX) 50 MG TABLET PO (08:41)
[2025-04-02 09:36] LABS: Alanine Aminotransferase < 6 U/L (6-35)
[2025-04-02] MEDS: MORPHINE SULFATE (*CRX) 2 MG/ML INJ 1 MG IV PUSH (11:17)
[2025-04-02] MEDS: ONDANSETRON INJ 4 MG/2 ML VIAL IV PUSH (11:18)
--- NOTE | 2025-04-02 12:40 | PCOTNOTE ---
Patient out of the room at this time. Patient having MRI, per RN, will be a while until she returns.
[2025-04-02 13:32] VITALS: BP 109/43; PULSE 54; RESP 18; TEMP 36.6; O2SAT 92
[2025-04-02] MEDS: guaiFENesin 12 HR 600 MG TABCR 1200 MG PO (21:16)
[2025-04-02 21:17] VITALS: PULSE 59
[2025-04-02] MEDS: PROPRANOLOL HCL 60 MG CAPSULE CR 120 MG PO (21:17)
[2025-04-02 22:00] VITALS: BP 103/55; PULSE 52; RESP 16; TEMP 36.9; O2SAT 94
[2025-04-03] VITALS (10 sets, daily range): BP systolic 97–106; BP diastolic 44–58; PULSE 56–73; RESP 16–20; TEMP 36.3–36.8; O2SAT 89–97
[2025-04-03] MEDS: CARBIDOPA/LEVODOPA 25/100 MG TABLET 1 TABLET PO ×3 (05:57→17:58)
[2025-04-03 06:02] LABS: Hematocrit 36.1 % (37.0-47.0); Hemoglobin 12.2 g/dL (12.0-15.0); Immature Granulocyte Percent A 0.3 % (0-0.5); Lymphocytes Absolute Auto 0.66 K/mm3 (0.9-3.2); Mean Corpuscular HGB Conc 33.8 g/dl (32-36); Mean Corpuscular Hemoglobin 34.7 pg (26-34); Mean Corpuscular Volume 102.6 fl (80-100); Nucleated Red Blood Cells Absolute Auto 0.020 K/mm3 (0.0-0.012); Nucleated Red Blood Cells Perc 0.3 % (0.0-0.2); Platelet Count Result 210 k/mm3 (150-375); Red Blood Count 3.52 M/mm3 (4.2-5.4); White Blood Count 7.0 K/mm3 (4.5-10.0)
[2025-04-03 06:17] LABS: Albumin Level 3.4 g/dL (3.5-5.1); Alkaline Phosphatase 49 U/L (38-126); Anion Gap 10 mmol/L (4-12); Aspartate Amino Transferase 25 U/L (14-36); Bilirubin,Total 0.6 mg/dL (0.2-1.3); Blood Urea Nitrogen 19 mg/dL (7-17); Calcium 8.3 mg/dL (8.4-10.2); Carbon Dioxide 24 mmol/L (22-30); Chloride 102 mmol/L (98-107); Estimated CRCL calculation 45 ml/min; Estimated Glomerular Filt Rate > 60; Glucose 80 mg/dL (65-110); Magnesium 2.0 mg/dL (1.6-2.3); Potassium 3.3 mmol/L (3.4-5.0); Sodium 136 mmol/L (137-145); Total Protein 6.0 g/dL (6.3-8.2)
--- NOTE | 2025-04-03 07:00 | PM.IMPN ---
Progress Note: A&P Assessment and Plan (1) Fall from ground level: Code(s): W18.30XA - Fall on same level, unspecified, initial encounter Status: Acute Assessment and Plan: Urine cloudy, 1+ protein, 1+ ketones, 1+ leukocytes, RBC 11-20, WBC 11-20. Urine culture pending. No urinary symptoms. Chest x-ray showed no focal infiltrate or effusion. Xray of hips and pelvis: Degenerative disease without acute fracture or dislocation. Head CT negative. Cervical spine CT showed Severe cervical spondylosis with no acute osseous abnormality. Thoracic spine CT: No acute osseous abnormality of the thoracic spine. MRI of hips/pelvis no acute findings Lumbar spine x-ray PT/OT (2) Back pain: Code(s): M54.9 - Dorsalgia, unspecified Status: Acute Assessment and Plan: Acetaminophen and Tramadol, oxycodone prn (3) Parkinson disease: Code(s): G20 - Parkinson's disease Status: Acute Assessment and Plan: Carbidopa/ Levodopa. Patient hasn't noticed a difference in tremors after taking medication. Discuss dose with neurology before discharge (4) Transient limb paralysis: Code(s): R29.818 - Other symptoms and signs involving the nervous system Status: Acute Assessment and Plan: She reports inability to move arms and legs during episode for several hours, which is an atypical symptom and she has never experienced before. Differential incluses parkinson's, transient cord compression, transient vascular spinal event. She has double vision but normal with one eye covered (has been told he has a weak eye muscle on the left) --Neurology consulted, appreciate recommendations --MRI Thoracic and lumbar spine tomorrow. --On chronic eliquis --Acetylcholinesterase ab pending 04/02 MRI Brain showed: 1. No acute intracranial process or abnormally enhancing brain lesions. 2. Age-related changes including mild diffuse volume loss and mild to moderate scattered nonspecific white matter T2 hyperintensity consistent with chronic small vessel ischemic disease. 04/02 MRI C-spine Severe cervical spondylosis. No cord signal abnormalities or abnormally enhancing lesions. Evaluation mildly limited by some motion artifact primarily on the post contrast imaging. (5) Cough: Code(s): R05.9 - Cough, unspecified Status: Acute Assessment and Plan: Intermittently productive cough, not on oxygen --Guaifenesin BID, tessalon perles 200 TID prn --Repeat x-ray, check --Incentive spirometer Time Spent With Patient Time: 47 minutes Subjective Date/time seen: 04/03/25 07:00 Interval history: Mid back pain slighly improved but weakness to arms and legs not back to baseline yet Vital signs stable. MRI read pending today Potassium 3.3. 40meq kcl Intermittently productive cough, repeating chest x-ray & viral swab Review of Systems Review of Systems: All systems reviewed & are unremarkable except as noted in HPI and below Exam Narrative: General - Awake and alert. No acute distress Eyes - PERRLA, EOM intact ENT - No thrush, No erythema Neck - No noticeable or palpable swelling Lymph Nodes - No lymphadenopathy Cardiovascular - RRR no m/r/g, no JVD Lungs: Clear to auscultation, No wheezing, use of accessory muscles, no crackles or wheezes. Skin - Skin warm and dry, no wounds or rashes Abdomen - Normal bowel sounds, abdomen soft and nontender Extremities - No edema, cyanosis or clubbing Musculoskeletal - 4/5 strength, range of motion limited by pain, pain with straight leg raise, no swollen or erythematous joints. Pain to mid back and hips Neurological ? Alert and oriented x 3, CN 2-12 grossly intact with exception of left eye disconjugate gaze (chronic) Tremors to bilateral arms/hands noted Psych: Normal mood and affect Objective Data Vital Signs Vital Signs: Vital Signs - 24 hr 04/02/25 08:44 04/02/25 13:32 04/02/25 21:17 Temperature 97.8 F Pulse Rate 54 L 59 L Respiratory Rate 18 Blood Pressure 109/43 L Pulse Oximetry 92 Oxygen Delivery Room Air 04/02/25 21:17 04/02/25 22:00 Temperature 98.4 F Pulse Rate 59 L 52 L Respiratory Rate 16 Blood Pressure 103/55 L Pulse Oximetry 94 Oxygen Delivery Intake/Output Intake/Output: Intake & Output 03/31/25 04/01/25 04/02/25 04/03/25 23:59 23:59 23:59 23:59 Intake Total 1010 1179 880 Output Total 600 500 Balance 410 1179 880 -500 Meds/Results Medications: Active Medications Generic Name Dose Route Start Last Admin Trade Name Freq PRN Reason Stop Dose Admin Acetaminophen 1,000 mg 04/01/25 13:00 04/02/25 18:22 Acetaminophen 500 Mg Tablet PO 1,000 mg TID JOSY Administration Amlodipine Besylate 5 mg 03/30/25 09:00 04/02/25 08:39 Amlodipine Besylate 5 Mg Tablet PO 5 mg QAM JOSY Administration Apixaban 5 mg 03/29/25 22:30 04/02/25 21:16 Apixaban 5 Mg Tablet PO 5 mg Q12HR JOSY Administration Benzonatate 200 mg 04/03/25 18:55 Benzonatate 100 Mg Capsule PO TID JOSY Calcium Carbonate 200 mg 03/29/25 20:06 Calcium Carbonate (Tums) 500 Mg (200 Mg Elemental) PO Q6H PRN Indigestion Carbidopa/Levodopa 1 tablet 04/01/25 18:00 04/03/25 05:57 Carbidopa/Levodopa 25/100 Mg Tablet PO 1 tablet Q6HR [facility] Administration Flecainide Acetate 50 mg 03/29/25 22:25 04/02/25 21:17 Flecainide Acetate 50 Mg Tablet PO 50 mg Q12HR [facility] Administration Guaifenesin 1,200 mg 04/02/25 21:00 04/02/25 21:16 Guaifenesin 12 Hr 600 Mg Tabcr PO 1,200 mg Q12HR [facility] Administration Ketorolac Tromethamine 15 mg 04/01/25 12:07 Ketorolac 15 Mg/Ml Vial (*Bkc) IV PUSH 04/04/25 12:06 Q6H PRN Breakthrough Pain Morphine Sulfate 1 mg 03/31/25 16:35 04/02/25 11:17 Morphine Sulfate (*Crx) 2 Mg/Ml Inj IV PUSH 1 mg Q4H PRN Administration Breakthrough Pain Ondansetron HCl 4 mg 04/01/25 12:22 04/02/25 11:18 Ondansetron Inj 4 Mg/2 Ml Vial IV PUSH 4 mg Q6H PRN Administration Nausea And Vomiting Oxycodone HCl 2.5 mg 03/31/25 16:35 03/31/25 16:47 Oxycodone Hcl (*Crx) 2.5 Mg Tab Ir PO 2.5 mg Q4H PRN Administration Pain Rated 7-10 Pantoprazole Sodium 40 mg 04/02/25 09:00 04/02/25 08:39 Pantoprazole 40 Mg Tablet PO 40 mg QAM JOSY Administration Propranolol HCl 120 mg 03/30/25 21:00 04/02/25 21:17 Propranolol Hcl 60 Mg Capsule Cr PO 120 mg HS JOSY Administration Tramadol HCl 50 mg 03/30/25 10:42 04/02/25 08:41 Tramadol Hcl (*Crx) 50 Mg Tablet PO 50 mg Q6H PRN Administration Pain Rated 4-6 Radiology Results: ITS Impressions Chest X-Ray 03/29/25 15:19 IMPRESSION: No focal infiltrate or effusion. Hip/Pelvis X-Ray 03/29/25 15:19 IMPRESSION: Degenerative disease without acute fracture or dislocation. If clinical suspicion persists, cross-sectional imaging (noncontrast enhanced CT examination of the pelvis) is suggested for further evaluation. Head CT 03/29/25 15:34 IMPRESSION: No acute intracranial findings. Cervical Spine CT 03/29/25 15:36 IMPRESSION: 1. Severe cervical spondylosis with no acute osseous abnormality. Thoracic Spine CT 03/29/25 15:46 IMPRESSION: No acute osseous abnormality of the thoracic spine. Hip MRI 03/31/25 15:24 IMPRESSION: 1. No fracture or other acute osseous abnormality in the pelvis or bilateral hips. 2. Bipolar type right hip hemiarthroplasty. Hip MRI 03/31/25 15:24 IMPRESSION: 1. No fracture or other acute osseous abnormality in the pelvis or bilateral hips. 2. Bipolar type right hip hemiarthroplasty. Brain MRI 04/02/25 14:19 IMPRESSION: 1. No acute intracranial process or abnormally enhancing brain lesions. 2. Age-related changes including mild diffuse volume loss and mild to moderate scattered nonspecific white matter T2 hyperintensity consistent with chronic small vessel ischemic disease. Cervical Spine MRI 04/02/25 16:59 IMPRESSION: 1. Severe cervical spondylosis. No cord signal abnormalities or abnormally enhancing lesions. Evaluation mildly limited by some motion artifact primarily on the post contrast imaging. Labs Labs: Laboratory Results - last 24 hr 04/02/25 04/03/25 06:34 05:23 WBC 5.3 7.0 RBC 3.66 L 3.52 L Hgb 12.3 12.2 Hct 37.0 36.1 L MCV 101.1 H 102.6 H MCH 33.6 34.7 H MCHC 33.2 33.8 RDW 12.1 12.2 Plt Count 204 210 MPV 10.8 H 11.0 H Immature Gran % (Auto) 0.4 0.3 Neut % (Auto) 70.4 76.6 H Lymph % (Auto) 11.2 L 9.5 L [place] % (Auto) 14.4 H 11.4 H Eos % (Auto) 3.4 1.9 Baso % (Auto) 0.2 0.3 Lymph # (Auto) 0.59 L 0.66 L [place] # (Auto) 0.8 H 0.8 H Eos # (Auto) 0.2 0.1 Baso # (Auto) 0.0 0.0 Abs Immat Gran (auto) 0.02 0.02 Absolute Neuts (auto) 3.7 5.3 Absolute Nucleated RBC 0.000 0.020 H Nucleated RBC % 0.0 0.3 H Sodium 136 L 136 L Potassium 3.5 3.3 L Chloride 102 102 Carbon Dioxide 25 24 Anion Gap 9 10 BUN 17 19 H Creatinine 0.66 L 0.70 Estim Creat Clear Calc 47 45 Estimated GFR > 60 > 60 Glucose 79 80 Calcium 8.5 8.3 L Magnesium 2.0 2.0 Total Bilirubin 0.8 0.6 AST 28 25 ALT < 6 L Alkaline Phosphatase 46 49 Total Protein 6.1 L 6.0 L Albumin 3.4 L 3.4 L Quality VTE Prophylaxis VTE prophylaxis: mechanical ordered and pharmacologic ordered Hospitalist MIPS Advance Care Plan I have confirmed that the patient's Advanced Care Plan is present, code status is documented, or surrogate decision maker is listed in patient medical record.: Yes Medication Reconciliation I have utilized all available resources to obtain, update and review the patients current medications (includes all prescriptions, OTC, herbals, cannabis, and nutritional supplements).: Yes
[2025-04-03 07:20] LABS: Alanine Aminotransferase < 6 U/L (6-35)
[2025-04-03] MEDS: POTASSIUM CHLORIDE 20 MEQ PACKET (FOR LIQUID) 40 MEQ PO (09:02)
[2025-04-03] MEDS: guaiFENesin 12 HR 600 MG TABCR 1200 MG PO ×2 (09:02→20:36)
[2025-04-03] MEDS: FLECAINIDE ACETATE 50 MG TABLET PO ×2 (09:02→20:36)
[2025-04-03] MEDS: ACETAMINOPHEN 500 MG TABLET 1000 MG PO ×3 (09:02→17:58)
[2025-04-03] MEDS: PANTOPRAZOLE 40 MG TABLET PO (09:04)
[2025-04-03] MEDS: APIXABAN 5 MG TABLET PO ×2 (09:04→20:36)
[2025-04-03] MEDS: traMADol HCL (*CRX) 50 MG TABLET PO (09:05)
[2025-04-03] MEDS: MORPHINE SULFATE (*CRX) 2 MG/ML INJ 1 MG IV PUSH (15:36)
[2025-04-03] MEDS: BENZONATATE 100 MG CAPSULE 200 MG PO (18:03)
[2025-04-03] MEDS: PROPRANOLOL HCL 60 MG CAPSULE CR 120 MG PO (20:38)
[2025-04-03 21:16] LABS: Influenza A QL RT-PCR Negative (Negative); Influenza B QL RT-PCR Negative (Negative); RSV RNA, RT-PCR Negative (Negative); SARS-CoV-2 RNA PCR Positive (Negative)
[2025-04-04] MEDS: KCL 20 MEQ/D5/0.9% SOD CHL 1,000 ML 100 ML IV CONT (00:35)
[2025-04-04] MEDS: CARBIDOPA/LEVODOPA 25/100 MG TABLET 1 TABLET PO ×5 (00:35→23:47)
[2025-04-04 06:00] VITALS: BP 125/56; PULSE 63; RESP 18; TEMP 36.9; O2SAT 96
[2025-04-04 06:08] LABS: Hematocrit 38.3 % (37.0-47.0); Hemoglobin 12.6 g/dL (12.0-15.0); Immature Granulocyte Percent A 0.5 % (0-0.5); Lymphocytes Absolute Auto 0.79 K/mm3 (0.9-3.2); Mean Corpuscular HGB Conc 32.9 g/dl (32-36); Mean Corpuscular Hemoglobin 34.1 pg (26-34); Mean Corpuscular Volume 103.8 fl (80-100); Nucleated Red Blood Cells Absolute Auto 0.000 K/mm3 (0.0-0.012); Nucleated Red Blood Cells Perc 0.0 % (0.0-0.2); Platelet Count Result 216 k/mm3 (150-375); Red Blood Count 3.69 M/mm3 (4.2-5.4); White Blood Count 10.1 K/mm3 (4.5-10.0)
[2025-04-04 06:22] LABS: Albumin Level 3.3 g/dL (3.5-5.1); Alkaline Phosphatase 53 U/L (38-126); Anion Gap 9 mmol/L (4-12); Aspartate Amino Transferase 26 U/L (14-36); Bilirubin,Total 0.6 mg/dL (0.2-1.3); Blood Urea Nitrogen 18 mg/dL (7-17); Calcium 8.4 mg/dL (8.4-10.2); Carbon Dioxide 24 mmol/L (22-30); Chloride 106 mmol/L (98-107); Estimated CRCL calculation 43 ml/min; Estimated Glomerular Filt Rate > 60; Glucose 105 mg/dL (65-110); Magnesium 2.1 mg/dL (1.6-2.3); Potassium 3.8 mmol/L (3.4-5.0); Sodium 139 mmol/L (137-145); Total Protein 6.1 g/dL (6.3-8.2)
[2025-04-04 06:29] LABS: Alanine Aminotransferase < 6 U/L (6-35)
[2025-04-04 06:33] LABS: CRP 19.0 mg/dL (<1.0)
[2025-04-04 08:00] VITALS: O2SAT 94
--- NOTE | 2025-04-04 08:29 | P.PNIM_ITS ---
Progress Note: A&P Assessment and Plan (1) Fall from ground level: Code(s): W18.30XA - Fall on same level, unspecified, initial encounter Status: Acute Assessment and Plan: * Urine cloudy, 1+ protein, 1+ ketones, 1+ leukocytes, RBC 11-20, WBC 11-20. Urine culture pending. No urinary symptoms. * Chest x-ray showed no focal infiltrate or effusion. * Xray of hips and pelvis: Degenerative disease without acute fracture or dislocation. * Head CT negative. * Cervical spine CT showed Severe cervical spondylosis with no acute osseous abnormality. * Thoracic spine CT: No acute osseous abnormality of the thoracic spine. * MRI of hips/pelvis no acute findings * Lumbar spine x-ray * PT/OT (2) Back pain: Code(s): M54.9 - Dorsalgia, unspecified Status: Acute Assessment and Plan: * Acetaminophen and Tramadol, oxycodone prn (3) Parkinson disease: Code(s): G20 - Parkinson's disease Status: Acute Assessment and Plan: * Carbidopa/ Levodopa. Neurology increased to q6 * Patient hasn't noticed a difference in tremors after taking medication but family noticed she didn't have tremors in the afternoon yesterday when she was there * Planning to follow up with neurology (4) Transient limb paralysis: Code(s): R29.818 - Other symptoms and signs involving the nervous system Status: Acute Assessment and Plan: She reports inability to move arms and legs during episode for several hours, which is an atypical symptom and she has never experienced before. Differential incluses parkinson's, transient cord compression, transient vascular spinal event. She has double vision but normal with one eye covered (has been told he has a weak eye muscle on the left). Still having mid and low back pain and generalized weakness, not back to baseline. --Neurology consulted, appreciate recommendations --MRI Thoracic and lumbar spine tomorrow. --On chronic eliquis --Acetylcholinesterase ab pending --Spine surgery consulted, recommended brace as needed for pain. Does not need to wear if not having pain IMAGING 04/02 MRI Brain showed: 1. No acute intracranial process or abnormally enhancing brain lesions. 2. Age-related changes including mild diffuse volume loss and mild to moderate scattered nonspecific white matter T2 hyperintensity consistent with chronic small vessel ischemic disease. 04/02 MRI C-spine Severe cervical spondylosis. No cord signal abnormalities or abnormally enhancing lesions. Evaluation mildly limited by some motion artifact primarily on the post contrast imaging. 04/04 MRI Tspine Mild acute compression fracture of T11. 04/04 MRI Lspine Minimal acute compression fracture of L3. Minimal degenerative spondylosis, as above. (5) Cough: Code(s): R05.9 - Cough, unspecified Status: Acute Assessment and Plan: Intermittently productive cough, not on oxygen --Guaifenesin BID, tessalon perles 200 TID prn --Repeat x-ray no acute findings --Incentive spirometer (6) COVID: Code(s): U07.1 - COVID-19 Status: Acute Assessment and Plan: Viral swab positive for covid --Start Remdesivir 250mg IV then 100mg daily x4 days. Does not need to stay inpatient to complete. --On 1L O2 for sat 89%. Start dexamethasone 6mg daily --Guaifenesin, Tessalon perles PRN (7) Acute respiratory failure: Code(s): J96.00 - Acute respiratory failure, unspecified whether with hypoxia or hypercapnia Status: Acute Assessment and Plan: Likely 2/2 covid. On 1 L O2 --Wean as tolerated for sats >92% --treatment of covid--remdesivir and steroids Time Spent With Patient Time: 46 minutes Subjective Date/time seen: 04/04/25 10:25 Interval history: MRI Thoracic spine showed a mild compression fracture T11, lumbar MRI showed a minimal acute compression fracture of L3. Spine surgery recommending a brace prn for pain Intermittently productive cough, repeat chest x-ray no acute findings. New oxygen requriement. Now on 1L O2 for sat 89% so starting steroids Viral swab positive for COVID, starting remdesivir Updated family, son Kapil Song Review of Systems Review of Systems: All systems reviewed & are unremarkable except as noted in HPI and below Exam Narrative: General - Awake and alert. No acute distress Eyes - PERRLA, EOM intact ENT - No thrush, No erythema Neck - No noticeable or palpable swelling Lymph Nodes - No lymphadenopathy Cardiovascular - RRR no m/r/g, no JVD Lungs: Mildly coarse, No wheezing, use of accessory muscles, no crackles or wheezes. Skin - Skin warm and dry, no wounds or rashes Abdomen - Normal bowel sounds, abdomen soft and nontender Extremities - No edema, cyanosis or clubbing Musculoskeletal - 4/5 strength, range of motion limited by pain, pain with straight leg raise, no swollen or erythematous joints. Pain to mid back and hips Neurological ? Alert and oriented x 3, CN 2-12 grossly intact with exception of left eye disconjugate gaze (chronic) Tremors to bilateral arms/hands noted Psych: Normal mood and affect Const: General: no acute distress and uncomfortable Eyes: Sclera: sclerae normal Resp: Effort & Inspection: normal respiratory effort Auscultation: clear to auscultation bilaterally Cardio: Rate: regular rate Rhythm: regular rhythm GI: Auscultation: normal bowel sounds Neuro: Speech: normal speech Extrem: General: no pedal edema Other: Right hand tremor. Psych: Mental Status: mental status grossly normal Affect: normal affect Objective Data Vital Signs Vital Signs: Vital Signs - 24 hr 04/03/25 09:00 04/03/25 09:02 04/03/25 14:00 Temperature 97.4 F L Pulse Rate 60 56 L Respiratory Rate 16 Blood Pressure 97/44 L Pulse Oximetry 92 Oxygen Delivery Room Air Oxygen Flow Rate 04/03/25 19:57 04/03/25 20:36 04/03/25 20:38 Temperature Pulse Rate 60 56 L 56 L Respiratory Rate 20 Blood Pressure Pulse Oximetry 91 Oxygen Delivery Room Air Oxygen Flow Rate 04/03/25 20:45 04/03/25 20:46 04/03/25 21:00 Temperature Pulse Rate 56 L 56 L Respiratory Rate 16 Blood Pressure 100/58 L Pulse Oximetry 89 L 94 Oxygen Delivery Room Air Nasal Cannula Oxygen Flow Rate 1 04/03/25 22:00 04/04/25 06:00 Temperature 98.2 F 98.4 F Pulse Rate 73 63 Respiratory Rate 16 18 Blood Pressure 125/56 L Pulse Oximetry 97 96 Oxygen Delivery Oxygen Flow Rate Intake/Output Intake/Output: Intake & Output 04/01/25 04/02/25 04/03/25 04/04/25 23:59 23:59 23:59 23:59 Intake Total 9986 468 0016 Output Total 1600 Balance 1179 880 270 Meds/Results Medications: Active Medications Generic Name Dose Route Start Last Admin Trade Name Freq PRN Reason Stop Dose Admin Acetaminophen 1,000 mg 04/01/25 13:00 04/03/25 17:58 Acetaminophen 500 Mg Tablet PO 1,000 mg TID JOSY Administration Amlodipine Besylate 5 mg 03/30/25 09:00 04/03/25 09:04 Amlodipine Besylate 5 Mg Tablet PO 5 mg QAM JOSY Administration Apixaban 5 mg 03/29/25 22:30 04/03/25 20:36 Apixaban 5 Mg Tablet PO 5 mg Q12HR JOSY Administration Benzonatate 200 mg 04/03/25 18:55 04/03/25 18:03 Benzonatate 100 Mg Capsule PO 200 mg TID [facility] Administration Calcium Carbonate 200 mg 03/29/25 20:06 Calcium Carbonate (Tums) 500 Mg (200 Mg Elemental) PO Q6H PRN Indigestion Carbidopa/Levodopa 1 tablet 04/01/25 18:00 04/04/25 06:06 Carbidopa/Levodopa 25/100 Mg Tablet PO 1 tablet Q6HR JOSY Administration Flecainide Acetate 50 mg 03/29/25 22:25 04/03/25 20:36 Flecainide Acetate 50 Mg Tablet PO 50 mg Q12HR [facility] Administration Guaifenesin 1,200 mg 04/02/25 21:00 04/03/25 20:36 Guaifenesin 12 Hr 600 Mg Tabcr PO 1,200 mg Q12HR JOSY Administration Potassium Chloride/Dextrose/Sod Cl 1,000 mls @ 100 mls/hr 04/03/25 23:55 04/04/25 00:35 Kcl 20 Meq/D5/0.9% Sod Chl IV CONT 04/04/25 09:54 100 mls/hr .Q10H ONE Administration Ketorolac Tromethamine 15 mg 04/01/25 12:07 Ketorolac 15 Mg/Ml Vial (*Bkc) IV PUSH 04/04/25 12:06 Q6H PRN Breakthrough Pain Morphine Sulfate 1 mg 03/31/25 16:35 04/03/25 15:36 Morphine Sulfate (*Crx) 2 Mg/Ml Inj IV PUSH 1 mg Q4H PRN Administration Breakthrough Pain Ondansetron HCl 4 mg 04/01/25 12:22 04/02/25 11:18 Ondansetron Inj 4 Mg/2 Ml Vial IV PUSH 4 mg Q6H PRN Administration Nausea And Vomiting Oxycodone HCl 2.5 mg 03/31/25 16:35 03/31/25 16:47 Oxycodone Hcl (*Crx) 2.5 Mg Tab Ir PO 2.5 mg Q4H PRN Administration Pain Rated 7-10 Pantoprazole Sodium 40 mg 04/02/25 09:00 04/03/25 09:04 Pantoprazole 40 Mg Tablet PO 40 mg QAM JOSY Administration Propranolol HCl 120 mg 03/30/25 21:00 04/03/25 20:38 Propranolol Hcl 60 Mg Capsule Cr PO 120 mg HS JOSY Administration Tramadol HCl 50 mg 03/30/25 10:42 04/03/25 09:05 Tramadol Hcl (*Crx) 50 Mg Tablet PO 50 mg Q6H PRN Administration Pain Rated 4-6 Radiology Results: ITS Impressions Hip/Pelvis X-Ray 03/29/25 15:19 IMPRESSION: Degenerative disease without acute fracture or dislocation. If clinical suspicion persists, cross-sectional imaging (noncontrast enhanced CT examination of the pelvis) is suggested for further evaluation. Head CT 03/29/25 15:34 IMPRESSION: No acute intracranial findings. Cervical Spine CT 03/29/25 15:36 IMPRESSION: 1. Severe cervical spondylosis with no acute osseous abnormality. Thoracic Spine CT 03/29/25 15:46 IMPRESSION: No acute osseous abnormality of the thoracic spine. Hip MRI 03/31/25 15:24 IMPRESSION: 1. No fracture or other acute osseous abnormality in the pelvis or bilateral hips. 2. Bipolar type right hip hemiarthroplasty. Hip MRI 03/31/25 15:24 IMPRESSION: 1. No fracture or other acute osseous abnormality in the pelvis or bilateral hips. 2. Bipolar type right hip hemiarthroplasty. Brain MRI 04/02/25 14:19 IMPRESSION: 1. No acute intracranial process or abnormally enhancing brain lesions. 2. Age-related changes including mild diffuse volume loss and mild to moderate scattered nonspecific white matter T2 hyperintensity consistent with chronic small vessel ischemic disease. Cervical Spine MRI 04/02/25 16:59 IMPRESSION: 1. Severe cervical spondylosis. No cord signal abnormalities or abnormally e nhancing lesions. Evaluation mildly limited by some motion artifact primarily on the post contrast imaging. Chest X-Ray 04/03/25 19:38 IMPRESSION: No acute cardiopulmonary process. Lumbar Spine MRI 04/04/25 07:18 Impression: Minimal acute compression fracture of L3. Minimal degenerative spondylosis, as above. Thoracic Spine MRI 04/04/25 07:21 Impression: Mild acute compression fracture of T11. Labs Labs: Laboratory Results - last 24 hr 04/03/25 04/04/25 20:33 05:17 WBC 10.1 H RBC 3.69 L Hgb 12.6 Hct 38.3 MCV 103.8 H MCH 34.1 H MCHC 32.9 RDW 12.1 Plt Count 216 MPV 10.5 H Immature Gran % (Auto) 0.5 Neut % (Auto) 82.3 H Lymph % (Auto) 7.8 L [place] % (Auto) 8.2 Eos % (Auto) 1.0 Baso % (Auto) 0.2 Lymph # (Auto) 0.79 L [place] # (Auto) 0.8 H Eos # (Auto) 0.1 Baso # (Auto) 0.0 Abs Immat Gran (auto) 0.05 H Absolute Neuts (auto) 8.3 H Absolute Nucleated RBC 0.000 Nucleated RBC % 0.0 Sodium 139 Potassium 3.8 Chloride 106 Carbon Dioxide 24 Anion Gap 9 BUN 18 H Creatinine 0.73 Estim Creat Clear Calc 43 Estimated GFR > 60 Glucose 105 Calcium 8.4 Magnesium 2.1 Total Bilirubin 0.6 AST 26 ALT < 6 L Alkaline Phosphatase 53 C-Reactive Protein 19.0 H Total Protein 6.1 L Albumin 3.3 L Influenza A (RT-PCR) Negative Influenza B (RT-PCR) Negative RSV (RT-PCR) Negative SARS-CoV-2 RNA (RT-PCR) Positive A Quality VTE Prophylaxis VTE prophylaxis: mechanical ordered and pharmacologic ordered Hospitalist MIPS Advance Care Plan I have confirmed that the patient's Advanced Care Plan is present, code status is documented, or surrogate decision maker is listed in patient medical record.: Yes Medication Reconciliation I have utilized all available resources to obtain, update and review the patients current medications (includes all prescriptions, OTC, herbals, cannabis, and nutritional supplements).: Yes
[2025-04-04 10:42] VITALS: PULSE 68
[2025-04-04] MEDS: guaiFENesin 12 HR 600 MG TABCR 1200 MG PO ×2 (10:42→21:42)
[2025-04-04] MEDS: PANTOPRAZOLE 40 MG TABLET PO (10:42)
[2025-04-04] MEDS: FLECAINIDE ACETATE 50 MG TABLET PO ×2 (10:42→21:38)
[2025-04-04] MEDS: BENZONATATE 100 MG CAPSULE 200 MG PO ×3 (10:43→17:44)
[2025-04-04] MEDS: ACETAMINOPHEN 500 MG TABLET 1000 MG PO ×3 (10:43→17:44)
[2025-04-04] MEDS: APIXABAN 5 MG TABLET PO ×2 (10:43→21:38)
[2025-04-04] MEDS: REMDESIVIR 200 MG/NS 250 ML 200 MG/250 ML BAG 250 MG IVPB (12:50)
[2025-04-04 14:00] VITALS: BP 93/66; PULSE 100; RESP 18; TEMP 36.9; O2SAT 97
[2025-04-04 19:28] LABS: Methylmalonic Acid. 225 nmol/L (85-423)
[2025-04-04 21:38] VITALS: PULSE 82
[2025-04-04] MEDS: PROPRANOLOL HCL 60 MG CAPSULE CR 120 MG PO (21:38)
[2025-04-04 22:06] VITALS: BP 105/57; PULSE 65; RESP 16; TEMP 36.4; O2SAT 96
[2025-04-05 06:00] VITALS: BP 116/73; PULSE 70; RESP 16; TEMP 36.3; O2SAT 96
[2025-04-05] MEDS: CARBIDOPA/LEVODOPA 25/100 MG TABLET 1 TABLET PO ×4 (06:03→23:02)
[2025-04-05 06:29] LABS: Hematocrit 36.6 % (37.0-47.0); Hemoglobin 12.0 g/dL (12.0-15.0); Immature Granulocyte Percent A 0.7 % (0-0.5); Lymphocytes Absolute Auto 0.50 K/mm3 (0.9-3.2); Mean Corpuscular HGB Conc 32.8 g/dl (32-36); Mean Corpuscular Hemoglobin 33.7 pg (26-34); Mean Corpuscular Volume 102.8 fl (80-100); Nucleated Red Blood Cells Absolute Auto 0.000 K/mm3 (0.0-0.012); Nucleated Red Blood Cells Perc 0.0 % (0.0-0.2); Platelet Count Result 212 k/mm3 (150-375); Red Blood Count 3.56 M/mm3 (4.2-5.4); White Blood Count 7.2 K/mm3 (4.5-10.0)
[2025-04-05 06:45] LABS: Alanine Aminotransferase 6 U/L (6-35); Albumin Level 3.4 g/dL (3.5-5.1); Alkaline Phosphatase 54 U/L (38-126); Anion Gap 7 mmol/L (4-12); Aspartate Amino Transferase 19 U/L (14-36); Bilirubin,Total 0.4 mg/dL (0.2-1.3); Blood Urea Nitrogen 21 mg/dL (7-17); Calcium 8.6 mg/dL (8.4-10.2); Carbon Dioxide 24 mmol/L (22-30); Chloride 108 mmol/L (98-107); Estimated CRCL calculation 50 ml/min; Estimated Glomerular Filt Rate > 60; Glucose 124 mg/dL (65-110); Magnesium 2.0 mg/dL (1.6-2.3); Potassium 4.3 mmol/L (3.4-5.0); Sodium 139 mmol/L (137-145); Total Protein 6.1 g/dL (6.3-8.2)
[2025-04-05 08:00] VITALS: O2SAT 94
[2025-04-05 08:40] VITALS: PULSE 78
[2025-04-05] MEDS: BENZONATATE 100 MG CAPSULE 200 MG PO ×3 (08:40→17:09)
[2025-04-05] MEDS: FLECAINIDE ACETATE 50 MG TABLET PO ×2 (08:40→21:01)
[2025-04-05] MEDS: PANTOPRAZOLE 40 MG TABLET PO (08:40)
[2025-04-05] MEDS: guaiFENesin 12 HR 600 MG TABCR 1200 MG PO ×2 (08:41→21:01)
[2025-04-05] MEDS: ACETAMINOPHEN 500 MG TABLET 1000 MG PO ×3 (08:42→17:09)
[2025-04-05] MEDS: APIXABAN 5 MG TABLET PO ×2 (08:42→21:01)
[2025-04-05] MEDS: REMDESIVIR 100 MG/NS 250 ML 100 MG/250 ML BAG 250 MG IVPB (09:52)
--- NOTE | 2025-04-05 11:36 | PCNFU ---
Nutrition Follow-Up Complete: Inadequate Oral Intake as related to back pain/fall as evidenced by poor po intake reported. Goal: Meet estimated nutritional needs. Patient has limted progress towards goal. We will continue current goal. Pt current nutrition is Heart Healthy with Ensure Plus High Protein TID. Last recorded weight is 56.4 kg, no new weight to report. Bowel Motility: Last reported BM 04/04 Labs Reviewed: Glu 124, Hct 36.6, Alb 3.4, BUN 21, Cr 0.62 Meds Noted: Remdesivir, Dexamethasone, Protonix. Skin: WNL Additional Notes: Patient currently on heart healthy diet with diet supplements TID. Patient diagnosed this admit with COVID. PO intake has been poor. Patient is consuming diet supplements providing an additional 350 kcal and 20 gm protein. Agree with diet orders. Will monitor weight, labs, skin, diet orders, meds every 5 days.
[2025-04-05 11:53] LABS: Homocysteine. 11.5 umol/L (< or = 13.4)
[2025-04-05 14:00] VITALS: BP 116/66; PULSE 60; RESP 18; TEMP 36.4; O2SAT 94
[2025-04-05 15:13] LABS: Vitamin B1. >1200 nmol/L (8-30)
--- NOTE | 2025-04-05 17:23 | P.PNIM_ITS ---
Progress Note: A&P Assessment and Plan (1) Fall from ground level: Code(s): W18.30XA - Fall on same level, unspecified, initial encounter Status: Acute Assessment and Plan: * Urine cloudy, 1+ protein, 1+ ketones, 1+ leukocytes, RBC 11-20, WBC 11-20. Urine culture pending. No urinary symptoms. * Chest x-ray showed no focal infiltrate or effusion. * Xray of hips and pelvis: Degenerative disease without acute fracture or dislocation. * Head CT negative. * Cervical spine CT showed Severe cervical spondylosis with no acute osseous abnormality. * Thoracic spine CT: No acute osseous abnormality of the thoracic spine. * MRI of hips/pelvis no acute findings * Lumbar spine x-ray * PT/OT (2) Back pain: Code(s): M54.9 - Dorsalgia, unspecified Status: Acute Assessment and Plan: * Acetaminophen and Tramadol, oxycodone prn (3) Parkinson disease: Code(s): G20 - Parkinson's disease Status: Acute Assessment and Plan: * Carbidopa/ Levodopa. Neurology increased to q6 * Patient hasn't noticed a difference in tremors after taking medication but family noticed she didn't have tremors in the afternoon yesterday when she was there * Planning to follow up with neurology (4) Transient limb paralysis: Code(s): R29.818 - Other symptoms and signs involving the nervous system Status: Acute Assessment and Plan: She reports inability to move arms and legs during episode for several hours, which is an atypical symptom and she has never experienced before. Differential incluses parkinson's, transient cord compression, transient vascular spinal event. She has double vision but normal with one eye covered (has been told he has a weak eye muscle on the left). Still having mid and low back pain and generalized weakness, not back to baseline. --Neurology consulted, appreciate recommendations --MRI Thoracic and lumbar spine tomorrow. --On chronic eliquis --Acetylcholinesterase ab pending --Spine surgery consulted, recommended brace as needed for pain. Does not need to wear if not having pain IMAGING 04/02 MRI Brain showed: 1. No acute intracranial process or abnormally enhancing brain lesions. 2. Age-related changes including mild diffuse volume loss and mild to moderate scattered nonspecific white matter T2 hyperintensity consistent with chronic small vessel ischemic disease. 04/02 MRI C-spine Severe cervical spondylosis. No cord signal abnormalities or abnormally enhancing lesions. Evaluation mildly limited by some motion artifact primarily on the post contrast imaging. 04/04 MRI Tspine Mild acute compression fracture of T11. 04/04 MRI Lspine Minimal acute compression fracture of L3. Minimal degenerative spondylosis, as above. (5) Cough: Code(s): R05.9 - Cough, unspecified Status: Acute Assessment and Plan: Intermittently productive cough, not on oxygen --Guaifenesin BID, tessalon perles 200 TID prn --Repeat x-ray no acute findings --Incentive spirometer (6) COVID: Code(s): U07.1 - COVID-19 Status: Acute Assessment and Plan: Viral swab positive for covid --Start Remdesivir 250mg IV then 100mg daily x4 days. Does not need to stay inpatient to complete. --On 1L O2 for sat 89%. Start dexamethasone 6mg daily --Guaifenesin, Tessalon perles PRN (7) Acute respiratory failure: Code(s): J96.00 - Acute respiratory failure, unspecified whether with hypoxia or hypercapnia Status: Acute Assessment and Plan: Likely 2/2 covid. On 1 L O2 --Wean as tolerated for sats >92% --treatment of covid--remdesivir and steroids Plan MRI Thoracic spine showed a mild compression fracture T11, lumbar MRI showed a minimal acute compression fracture of L3. Spine surgery recommending a brace prn for pain Intermittently productive cough, repeat chest x-ray no acute findings. New oxygen requirement. Now on 1L O2 for sat 89% as patient is being treated with dexamethasone and remdesivir, patient had a chocking episode, will consult speech pathologist for further recommendation. today patient is present and gave updates. Viral swab positive for COVID, starting remdesivir Updated son Kapil Song Subjective Date/time seen: 04/05/25 17:23 Interval history: MRI Thoracic spine showed a mild compression fracture T11, lumbar MRI showed a minimal acute compression fracture of L3. Spine surgery recommending a brace prn for pain Intermittently productive cough, repeat chest x-ray no acute findings. New oxygen requirement. Now on 1L O2 for sat 89% as patient is being treated with dexamethasone and remdesivir, patient had a chocking episode, will consult spe ech pathologist for further recommendation. today patient is present and gave updates. Viral swab positive for COVID, starting remdesivir Updated son Kapil Song Review of Systems Review of Systems: All systems reviewed & are unremarkable except as noted in HPI and below Exam Narrative: Elderly frail Patient is comfortable, NAD HEENT: eyes are clear and none icteric LUNGS:CTA HEART: RR S1S2 ABD: BS+, Soft and nontender Lower extremities: no edema SKIN: nonjaundiced Neuro: grossly intact. Objective Data Vital Signs Vital Signs: Vital Signs - 24 hr 04/04/25 21:38 04/04/25 21:38 04/04/25 22:06 Temperature 36.4 C Pulse Rate 82 82 65 Respiratory Rate 16 Blood Pressure 105/57 L Pulse Oximetry 96 04/05/25 06:00 04/05/25 08:40 04/05/25 14:00 Temperature 36.3 C L 36.4 C Pulse Rate 70 78 60 Respiratory Rate 16 18 Blood Pressure 116/73 116/66 Pulse Oximetry 96 94 Intake/Output Intake/Output: Intake & Output 04/02/25 04/03/25 04/04/25 04/05/25 23:59 23:59 23:59 23:59 Intake Total 880 5592 921 8117 Output Total 1600 200 800 Balance 880 270 720 480 Meds/Results Medications: Active Medications Generic Name Dose Route Start Last Admin Trade Name Freq PRN Reason Stop Dose Admin Acetaminophen 1,000 mg 04/01/25 13:00 04/05/25 17:09 Acetaminophen 500 Mg Tablet PO 1,000 mg TID JOSY Administration Amlodipine Besylate 5 mg 03/30/25 09:00 04/05/25 08:41 Amlodipine Besylate 5 Mg Tablet PO 5 mg QAM JOSY Administration Apixaban 5 mg 03/29/25 22:30 04/05/25 08:42 Apixaban 5 Mg Tablet PO 5 mg Q12HR JOSY Administration Benzonatate 200 mg 04/03/25 18:55 04/05/25 17:09 Benzonatate 100 Mg Capsule PO 200 mg TID JOSY Administration Calcium Carbonate 200 mg 03/29/25 20:06 Calcium Carbonate (Tums) 500 Mg (200 Mg Elemental) PO Q6H PRN Indigestion Carbidopa/Levodopa 1 tablet 04/01/25 18:00 04/05/25 17:09 Carbidopa/Levodopa 25/100 Mg Tablet PO 1 tablet Q6HR JOSY Administration Dexamethasone 6 mg 04/04/25 10:30 04/05/25 08:40 Dexamethasone 2 Mg Tablet PO 04/13/25 08:01 6 mg DAILY@0800 JOSY Administration Flecainide Acetate 50 mg 03/29/25 22:25 04/05/25 08:40 Flecainide Acetate 50 Mg Tablet PO 50 mg Q12HR JOSY Administration Guaifenesin 1,200 mg 04/02/25 21:00 04/05/25 08:41 Guaifenesin 12 Hr 600 Mg Tabcr PO 1,200 mg Q12HR JOSY Administration Remdesivir 100 mg in 250 mls @ 250 mls/hr 04/05/25 10:00 04/05/25 09:52 IVPB 04/08/25 10:59 250 mls/hr Q24H JOSY Administration Morphine Sulfate 1 mg 03/31/25 16:35 04/03/25 15:36 Morphine Sulfate (*Crx) 2 Mg/Ml Inj IV PUSH 1 mg Q4H PRN Administration Breakthrough Pain Ondansetron HCl 4 mg 04/01/25 12:22 04/02/25 11:18 Ondansetron Inj 4 Mg/2 Ml Vial IV PUSH 4 mg Q6H PRN Administration Nausea And Vomiting Oxycodone HCl 2.5 mg 03/31/25 16:35 03/31/25 16:47 Oxycodone Hcl (*Crx) 2.5 Mg Tab Ir PO 2.5 mg Q4H PRN Administration Pain Rated 7-10 Pantoprazole Sodium 40 mg 04/02/25 09:00 04/05/25 08:40 Pantoprazole 40 Mg Tablet PO 40 mg QAM JOSY Administration Propranolol HCl 120 mg 03/30/25 21:00 04/04/25 21:38 Propranolol Hcl 60 Mg Capsule Cr PO 120 mg HS JOSY Administration Tramadol HCl 50 mg 03/30/25 10:42 04/03/25 09:05 Tramadol Hcl (*Crx) 50 Mg Tablet PO 50 mg Q6H PRN Administration Pain Rated 4-6 Radiology Results: ITS Impressions Hip/Pelvis X-Ray 03/29/25 15:19 IMPRESSION: Degenerative disease without acute fracture or dislocation. If clinical suspicion persists, cross-sectional imaging (noncontrast enhanced CT examination of the pelvis) is suggested for further evaluation. Head CT 03/29/25 15:34 IMPRESSION: No acute intracranial findings. Cervical Spine CT 03/29/25 15:36 IMPRESSION: 1. Severe cervical spondylosis with no acute osseous abnormality. Thoracic Spine CT 03/29/25 15:46 IMPRESSION: No acute osseous abnormality of the thoracic spine. Hip MRI 03/31/25 15:24 IMPRESSION: 1. No fracture or other acute osseous abnormality in the pelvis or bilateral hips. 2. Bipolar type right hip hemiarthroplasty. Hip MRI 03/31/25 15:24 IMPRESSION: 1. No fracture or other acute osseous abnormality in the pelvis or bilateral hips. 2. Bipolar type right hip hemiarthroplasty. Brain MRI 04/02/25 14:19 IMPRESSION: 1. No acute intracranial process or abnormally enhancing brain lesions. 2. Age-related changes including mild diffuse volume loss and mild to moderate scattered nonspecific white matter T2 hyperintensity consistent with chronic small vessel ischemic disease. Cervical Spine MRI 04/02/25 16:59 IMPRESSION: 1. Severe cervical spondylosis. No cord signal abnormalities or abnormally enhancing lesions. Evaluation mildly limited by some motion artifact primarily on the post contrast imaging. Chest X-Ray 04/03/25 19:38 IMPRESSION: No acute cardiopulmonary process. Lumbar Spine MRI 04/04/25 07:18 Impression: Minimal acute compression fracture of L3. Minimal degenerative spondylosis, as above. Thoracic Spine MRI 04/04/25 07:21 Impression: Mild acute compression fracture of T11. Labs Labs: Laboratory Results - last 24 hr 04/01/25 04/05/25 13:19 06:03 WBC 7.2 RBC 3.56 L Hgb 12.0 Hct 36.6 L MCV 102.8 H MCH 33.7 MCHC 32.8 RDW 12.0 Plt Count 212 MPV 10.5 H Immature Gran % (Auto) 0.7 H Neut % (Auto) 88.0 H Lymph % (Auto) 7.0 L [place] % (Auto) 4.3 Eos % (Auto) 0.0 Baso % (Auto) 0.0 L Lymph # (Auto) 0.50 L [place] # (Auto) 0.3 Eos # (Auto) 0.0 Baso # (Auto) 0.0 Abs Immat Gran (auto) 0.05 H Absolute Neuts (auto) 6.3 Absolute Nucleated RBC 0.000 Nucleated RBC % 0.0 Sodium 139 Potassium 4.3 Chloride 108 H Carbon Dioxide 24 Anion Gap 7 BUN 21 H Creatinine 0.62 L Estim Creat Clear Calc 50 Estimated GFR > 60 Glucose 124 H Calcium 8.6 Magnesium 2.0 Total Bilirubin 0.4 AST 19 ALT 6 Alkaline Phosphatase 54 Total Protein 6.1 L Albumin 3.4 L Vitamin B1 >1200 H Methylmalonic Acid 225 Homocysteine 11.5 Quality VTE Prophylaxis VTE prophylaxis: mechanical ordered and pharmacologic ordered
[2025-04-05 19:29] VITALS: PULSE 73; RESP 20; O2SAT 97
[2025-04-05 21:00] VITALS: BP 131/60; PULSE 65; RESP 18; TEMP 36.7; O2SAT 97
[2025-04-05] MEDS: PROPRANOLOL HCL 60 MG CAPSULE CR 120 MG PO (21:01)
[2025-04-06] MEDS: traMADol HCL (*CRX) 50 MG TABLET PO ×2 (04:47→21:10)
[2025-04-06] MEDS: CARBIDOPA/LEVODOPA 25/100 MG TABLET 1 TABLET PO ×4 (05:09→23:53)
[2025-04-06 05:40] LABS: Hematocrit 36.6 % (37.0-47.0); Hemoglobin 11.9 g/dL (12.0-15.0); Immature Granulocyte Percent A 1.1 % (0-0.5); Lymphocytes Absolute Auto 0.65 K/mm3 (0.9-3.2); Mean Corpuscular HGB Conc 32.5 g/dl (32-36); Mean Corpuscular Hemoglobin 33.4 pg (26-34); Mean Corpuscular Volume 102.8 fl (80-100); Nucleated Red Blood Cells Absolute Auto 0.000 K/mm3 (0.0-0.012); Nucleated Red Blood Cells Perc 0.0 % (0.0-0.2); Platelet Count Result 264 k/mm3 (150-375); Red Blood Count 3.56 M/mm3 (4.2-5.4); White Blood Count 10.6 K/mm3 (4.5-10.0)
[2025-04-06 06:00] VITALS: BP 128/65; PULSE 76; RESP 18; TEMP 36.7; O2SAT 96
[2025-04-06 07:46] LABS: Alanine Aminotransferase 8 U/L (6-35); Albumin Level 3.3 g/dL (3.5-5.1); Alkaline Phosphatase 54 U/L (38-126); Anion Gap 9 mmol/L (4-12); Aspartate Amino Transferase 28 U/L (14-36); Bilirubin,Total 0.4 mg/dL (0.2-1.3); Blood Urea Nitrogen 23 mg/dL (7-17); Calcium 8.9 mg/dL (8.4-10.2); Carbon Dioxide 24 mmol/L (22-30); Chloride 108 mmol/L (98-107); Estimated CRCL calculation 48 ml/min; Estimated Glomerular Filt Rate > 60; Glucose 135 mg/dL (65-110); Magnesium 2.1 mg/dL (1.6-2.3); Potassium 4.2 mmol/L (3.4-5.0); Sodium 141 mmol/L (137-145); Total Protein 6.1 g/dL (6.3-8.2)
[2025-04-06 08:00] VITALS: O2SAT 95
--- NOTE | 2025-04-06 08:42 | PCSTNOTE ---
Please refer to the Bedside Swallow Evaluation in the EMR. Please note, silent aspiration cannot be ruled out at bedside. The patient is an 85 year old female admitted s/p fall. She is currently covid-19 positive with a new diagnosis of Parkinson's within the last year. Per staff reports she experienced a significant coughing episode with her evening meal last night and a bedside swallow was recommended. The patient was positioned upright and assessed with the following consistencies: tsp thin liquid, cup thin liquid, pudding/puree consistency, and cracker solid consistency. Oral Stage: Timely oral preparation and transit. Pharyngeal Stage: Upon presentation of all consistencies the patient had a mildly delayed trigger of the swallow and completed multiple swallows for each trial/consistency. Vocal quality was clear and there was no viewed coughing or choking. The patient had a slight raspy quality prior to initiating the evaluation which maybe due to her covid-19 or previous questionable aspiration episode last night. She does report that she has had to do multiple swallows for sometime since the Parkinson's diagnosis. She also has notable tremors which makes it difficult to self feed and control her bolus size when eating and drinking. Recommend: Minced and moist diet/ Level 5 Thin Liquid/ Level 0, Small bites and drinks, upright all meals, slow rate of intake, and multiple swallows. MBS Study to better assess overall swallow function and rule out aspiration risk.
[2025-04-06] MEDS: oxyCODONE HCL (*CRX) 2.5 MG TAB IR PO (09:13)
[2025-04-06] MEDS: REMDESIVIR 100 MG/NS 250 ML 100 MG/250 ML BAG 250 MG IVPB (09:30)
[2025-04-06] MEDS: guaiFENesin 12 HR 600 MG TABCR 1200 MG PO ×2 (09:30→21:10)
[2025-04-06 09:31] VITALS: PULSE 68
[2025-04-06] MEDS: PANTOPRAZOLE 40 MG TABLET PO (09:31)
[2025-04-06] MEDS: FLECAINIDE ACETATE 50 MG TABLET PO ×2 (09:31→21:11)
[2025-04-06] MEDS: ACETAMINOPHEN 500 MG TABLET 1000 MG PO ×3 (09:31→17:14)
[2025-04-06] MEDS: APIXABAN 5 MG TABLET PO ×2 (09:39→21:10)
[2025-04-06] MEDS: BENZONATATE 100 MG CAPSULE 200 MG PO ×3 (09:39→17:13)
--- NOTE | 2025-04-06 13:23 | PCSTNOTE ---
Please refer to the Modified Barium Swallow Evaluation in the EMR. The patient is a 85 year old female referred for an MBS Study based on bedside swallow evaluation results and a recent choking episode with solids. The patient was positioned in a lateral view and presented the following consistencies: 5cc/tsp thin liquid barium, cup drink thin liquid barium ,pudding mixed with barium paste, and cracker coated with barium paste. Oral Stage: Timely oral preparation and transit of the bolus was viewed for all consistencies. Pharyngeal Stage: Swallow initiation was timely without viewed aspiration or penetration for all consistencies. In addition, no residual was viewed to remain in the vallecula or pyriform sinus across all consistencies. Recommend Regular Diet Level 7, Thin Liquid Level 0, small bites and drinks, and upright when eating.
[2025-04-06 15:25] VITALS: BP 107/50; PULSE 69; RESP 16; TEMP 36.9; O2SAT 95
--- NOTE | 2025-04-06 17:23 | P.PNIM_ITS ---
Progress Note: A&P Assessment and Plan (1) Fall from ground level: Code(s): W18.30XA - Fall on same level, unspecified, initial encounter Status: Acute Assessment and Plan: * Urine cloudy, 1+ protein, 1+ ketones, 1+ leukocytes, RBC 11-20, WBC 11-20. Urine culture pending. No urinary symptoms. * Chest x-ray showed no focal infiltrate or effusion. * Xray of hips and pelvis: Degenerative disease without acute fracture or dislocation. * Head CT negative. * Cervical spine CT showed Severe cervical spondylosis with no acute osseous abnormality. * Thoracic spine CT: No acute osseous abnormality of the thoracic spine. * MRI of hips/pelvis no acute findings * Lumbar spine x-ray * PT/OT (2) Back pain: Code(s): M54.9 - Dorsalgia, unspecified Status: Acute Assessment and Plan: * Acetaminophen and Tramadol, oxycodone prn (3) Parkinson disease: Code(s): G20 - Parkinson's disease Status: Acute Assessment and Plan: * Carbidopa/ Levodopa. Neurology increased to q6 * Patient hasn't noticed a difference in tremors after taking medication but family noticed she didn't have tremors in the afternoon yesterday when she was there * Planning to follow up with neurology (4) Transient limb paralysis: Code(s): R29.818 - Other symptoms and signs involving the nervous system Status: Acute Assessment and Plan: She reports inability to move arms and legs during episode for several hours, which is an atypical symptom and she has never experienced before. Differential incluses parkinson's, transient cord compression, transient vascular spinal event. She has double vision but normal with one eye covered (has been told he has a weak eye muscle on the left). Still having mid and low back pain and generalized weakness, not back to baseline. --Neurology consulted, appreciate recommendations --MRI Thoracic and lumbar spine tomorrow. --On chronic eliquis --Acetylcholinesterase ab pending --Spine surgery consulted, recommended brace as needed for pain. Does not need to wear if not having pain IMAGING 04/02 MRI Brain showed: 1. No acute intracranial process or abnormally enhancing brain lesions. 2. Age-related changes including mild diffuse volume loss and mild to moderate scattered nonspecific white matter T2 hyperintensity consistent with chronic small vessel ischemic disease. 04/02 MRI C-spine Severe cervical spondylosis. No cord signal abnormalities or abnormally enhancing lesions. Evaluation mildly limited by some motion artifact primarily on the post contrast imaging. 04/04 MRI Tspine Mild acute compression fracture of T11. 04/04 MRI Lspine Minimal acute compression fracture of L3. Minimal degenerative spondylosis, as above. (5) Cough: Code(s): R05.9 - Cough, unspecified Status: Acute Assessment and Plan: Intermittently productive cough, not on oxygen --Guaifenesin BID, tessalon perles 200 TID prn --Repeat x-ray no acute findings --Incentive spirometer (6) COVID: Code(s): U07.1 - COVID-19 Status: Acute Assessment and Plan: Viral swab positive for covid --Start Remdesivir 250mg IV then 100mg daily x4 days. Does not need to stay inpatient to complete. --On 1L O2 for sat 89%. Start dexamethasone 6mg daily --Guaifenesin, Tessalon perles PRN (7) Acute respiratory failure: Code(s): J96.00 - Acute respiratory failure, unspecified whether with hypoxia or hypercapnia Status: Acute Assessment and Plan: Likely 2/2 covid. On 1 L O2 --Wean as tolerated for sats >92% --treatment of covid--remdesivir and steroids Plan MRI Thoracic spine showed a mild compression fracture T11, lumbar MRI showed a minimal acute compression fracture of L3. Spine surgery recommending a brace prn for pain Intermittently productive cough, repeat chest x-ray no acute findings. New oxygen requirement. today on 1L O2 for sat 95% as patient is being treated with dexamethasone and remdesivir, day 3, patient had a chocking episode, will consult speech pathologist for further recommendation. patient was seen by speech pathologist and had MBS and she did well and able to swallow. today patie nt was able to sit on the chair for 30min felt better, will CPM, and monitor. Subjective Date/time seen: 04/06/25 17:23 Interval history: MRI Thoracic spine showed a mild compression fracture T11, lumbar MRI showed a minimal acute compression fracture of L3. Spine surgery recommending a brace prn for pain Intermittently productive cough, repeat chest x-ray no acute findings. New oxygen requirement. today on 1L O2 for sat 95% as patient is being treated with dexamethasone and remdesivir, day 3, patient had a chocking episode, will consult speech pathologist for further recommendation. patient was seen by speech pathologist and had MBS and she did well and able to swallow. today patient was able to sit on the chair for 30min felt better, will CPM, and monitor. Review of Systems Review of Systems: All systems reviewed & are unremarkable except as noted in HPI and below Exam Narrative: Elderly frail Patient is comfortable, NAD HEENT: eyes are clear and none icteric LUNGS:CTA HEART: RR S1S2 ABD: BS+, Soft and nontender Lower extremities: no edema SKIN: nonjaundiced Neuro: grossly intact. Objective Data Vital Signs Vital Signs: Vital Signs - 24 hr 04/05/25 19:29 04/05/25 20:00 04/05/25 21:00 Temperature 36.7 C Pulse Rate 73 65 Respiratory Rate 20 18 Blood Pressure 131/60 Pulse Oximetry 97 97 Oxygen Delivery Room Air Room Air Fraction of Inspired Oxygen 21 04/06/25 06:00 04/06/25 08:00 04/06/25 09:31 Temperature 36.7 C Pulse Rate 76 68 Respiratory Rate 18 Blood Pressure 128/65 Pulse Oximetry 96 95 Oxygen Delivery Room Air Fraction of Inspired Oxygen 04/06/25 15:25 Temperature 36.9 C Pulse Rate 69 Respiratory Rate 16 Blood Pressure 107/50 L Pulse Oximetry 95 Oxygen Delivery Fraction of Inspired Oxygen Intake/Output Intake/Output: Intake & Output 04/03/25 04/04/25 04/05/25 04/06/25 23:59 23:59 23:59 23:59 Intake Total 4887 449 2080 870 Output Total 0983 184 5751 1000 Balance 998 389 9727 -130 Meds/Results Medications: Active Medications Generic Name Dose Route Start Last Admin Trade Name Freq PRN Reason Stop Dose Admin Acetaminophen 1,000 mg 04/01/25 13:00 04/06/25 17:14 Acetaminophen 500 Mg Tablet PO 1,000 mg TID JOSY Administration Amlodipine Besylate 5 mg 03/30/25 09:00 04/06/25 09:31 Amlodipine Besylate 5 Mg Tablet PO 5 mg QAM JOSY Administration Apixaban 5 mg 03/29/25 22:30 04/06/25 09:39 Apixaban 5 Mg Tablet PO 5 mg Q12HR JOSY Administration Benzonatate 200 mg 04/03/25 18:55 04/06/25 17:13 Benzonatate 100 Mg Capsule PO 200 mg TID JOSY Administration Calcium Carbonate 200 mg 03/29/25 20:06 Calcium Carbonate (Tums) 500 Mg (200 Mg Elemental) PO Q6H PRN Indigestion Carbidopa/Levodopa 1 tablet 04/01/25 18:00 04/06/25 17:14 Carbidopa/Levodopa 25/100 Mg Tablet PO 1 tablet Q6HR JOSY Administration Dexamethasone 6 mg 04/04/25 10:30 04/06/25 09:31 Dexamethasone 2 Mg Tablet PO 04/13/25 08:01 6 mg DAILY@0800 JOSY Administration Flecainide Acetate 50 mg 03/29/25 22:25 04/06/25 09:31 Flecainide Acetate 50 Mg Tablet PO 50 mg Q12HR JOSY Administration Guaifenesin 1,200 mg 04/02/25 21:00 04/06/25 09:30 Guaifenesin 12 Hr 600 Mg Tabcr PO 1,200 mg Q12HR JOSY Administration Remdesivir 100 mg in 250 mls @ 250 mls/hr 04/05/25 10:00 04/06/25 09:30 IVPB 04/08/25 10:59 250 mls/hr Q24H [facility] Administration Morphine Sulfate 1 mg 03/31/25 16:35 04/03/25 15:36 Morphine Sulfate (*Crx) 2 Mg/Ml Inj IV PUSH 1 mg Q4H PRN Administration Breakthrough Pain Ondansetron HCl 4 mg 04/01/25 12:22 04/02/25 11:18 Ondansetron Inj 4 Mg/2 Ml Vial IV PUSH 4 mg Q6H PRN Administration Nausea And Vomiting Oxycodone HCl 2.5 mg 03/31/25 16:35 04/06/25 09:13 Oxycodone Hcl (*Crx) 2.5 Mg Tab Ir PO 2.5 mg Q4H PRN Administration Pain Rated 7-10 Pantoprazole Sodium 40 mg 04/02/25 09:00 04/06/25 09:31 Pantoprazole 40 Mg Tablet PO 40 mg QAM JOSY Administration Propranolol HCl 120 mg 03/30/25 21:00 04/05/25 21:01 Propranolol Hcl 60 Mg Capsule Cr PO 120 mg HS JOSY Administration Tramadol HCl 50 mg 03/30/25 10:42 04/06/25 04:47 Tramadol Hcl (*Crx) 50 Mg Tablet PO 50 mg Q6H PRN Administration Pain Rated 4-6 Radiology Results: ITS Impressions Hip/Pelvis X-Ray 03/29/25 15:19 IMPRESSION: Degenerative disease without acute fracture or dislocation. If clinical suspicion persists, cross-sectional imaging (noncontrast enhanced CT examination of the pelvis) is suggested for further evaluation. Head CT 03/29/25 15:34 IMPRESSION: No acute intracranial findings. Cervical Spine CT 03/29/25 15:36 IMPRESSION: 1. Severe cervical spondylosis with no acute osseous abnormality. Thoracic Spine CT 03/29/25 15:46 IMPRESSION: No acute osseous abnormality of the thoracic spine. Hip MRI 03/31/25 15:24 IMPRESSION: 1. No fracture or other acute osseous abnormality in the pelvis or bilateral hips. 2. Bipolar type right hip hemiarthroplasty. Hip MRI 03/31/25 15:24 IMPRESSION: 1. No fracture or other acute osseous abnormality in the pelvis or bilateral hips. 2. Bipolar type right hip hemiarthroplasty. Brain MRI 04/02/25 14:19 IMPRESSION: 1. No acute intracranial process or abnormally enhancing brain lesions. 2. Age-related changes including mild diffuse volume loss and mild to moderate scattered nonspecific white matter T2 hyperintensity consistent with chronic small vessel ischemic disease. Cervical Spine MRI 04/02/25 16:59 IMPRESSION: 1. Severe cervical spondylosis. No cord signal abnormalities or abnormally enhancing lesions. Evaluation mildly limited by some motion artifact primarily on the post contrast imaging. Chest X-Ray 04/03/25 19:38 IMPRESSION: No acute cardiopulmonary process. Lumbar Spine MRI 04/04/25 07:18 Impression: Minimal acute compression fracture of L3. Minimal degenerative spondylosis, as above. Thoracic Spine MRI 04/04/25 07:21 Impression: Mild acute compression fracture of T11. Modified Barium Swallow 04/06/25 16:40 IMPRESSION: No penetration or aspiration. Labs Labs: Laboratory Results - last 24 hr 04/06/25 05:33 WBC 10.6 H RBC 3.56 L Hgb 11.9 L Hct 36.6 L MCV 102.8 H MCH 33.4 MCHC 32.5 RDW 12.1 Plt Count 264 MPV 10.0 Immature Gran % (Auto) 1.1 H Neut % (Auto) 87.7 H Lymph % (Auto) 6.1 L [place] % (Auto) 5.0 Eos % (Auto) 0.0 Baso % (Auto) 0.1 L Lymph # (Auto) 0.65 L [place] # (Auto) 0.5 Eos # (Auto) 0.0 Baso # (Auto) 0.0 Abs Immat Gran (auto) 0.12 H Absolute Neuts (auto) 9.3 H Absolute Nucleated RBC 0.000 Nucleated RBC % 0.0 Sodium 141 Potassium 4.2 Chloride 108 H Carbon Dioxide 24 Anion Gap 9 BUN 23 H Creatinine 0.64 L Estim Creat Clear Calc 48 Estimated GFR > 60 Glucose 135 H Calcium 8.9 Magnesium 2.1 Total Bilirubin 0.4 AST 28 ALT 8 Alkaline Phosphatase 54 Total Protein 6.1 L Albumin 3.3 L Quality VTE Prophylaxis VTE prophylaxis: mechanical ordered and pharmacologic ordered
[2025-04-06] MEDS: PROPRANOLOL HCL 60 MG CAPSULE CR 120 MG PO (21:10)
[2025-04-06 21:15] VITALS: BP 111/64; PULSE 62; RESP 19; TEMP 36.2; O2SAT 96
[2025-04-07] MEDS: CARBIDOPA/LEVODOPA 25/100 MG TABLET 1 TABLET PO ×4 (05:36→23:32)
[2025-04-07 05:43] VITALS: BP 149/52; PULSE 58; RESP 14; TEMP 36.3; O2SAT 93
[2025-04-07 05:43] LABS: Hematocrit 37.2 % (37.0-47.0); Hemoglobin 12.3 g/dL (12.0-15.0); Immature Granulocyte Percent A 0.9 % (0-0.5); Lymphocytes Absolute Auto 0.59 K/mm3 (0.9-3.2); Mean Corpuscular HGB Conc 33.1 g/dl (32-36); Mean Corpuscular Hemoglobin 34.1 pg (26-34); Mean Corpuscular Volume 103.0 fl (80-100); Nucleated Red Blood Cells Absolute Auto 0.000 K/mm3 (0.0-0.012); Nucleated Red Blood Cells Perc 0.0 % (0.0-0.2); Platelet Count Result 284 k/mm3 (150-375); Red Blood Count 3.61 M/mm3 (4.2-5.4); White Blood Count 7.1 K/mm3 (4.5-10.0)
[2025-04-07 05:54] LABS: Alanine Aminotransferase 9 U/L (6-35); Albumin Level 3.3 g/dL (3.5-5.1); Alkaline Phosphatase 57 U/L (38-126); Anion Gap 9 mmol/L (4-12); Aspartate Amino Transferase 21 U/L (14-36); Bilirubin,Total 0.5 mg/dL (0.2-1.3); Blood Urea Nitrogen 23 mg/dL (7-17); Calcium 8.5 mg/dL (8.4-10.2); Carbon Dioxide 23 mmol/L (22-30); Chloride 106 mmol/L (98-107); Estimated CRCL calculation 48 ml/min; Estimated Glomerular Filt Rate > 60; Glucose 123 mg/dL (65-110); Magnesium 2.1 mg/dL (1.6-2.3); Potassium 4.2 mmol/L (3.4-5.0); Sodium 138 mmol/L (137-145); Total Protein 6.2 g/dL (6.3-8.2)
[2025-04-07 09:00] VITALS: PULSE 62
[2025-04-07] MEDS: PANTOPRAZOLE 40 MG TABLET PO (09:00)
[2025-04-07] MEDS: FLECAINIDE ACETATE 50 MG TABLET PO ×2 (09:00→20:33)
[2025-04-07] MEDS: APIXABAN 5 MG TABLET PO ×2 (09:01→20:33)
[2025-04-07] MEDS: BENZONATATE 100 MG CAPSULE 200 MG PO ×3 (09:01→17:48)
[2025-04-07] MEDS: ACETAMINOPHEN 500 MG TABLET 1000 MG PO ×3 (09:01→17:49)
[2025-04-07] MEDS: guaiFENesin 12 HR 600 MG TABCR 1200 MG PO ×2 (09:01→20:33)
[2025-04-07] MEDS: REMDESIVIR 100 MG/NS 250 ML 100 MG/250 ML BAG 250 MG IVPB (10:44)
--- NOTE | 2025-04-07 11:33 | PCNFU ---
Nutrition Follow-Up Complete: Inadequate Oral Intake as related to back pain/fall as evidenced by poor po intake reported. Meet estimated nutritional needs. - Progressing to goal. Continue with same goal Goal: Pt current nutrition is Heart healthy diet, Ensure +HP TID (350 kcal, 20 g protein) Nutrition recommendation: No new recommendations. Continue current nutrition care plan and orders. Agree with orders Last recorded weight is 56.4 kg. Bowel Motility: Last BM 04/05 Labs Reviewed: Alb 3.3, BUN 23, Cre 0.64, Glu 123 Meds Noted: Remdesivir, dexamethasone, mucinex, protonix Skin: No skin issues Additional Notes: Intakes improved 5-50% and drinking 100% Ensures. Continue current nutrition care plan and monitoring. Will monitor weight, labs, skin, diet orders, meds every 5 days.
[2025-04-07] MEDS: oxyCODONE HCL (*CRX) 2.5 MG TAB IR PO (12:56)
[2025-04-07 14:00] VITALS: BP 105/63; PULSE 56; RESP 16; TEMP 37.1; O2SAT 97
--- NOTE | 2025-04-07 14:10 | PCOTNOTE ---
Attempted to see Patient at this time. Patient is bed and states she just got back into bed and is done for today, Patient is going to take a nap, requested try back tomorrow. Patient declined any activity at this time.
--- NOTE | 2025-04-07 17:27 | P.PNIM_ITS ---
Progress Note: A&P Assessment and Plan (1) Fall from ground level: Code(s): W18.30XA - Fall on same level, unspecified, initial encounter Status: Acute Assessment and Plan: * Urine cloudy, 1+ protein, 1+ ketones, 1+ leukocytes, RBC 11-20, WBC 11-20. Urine culture pending. No urinary symptoms. * Chest x-ray showed no focal infiltrate or effusion. * Xray of hips and pelvis: Degenerative disease without acute fracture or dislocation. * Head CT negative. * Cervical spine CT showed Severe cervical spondylosis with no acute osseous abnormality. * Thoracic spine CT: No acute osseous abnormality of the thoracic spine. * MRI of hips/pelvis no acute findings * Lumbar spine x-ray * PT/OT (2) Back pain: Code(s): M54.9 - Dorsalgia, unspecified Status: Acute Assessment and Plan: * Acetaminophen and Tramadol, oxycodone prn (3) Parkinson disease: Code(s): G20 - Parkinson's disease Status: Acute Assessment and Plan: * Carbidopa/ Levodopa. Neurology increased to q6 * Patient hasn't noticed a difference in tremors after taking medication but family noticed she didn't have tremors in the afternoon yesterday when she was there * Planning to follow up with neurology (4) Transient limb paralysis: Code(s): R29.818 - Other symptoms and signs involving the nervous system Status: Acute Assessment and Plan: She reports inability to move arms and legs during episode for several hours, which is an atypical symptom and she has never experienced before. Differential incluses parkinson's, transient cord compression, transient vascular spinal event. She has double vision but normal with one eye covered (has been told he has a weak eye muscle on the left). Still having mid and low back pain and generalized weakness, not back to baseline. --Neurology consulted, appreciate recommendations --MRI Thoracic and lumbar spine tomorrow. --On chronic eliquis --Acetylcholinesterase ab pending --Spine surgery consulted, recommended brace as needed for pain. Does not need to wear if not having pain IMAGING 04/02 MRI Brain showed: 1. No acute intracranial process or abnormally enhancing brain lesions. 2. Age-related changes including mild diffuse volume loss and mild to moderate scattered nonspecific white matter T2 hyperintensity consistent with chronic small vessel ischemic disease. 04/02 MRI C-spine Severe cervical spondylosis. No cord signal abnormalities or abnormally enhancing lesions. Evaluation mildly limited by some motion artifact primarily on the post contrast imaging. 04/04 MRI Tspine Mild acute compression fracture of T11. 04/04 MRI Lspine Minimal acute compression fracture of L3. Minimal degenerative spondylosis, as above. (5) Cough: Code(s): R05.9 - Cough, unspecified Status: Acute Assessment and Plan: Intermittently productive cough, not on oxygen --Guaifenesin BID, tessalon perles 200 TID prn --Repeat x-ray no acute findings --Incentive spirometer (6) COVID: Code(s): U07.1 - COVID-19 Status: Acute Assessment and Plan: Viral swab positive for covid --Start Remdesivir 250mg IV then 100mg daily x4 days. Does not need to stay inpatient to complete. --On 1L O2 for sat 89%. Start dexamethasone 6mg daily --Guaifenesin, Tessalon perles PRN (7) Acute respiratory failure: Code(s): J96.00 - Acute respiratory failure, unspecified whether with hypoxia or hypercapnia Status: Acute Assessment and Plan: Likely 2/2 covid. On 1 L O2 --Wean as tolerated for sats >92% --treatment of covid--remdesivir and steroids Plan MRI Thoracic spine showed a mild compression fracture T11, lumbar MRI showed a minimal acute compression fracture of L3. Spine surgery recommending a brace prn for pain Intermittently productive cough, repeat chest x-ray no acute findings. New oxygen requirement. today on 1L O2 for sat 95% as patient is being treated with dexamethasone and remdesivir, day 4, patient had a chocking episode, will consult speech pathologist for further recommendation. patient was seen by speech pathologist and had MBS and she did well and able to swallow. today patie nt was able to sit on the chair for 30min felt better, will CPM, and monitor. today patient daughter is present in the room, patient stats feeling much better, will continue to monitor. Subjective Date/time seen: 04/07/25 17:27 Interval history: MRI Thoracic spine showed a mild compression fracture T11, lumbar MRI showed a minimal acute compression fracture of L3. Spine surgery recommending a brace prn for pain Intermittently productive cough, repeat chest x-ray no acute findings. New oxygen requirement. today on 1L O2 for sat 95% as patient is being treated with dexamethasone and remdesivir, day 4, patient had a chocking episode, will consult speech pathologist for further recommendation. patient was seen by speech pathologist and had MBS and she did well and able to swallow. today patient was able to sit on the chair for 30min felt better, will CPM, and monitor. today patient daughter is present in the room, patient stats feeling much better, will continue to monitor. Review of Systems Review of Systems: All systems reviewed & are unremarkable except as noted in HPI and below Exam Narrative: Elderly frail Patient is comfortable, NAD HEENT: eyes are clear and none icteric LUNGS:CTA HEART: RR S1S2 ABD: BS+, Soft and nontender Lower extremities: no edema SKIN: nonjaundiced Neuro: grossly intact. Objective Data Vital Signs Vital Signs: Vital Signs - 24 hr 04/06/25 20:00 04/06/25 21:15 04/07/25 05:43 Temperature 36.2 C L 36.3 C L Pulse Rate 62 58 L Respiratory Rate 19 14 Blood Pressure 111/64 149/52 H Pulse Oximetry 96 93 Oxygen Delivery Room Air 04/07/25 08:00 04/07/25 09:00 04/07/25 14:00 Temperature 37.1 C Pulse Rate 62 56 L Respiratory Rate 16 Blood Pressure 105/63 Pulse Oximetry 97 Oxygen Delivery Room Air Intake/Output Intake/Output: Intake & Output 04/04/25 04/05/25 04/06/25 04/07/25 23:59 23:59 23:59 23:59 Intake Total 920 2010 1360 1060 Output Total 200 1000 1000 200 Balance 720 1010 360 860 Meds/Results Medications: Active Medications Generic Name Dose Route Start Last Admin Trade Name Freq PRN Reason Stop Dose Admin Acetaminophen 1,000 mg 04/01/25 13:00 04/07/25 12:55 Acetaminophen 500 Mg Tablet PO 1,000 mg TID JOSY Administration Amlodipine Besylate 5 mg 03/30/25 09:00 04/07/25 09:01 Amlodipine Besylate 5 Mg Tablet PO 5 mg QAM JOSY Administration Apixaban 5 mg 03/29/25 22:30 04/07/25 09:01 Apixaban 5 Mg Tablet PO 5 mg Q12HR JOSY Administration Benzonatate 200 mg 04/03/25 18:55 04/07/25 12:55 Benzonatate 100 Mg Capsule PO 200 mg TID JOSY Administration Calcium Carbonate 200 mg 03/29/25 20:06 Calcium Carbonate (Tums) 500 Mg (200 Mg Elemental) PO Q6H PRN Indigestion Carbidopa/Levodopa 1 tablet 04/01/25 18:00 04/07/25 12:56 Carbidopa/Levodopa 25/100 Mg Tablet PO 1 tablet Q6HR JOSY Administration Dexamethasone 6 mg 04/04/25 10:30 04/07/25 09:00 Dexamethasone 2 Mg Tablet PO 04/13/25 08:01 6 mg DAILY@0800 JOSY Administration Flecainide Acetate 50 mg 03/29/25 22:25 04/07/25 09:00 Flecainide Acetate 50 Mg Tablet PO 50 mg Q12HR JOSY Administration Guaifenesin 1,200 mg 04/02/25 21:00 04/07/25 09:01 Guaifenesin 12 Hr 600 Mg Tabcr PO 1,200 mg Q12HR JOSY Administration Remdesivir 100 mg in 250 mls @ 250 mls/hr 04/05/25 10:00 04/07/25 10:44 IVPB 04/08/25 10:59 250 mls/hr Q24H JOSY Administration Morphine Sulfate 1 mg 03/31/25 16:35 04/03/25 15:36 Morphine Sulfate (*Crx) 2 Mg/Ml Inj IV PUSH 1 mg Q4H PRN Administration Breakthrough Pain Ondansetron HCl 4 mg 04/01/25 12:22 04/02/25 11:18 Ondansetron Inj 4 Mg/2 Ml Vial IV PUSH 4 mg Q6H PRN Administration Nausea And Vomiting Oxycodone HCl 2.5 mg 03/31/25 16:35 04/07/25 12:56 Oxycodone Hcl (*Crx) 2.5 Mg Tab Ir PO 2.5 mg Q4H PRN Administration Pain Rated 7-10 Pantoprazole Sodium 40 mg 04/02/25 09:00 04/07/25 09:00 Pantoprazole 40 Mg Tablet PO 40 mg QAM JOSY Administration Propranolol HCl 120 mg 03/30/25 21:00 04/06/25 21:10 Propranolol Hcl 60 Mg Capsule Cr PO 120 mg HS JOSY Administration Tramadol HCl 50 mg 03/30/25 10:42 04/06/25 21:10 Tramadol Hcl (*Crx) 50 Mg Tablet PO 50 mg Q6H PRN Administration Pain Rated 4-6 Radiology Results: ITS Impressions Hip/Pelvis X-Ray 03/29/25 15:19 IMPRESSION: Degenerative disease without acute fracture or dislocation. If clinical suspicion persists, cross-sectional imaging (noncontrast enhanced CT examination of the pelvis) is suggested for further evaluation. Head CT 03/29/25 15:34 IMPRESSION: No acute intracranial findings. Cervical Spine CT 03/29/25 15:36 IMPRESSION: 1. Severe cervical spondylosis with no acute osseous abnormality. Thoracic Spine CT 03/29/25 15:46 IMPRESSION: No acute osseous abnormality of the thoracic spine. Hip MRI 03/31/25 15:24 IMPRESSION: 1. No fracture or other acute osseous abnormality in the pelvis or bilateral hips. 2. Bipolar type right hip hemiarthroplasty. Hip MRI 03/31/25 15:24 IMPRESSION: 1. No fracture or other acute osseous abnormality in the pelvis or bilateral hips. 2. Bipolar type right hip hemiarthroplasty. Brain MRI 04/02/25 14:19 IMPRESSION: 1. No acute intracranial process or abnormally enhancing brain lesions. 2. Age-related changes including mild diffuse volume loss and mild to moderate scattered nonspecific white matter T2 hyperintensity consistent with chronic small vessel ischemic disease. Cervical Spine MRI 04/02/25 16:59 IMPRESSION: 1. Severe cervical spondylosis. No cord signal abnormalities or abnormally enhancing lesions. Evaluation mildly limited by some motion artifact primarily on the post contrast imaging. Chest X-Ray 04/03/25 19:38 IMPRESSION: No acute cardiopulmonary process. Lumbar Spine MRI 04/04/25 07:18 Impression: Minimal acute compression fracture of L3. Minimal degenerative spondylosis, as above. Thoracic Spine MRI 04/04/25 07:21 Impression: Mild acute compression fracture of T11. Modified Barium Swallow 04/06/25 16:40 IMPRESSION: No penetration or aspiration. Labs Labs: Laboratory Results - last 24 hr 04/07/25 05:29 WBC 7.1 RBC 3.61 L Hgb 12.3 Hct 37.2 MCV 103.0 H MCH 34.1 H MCHC 33.1 RDW 11.9 Plt Count 284 MPV 10.0 Immature Gran % (Auto) 0.9 H Neut % (Auto) 82.5 H Lymph % (Auto) 8.4 L [place] % (Auto) 8.1 Eos % (Auto) 0.0 Baso % (Auto) 0.1 L Lymph # (Auto) 0.59 L [place] # (Auto) 0.6 Eos # (Auto) 0.0 Baso # (Auto) 0.0 Abs Immat Gran (auto) 0.06 H Absolute Neuts (auto) 5.8 Absolute Nucleated RBC 0.000 Nucleated RBC % 0.0 Sodium 138 Potassium 4.2 Chloride 106 Carbon Dioxide 23 Anion Gap 9 BUN 23 H Creatinine 0.64 L Estim Creat Clear Calc 48 Estimated GFR > 60 Glucose 123 H Calcium 8.5 Magnesium 2.1 Total Bilirubin 0.5 AST 21 ALT 9 Alkaline Phosphatase 57 Total Protein 6.2 L Albumin 3.3 L Quality VTE Prophylaxis VTE prophylaxis: mechanical ordered and pharmacologic ordered
[2025-04-07 20:32] VITALS: BP 110/64; PULSE 61; RESP 18; TEMP 36.9; O2SAT 96
[2025-04-07] MEDS: PROPRANOLOL HCL 60 MG CAPSULE CR 120 MG PO (20:33)
[2025-04-07] MEDS: traMADol HCL (*CRX) 50 MG TABLET PO (20:34)
[2025-04-08] MEDS: CARBIDOPA/LEVODOPA 25/100 MG TABLET 1 TABLET PO ×2 (05:43→13:01)
[2025-04-08 06:00] VITALS: BP 114/74; PULSE 89; RESP 18; TEMP 36.7; O2SAT 98
[2025-04-08 09:55] VITALS: O2SAT 95
[2025-04-08] MEDS: ACETAMINOPHEN 500 MG TABLET 1000 MG PO (09:55)
[2025-04-08 09:56] VITALS: PULSE 61
[2025-04-08] MEDS: APIXABAN 5 MG TABLET PO (09:56)
[2025-04-08] MEDS: FLECAINIDE ACETATE 50 MG TABLET PO (09:56)
[2025-04-08] MEDS: PANTOPRAZOLE 40 MG TABLET PO (09:56)
[2025-04-08] MEDS: guaiFENesin 12 HR 600 MG TABCR 1200 MG PO (09:56)
[2025-04-08] MEDS: REMDESIVIR 100 MG/NS 250 ML 100 MG/250 ML BAG 250 MG IVPB (09:57)
[2025-04-08] MEDS: oxyCODONE HCL (*CRX) 2.5 MG TAB IR PO (10:01)
[2025-04-08] MEDS: BENZONATATE 100 MG CAPSULE 200 MG PO ×2 (10:01→13:01)
--- NOTE | 2025-04-08 12:49 | P.DS_ITS ---
DS: Admitting Diagnosis Discharge Date 04/08/25 Admitting Diagnosis Fall DS: Discharge Diagnosis Discharge Diagnosis (1) Fall from ground level: Code(s): W18.30XA - Fall on same level, unspecified, initial encounter Status: Acute Assessment and Plan: * Urine cloudy, 1+ protein, 1+ ketones, 1+ leukocytes, RBC 11-20, WBC 11-20. Urine culture pending. No urinary symptoms. * Chest x-ray showed no focal infiltrate or effusion. * Xray of hips and pelvis: Degenerative disease without acute fracture or dislocation. * Head CT negative. * Cervical spine CT showed Severe cervical spondylosis with no acute osseous abnormality. * Thoracic spine CT: No acute osseous abnormality of the thoracic spine. * MRI of hips/pelvis no acute findings * Lumbar spine x-ray * PT/OT (2) Back pain: Code(s): M54.9 - Dorsalgia, unspecified Status: Acute Assessment and Plan: * Acetaminophen and Tramadol, oxycodone prn (3) Parkinson disease: Code(s): G20 - Parkinson's disease Status: Acute Assessment and Plan: * Carbidopa/ Levodopa. Neurology increased to q6 * Patient hasn't noticed a difference in tremors after taking medication but family noticed she didn't have tremors in the afternoon yesterday when she was there * Planning to follow up with neurology (4) Transient limb paralysis: Code(s): R29.818 - Other symptoms and signs involving the nervous system Status: Acute Assessment and Plan: She reports inability to move arms and legs during episode for several hours, which is an atypical symptom and she has never experienced before. Differential incluses parkinson's, transient cord compression, transient vascular spinal event. She has double vision but normal with one eye covered (has been told he has a weak eye muscle on the left). Still having mid and low back pain and generalized weakness, not back to baseline. --Neurology consulted, appreciate recommendations --MRI Thoracic and lumbar spine tomorrow. --On chronic eliquis --Acetylcholinesterase ab pending --Spine surgery consulted, recommended brace as needed for pain. Does not need to wear if not having pain IMAGING 04/02 MRI Brain showed: 1. No acute intracranial process or abnormally enhancing brain lesions. 2. Age-related changes including mild diffuse volume loss and mild to moderate scattered nonspecific white matter T2 hyperintensity consistent with chronic small vessel ischemic disease. 04/02 MRI C-spine Severe cervical spondylosis. No cord signal abnormalities or abnormally enhancing lesions. Evaluation mildly limited by some motion artifact primarily on the post contrast imaging. 04/04 MRI Tspine Mild acute compression fracture of T11. 04/04 MRI Lspine Minimal acute compression fracture of L3. Minimal degenerative spondylosis, as above. (5) Cough: Code(s): R05.9 - Cough, unspecified Status: Acute Assessment and Plan: Intermittently productive cough, not on oxygen --Guaifenesin BID, tessalon perles 200 TID prn --Repeat x-ray no acute findings --Incentive spirometer (6) COVID: Code(s): U07.1 - COVID-19 Status: Acute Assessment and Plan: Viral swab positive for covid --Start Remdesivir 250mg IV then 100mg daily x4 days. Does not need to stay inpatient to complete. --On 1L O2 for sat 89%. Start dexamethasone 6mg daily --Guaifenesin, Tessalon perles PRN (7) Acute respiratory failure: Code(s): J96.00 - Acute respiratory failure, unspecified whether with hypoxia or hypercapnia Status: Acute Assessment and Plan: Likely 2/2 covid. On 1 L O2 --Wean as tolerated for sats >92% --treatment of covid--remdesivir and steroids Plan MRI Thoracic spine showed a mild compression fracture T11, lumbar MRI showed a minimal acute compression fracture of L3. Spine surgery recommending a brace prn for pain Intermittently productive cough, repeat chest x-ray no acute findings. New oxygen requirement. today on 1L O2 for sat 95% as patient is being treated with dexamethasone and remdesivir, day 4, patient had a chocking episode, will consult speech pathologist for further recommendation. patient was seen by speech pathologist and had MBS and she did well and able to swallow. today danica bhanu was able to sit on the chair for 30min felt better, will CPM, and monitor. today patient daughter is present in the room, patient stats feeling much better, will continue to monitor. DS: Summary Hospital Course Hospital Course: patient was COVID positive, has intermittently productive cough, repeat chest x- ray showed no acute findings. New oxygen requirement. now on 1L O2 for sat 95% as patient is being treated with dexamethasone and remdesivir, day 5, patient had a chocking episode, consulted speech pathologist for further recommendation. patient was seen by speech pathologist and had MBS and she did well and able to swallow. today patient was able to sit on the chair for 30min felt better, will CPM, and monitor. today patient daughter is present in the room, patient stats feeling much better, clinically stable her daughter is here with the patient, will dishcarge today. Time Spent with Patient Time attestation: Total time spent providing and/or coordinating discharge services: Exam Narrative: Elderly frail Patient is comfortable, NAD HEENT: eyes are clear and none icteric LUNGS:CTA HEART: RR S1S2 ABD: BS+, Soft and nontender Lower extremities: no edema SKIN: nonjaundiced Neuro: grossly intact. Discharge Plan Discharge Attending physician on discharge: Martha Mathews Consulting providers: Juanjose Ji; Trell Loo Discharging Clinician: Sydnee Burrows Patient Disposition: SNF Activity: as tolerated Diet: heart healthy Discharge Instructions: patient is instructed to avoid general public, wear mask and follow general hygiene. patient to follow up with her primary care provider as soon as possible, patient is instructed if any symptoms worsen to go to nearest ER. patient to follow up with her neurologist Patient Instructions: Antibiotic Form, Blood Thinners (GEN) Patient Language: Portuguese Stand Alone Forms: General Discharge Information Follow-up/Referrals: Karena Ko, [facility] [Primary Care Provider] - Piotr Crump MD [Physician] - 2 Weeks Discharge Medications: New benzonatate 100 mg Capsule 200 mg PO TID Qty: 30 0RF pantoprazole 40 mg Tablet,Delayed Release (Dr/Ec) 40 mg PO QAM Qty: 30 0RF calcium carbonate 500 mg calcium (1,250 mg) Tablet,Chewable 200 mg PO Q6H PRN (Reason: Indigestion) Qty: 30 0RF carbidopa-levodopa [Sinemet] 25-100 mg Tablet 1 tablet PO Q6HR Qty: 120 0RF guaifenesin [Mucus Relief ER] 600 mg Tablet Extended Release 12hr 1,200 mg PO Q12HR Qty: 30 0RF Continued Eliquis 5 mg tablet 5 mg PO BID Qty: 60 0RF flecainide 50 mg tablet 50 mg PO Q12H codeine-guaifenesin 10-100 mg/5 mL liquid 10 ml PO QID PRN (Reason: cough) propranolol [Inderal LA] 60 mg Capsule,Extended Release 24 Hr 120 mg PO HS amlodipine [Norvasc] 5 mg Tablet 5 mg PO QAM 0RF Discontinued carbidopa-levodopa [Sinemet] 25-100 mg Tablet 1 tablet PO TID 0RF Date of admission: 03/30/25 08:35 Primary Care Provider: Karena Ko Admitting Provider: Debbi Cheema Attending physician on admission: Martha Mathews Condition: Stable
[2025-04-08 14:00] VITALS: BP 118/68; PULSE 74; RESP 18; TEMP 36.7; O2SAT 98
[2025-04-08 18:28] LABS: Acetyl Rec Binding Ab <0.30 nmol/L
--- NOTE | 2025-04-12 07:02 | P.CDI_ITS ---
CDI Query Clarification Request 1)Please review the clinical information below and clarify the respiratory diagnosis the patient is being treated for: Hypoxia or hypoxemia without respiratory failure Respiratory distress without respiratory failure Acute respiratory failure with hypoxia Acute respiratory failure with hypercapnia Acute respiratory failure with hypoxia and hypercapnia Acute on chronic respiratory failure with hypoxia Acute on chronic respiratory failure with hypercapnia Acute on chronic respiratory failure with hypoxia and hypercapnia Acute respiratory distress syndrome (ARDS) Chronic respiratory failure with hypoxia Chronic respiratory failure with hypercapnia Chronic respiratory failure with hypoxia and hypercapnia Other explanation clinical findings, please specify Unable to determine 2) Please clarify if COVID was present on admission *Yes- condition was present at the time of inpatient admission ?? *No- condition was not present at the time of inpatient admission and it developed during the inpatient stay ? *W- provider is unable to clinically determine whether condition is present on admission The medical chart reflects the following: She is reporting diffuse weakness and unsteadiness on her feet. She normally ambulates with a walker. She also endorses bilateral groin/hip pain that she noticed last night when she flexes her hips. She denies saddle anesthesia, bowel or bladder incontinence, chest pain of breath, other injuries acquired. ER work up: BUN 18. Urine cloudy, 1+ protein, 1+ ketones, 1+ leukocytes, RBC 11- 20, WBC 11-20. Urine culture pending. No urinary symptoms. Chest x-ray showed no focal infiltrate or effusion. Xray of hips and pelvis: Degenerative disease without acute fracture or dislocation. Head CT negative. Cervical spine CT showed Severe cervical spondylosis with no acute osseous abnormality. Thoracic spine CT: No acute osseous abnormality of the thoracic spine. Ekg SR 81 with QTc 484 (5) Cough: Code(s): R05.9 - Cough, unspecified Status: Acute Assessment and Plan: Intermittently productive cough, not on oxygen --Guaifenesin BID, tessalon perles 200 TID prn --Repeat x-ray no acute findings --Incentive spirometer (6) COVID: Code(s): U07.1 - COVID-19 Status: Acute Assessment and Plan: Viral swab positive for covid --Start Remdesivir 250mg IV then 100mg daily x4 days. Does not need to stay inpatient to complete. --On 1L O2 for sat 89%. Start dexamethasone 6mg daily --Guaifenesin, Tessalon perles PRN (7) Acute respiratory failure: Code(s): J96.00 - Acute respiratory failure, unspecified whether with hypoxia or hypercapnia Status: Acute Assessment and Plan: Likely 2/2 covid. On 1 L O2 --Wean as tolerated for sats >92% --treatment of covid--remdesivir and steroids CXR 03/29: IMPRESSION: No focal infiltrate or effusion. CXR 04/03: IMPRESSION: No acute cardiopulmonary process. COVID collected and positive on 04/03 o2 given 04/03 r/t pulse ox documented at 89% remdesivir, dexamethasone, guaifenesin, tessalon perles <Bobbi Castelan RN - Last Filed: 04/12/25 07:14> Clarified Diagnosis Clarified Diagnosis: Acute respiratory failure with hypoxia due to covid Yes- condition was present at the time of inpatient admission <Sydnee Burrows MD - Last Filed: 04/26/25 07:44>
== END 2025-04-08 15:40 | DRG 551 ==
LOC: ANHED 17:44 → ANH3MED 18:53
PROVIDERS: Nurse Practitioner Acute Care; Nurse Practitioner Family; Physician Assistant; Psychiatry & Neurology Neurology; Admitting Provider Internal Medicine; Emergency Provider Emergency Medicine; PCP Nurse Practitioner Family; Visit Provider Family Medicine
DX: S32.039A Unspecified fracture of third lumbar vertebra, initial encounter for closed fracture (principal); J96.00 Acute respiratory failure, unspecified whether with hypoxia or hypercapnia; U07.1 COVID-19; S22.089A Unspecified fracture of T11-T12 vertebra, initial encounter for closed fracture; I48.0 Paroxysmal atrial fibrillation; I10 Essential (primary) hypertension; M32.9 Systemic lupus erythematosus, unspecified; M47.812 Spondylosis without myelopathy or radiculopathy, cervical region; M54.9 Dorsalgia, unspecified; G20.A1 Parkinson's disease without dyskinesia, without mention of fluctuations; G25.0 Essential tremor; R29.818 Other symptoms and signs involving the nervous system; W18.30XA Fall on same level, unspecified, initial encounter; Z79.01 Long term (current) use of anticoagulants; Z85.42 Personal history of malignant neoplasm of other parts of uterus; Z87.442 Personal history of urinary calculi; Z86.718 Personal history of other venous thrombosis and embolism; Z87.891 Personal history of nicotine dependence
CPT/HCPCS: 36415; 70450; 70553; 71045; 72125; 72128; 72156; 72157; 72158; 73521; 73721; 74230; 80053; 81001; 82306; 82550; 82607; 82746; 83090; 83735; 83921; 84425; 85025; 85610; 85652; 85730; 86041; 86140; 87086; 87637; 92610; 92611; 93005; 96374; 96375; 97110; 97116; 97162; 97165; 97530; 97535; 99285; A9270; A9577; A9579; G0378; J0248; J2270; J2405; J3480; J8540

== ENCOUNTER 2025-05-12 10:55 | Outpatient (CLI) | payer MEDICARE, OTHER, SELFPAY ==
--- OUTSIDE RECORDS SUMMARY | 2025-05-12 11:38 | XMS_ITS ---
Author Name Auto Generated, Auto Generated Organization [facility] Address [address] [place] [address] Phone [phone] Care Team Providers Care Liner Helper Name Role Phone Christiano Bentley Unavailable [phone] Edna Carrion Unavailable [phone] ZinaAlice johnson Unavailable Functional Status No Results Mental Status No Results Allergies and Intolerances Name Onset Date Reaction Severity Sulfa (Sulfonamide Antibiotics) (Allergy) Eunice 17:32:00 EDT 2024 Encounters Program Name Primary Diagnosis Admission Date/Time Dis charge Date/Time Intermediate Care Facility [facility] COVID-19 SatApr 08 12:31:00 EDT 2024 Immunizations Name Dates Status TST-PPD intradermal SatApr 11 01:00:00 EDT 2024 Completed TST-PPD intradermal SatApr 09 01:00:00 EDT 2024 Completed PCV 20 SatJan 19 01:00:00 EDT 2024 Com pleted Sat Aug 22 01:00:00 EST 2023 Com pleted Medications Medication Directions Start Date End Date guaiFENesin ER 600 mg tablet, extended release 12 hr 2 tabs/1200 mg TABLET, EXTENDED RELEASE 12 HR Oral PRN Every 12 Hours Indication: Congestion SatMay 03 16:04:00 EDT 2024May 03 16:05:00 EDT 2024 AsperFlex (lidocaine) 4 % topical patch 1 patch ADHESIVE PATCH, MEDICATED Topical 2 Times Daily Indication: . 1 patch to mid lower back on in am off at [facility] for pain Sat Apr 24 09:00:00 EDT 2024 potassium chloride ER 20 mEq tablet,extended release 2 Tablets TABLET, EXTENDED RELEASE Oral 1 Time Daily for 3 Days Indication: Take a total of 40meq daily x 3 daysHypokalemia SatApr 20 06:00:00 EDT 2024Apr 23 05:59:00 EDT 2024 potassium chloride ER 20 mEq tablet,extended release 1 Tablet TABLET, EXTENDED RELEASE Oral 1 Time Daily Indication: Hypokalemia SatApr 24 06:00:00 EDT 2024 potassium chloride ER 20 mEq tablet,extended release 3 tabs TABLET, EXTENDED RELEASE Oral 1 Time Daily for 1 Day Indication: hypokalemia SatApr 15 11:00:00 EDT 2024Apr 16 10:59:00 EDT 2024 benzonatate 100 mg capsule 100 mg CAPSULE Oral PRN Every 8 Hours Indication: Cough SatApr 13 01:00:00 EDT 2024 guaiFENesin ER 600 mg tablet, extended release 12 hr 2 tabs/1200 mg TABLET, EXTENDED RELEASE 12 HR Oral PRN Every 12 Hours Indication: Congestion SatApr 13 01:00:00 T 2024May 03 16:05:00 EDT 2024 acetaminophen 325 mg tablet 2 tabs TABLET Oral PRN Every 4 Hours Indication: pain SatApr 09 13:00:00 EDT 2024 pantoprazole 40 mg tablet,delayed release 1 tab TABLET, DELAYED RELEASE (ENTERIC COATED) Oral 1 Time Daily Indication: GERD SatApr 08 13:00:00 2024 benzonatate 100 mg capsule 1 capsule CAPSULE Oral 3 Times Daily Indication: Cough SatApr 08 16:00:00 2024Apr 13 01:15:00 EDT 2024 Calcium-500 500 mg (as calcium carbonate 1,250 mg) chewable tablet 1 tablet TABLET,CHEWABLE Oral PRN Every 6 Hours Indication: Indigestion SatApr 08 14:00:00 2024 carbidopa 25 mg-levodopa 100 mg tablet 1 tablet TABLET Oral Every 6 Hours Indication: Parkinsons SatApr 08 18:00:00 2024 Mucus Relief ER 600 mg tablet, extended release 1200mg TABLET, EXTENDED RELEASE 12 HR Oral Every 12 Hours Indication: Congestion SatApr 08 16:00:00 2024Apr 13 01:17:00 2024 amLODIPine 5 mg tablet 1 tablet TABLET O ral 1 Time Daily Indication: HTN SatApr 08 16:00:00 2024 Sun Apr 18 23:32:00 EDT 2024 flecainide 50 mg tablet 1 tablet TABLET Oral Every 12 Hours Indication: A-fib SatApr 08 19:00:00 EDT 2024 Eliquis 5 mg tablet 1 tablet TABLET Oral 2 Times Daily Indication: A-fib SatApr 08 16:00:00 EDT 2024 codeine 10 mg-guaifenesin 100 mg/5 mL oral liquid 10mL LIQUID (ML) Oral PRN 4 Times Daily Indication: Cough SatApr 08 16:00:00 EDT 2024 [place] May 06 12:49:00 EDT 2024 propranoloL ER 120 mg capsule,24 hr,extended release 1 capsule CAPSULE, EXTENDED RELEASE 24HR Oral 1 Time Daily Indication: A-fib SatApr 08 16:00:00 EDT 2024 TubersoL 5 tub. unit/0.1 mL intradermal injection solution 0.1 Milliliter VIAL (ML) Intradermal 1 Time Weekly for 1 Week Indication: . 1 Step PPD- Read between 48 and 72 hours SatApr 08 18:00:00 EDT 2024Apr 15 17:59:00 EDT 2024 TubersoL 5 tub. unit/0.1 mL intradermal injection solution 1 Application VIAL (ML) Other 1 Time Weekly for 1 Week Indication: . Read results between 48-72 hours after 1st and 2nd (1 week apart). Any reading of 10mm or greater results in a positive test, an x-ray will need to be ordered as a follow up. SatApr 08 16:00:00 EDT 2024Apr 15 15:59:00 EDT 2024 Problems Active Concerns * Fall on same level, unspecified, subsequent encounter* Code: * Start Date: SatApr 08 00:00:00 EDT 2024 * End Date: * Text: * Parkinson's disease without dyskinesia, without mention of fluctuations* Code: * Start Date: SatApr 08 00:00:00 EDT 2024 * End Date: * Text: * Transient paralysis* Code: * Start Date: SatApr 08 00:00:00 EDT 2024 * End Date: * Text: * Wedge compression fracture of T11-T12 vertebra, subsequent encounter for fracture with routine healing* Code: * Start Date: SatApr 08 00:00:00 EDT 2024 * End Date: * Text: * COVID-19* Code: * Start Date: SatApr 08 00:00:00 EDT 2024 * End Date: * Text: * Acute respiratory failure, unspecified whether with hypoxia or hypercapnia* Code: * Start Date: SatApr 08 00:00:00 EDT 2024 * End Date: * Text: * Gastro-esophageal reflux disease without esophagitis* Code: * Start Date: SatApr 08 00:00:00 EDT 2024 * End Date: * Text: * custodial (current) use of anticoagulants* Code: * Start Date: SatApr 08 00:00:00 EDT 2024 * End Date: * Text: * Paroxysmal atrial fibrillation* Code: * Start Date: SatApr 08 00:00:00 EDT 2024 * End Date: * Text: * Presence of right artificial hip joint* Code: * Start Date: SatApr 08 00:00:00 EDT 2024 * End Date: * Text: * Personal history of malignant neoplasm of other parts of uterus* Code: * Start Date: SatApr 08 00:00:00 EDT 2024 * End Date: * Text: * Acquired absence of both cervix and uterus* Code: * Start Date: SatApr 08 00:00:00 EDT 2024 * End Date: * Text: * Coronary angioplasty status* Code: * Start Date: SatApr 08 00:00:00 EDT 2024 * End Date: * Text: * Systemic lupus erythematosus, organ or system involvement unspecified* Code: * Start Date: SatApr 08 00:00:00 EDT 2024 * End Date: * Text: * Personal history of other venous thrombosis and embolism* Code: * Start Date: SatApr 08 00:00:00 EDT 2024 * End Date: * Text: * Personal history of nicotine dependence* Code: * Start Date: SatApr 08 00:00:00 EDT 2024 * End Date: * Text: * Dorsalgia, unspecified* Code: * Start Date: SatApr 08 00:00:00 EDT 2024 * End Date: * Text: * Wedge compression fracture of third lumbar vertebra, subsequent encounter for fracture with routinehealing* Code: * Start Date: SatApr 08 00:00:00 EDT 2024 * End Date: * Text: * Spondylosis without myelopathy or radiculopathy, lumbar region* Code: * Start Date: SatApr 08 00:00:00 EDT 2024 * End Date: * Text: * Other cervical disc displacement, unspecified cervical region* Code: * Start Date: SatApr 08 00:00:00 EDT 2024 * End Date: * Text: * Spondylosis without myelopathy or radiculopathy, cervical region* Code: * Start Date: SatApr 08 00:00:00 EDT 2024 * End Date: * Text: * Essential (primary) hypertension* Code: * Start Date: SatApr 08 00:00:00 EDT 2024 * End Date: * Text: * Hypotension due to drugs* Code: * Start Date: SatApr 18 00:00:00 EDT 2024 * End Date: * Text: * Adverse effect of other antihypertensive drugs, subsequent encounter* Code: * Start Date: SatApr 18 00:00:00 EDT 2024 * End Date: * Text: * Hypokalemia* Code: * Start Date: SatApr 18 00:00:00 EDT 2024 * End Date: * Text: * Personal history of malignant neoplasm of bladder* Code: * Start Date: SatApr 08 00:00:00 EDT 2024 * End Date: * Text: * [id number] Daly receives a therapeutic diet. (12)* Code: * Start Date: SatApr 19 00:00:00 EDT 2024 * End Date: * Text: [id number] Daly receives a therapeutic diet. (12) * LSS_Anticoagulant - Daly is at risk for bleeding* Code: * Start Date: SatApr 21 00:00:00 EDT 2024 * End Date: * Text: LSS_Anticoagulant - Daly is at risk for bleeding * LSS_Falls - Daly is at risk for falls/injury as evidenced by: history of falls, cognitive status/behavior, vision status, continence, mobility, balance.* Code: * Start Date: SatApr 21 00:00:00 EDT 2024 * End Date: * Text: LSS_Falls - Daly is at risk for falls/injury as evidenced by: history of falls, cognitive status/behavior, vision status, continence, mobility, balance. * LSS_Pain - Daly is experiencing pain or is at high risk for pain.* Code: * Start Date: SatApr 21 00:00:00 EDT 2024 * End Date: * Text: LSS_Pain - Daly is experiencing pain or is at high risk for pain. * LSS_Skin Integrity - (Potential Alteration of)- Daly is at risk for developing impaired skin integrity.* Code: * Start Date: SatApr 21 00:00:00 EDT 2024 * End Date: * Text: LSS_Skin Integrity - (Potential Alteration of)- Daly is at risk for developing impaired skinintegrity. * LSS_ADLs - Daly has ADL selfcare deficit related to decreased mobility and muscle weakness* Code: * Start Date: SatApr 21 00:00:00 EDT 2024 * End Date: * Text: LSS_ADLs - Daly has ADL selfcare deficit related to decreased mobility and muscle weakness * LSS_Activities - Daly's quality of life is better when she is able to do things that are most important to her. Daly is Sikh and would like to attend weekly anglican services at [facility].* Code: * Start Date: SatApr 21 00:00:00 EDT 2024 * End Date: * Text: LSS_Activities - Daly's quality of life is better when she is able to do things that are most important to her. Daly is Sikh and would like to attend weekly anglican services at [facility]. Vital Signs Vital Sign Measurement Date Systolic Blood Pressure 136.00 mm[Hg] SatMay 12:24:06 ED2024 Diastolic Blood Pressure 90.00 mm[Hg] SatMay 12:24:06 ED2024 Pulse Oximetry 71.00 % SatMay 12:24 :06 ED2024 Body weight 117.40 [lb_av] SatMay 12:24 :06 ED2024 Heart Rate 71.00 /min SatMay 12:24 :06 ED2024 Body temperature 97.60 [degF] SatMay 12:2 4:06 ED2024 Respiratory rate 16.00 /min SatMay 12: 4:06 ED2024 Systolic Blood Pressure 105.00 mm[Hg] SatMay 11 21:13:22 EDT 2024 Diastolic Blood Pressure 52.00 mm[Hg] SatMay 11 21:13:22 EDT 2024 Systolic Blood Pressure 105.00 mm[Hg] SatMay 11 21:13:22 EDT 2024 Diastolic Blood Pressure 52.00 mm[Hg] SatMay 11 21:13:22 EDT 2024 Pulse Oximetry 95.00 % SatMay 11 21:13 :22 EDT 2024 Heart Rate 62.00 /min SatMay 11 21:13 :22 EDT 2024 Heart Rate 62.00 /min SatMay 11 21:13 :22 EDT 2024 Body temperature 97.40 [degF] SatMay 11 21:1 3:22 EDT 2024 Respiratory rate 16.00 /min SatMay 11 21:1 3:22 EDT 2024 Body weight 115.20 [lb_av] SatMay 11 12:44 :54 EDT 2024 Systolic Blood Pressure 121.00 mm[Hg] SatMay 11 10:10:23 EDT 2024 Diastolic Blood Pressure 49.00 mm[Hg] SatMay 11 10:10:23 EDT 2024 Pulse Oximetry 91.00 % SatMay 11 10:10 :23 EDT 2024 Heart Rate 96.00 /min SatMay 11 10:10 :23 EDT 2024 Body temperature 98.00 [degF] SatMay 11 10:1 0:23 EDT 2024 Respiratory rate 18.00 /min SatMay 11 10:1 0:23 EDT 2024 Systolic Blood Pressure 149.00 mm[Hg] SatMay 10 22:36:45 EDT 2024 Diastolic Blood Pressure 60.00 mm[Hg] SatMay 10 22:36:45 EDT 2024 Pulse Oximetry 95.00 % SatMay 10 22:36 :45 EDT 2024 Heart Rate 86.00 /min SatMay 10 22:36 :45 EDT 2024 Body temperature 96.50 [degF] SatMay 10 22:3 6:45 EDT 2024 Respiratory rate 16.00 /min SatMay 10 22:3 6:45 EDT 2024 Systolic Blood Pressure 149.00 mm[Hg] SatMay 10 22:05:35 EDT 2024 Diastolic Blood Pressure 60.00 mm[Hg] SatMay 10 22:05:35 EDT 2024 Heart Rate 86.00 /min SatMay 10 22:05 :35 EDT 2024 Body weight 108.40 [lb_av] SatMay 10 15:15 :33 EDT 2024 Systolic Blood Pressure 159.00 mm[Hg] SatMay 10 10:39:00 EDT 2024 Diastolic Blood Pressure 67.00 mm[Hg] SatMay 10 10:39:00 EDT 2024 Pulse Oximetry 93.00 % SatMay 10 10:39 :00 EDT 2024 Heart Rate 56.00 /min SatMay 10 10:39 :00 EDT 2024 Body temperature 97.90 [degF] SatMay 10 10:3 9:00 EDT 2024 Respiratory rate 18.00 /min SatMay 10 10:3 9:00 EDT 2024 Systolic Blood Pressure 150.00 mm[Hg] SatMay 10 00:35:22 EDT 2024 Diastolic Blood Pressure 66.00 mm[Hg] SatMay 10 00:35:22 EDT 2024 Pulse Oximetry 94.00 % SatMay 10 00:35 :22 EDT 2024 Heart Rate 66.00 /min SatMay 10 00:35 :22 EDT 2024 Body temperature 96.70 [degF] [facility] May 10 00:3 5:22 EDT 2024 Respiratory rate 20.00 /min SatMay 10 00:3 5:22 EDT 2024 Systolic Blood Pressure 150.00 mm[Hg] [place] May 09 21:43:23 EDT 2024 Diastolic Blood Pressure 66.00 mm[Hg] [place] May 09 21:43:23 EDT 2024 Heart Rate 66.00 /min [place] May 09 21:43 :23 EDT 2024 Systolic Blood Pressure 138.00 mm[Hg] [place] May 09 10:09:13 EDT 2024 Diastolic Blood Pressure 73.00 mm[Hg] [place] May 09 10:09:13 EDT 2024 Pulse Oximetry 93.00 % [place] May 09 10:09 :13 EDT 2024 Body weight 113.80 [lb_av] [place] May 09 10:09 :13 EDT 2024 Heart Rate 64.00 /min [place] May 09 10:09 :13 EDT 2024 Body temperature 97.50 [degF] [place] May 09 10:0 9:13 EDT 2024 Respiratory rate 19.00 /min [place] May 09 10:0 9:13 EDT 2024 Systolic Blood Pressure 130.00 mm[Hg] [facility] May 08 23:54:14 EDT 2025 Diastolic Blood Pressure 81.00 mm[Hg] [facility] May 08 23:54:14 EDT 2024 Pulse Oximetry 98.00 % [facility] May 08 23:54 :14 EDT 2024 Heart Rate 81.00 /min SatMay 08 23:54 :14 EDT 2024 Body temperature 97.10 [degF] [facility] May 08 23:5 4:14 EDT 2024 Respiratory rate 20.00 /min [facility] May 08 23:5 4:14 EDT 2024 Systolic Blood Pressure 130.00 mm[Hg] [facility] May 08 22:23:56 EDT 2024 Diastolic Blood Pressure 81.00 mm[Hg] [facility] May 08 22:23:56 EDT 2024 Heart Rate 81.00 /min [facility] May 08 22:23 :56 EDT 2024 Systolic Blood Pressure 135.00 mm[Hg] [facility] May 08 11:21:41 EDT 2024 Diastolic Blood Pressure 112.00 mm[Hg] [facility] May 08 11:21:41 EDT 2024 Pulse Oximetry 95.00 % [facility] May 08 11:21 :41 EDT 2024 Body weight 115.90 [lb_av] [facility] May 08 11:21 :41 EDT 2024 Heart Rate 82.00 /min [facility] May 08 11:21 :41 EDT 2024 Body temperature 97.40 [degF] [facility] May 08 11:2 1:41 EDT 2024 Respiratory rate 18.00 /min [facility] May 08 11:2 1:41 EDT 2024 Systolic Blood Pressure 113.00 mm[Hg] SatMay 07 20:37:40 EDT 2024 Diastolic Blood Pressure 64.00 mm[Hg] SatMay 07 20:37:40 EDT 2024 Systolic Blood Pressure 113.00 mm[Hg] SatMay 07 20:37:40 EDT 2024 Diastolic Blood Pressure 64.00 mm[Hg] SatMay 07 20:37:40 EDT 2024 Pulse Oximetry 95.00 % SatMay 07 20:37 :40 EDT 2024 Heart Rate 81.00 /min SatMay 07 20:37 :40 EDT 2024 Heart Rate 81.00 /min SatMay 07 20:37 :40 EDT 2024 Body temperature 97.50 [degF] SatMay 07 20:3 7:40 EDT 2024 Respiratory rate 18.00 /min SatMay 07 20:3 7:40 EDT 2024 Body weight 116.70 [lb_av] SatMay 07 13:34 :23 EDT 2024 Systolic Blood Pressure 143.00 mm[Hg] SatMay 07 10:26:49 EDT 2024 Diastolic Blood Pressure 68.00 mm[Hg] SatMay 07 10:26:49 EDT 2024 Pulse Oximetry 96.00 % SatMay 07 10:26 :49 EDT 2024 Heart Rate 84.00 /min SatMay 07 10:26 :49 EDT 2024 Body temperature 98.20 [degF] SatMay 07 10:2 6:49 EDT 2024 Respiratory rate 20.00 /min SatMay 07 10:2 6:49 EDT 2024 Systolic Blood Pressure 107.00 mm[Hg] SatMay 06 21:44:31 EDT 2024 Diastolic Blood Pressure 62.00 mm[Hg] SatMay 06 21:44:31 EDT 2024 Systolic Blood Pressure 107.00 mm[Hg] SatMay 06 21:44:31 EDT 2024 Diastolic Blood Pressure 62.00 mm[Hg] SatMay 06 21:44:31 EDT 2024 Pulse Oximetry 96.00 % SatMay 06 21:44 :31 EDT 2024 Heart Rate 72.00 /min SatMay 06 21:44 :31 EDT 2024 Heart Rate 72.00 /min SatMay 06 21:44 :31 EDT 2024 Body temperature 97.40 [degF] SatMay 06 21:4 4:31 EDT 2024 Respiratory rate 18.00 /min SatMay 06 21:4 4:31 EDT 2024 Systolic Blood Pressure 164.00 mm[Hg] SatMay 06 09:55:49 EDT 2024 Diastolic Blood Pressure 47.00 mm[Hg] SatMay 06 09:55:49 EDT 2024 Pulse Oximetry 96.00 % SatMay 06 09:55 :49 EDT 2024 Body weight 116.00 [lb_av] SatMay 06 09:55 :49 EDT 2024 Heart Rate 70.00 /min SatMay 06 09:55 :49 EDT 2024 Body temperature 97.40 [degF] SatMay 06 09:5 5:49 EDT 2024 Respiratory rate 18.00 /min SatMay 06 09:5 5:49 EDT 2024 Systolic Blood Pressure 108.00 mm[Hg] SatMay 05 23:11:20 EDT 2024 Diastolic Blood Pressure 59.00 mm[Hg] SatMay 05 23:11:20 EDT 2024 Pulse Oximetry 97.00 % SatMay 05 23:11 :20 EDT 2024 Heart Rate 74.00 /min SatMay 05 23:11 :20 EDT 2024 Body temperature 97.10 [degF] SatMay 05 23:1 1:20 EDT 2024 Respiratory rate 15.00 /min SatMay 05 23:1 1:20 EDT 2024 Systolic Blood Pressure 108.00 mm[Hg] SatMay 05 21:34:17 EDT 2024 Diastolic Blood Pressure 59.00 mm[Hg] SatMay 05 21:34:17 EDT 2024 Heart Rate 74.00 /min SatMay 05 21:34 :17 EDT 2024 Systolic Blood Pressure 121.00 mm[Hg] SatMay 05 08:48:57 EDT 2024 Diastolic Blood Pressure 73.00 mm[Hg] SatMay 05 08:48:57 EDT 2024 Pulse Oximetry 98.00 % SatMay 05 08:48 :57 EDT 2024 Heart Rate 89.00 /min SatMay 05 08:48 :57 EDT 2024 Body temperature 98.20 [degF] SatMay 05 08:4 8:57 EDT 2024 Respiratory rate 18.00 /min SatMay 05 08:4 8:57 EDT 2024 Systolic Blood Pressure 97.00 mm[Hg] SatMay 05 02:10:39 EDT 2024 Diastolic Blood Pressure 54.00 mm[Hg] SatMay 05 02:10:39 EDT 2024 Pulse Oximetry 94.00 % SatMay 05 02:10 :39 EDT 2024 Heart Rate 75.00 /min SatMay 05 02:10 :39 EDT 2024 Body temperature 98.50 [degF] SatMay 05 02:1 0:39 EDT 2024 Respiratory rate 16.00 /min SatMay 05 02:1 0:39 EDT 2024 Systolic Blood Pressure 97.00 mm[Hg] SatMay 04 21:39:31 EDT 2024 Diastolic Blood Pressure 54.00 mm[Hg] SatMay 04 21:39:31 EDT 2024 Heart Rate 75.00 /min SatMay 04 21:39 :31 EDT 2024 Systolic Blood Pressure 110.00 mm[Hg] SatMay 04 14:31:10 EDT 2024 Diastolic Blood Pressure 70.00 mm[Hg] SatMay 04 14:31:10 EDT 2024 Pulse Oximetry 99.00 % SatMay 04 14:31 :10 EDT 2024 Body weight 115.90 [lb_av] SatMay 04 14:31 :10 EDT 2024 Heart Rate 85.00 /min SatMay 04 14:31 :10 EDT 2024 Body temperature 97.90 [degF] SatMay 04 14:3 1:10 EDT 2024 Respiratory rate 18.00 /min SatMay 04 14:3 1:10 EDT 2024 Systolic Blood Pressure 101.00 mm[Hg] SatMay 04 00:04:05 EDT 2024 Diastolic Blood Pressure 59.00 mm[Hg] SatMay 04 00:04:05 EDT 2024 Pulse Oximetry 95.00 % SatMay 04 00:04 :05 EDT 2024 Heart Rate 67.00 /min SatMay 04 00:04 :05 EDT 2024 Body temperature 97.20 [degF] SatMay 04 00:0 4:05 EDT 2024 Respiratory rate 16.00 /min SatMay 04 00:0 4:05 EDT 2024 Systolic Blood Pressure 101.00 mm[Hg] SatMay 03 22:27:43 EDT 2024 Diastolic Blood Pressure 59.00 mm[Hg] SatMay 03 22:27:43 EDT 2024 Heart Rate 67.00 /min SatMay 03 22:27 :43 EDT 2024 Body weight 115.40 [lb_av] SatMay 03 11:10 :29 EDT 2024 Systolic Blood Pressure 147.00 mm[Hg] SatMay 03 09:38:14 EDT 2024 Diastolic Blood Pressure 74.00 mm[Hg] SatMay 03 09:38:14 EDT 2024 Pulse Oximetry 98.00 % SatMay 03 09:38 :14 EDT 2024 Heart Rate 82.00 /min SatMay 03 09:38 :14 EDT 2024 Body temperature 97.70 [degF] SatMay 03 09:3 8:14 EDT 2024 Respiratory rate 18.00 /min SatMay 03 09:3 8:14 EDT 2024 Systolic Blood Pressure 111.00 mm[Hg] SatMay 02 20:18:44 EDT 2024 Diastolic Blood Pressure 55.00 mm[Hg] SatMay 02 20:18:44 EDT 2024 Systolic Blood Pressure 111.00 mm[Hg] SatMay 02 20:18:44 EDT 2024 Diastolic Blood Pressure 55.00 mm[Hg] SatMay 02 20:18:44 EDT 2024 Pulse Oximetry 93.00 % SatMay 02 20:18 :44 EDT 2024 Heart Rate 69.00 /min SatMay 02 20:18 :44 EDT 2024 Heart Rate 69.00 /min SatMay 02 20:18 :44 EDT 2024 Body temperature 97.80 [degF] SatMay 02 20:1 8:44 EDT 2024 Respiratory rate 20.00 /min SatMay 02 20:1 8:44 EDT 2024 Body weight 114.60 [lb_av] SatMay 02 11:18 :10 EDT 2024 Systolic Blood Pressure 147.00 mm[Hg] SatMay 02 09:23:30 EDT 2024 Diastolic Blood Pressure 74.00 mm[Hg] SatMay 02 09:23:30 EDT 2024 Pulse Oximetry 94.00 % SatMay 02 09:23 :30 EDT 2024 Heart Rate 65.00 /min SatMay 02 09:23 :30 EDT 2024 Body temperature 97.80 [degF] SatMay 02 09:2 3:30 EDT 2024 Respiratory rate 20.00 /min SatMay 02 09:2 3:30 EDT 2024 Systolic Blood Pressure 118.00 mm[Hg] [facility] May 01 21:20:36 EDT 2024 Diastolic Blood Pressure 68.00 mm[Hg] [facility] May 01 21:20:36 EDT 2024 Systolic Blood Pressure 118.00 mm[Hg] [facility] May 01 21:20:36 EDT 2024 Diastolic Blood Pressure 68.00 mm[Hg] [facility] May 01 21:20:36 EDT 2024 Pulse Oximetry 94.00 % [facility] May 01 21:20 :36 EDT 2024 Heart Rate 66.00 /min [facility] May 01 21:20 :36 EDT 2024 Heart Rate 66.00 /min [facility] May 01 21:20 :36 EDT 2024 Body temperature 97.80 [degF] [facility] May 01 21:2 0:36 EDT 2024 Respiratory rate 18.00 /min [facility] May 01 21:2 0:36 EDT 2024 Body weight 114.10 [lb_av] SatMay 01 13:37 :33 EDT 2024 Systolic Blood Pressure 124.00 mm[Hg] SatMay 01 08:17:47 EDT 2024 Diastolic Blood Pressure 66.00 mm[Hg] SatMay 01 08:17:47 EDT 2024 Pulse Oximetry 94.00 % SatMay 01 08:17 :47 EDT 2024 Heart Rate 65.00 /min SatMay 01 08:17 :47 EDT 2024 Body temperature 98.00 [degF] SatMay 01 08:1 7:47 EDT 2024 Respiratory rate 18.00 /min SatMay 01 08:1 7:47 EDT 2024 Systolic Blood Pressure 108.00 mm[Hg] SatApr 30 21:52:31 EDT 2024 Diastolic Blood Pressure 44.00 mm[Hg] SatApr 30 21:52:31 EDT 2024 Systolic Blood Pressure 108.00 mm[Hg] SatApr 30 21:52:31 EDT 2024 Diastolic Blood Pressure 44.00 mm[Hg] SatApr 30 21:52:31 EDT 2024 Pulse Oximetry 97.00 % SatApr 30 21:52 :31 EDT 2024 Heart Rate 72.00 /min SatApr 30 21:52 :31 EDT 2024 Heart Rate 72.00 /min SatApr 30 21:52 :31 EDT 2024 Body temperature 98.00 [degF] SatApr 30 21:5 2:31 EDT 2024 Respiratory rate 18.00 /min SatApr 30 21:5 2:31 EDT 2024 Systolic Blood Pressure 139.00 mm[Hg] SatApr 30 10:46:12 EDT 2024 Diastolic Blood Pressure 64.00 mm[Hg] SatApr 30 10:46:12 EDT 2024 Pulse Oximetry 98.00 % SatApr 30 10:46 :12 EDT 2024 Heart Rate 86.00 /min SatApr 30 10:46 :12 EDT 2024 Body temperature 98.20 [degF] SatApr 30 10:4 6:12 EDT 2024 Respiratory rate 18.00 /min SatApr 30 10:4 6:12 EDT 2024 Body weight 114.80 [lb_av] SatApr 30 10:35 :50 EDT 2024 Systolic Blood Pressure 113.00 mm[Hg] [place] Apr 29 22:44:26 EDT 2024 Diastolic Blood Pressure 59.00 mm[Hg] SatApr 29 22:44:26 EDT 2024 Systolic Blood Pressure 113.00 mm[Hg] SatApr 29 22:44:26 EDT 2024 Diastolic Blood Pressure 59.00 mm[Hg] SatApr 29 22:44:26 EDT 2024 Pulse Oximetry 92.00 % SatApr 29 22:44 :26 EDT 2024 Heart Rate 68.00 /min SatApr 29 22:44 :26 EDT 2024 Heart Rate 68.00 /min SatApr 29 22:44 :26 EDT 2024 Body temperature 98.00 [degF] SatApr 29 22:4 4:26 EDT 2024 Respiratory rate 16.00 /min SatApr 29 22:4 4:26 EDT 2024 Systolic Blood Pressure 91.00 mm[Hg] SatApr 29 13:09:35 ED2024 Diastolic Blood Pressure 66.00 mm[Hg] SatApr 29 13:09:35 EDT 2024 Pulse Oximetry 95.00 % SatApr 29 13:09 :35 EDT 2024 Body weight 116.40 [lb_av] SatApr 29 13:09 :35 EDT 2024 Heart Rate 75.00 /min SatApr 29 13:09 :35 EDT 2024 Body temperature 97.60 [degF] SatApr 29 13:0 9:35 EDT 2024 Respiratory rate 18.00 /min SatApr 29 13:0 9:35 ED2024 Systolic Blood Pressure 118.00 mm[Hg] SatApr 28 20:13:28 EDT 2024 Diastolic Blood Pressure 60.00 mm[Hg] SatApr 28 20:13:28 EDT 2024 Systolic Blood Pressure 118.00 mm[Hg] SatApr 28 20:13:28 EDT 2024 Diastolic Blood Pressure 60.00 mm[Hg] SatApr 28 20:13:28 EDT 2024 Pulse Oximetry 94.00 % SatApr 28 20:13 :28 EDT 2024 Heart Rate 76.00 /min SatApr 28 20:13 :28 EDT 2024 Heart Rate 76.00 /min SatApr 28 20:13 :28 EDT 2024 Body temperature 98.30 [degF] SatApr 28 20:1 3:28 EDT 2024 Respiratory rate 18.00 /min SatApr 28 20:1 3:28 EDT 2024 Systolic Blood Pressure 125.00 mm[Hg] SatApr 28 08:49:48 EDT 2024 Diastolic Blood Pressure 60.00 mm[Hg] SatApr 28 08:49:48 EDT 2024 Pulse Oximetry 94.00 % SatApr 28 08:49 :48 EDT 2024 Body weight 116.60 [lb_av] SatApr 28 08:49 :48 EDT 2024 Heart Rate 70.00 /min SatApr 28 08:49 :48 EDT 2024 Body temperature 98.00 [degF] SatApr 28 08:4 9:48 EDT 2024 Respiratory rate 18.00 /min SatApr 28 08:4 9:48 EDT 2024 Systolic Blood Pressure 101.00 mm[Hg] SatApr 27 20:20:23 EDT 2024 Diastolic Blood Pressure 58.00 mm[Hg] SatApr 27 20:20:23 EDT 2024 Systolic Blood Pressure 101.00 mm[Hg] SatApr 27 20:20:23 EDT 2024 Diastolic Blood Pressure 58.00 mm[Hg] SatApr 27 20:20:23 EDT 2024 Pulse Oximetry 94.00 % SatApr 27 20:20 :23 EDT 2024 Heart Rate 89.00 /min SatApr 27 20:20 :23 EDT 2024 Heart Rate 89.00 /min SatApr 27 20:20 :23 EDT 2024 Body temperature 97.70 [degF] SatApr 27 20:2 0:23 EDT 2024 Respiratory rate 17.00 /min SatApr 27 20:2 0:23 EDT 2024 Systolic Blood Pressure 127.00 mm[Hg] SatApr 27 09:25:21 EDT 2024 Diastolic Blood Pressure 79.00 mm[Hg] SatApr 27 09:25:21 EDT 2024 Pulse Oximetry 94.00 % SatApr 27 09:25 :21 EDT 2024 Heart Rate 64.00 /min SatApr 27 09:25 :21 EDT 2024 Body temperature 98.00 [degF] SatApr 27 09:2 5:21 EDT 2024 Respiratory rate 18.00 /min SatApr 27 09:2 5:21 EDT 2024 Body weight 116.40 [lb_av] SatApr 27 08:38 :46 EDT 5 Systolic Blood Pressure 112.00 mm[Hg] SatApr 26 23:45:40 EDT 2024 Diastolic Blood Pressure 50.00 mm[Hg] SatApr 26 23:45:40 EDT 2024 Pulse Oximetry 95.00 % SatApr 26 23:45 :40 EDT 2024 Heart Rate 64.00 /min SatApr 26 23:45 :40 EDT 2024 Body temperature 96.40 [degF] SatApr 26 23:4 5:40 EDT 2024 Respiratory rate 18.00 /min SatApr 26 23:4 5:40 EDT 2024 Systolic Blood Pressure 112.00 mm[Hg] SatApr 26 21:58:10 EDT 2024 Diastolic Blood Pressure 50.00 mm[Hg] SatApr 26 21:58:10 EDT 2024 Heart Rate 64.00 /min SatApr 26 21:58 :10 EDT 2024 Systolic Blood Pressure 124.00 mm[Hg] SatApr 26 12:13:50 EDT 2024 Diastolic Blood Pressure 58.00 mm[Hg] SatApr 26 12:13:50 EDT 2024 Pulse Oximetry 92.00 % SatApr 26 12:13 :50 EDT 2024 Body weight 117.20 [lb_av] SatApr 26 12:13 :50 EDT 2024 Heart Rate 79.00 /min SatApr 26 12:13 :50 EDT 2024 Body temperature 97.80 [degF] SatApr 26 12:1 3:50 EDT 2024 Respiratory rate 18.00 /min SatApr 26 12:1 3:50 EDT 2024 Systolic Blood Pressure 117.00 mm[Hg] SatApr 26 02:11:24 EDT 2024 Diastolic Blood Pressure 65.00 mm[Hg] SatApr 26 02:11:24 EDT 2024 Pulse Oximetry 92.00 % SatApr 26 02:11 :24 EDT 2024 Heart Rate 62.00 /min SatApr 26 02:11 :24 EDT 2024 Body temperature 97.80 [degF] SatApr 26 02:1 1:24 EDT 2024 Respiratory rate 18.00 /min SatApr 26 02:1 1:24 EDT 2024 Systolic Blood Pressure 117.00 mm[Hg] SatApr 25 22:06:47 EDT 2024 Diastolic Blood Pressure 65.00 mm[Hg] SatApr 25:06:47 EDT 2024 Heart Rate 62.00 /min SatApr 25 22:06 :47 EDT 2024 Systolic Blood Pressure 122.00 mm[Hg] SatApr 25 17:20:20 EDT 2024 Diastolic Blood Pressure 64.00 mm[Hg] SatApr 25 17:20:20 EDT 2024 Pulse Oximetry 94.00 % SatApr 25 17:20 :20 EDT 2024 Heart Rate 65.00 /min SatApr 25 17:20 :20 EDT 2024 Body temperature 97.80 [degF] SatApr 25 17:2 0:20 EDT 2024 Respiratory rate 14.00 /min SatApr 25 17:2 0:20 EDT 2024 Body weight 115.10 [lb_av] SatApr 25 12:06 :57 EDT 2024 Systolic Blood Pressure 116.00 mm[Hg] SatApr 25 09:48:38 EDT 2024 Diastolic Blood Pressure 68.00 mm[Hg] [place] Apr 25 09:48:38 EDT 2024 Pulse Oximetry 97.00 % SatApr 25 09:48 :38 EDT 2024 Heart Rate 73.00 /min SatApr 25 09:48 :38 EDT 2024 Body temperature 98.00 [degF] [place] Apr 25 09:4 8:38 EDT 2024 Respiratory rate 18.00 /min SatApr 25 09:4 8:38 EDT 2024 Systolic Blood Pressure 108.00 mm[Hg] [facility] Apr 24 23:36:38 EDT 2024 Diastolic Blood Pressure 60.00 mm[Hg] [facility] Apr 24 23:36:38 EDT 2024 Pulse Oximetry 94.00 % [facility] Apr 24 23:36 :38 EDT 2024 Heart Rate 76.00 /min [facility] Apr 24 23:36 :38 EDT 2024 Body temperature 98.00 [degF] [facility] Apr 24 23:3 6:38 EDT 2024 Respiratory rate 18.00 /min [facility] Apr 24 23:3 6:38 EDT 2024 Systolic Blood Pressure 108.00 mm[Hg] [facility] Apr 24 22:06:57 EDT 2024 Diastolic Blood Pressure 60.00 mm[Hg] [facility] Apr 24 22:06:57 EDT 2024 Heart Rate 76.00 /min [facility] Apr 24 22:06 :57 EDT 2024 Systolic Blood Pressure 119.00 mm[Hg] SatApr 24 11:32:13 EDT 2024 Diastolic Blood Pressure 80.00 mm[Hg] [facility] Apr 24 11:32:13 EDT 2024 Pulse Oximetry 91.00 % [facility] Apr 24 11:32 :13 EDT 2024 Body weight 114.30 [lb_av] [facility] Apr 24 11:32 :13 EDT 2024 Heart Rate 71.00 /min [facility] Apr 24 11:32 :13 EDT 2024 Body temperature 98.00 [degF] [facility] Apr 24 11:3 2:13 EDT 2024 Respiratory rate 20.00 /min [facility] Apr 24 11:3 2:13 EDT 2024 Systolic Blood Pressure 107.00 mm[Hg] [facility] Apr 24 00:00:15 EDT 2024 Diastolic Blood Pressure 59.00 mm[Hg] [facility] Apr 24 00:00:15 EDT 2024 Pulse Oximetry 94.00 % [facility] Apr 24 00:00 :15 EDT 2024 Heart Rate 73.00 /min [facility] Apr 24 00:00 :15 EDT 2024 Body temperature 98.00 [degF] [facility] Apr 24 00:0 0:15 EDT 2024 Respiratory rate 18.00 /min [facility] Apr 24 00:0 0:15 EDT 2024 Systolic Blood Pressure 107.00 mm[Hg] SatApr 23 21:58:32 EDT 2024 Diastolic Blood Pressure 59.00 mm[Hg] SatApr 23 21:58:32 EDT 2024 Heart Rate 73.00 /min SatApr 23 21:58 :32 EDT 2024 Systolic Blood Pressure 127.00 mm[Hg] SatApr 23 11:21:02 EDT 2024 Diastolic Blood Pressure 54.00 mm[Hg] SatApr 23 11:21:02 EDT 2024 Pulse Oximetry 94.00 % SatApr 23 11:21 :02 EDT 2024 Body weight 114.20 [lb_av] SatApr 23 11:21 :02 EDT 2024 Heart Rate 65.00 /min SatApr 23 11:21 :02 EDT 2024 Body temperature 98.00 [degF] SatApr 23 11:2 1:02 EDT 2024 Respiratory rate 18.00 /min SatApr 23 11:2 1:02 EDT 2024 Systolic Blood Pressure 120.00 mm[Hg] SatApr 22 20:08:13 EDT 2024 Diastolic Blood Pressure 55.00 mm[Hg] SatApr 22 20:08:13 EDT 2024 Systolic Blood Pressure 120.00 mm[Hg] [place] Apr 22 20:08:13 EDT 2024 Diastolic Blood Pressure 55.00 mm[Hg] [place] Apr 22 20:08:13 EDT 2024 Pulse Oximetry 95.00 % [place] Apr 22 20:08 :13 EDT 2024 Heart Rate 72.00 /min [place] Apr 22 20:08 :13 EDT 2024 Heart Rate 72.00 /min [place] Apr 22 20:08 :13 EDT 2024 Body temperature 98.10 [degF] [place] Apr 22 20:0 8:13 EDT 2024 Respiratory rate 18.00 /min [place] Apr 22 20:0 8:13 EDT 2024 Body weight 114.00 [lb_av] [place] Apr 22 15:53 :39 EDT 2024 Systolic Blood Pressure 137.00 mm[Hg] [place] Apr 22 09:21:40 EDT 2024 Diastolic Blood Pressure 83.00 mm[Hg] [place] Apr 22 09:21:40 EDT 2024 Pulse Oximetry 97.00 % [place] Apr 22 09:21 :40 EDT 2024 Heart Rate 73.00 /min [place] Apr 22 09:21 :40 EDT 2024 Body temperature 98.10 [degF] SatApr 22 09:2 1:40 EDT 2024 Respiratory rate 18.00 /min SatApr 22 09:2 1:40 EDT 2024 Systolic Blood Pressure 116.00 mm[Hg] SatApr 21 20:24:51 EDT 2024 Diastolic Blood Pressure 49.00 mm[Hg] SatApr 21 20:24:51 EDT 2024 Systolic Blood Pressure 116.00 mm[Hg] SatApr 21 20:24:51 EDT 2024 Diastolic Blood Pressure 49.00 mm[Hg] SatApr 21 20:24:51 EDT 2024 Pulse Oximetry 94.00 % SatApr 21 20:24 :51 EDT 2024 Heart Rate 59.00 /min SatApr 21 20:24 :51 EDT 2024 Heart Rate 59.00 /min SatApr 21 20:24 :51 EDT 2024 Body temperature 98.20 [degF] SatApr 21 20:2 4:51 EDT 2024 Respiratory rate 18.00 /min SatApr 21 20:2 4:51 EDT 2024 Body weight 114.60 [lb_av] SatApr 21 14:46 :58 EDT 2024 Systolic Blood Pressure 144.00 mm[Hg] SatApr 21 10:46:52 EDT 2024 Diastolic Blood Pressure 71.00 mm[Hg] SatApr 21 10:46:52 EDT 2024 Pulse Oximetry 98.00 % SatApr 21 10:46 :52 EDT 2024 Heart Rate 61.00 /min SatApr 21 10:46 :52 EDT 2024 Body temperature 98.00 [degF] SatApr 21 10:4 6:52 EDT 2024 Respiratory rate 20.00 /min SatApr 21 10:4 6:52 EDT 2024 Systolic Blood Pressure 144.00 mm[Hg] SatApr 21 07:47:41 EDT 2024 Diastolic Blood Pressure 71.00 mm[Hg] SatApr 21 07:47:41 EDT 2024 Pulse Oximetry 94.00 % SatApr 21 07:47 :41 EDT 2024 Heart Rate 67.00 /min SatApr 21 07:47 :41 EDT 2024 Body temperature 98.00 [degF] SatApr 21 07:4 7:41 EDT 2024 Respiratory rate 20.00 /min SatApr 21 07:4 7:41 EDT 2024 Systolic Blood Pressure 107.00 mm[Hg] SatApr 20 20:33:57 EDT 2024 Diastolic Blood Pressure 52.00 mm[Hg] SatApr 20 20:33:57 EDT 2024 Pulse Oximetry 94.00 % SatApr 20 20:33 :57 EDT 2024 Heart Rate 74.00 /min SatApr 20 20:33 :57 EDT 2024 Body temperature 98.00 [degF] SatApr 20 20:3 3:57 EDT 2024 Respiratory rate 18.00 /min SatApr 20 20:3 3:57 EDT 2024 Systolic Blood Pressure 107.00 mm[Hg] SatApr 20 20:04:10 EDT 2024 Diastolic Blood Pressure 52.00 mm[Hg] SatApr 20 20:04:10 EDT 2024 Heart Rate 74.00 /min SatApr 20 20:04 :10 EDT 2024 Body weight 112.20 [lb_av] SatApr 20 11:33 :40 EDT 2024 Systolic Blood Pressure 108.00 mm[Hg] SatApr 20 10:34:19 EDT 2024 Diastolic Blood Pressure 61.00 mm[Hg] SatApr 20 10:34:19 EDT 2024 Pulse Oximetry 96.00 % SatApr 20 10:34 :19 EDT 2024 Heart Rate 69.00 /min SatApr 20 10:34 :19 EDT 2024 Body temperature 98.00 [degF] SatApr 20 10:3 4:19 EDT 2024 Respiratory rate 18.00 /min SatApr 20 10:3 4:19 EDT 2024 Systolic Blood Pressure 132.00 mm[Hg] SatApr 19 21:29:12 EDT 2024 Diastolic Blood Pressure 59.00 mm[Hg] SatApr 19 21:29:12 EDT 2024 Pulse Oximetry 95.00 % SatApr 19 21:29 :12 EDT 2024 Heart Rate 67.00 /min SatApr 19 21:29 :12 EDT 2024 Body temperature 98.20 [degF] SatApr 19 21:2 9:12 EDT 2024 Respiratory rate 15.00 /min SatApr 19 21:2 9:12 EDT 2024 Systolic Blood Pressure 132.00 mm[Hg] SatApr 19 20:27:10 EDT 2024 Diastolic Blood Pressure 59.00 mm[Hg] SatApr 19 20:27:10 EDT 2024 Heart Rate 67.00 /min SatApr 19 20:27 :10 EDT 2024 Systolic Blood Pressure 115.00 mm[Hg] SatApr 19 10:55:36 EDT 2024 Diastolic Blood Pressure 60.00 mm[Hg] SatApr 19 10:55:36 EDT 2024 Pulse Oximetry 92.00 % SatApr 19 10:55 :36 EDT 2024 Body weight 111.40 [lb_av] SatApr 19 10:55 :36 EDT 2024 Heart Rate 70.00 /min SatApr 19 10:55 :36 EDT 2024 Body temperature 97.80 [degF] SatApr 19 10:5 5:36 EDT 2024 Respiratory rate 16.00 /min SatApr 19 10:5 5:36 EDT 2024 Systolic Blood Pressure 78.00 mm[Hg] SatApr 18 21:03:17 EDT 2024 Diastolic Blood Pressure 65.00 mm[Hg] SatApr 18 21:03:17 EDT 2024 Pulse Oximetry 94.00 % SatApr 18 21:03 :17 EDT 2024 Heart Rate 64.00 /min SatApr 18 21:03 :17 EDT 2024 Body temperature 98.00 [degF] SatApr 18 21:0 3:17 EDT 2024 Respiratory rate 16.00 /min SatApr 18 21:0 3:17 EDT 2024 Systolic Blood Pressure 78.00 mm[Hg] SatApr 18 20:37:24 EDT 2024 Diastolic Blood Pressure 65.00 mm[Hg] SatApr 18 20:37:24 EDT 2024 Heart Rate 64.00 /min SatApr 18 20:37 :24 EDT 2024 Body weight 114.80 [lb_av] SatApr 18 17:18 :35 EDT 2024 Systolic Blood Pressure 128.00 mm[Hg] SatApr 18 09:43:02 EDT 2024 Diastolic Blood Pressure 67.00 mm[Hg] SatApr 18 09:43:02 EDT 2024 Systolic Blood Pressure 128.00 mm[Hg] SatApr 18 09:40:06 EDT 2024 Diastolic Blood Pressure 67.00 mm[Hg] SatApr 18 09:40:06 EDT 2024 Pulse Oximetry 94.00 % SatApr 18 09:40 :06 EDT 2024 Heart Rate 67.00 /min SatApr 18 09:40 :06 EDT 2024 Body temperature 98.00 [degF] SatApr 18 09:4 0:06 EDT 2024 Respiratory rate 20.00 /min SatApr 18 09:4 0:06 EDT 2024 Systolic Blood Pressure 123.00 mm[Hg] [facility] Apr 17 20:01:23 EDT 2024 Diastolic Blood Pressure 64.00 mm[Hg] SatApr 17 20:01:23 EDT 2024 Heart Rate 96.00 /min SatApr 17 20:01 :23 EDT 2024 Systolic Blood Pressure 123.00 mm[Hg] SatApr 17 20:00:38 EDT 2024 Diastolic Blood Pressure 64.00 mm[Hg] SatApr 17 20:00:38 EDT 2024 Pulse Oximetry 97.00 % SatApr 17 20:00 :38 EDT 2024 Heart Rate 96.00 /min [facility] Apr 17 20:00 :38 EDT 2024 Body temperature 97.80 [degF] [facility] Apr 17 20:0 0:38 EDT 2024 Respiratory rate 18.00 /min [facility] Apr 17 20:0 0:38 EDT 5 Systolic Blood Pressure 124.00 mm[Hg] Sat Apr 17 10:58:40 EDT 2024 Diastolic Blood Pressure 64.00 mm[Hg] SatApr 17 10:58:40 EDT 2024 Pulse Oximetry 94.00 % SatApr 17 10:58 :40 EDT 2024 Body weight 115.40 [lb_av] Sat Apr 17 10:58 :40 EDT 2024 Heart Rate 64.00 /min SatApr 17 10:58 :40 EDT 2024 Body temperature 98.00 [degF] SatApr 17 10:5 8:40 EDT 2024 Respiratory rate 18.00 /min SatApr 17 10:5 8:40 EDT 2024 Systolic Blood Pressure 124.00 mm[Hg] SatApr 17 10:07:35 EDT 2024 Diastolic Blood Pressure 64.00 mm[Hg] SatApr 17 10:07:35 EDT 2024 Systolic Blood Pressure 131.00 mm[Hg] SatApr 16 23:30:42 EDT 2024 Diastolic Blood Pressure 84.00 mm[Hg] SatApr 16 23:30:42 EDT 2024 Pulse Oximetry 95.00 % SatApr 16 23:30 :42 EDT 2024 Heart Rate 91.00 /min SatApr 16 23:30 :42 EDT 2024 Body temperature 97.90 [degF] SatApr 16 23:3 0:42 EDT 2024 Respiratory rate 18.00 /min SatApr 16 23:3 0:42 EDT 2024 Systolic Blood Pressure 131.00 mm[Hg] SatApr 16 21:55:01 EDT 2024 Diastolic Blood Pressure 84.00 mm[Hg] SatApr 16 21:55:01 EDT 2024 Heart Rate 91.00 /min SatApr 16 21:55 :01 EDT 2024 Body weight 114.00 [lb_av] SatApr 16 18:09 :58 EDT 2024 Systolic Blood Pressure 116.00 mm[Hg] SatApr 16 09:15:38 EDT 2024 Diastolic Blood Pressure 74.00 mm[Hg] SatApr 16 09:15:38 EDT 2024 Systolic Blood Pressure 116.00 mm[Hg] SatApr 16 09:15:38 EDT 2024 Diastolic Blood Pressure 74.00 mm[Hg] SatApr 16 09:15:38 EDT 2024 Pulse Oximetry 98.00 % SatApr 16 09:15 :38 EDT 2024 Heart Rate 84.00 /min SatApr 16 09:15 :38 EDT 2024 Body temperature 98.00 [degF] SatApr 16 09:1 5:38 EDT 2024 Respiratory rate 20.00 /min SatApr 16 09:1 5:38 EDT 2024 Systolic Blood Pressure 108.00 mm[Hg] SatApr 15 20:20:56 EDT 2024 Diastolic Blood Pressure 63.00 mm[Hg] SatApr 15 20:20:56 EDT 2024 Systolic Blood Pressure 108.00 mm[Hg] SatApr 15 20:20:56 EDT 2024 Diastolic Blood Pressure 63.00 mm[Hg] [place] Apr 15 20:20:56 EDT 2024 Pulse Oximetry 95.00 % SatApr 15 20:20 :56 EDT 2024 Heart Rate 82.00 /min SatApr 15 20:20 :56 EDT 2024 Heart Rate 82.00 /min [place] Apr 15 20:20 :56 EDT 2024 Body temperature 97.80 [degF] SatApr 15 20:2 0:56 EDT 2024 Respiratory rate 18.00 /min SatApr 15 20:2 0:56 EDT 2024 Body weight 115.30 [lb_av] SatApr 15 18:32 :23 EDT 2024 Systolic Blood Pressure 127.00 mm[Hg] SatApr 15 11:23:16 EDT 2024 Diastolic Blood Pressure 58.00 mm[Hg] SatApr 15 11:23:16 EDT 2024 Systolic Blood Pressure 127.00 mm[Hg] SatApr 15 11:23:16 EDT 2024 Diastolic Blood Pressure 58.00 mm[Hg] SatApr 15 11:23:16 EDT 2024 Pulse Oximetry 95.00 % SatApr 15 11:23 :16 EDT 2024 Heart Rate 98.00 /min SatApr 15 11:23 :16 EDT 2024 Body temperature 97.80 [degF] SatApr 15 11:2 3:16 EDT 2024 Respiratory rate 18.00 /min SatApr 15 11:2 3:16 EDT 2024 Systolic Blood Pressure 116.00 mm[Hg] Wed Apr 14 20:24:47 EDT 2025 Diastolic Blood Pressure 65.00 mm[Hg] SatApr 14 20:24:47 EDT 2024 Systolic Blood Pressure 116.00 mm[Hg] SatApr 14 20:24:47 EDT 2024 Diastolic Blood Pressure 65.00 mm[Hg] SatApr 14 20:24:47 EDT 2024 Pulse Oximetry 94.00 % SatApr 14 20:24 :47 EDT 2024 Heart Rate 62.00 /min SatApr 14 20:24 :47 EDT 2024 Heart Rate 62.00 /min SatApr 14 20:24 :47 EDT 2024 Body temperature 97.60 [degF] SatApr 14 20:2 4:47 EDT 2024 Respiratory rate 17.00 /min SatApr 14 20:2 4:47 EDT 2024 Body Height 64.00 [in_i] SatApr 14 13:11 :01 EDT 2024 Systolic Blood Pressure 118.00 mm[Hg] SatApr 14 11:08:40 EDT 2024 Diastolic Blood Pressure 61.00 mm[Hg] SatApr 14 11:08:40 EDT 2024 Pulse Oximetry 95.00 % SatApr 14 11:08 :40 EDT 2024 Body weight 115.40 [lb_av] SatApr 14 11:08 :40 EDT 2024 Heart Rate 54.00 /min SatApr 14 11:08 :40 EDT 2024 Body temperature 98.30 [degF] SatApr 14 11:0 8:40 EDT 2024 Respiratory rate 18.00 /min SatApr 14 11:0 8:40 EDT 2024 Systolic Blood Pressure 118.00 mm[Hg] SatApr 14 08:46:22 EDT 2024 Diastolic Blood Pressure 61.00 mm[Hg] SatApr 14 08:46:22 EDT 2024 Systolic Blood Pressure 132.00 mm[Hg] SatApr 13 20:02:43 EDT 2024 Diastolic Blood Pressure 50.00 mm[Hg] SatApr 13 20:02:43 EDT 2024 Systolic Blood Pressure 132.00 mm[Hg] SatApr 13 20:02:43 EDT 2024 Diastolic Blood Pressure 50.00 mm[Hg] SatApr 13 20:02:43 EDT 2024 Pulse Oximetry 92.00 % SatApr 13 20:02 :43 EDT 2024 Heart Rate 84.00 /min SatApr 13 20:02 :43 EDT 2024 Heart Rate 84.00 /min SatApr 13 20:02 :43 EDT 2024 Body temperature 98.00 [degF] SatApr 13 20:0 2:43 EDT 2024 Respiratory rate 17.00 /min SatApr 13 20:0 2:43 EDT 2024 Body weight 115.40 [lb_av] SatApr 13 12:10 :09 EDT 2024 Systolic Blood Pressure 146.00 mm[Hg] SatApr 13 09:43:59 EDT 2024 Diastolic Blood Pressure 78.00 mm[Hg] SatApr 13 09:43:59 EDT 2024 Systolic Blood Pressure 146.00 mm[Hg] SatApr 13 08:54:17 EDT 2024 Diastolic Blood Pressure 78.00 mm[Hg] SatApr 13 08:54:17 EDT 2024 Pulse Oximetry 93.00 % SatApr 13 08:54 :17 EDT 2024 Heart Rate 66.00 /min SatApr 13 08:54 :17 EDT 2024 Body temperature 97.80 [degF] SatApr 13 08:5 4:17 EDT 2024 Respiratory rate 18.00 /min SatApr 13 08:5 4:17 EDT 2024 Systolic Blood Pressure 118.00 mm[Hg] SatApr 13 00:29:36 EDT 2024 Diastolic Blood Pressure 50.00 mm[Hg] SatApr 13 00:29:36 EDT 2024 Pulse Oximetry 95.00 % SatApr 13 00:29 :36 EDT 2024 Heart Rate 53.00 /min SatApr 13 00:29 :36 EDT 2024 Body temperature 96.20 [degF] SatApr 13 00:2 9:36 EDT 2024 Respiratory rate 16.00 /min SatApr 13 00:2 9:36 EDT 2024 Systolic Blood Pressure 118.00 mm[Hg] SatApr 12 21:54:43 EDT 2024 Diastolic Blood Pressure 50.00 mm[Hg] SatApr 12 21:54:43 EDT 2024 Heart Rate 53.00 /min SatApr 12 21:54 :43 EDT 2024 Body weight 118.20 [lb_av] SatApr 12 11:13 :05 EDT 2024 Systolic Blood Pressure 100.00 mm[Hg] SatApr 12 11:00:55 EDT 2024 Diastolic Blood Pressure 50.00 mm[Hg] SatApr 12 11:00:55 EDT 2024 Pulse Oximetry 95.00 % SatApr 12 11:00 :55 EDT 2024 Heart Rate 76.00 /min SatApr 12 11:00 :55 EDT 2024 Body temperature 97.80 [degF] SatApr 12 11:0 0:55 EDT 2024 Respiratory rate 18.00 /min SatApr 12 11:0 0:55 EDT 2024 Systolic Blood Pressure 100.00 mm[Hg] SatApr 12 09:36:48 EDT 2024 Diastolic Blood Pressure 50.00 mm[Hg] SatApr 12 09:36:48 EDT 2024 Systolic Blood Pressure 125.00 mm[Hg] SatApr 11 22:36:18 EDT 2024 Diastolic Blood Pressure 67.00 mm[Hg] SatApr 11 22:36:18 EDT 2024 Pulse Oximetry 100.00 % SatApr 11 22:36 :18 EDT 2024 Heart Rate 98.00 /min SatApr 11 22:36 :18 EDT 2024 Body temperature 98.20 [degF] SatApr 11 22:3 6:18 EDT 2024 Respiratory rate 18.00 /min SatApr 11 22:3 6:18 EDT 2024 Systolic Blood Pressure 125.00 mm[Hg] SatApr 11 21:49:25 EDT 2024 Diastolic Blood Pressure 67.00 mm[Hg] SatApr 11 21:49:25 EDT 2024 Heart Rate 98.00 /min SatApr 11 21:49 :25 EDT 2024 Body weight 118.40 [lb_av] SatApr 11 12:56 :32 EDT 2024 Systolic Blood Pressure 135.00 mm[Hg] SatApr 11 09:37:00 EDT 2024 Diastolic Blood Pressure 50.00 mm[Hg] SatApr 11 09:37:00 EDT 2024 Pulse Oximetry 90.00 % SatApr 11 09:37 :00 EDT 2024 Heart Rate 77.00 /min SatApr 11 09:37 :00 EDT 2024 Body temperature 97.80 [degF] SatApr 11 09:3 7:00 EDT 2024 Respiratory rate 16.00 /min SatApr 11 09:3 7:00 EDT 2024 Systolic Blood Pressure 135.00 mm[Hg] SatApr 11 09:35:16 EDT 2024 Diastolic Blood Pressure 50.00 mm[Hg] Sun Apr 11 09:35:16 EDT 2024 Systolic Blood Pressure 118.00 mm[Hg] Sat Apr 10 22:25:19 EDT 2024 Diastolic Blood Pressure 52.00 mm[Hg] Sat Apr 10 22:25:19 EDT 2024 Pulse Oximetry 93.00 % Sat Apr 10 22:25 :19 EDT 2024 Heart Rate 68.00 /min Sat Apr 10 22:25 :19 EDT 2024 Body temperature 98.00 [degF] Sat Apr 10 22:2 5:19 EDT 2024 Respiratory rate 16.00 /min Sat Apr 10 22:2 5:19 EDT 2024 Systolic Blood Pressure 118.00 mm[Hg] Sat Apr 10 20:54:43 EDT 2024 Diastolic Blood Pressure 52.00 mm[Hg] Sat Apr 10 20:54:43 EDT 2024 Heart Rate 68.00 /min Sat Apr 10 20:54 :43 EDT 2024 Systolic Blood Pressure 99.00 mm[Hg] Sat Apr 10 10:13:46 EDT 2024 Diastolic Blood Pressure 52.00 mm[Hg] Sat Apr 10 10:13:46 EDT 2024 Pulse Oximetry 93.00 % Sat Apr 10 10:13 :46 EDT 2024 Body weight 119.00 [lb_av] Sat Apr 10 10:13 :46 EDT 2024 Heart Rate 99.00 /min Sat Apr 10 10:13 :46 EDT 2024 Body temperature 98.20 [degF] Sat Apr 10 10:1 3:46 EDT 2024 Respiratory rate 20.00 /min Sat Apr 10 10:1 3:46 EDT 2024 Systolic Blood Pressure 99.00 mm[Hg] Sat Apr 10 09:31:17 EDT 2024 Diastolic Blood Pressure 52.00 mm[Hg] Sat Apr 10 09:31:17 EDT 2024 Systolic Blood Pressure 116.00 mm[Hg] SatApr 09 23:19:25 EDT 2024 Diastolic Blood Pressure 62.00 mm[Hg] SatApr 09 23:19:25 EDT 2024 Pulse Oximetry 97.00 % SatApr 09 23:19 :25 EDT 2024 Heart Rate 68.00 /min SatApr 09 23:19 :25 EDT 2024 Body temperature 97.80 [degF] SatApr 09 23:1 9:25 EDT 2024 Respiratory rate 20.00 /min SatApr 09 23:1 9:25 EDT 2024 Systolic Blood Pressure 116.00 mm[Hg] SatApr 09 21:34:41 EDT 2024 Diastolic Blood Pressure 62.00 mm[Hg] SatApr 09 21:34:41 EDT 2024 Heart Rate 68.00 /min SatApr 09 21:34 :41 EDT 2024 Body weight 119.80 [lb_av] SatApr 09 15:49 :50 EDT 2024 Systolic Blood Pressure 120.00 mm[Hg] SatApr 09 09:58:20 EDT 2024 Diastolic Blood Pressure 60.00 mm[Hg] SatApr 09 09:58:20 EDT 2024 Systolic Blood Pressure 120.00 mm[Hg] SatApr 09 09:58:20 EDT 2024 Diastolic Blood Pressure 60.00 mm[Hg] SatApr 09 09:58:20 EDT 2024 Pulse Oximetry 96.00 % SatApr 09 09:58 :20 EDT 2024 Heart Rate 63.00 /min SatApr 09 09:58 :20 EDT 2024 Body temperature 98.30 [degF] SatApr 09 09:5 8:20 EDT 2024 Respiratory rate 18.00 /min SatApr 09 09:5 8:20 EDT 2024 Systolic Blood Pressure 130.00 mm[Hg] SatApr 08 23:27:00 EDT 2024 Diastolic Blood Pressure 63.00 mm[Hg] SatApr 08 23:27:00 EDT 2024 Pulse Oximetry 99.00 % SatApr 08 23:27 :00 EDT 2024 Heart Rate 98.00 /min SatApr 08 23:27 :00 EDT 2024 Body temperature 98.20 [degF] SatApr 08 23:2 7:00 EDT 2024 Respiratory rate 18.00 /min SatApr 08 23:2 7:00 EDT 2024 Systolic Blood Pressure 130.00 mm[Hg] SatApr 08 21:38:07 EDT 2024 Diastolic Blood Pressure 63.00 mm[Hg] SatApr 08 21:38:07 EDT 2024 Heart Rate 98.00 /min SatApr 08 21:38 :07 EDT 2024 Reason for Referral
--- OUTSIDE RECORDS SUMMARY | 2025-05-12 11:39 | XMS_ITS | Clinical Summary ---
Author Organization [place] [id number] [facility] Address [address] [place] [address] Care Team Providers Care Family Advocate Name Role Phone Josiah Mccormick MD Primary Care Provider + Allergies Active Allergy Reactions Criticality Noted Date Comments Sulfa (Sulfonamide Antibiotics) Unknown 06/2020 Medications guaiFENesin-co deine (GUAITUSS AC) liquid 100-10 mg/5 mL Take 10 mL by mouth 4 (four) times a day as needed for cough 120 mL 1 4 Active Eliquis 5 mg tablet TAKE 1 TABLET BY MOUTH TWICE A DAY 180 tablet 3 4 Active amlodipine-kassidy sartan (EXFORGE) 5-320 mg per tablet TAKE 1 TABLET BY MOUTH EVERY DAY 90 tablet 3 4 Active carbidopa-levo dopa (SINEMET) 25-100 mg per tablet TAKE 1 TABLET BY MOUTH THREE TIMES A DAY 270 tablet 3 4 Active propranolol LA (INDERAL LA) 120 mg 24 hr capsule TAKE 1 CAPSULE BY MOUTH EVERYDAY AT BEDTIME 90 capsule 3 5 Active flecainide (TAMBOCOR) 50 mg tablet TAKE 1 TABLET BY MOUTH EVERY 12 HOURS 180 tablet 2 5 Active flecainide (TAMBOCOR) 50 mg tablet TAKE 1 TABLET BY MOUTH EVERY 12 HOURS 180 tablet 1 5 025 Discontinued Active Problems Problem Noted Date Diagnosed Date Parkinson's disease, unspeci fied whether dyskinesia present, unspecified whether manifestations fluctuate 01/16/2024 Essential tremor 02/14/2023 Essential hypertension 2021 Longstanding persistent atrial fibrillation 02/2021 Assessment & Plan (09/18/2022 2:29 PM [facility]): Irr Irr HR noted today, reports SOB and fatigue ER encouraged, son and patient in agreement Resolved Problems Problem Noted Date Diagnosed Date Resolved Date Weight loss, non-intentional 09/04/2022 01/11/2025 Assessment & Plan (09/04/2022 2:28 PM QUARRYMAN): Will get CXR Records for recent hospitalization requested Left leg pain 09/04/2022 09/18/2022 Assessment & Plan (09/04/2022 2:31 PM QUARRYMAN): Suspect some lumbar stenosis may be contributing, will try to obtain OSH records and go from there Will do MDP, advised she needs to eat with this Gait difficulty 07/10/2022 01/16/2024 Assessment & Plan (09/04/2022 2:28 PM QUARRYMAN): Home PT/OT Unsteadiness on feet 07/10/2022 022 Overview (07/10/2022): order physical therapy for balance Parkinsonian tremor 07/11/2021 07/30/20 Assessment & Plan (09/04/2022 2:29 PM QUARRYMAN): Has upcoming Neuro appt 09/21/22 Lupus anticoagulant [...] on file Legal Sex Female 7:53 AM QUARRYMAN Gender Identity Not on file Sexual Orientation [...] 10:35 AM CDT Height 162.6 cm (5' 4.02) 01/12/2025 10:35 AM C DT Body Mass [...] season) 2024 08/24/2021, 12/26/2020, 11/24/2020 Influenza Vaccine (#1) 2025 , 07/24/2021, 07/25/2020, Additional history exists Insurance MEDICARE [facility] [employer] MEDICARE [facility] [facility] [phone] [employer] [facility] [employer] [place] [address] [employer] MEDICARE Care Teams Family Advocate Relationship Specialty Start Date End Date Josiah Mccormick MD PCP - General 10/06/17
== END 2025-05-12 10:56 | disposition home or self-care (01) ==
LOC: ANHAUDIO 10:55
PROVIDERS: PCP Nurse Practitioner Family; Visit Provider Nurse Practitioner Family
DX: H93.11 Tinnitus, right ear (principal); H61.23 Impacted cerumen, bilateral
CPT/HCPCS: 92567

== ENCOUNTER 2025-05-25 11:55 | Outpatient (CLI) | payer MEDICARE, OTHER, SELFPAY ==
--- OUTSIDE RECORDS SUMMARY | 2025-05-25 12:13 | XMS_ITS ---
Author Name Auto Generated, Auto Generated Organization [facility] ices Address [address] [place] [address] Phone [phone] Care Team Providers Care Astronomy Department Chair Name Role Phone Christiano Bentley Unavailable Edna Carrion Unavailable [phone] Alice Oakes Unavailable [phone] Functional Status No Results Mental Status No Results Allergies and Intolerances Name Onset Date Reaction Severity Sulfa (Sulfonamide Antibiotics) (Allergy) [facility] 17:32:00 EDT 2024 Encounters Program Name Primary Diagnosis Admission Date/Time Dis charge Date/Time [facility] SatApr 08 12:31:00 EDT 2024May 13 11:56:00 EDT 2024 Immunizations Name Dates Status TST-PPD intradermal SatApr 11 01:00:00 EDT 2024 Completed TST-PPD intradermal SatApr 09 01:00:00 EDT 2024 Completed PCV 20 SatJan 19 01:00:00 EDT 2024 Com pleted Sat Aug 22 01:00:00 EST 2023 Com pleted Medications Medication Directions Start Date End Date carbidopa ER 50 mg-levodopa 200 mg tablet,extended release 1 tablet TABLET, EXTENDED RELEASE Oral 3 Times Daily Indication: Parkinsons SatMay 12 19:00:00 EDT 2024May 13 01:00:00 EDT 2024 propranoloL 60 mg tablet 1 tablet TABLET Oral 1 Time Daily for 14 Days Indication: HTN SatMay 12 19:00:00 EDT 2024May 13 01:00:00 EDT 2024 Remeron 15 mg tablet 0.5 tablet TABLET O ral 1 Time Daily for 14 Days Indication: insomnia SatMay 12 19:00:00 EDT 2024May 12 19:42:00 EDT 2024 Remeron 15 mg tablet 1 tablet TABLET Ora l 1 Time Daily Indication: Insomnia SatMay 26 09:00:00 EDT 2024May 13 01:00:00 ED2024 Remeron 15 mg tablet 0.5 tablet TABLET O ral 1 Time Daily for 14 Days Indication: insomnia SatMay 13 07:00:00 EDT 2024May 13 01:00:00 EDT 2024 guaiFENesin ER 600 [...] in am off at [facility] for pain SatApr 24 09:00:00 EDT 2024May 13 01:00:00 EDT 2024 potassium chloride ER 20 mEq tablet,extended release 2 Tablets TABLET, EXTENDED RELEASE Oral 1 Time Daily for 3 Days Indication: Take a total of 40meq daily x 3 daysHypokalemia SatApr 20 06:00:00 EDT 2024Apr 23 05:59:00 EDT 2024 potassium chloride ER 20 mEq tablet,extended release 1 Tablet TABLET, EXTENDED RELEASE Oral 1 Time Daily Indication: Hypokalemia SatApr 24 06:00:00 EDT 2024May 13 01:00:00 2024 potassium chloride ER 20 mEq tablet,extended release 3 tabs TABLET, EXTENDED RELEASE Oral 1 Time Daily for 1 Day Indication: hypokalemia SatApr 15 11:00:00 2024Apr 16 10:59:00 ED2024 benzonatate 100 mg capsule 100 mg CAPSULE Oral PRN Every 8 Hours Indication: Cough SatApr 13 01:00:00 EDT 2024May 13 01:00:00 ED2024 guaiFENesin ER 600 mg tablet, extended release 12 hr 2 tabs/1200 mg TABLET, EXTENDED RELEASE 12 HR Oral PRN Every 12 Hours Indication: Congestion SatApr 13 01:00:00 EDT 2024May 03 16:05:00 EDT 2024 acetaminophen 325 mg tablet 2 tabs TABLET Oral PRN Every 4 Hours Indication: pain SatApr 09 13:00:00 EDT 2024May 13 01:00:00 EDT 2024 pantoprazole 40 mg tablet,delayed release 1 tab TABLET, DELAYED RELEASE (ENTERIC COATED) Oral 1 Time Daily Indication: GERD SatApr 08 13:00:00 EDT 2024May 13 01:00:00 EDT 2024 benzonatate 100 mg capsule 1 capsule CAPSULE Oral 3 Times Daily Indication: Cough SatApr 08 16:00:00 EDT 2024Apr 13 01:15:00 EDT 2024 Calcium-500 500 mg (as calcium carbonate 1,250 mg) chewable tablet 1 tablet TABLET,CHEWABLE Oral PRN Every 6 Hours Indication: Indigestion SatApr 08 14:00:00 EDT 2024May 13 01:00:00 EDT 2024 carbidopa 25 mg-levodopa 100 mg tablet 1 tablet TABLET Oral Every 6 Hours Indication: Parkinsons SatApr 08 18:00:00 EDT 2024May 12 18:36:00 EDT 2024 Mucus Relief ER 600 mg tablet, extended release 1200mg TABLET, EXTENDED RELEASE 12 HR Oral Every 12 Hours Indication: Congestion SatApr 08 16:00:00 EDT 2024Apr 13 01:17:00 EDT 2024 amLODIPine 5 mg tablet 1 tablet TABLET O ral 1 Time Daily Indication: HTN SatApr 08 16:00:00 EDT 2024Apr 18 23:32:00 EDT 2024 flecainide 50 mg tablet 1 tablet TABLET Oral Every 12 Hours Indication: A-fib SatApr 08 19:00:00 EDT 2024May 13 01:00:00 EDT 2024 Eliquis 5 mg tablet 1 tablet TABLET Oral 2 Times Daily Indication: A-fib SatApr 08 16:00:00 EDT 2024May 13 01:00:00 EDT 2024 codeine 10 mg-guaifenesin 100 mg/5 mL oral liquid 10mL LIQUID (ML) Oral PRN 4 Times Daily Indication: Cough SatApr 08 16:00:00 EDT 2024May 06 12:49:00 EDT 2024 propranoloL ER 120 mg capsule,24 hr,extended release 1 capsule CAPSULE, EXTENDED RELEASE 24HR Oral 1 Time Daily Indication: A-fib SatApr 08 16:00:00 EDT 2024May 12 18:37:00 EDT 2024 TubersoL 5 tub. unit/0.1 mL [...] 2024 * End Date: * Text: * emt intermediate (current) use of anticoagulants* Code: * Start [...] 2024 * End Date: * Text: * Unspecified retinal break, right eye* Code: * Start Date: SatMay 05 00:00:00 EDT 2024 * End Date: * Text: * [id number] Daly receives a therapeutic diet. (12)* Code: * Start Date: SatApr 19 00:00:00 EDT 2024 * End Date: * Text: [id number] Daly receives a therapeutic diet. (12) * [...] EDT 2024 * End Date: * Text: ANNALISAS_ADLs Naty Kauffman has ADL selfcare deficit related to decreased mobility and muscle weakness * ORA_Activities - Daly's quality of life is better when she is able to do things that are most important to her. 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 Vital Signs Vital Sign Measurement Date Systolic Blood Pressure 125.00 mm[Hg] [facility] May 13 09:16:41 EDT 2024 Diastolic Blood Pressure 69.00 mm[Hg] [facility] May 13 09:16:41 EDT 2024 Heart Rate 79.00 /min [facility] May 13 09:16 :41 EDT 2024 Systolic Blood Pressure 125.00 mm[Hg] [facility] May 13 09:15:00 EDT 2024 Diastolic Blood Pressure 69.00 mm[Hg] [facility] May 13 09:15:00 EDT 2024 Pulse Oximetry 93.00 % [facility] May 13 09:15 :00 EDT 2024 Heart Rate 79.00 /min [facility] May 13 09:15 :00 EDT 2024 Body temperature 97.60 [degF] [facility] May 13 09:1 5:00 EDT 2024 Respiratory rate 18.00 /min [facility] May 13 09:1 5:00 EDT 2024 Systolic Blood Pressure 116.00 mm[Hg] SatMay 12 20:19:33 EDT 2024 Diastolic Blood Pressure 62.00 mm[Hg] SatMay 12 20:19:33 EDT 2024 Pulse Oximetry 92.00 % SatMay 12 20:19 :33 EDT 2024 Heart Rate 73.00 /min SatMay 12 20:19 :33 EDT 2024 Body temperature 97.20 [degF] SatMay 12 20:1 9:33 EDT 2024 Respiratory rate 18.00 /min SatMay 12 20:1 9:33 EDT 2024 Systolic Blood Pressure 136.00 mm[Hg] SatMay 12 09:24:06 EDT 2024 Diastolic Blood Pressure 90.00 mm[Hg] SatMay 12 09:24:06 EDT 2024 Pulse Oximetry 71.00 % SatMay 12 09:24 :06 EDT 2024 Body weight 117.40 [lb_av] SatMay 12 09:24 :06 EDT 2024 Heart Rate 71.00 /min SatMay 12 09:24 :06 EDT 2024 Body temperature 97.60 [degF] SatMay 12 09:2 4:06 EDT 2024 Respiratory rate 16.00 /min SatMay 12 09:2 4:06 EDT 2024 Systolic Blood Pressure 105.00 mm[Hg] SatMay 11 21:13:22 EDT 2024 Diastolic Blood Pressure 52.00 mm[Hg] SatMay 11 21:13:22 EDT 2024 Systolic Blood Pressure 105.00 mm[Hg] SatMay 11 21:13:22 EDT 2024 Diastolic Blood Pressure 52.00 mm[Hg] SatMay 11 21:13:22 EDT 2024 Pulse Oximetry 95.00 % SatMay 11 21:13 :22 EDT 2024 Heart Rate 62.00 /min SatMay 11 21:13 :22 ED2024 Heart Rate 62.00 /min SatMay 11 21:13 :22 ED2024 Body temperature 97.40 [degF] SatMay 11 21:1 [...] :22 EDT 2024 Body temperature 96.70 [degF] SatMay 10 00:3 5:22 EDT 2024 Respiratory rate 20.00 /min SatMay 10 00:3 5:22 EDT 2024 Systolic Blood Pressure 150.00 mm[Hg] [place] May 09 21:43:23 EDT 2024 Diastolic Blood Pressure 66.00 mm[Hg] [place] May 09 21:43:23 EDT 2024 Heart Rate 66.00 /min [place] May 09 21:43 :23 EDT 2024 Systolic Blood Pressure 138.00 mm[Hg] [place] May 09 10:09:13 EDT 2024 Diastolic Blood Pressure 73.00 mm[Hg] [place] May 09 10:09:13 EDT 2024 Pulse Oximetry 93.00 % [place] May 09 10:09 :13 EDT 2024 Body weight 113.80 [lb_av] [place] May 09 10:09 :13 EDT 2024 Heart Rate 64.00 /min [place] May 09 10:09 :13 EDT 2024 Body temperature 97.50 [degF] [place] May 09 10:0 9:13 EDT 2024 Respiratory rate 19.00 /min [place] May 09 10:0 9:13 EDT 2024 Systolic Blood Pressure 130.00 mm[Hg] [facility] May 08 23:54:14 EDT 2024 Diastolic Blood Pressure 81.00 mm[Hg] [facility] May 08 23:54:14 EDT 2024 Pulse Oximetry 98.00 % [facility] May 08 23:54 :14 EDT 2024 Heart Rate 81.00 /min [facility] May 08 23:54 :14 EDT 2024 Body temperature 97.10 [degF] [facility] May 08 23:5 4:14 EDT 2024 Respiratory rate 20.00 /min [facility] May 08 23:5 4:14 EDT 2024 Systolic Blood Pressure 130.00 mm[Hg] [facility] May 08 22:23:56 EDT 2024 Diastolic Blood Pressure 81.00 mm[Hg] [facility] May 08 22:23:56 EDT 2024 Heart Rate 81.00 /min [facility] May 08 22:23 :56 EDT 2024 Systolic Blood Pressure 135.00 mm[Hg] [facility] May 08 11:21:41 EDT 2024 Diastolic Blood Pressure 112.00 mm[Hg] [facility] May 08 11:21:41 EDT 2024 Pulse Oximetry 95.00 % [facility] May 08 11:21 :41 EDT 2024 Body weight 115.90 [lb_av] [facility] May 08 11:21 :41 EDT 2024 Heart Rate 82.00 /min [facility] May 08 11:21 :41 EDT 2024 Body temperature 97.40 [degF] SatMay 08 11:2 1:41 EDT 2024 Respiratory rate 18.00 /min SatMay 08 11:2 1:41 EDT 2024 Systolic Blood [...] :31 EDT 2024 Body temperature 97.40 [degF] [place] May 06 21:4 4:31 EDT 2024 Respiratory rate 18.00 /min SatMay 06 21:4 4:31 EDT 2024 Systolic Blood Pressure 164.00 mm[Hg] SatMay 06 09:55:49 EDT 2024 Diastolic Blood Pressure 47.00 mm[Hg] SatMay 06 09:55:49 EDT 2024 Pulse Oximetry 96.00 % SatMay 06 09:55 :49 EDT 2024 Body weight 116.00 [lb_av] SatMay 06 09:55 :49 EDT 2024 Heart Rate 70.00 /min [place] May 06 09:55 :49 EDT 2024 Body temperature [...] :30 EDT 2024 Body temperature 97.80 [degF] Sun May 02 09:2 3:30 EDT 2024 Respiratory rate 20.00 /min SatMay 02 09:2 3:30 EDT 2024 Systolic Blood Pressure 118.00 mm[Hg] Sat May 01 21:20:36 EDT 2024 Diastolic Blood Pressure 68.00 mm[Hg] Sat May 01 21:20:36 EDT 2024 Systolic Blood Pressure 118.00 mm[Hg] Sat May 01 21:20:36 EDT 2024 Diastolic Blood Pressure 68.00 mm[Hg] Sat May 01 21:20:36 EDT 2024 Pulse Oximetry 94.00 % Sat May 01 21:20 :36 EDT 2024 Heart Rate 66.00 /min SatMay 01 21:20 :36 EDT 2024 Heart Rate 66.00 /min SatMay 01 21:20 :36 EDT 2024 Body temperature 97.80 [degF] [facility] May 01 21:2 0:36 EDT 2024 Respiratory rate 18.00 /min SatMay 01 21:2 0:36 EDT 2024 Body weight 114.10 [lb_av] [facility] May 01 13:37 :33 EDT 2024 Systolic Blood Pressure 124.00 mm[Hg] Sat May 01 08:17:47 EDT 2024 Diastolic Blood Pressure [...] Blood Pressure 91.00 mm[Hg] SatApr 29 13:09:35 EDT 2024 Diastolic Blood Pressure 66.00 mm[Hg] SatApr 29 13:09:35 EDT 2024 Pulse Oximetry 95.00 % SatApr 29 13:09 :35 EDT 2024 Body weight 116.40 [lb_av] SatApr 29 13:09 :35 EDT 2024 Heart Rate 75.00 /min SatApr 29 13:09 :35 EDT 2024 Body temperature 97.60 [degF] SatApr 29 13:0 9:35 EDT 2024 Respiratory rate 18.00 /min SatApr 29 13:0 9:35 EDT 2024 Systolic Blood Pressure 118.00 mm[Hg] [...] 89.00 /min SatApr 27 20:20 :23 EDT 5 Body temperature 97.70 [degF] SatApr 27 20:2 0:23 EDT 5 Respiratory rate 17.00 /min SatApr 27 20:2 0:23 EDT 5 Systolic Blood Pressure 127.00 mm[Hg] SatApr 27 09:25:21 EDT 2024 Diastolic Blood Pressure 79.00 mm[Hg] SatApr 27 09:25:21 EDT 5 Pulse Oximetry 94.00 % SatApr 27 09:25 :21 EDT 2024 Heart Rate 64.00 /min SatApr 27 09:25 :21 EDT 2024 Body temperature 98.00 [degF] SatApr 27 09:2 5:21 EDT 2024 Respiratory rate 18.00 /min SatApr 27 09:2 5:21 EDT 2024 Body weight 116.40 [lb_av] SatApr 27 08:38 :46 EDT 2024 Systolic Blood Pressure 112.00 mm[Hg] [...] 117.20 [lb_av] SatApr 26 12:13 :50 EDT 2025 Heart Rate 79.00 /min SatApr 26 12:13 [...] 2024 Diastolic Blood Pressure 65.00 mm[Hg] SatApr 25 22:06:47 EDT 2024 Heart Rate 62.00 /min SatApr [...] EDT 2024 Diastolic Blood Pressure 68.00 mm[Hg] SatApr 25 09:48:38 EDT 2024 Pulse Oximetry 97.00 % SatApr 25 09:48 :38 EDT 2024 Heart Rate 73.00 /min SatApr 25 09:48 :38 EDT 2024 Body temperature 98.00 [degF] SatApr 25 09:4 8:38 EDT 2024 Respiratory rate 18.00 /min Sun Apr 25 09:4 8:38 EDT 2024 Systolic Blood Pressure 108.00 mm[Hg] Sat Apr 24 23:36:38 EDT 2024 Diastolic Blood Pressure 60.00 mm[Hg] Sat Apr 24 23:36:38 EDT 2024 Pulse Oximetry 94.00 % Sat Apr 24 23:36 :38 EDT 2024 Heart Rate 76.00 /min Sat Apr 24 23:36 :38 EDT 2024 Body temperature 98.00 [degF] Sat Apr 24 23:3 6:38 EDT 2024 Respiratory rate 18.00 /min Sat Apr 24 23:3 6:38 EDT 2024 Systolic Blood Pressure 108.00 mm[Hg] Sat Apr 24 22:06:57 EDT 2024 Diastolic Blood Pressure 60.00 mm[Hg] Sat Apr 24 22:06:57 EDT 2024 Heart Rate 76.00 /min Sat Apr 24 22:06 :57 EDT 2024 Systolic Blood Pressure 119.00 mm[Hg] Sat Apr 24 11:32:13 EDT 2024 Diastolic Blood Pressure 80.00 mm[Hg] Sat Apr 24 11:32:13 EDT 2024 Pulse Oximetry 91.00 % Sat Apr 24 11:32 :13 EDT 2024 Body weight 114.30 [lb_av] Sat Apr 24 11:32 :13 EDT 2024 Heart Rate 71.00 /min Sat Apr 24 11:32 :13 EDT 2024 Body temperature 98.00 [degF] Sat Apr 24 11:3 2:13 EDT 2024 Respiratory rate 20.00 /min Sat Apr 24 11:3 2:13 EDT 2024 Systolic Blood Pressure 107.00 mm[Hg] Sat Apr 24 00:00:15 EDT 2024 Diastolic Blood Pressure 59.00 mm[Hg] Sat Apr 24 00:00:15 EDT 2024 Pulse Oximetry 94.00 % Sat Apr 24 00:00 :15 EDT 2024 Heart Rate 73.00 /min Sat Apr 24 00:00 :15 EDT 2024 Body temperature 98.00 [degF] Sat Apr 24 00:0 0:15 EDT 2024 Respiratory rate 18.00 /min Sat Apr 24 00:0 0:15 EDT 2024 Systolic Blood Pressure 107.00 mm[Hg] Fri Apr 23 21:58:32 EDT 2025 Diastolic Blood Pressure 59.00 mm[Hg] SatApr 23 [...] 20:08:13 EDT 2024 Pulse Oximetry 95.00 % SatApr 22 20:08 :13 EDT 2024 Heart Rate 72.00 /min SatApr 22 20:08 :13 EDT 2024 Heart Rate 72.00 /min SatApr 22 20:08 :13 EDT 2024 Body temperature 98.10 [degF] [place] Apr 22 20:0 8:13 EDT 2024 Respiratory rate 18.00 /min SatApr 22 20:0 8:13 EDT 2024 Body weight 114.00 [lb_av] SatApr 22 15:53 :39 EDT 2024 Systolic Blood Pressure 137.00 mm[Hg] SatApr 22 09:21:40 EDT 2024 Diastolic Blood Pressure 83.00 mm[Hg] SatApr 22 09:21:40 EDT 2024 Pulse Oximetry 97.00 % SatApr 22 09:21 :40 EDT 2024 Heart Rate 73.00 /min SatApr 22 09:21 :40 EDT 2024 Body temperature [...] :06 EDT 2024 Heart Rate 67.00 /min [facility] 13 09:40 :06 EDT 2024 Body temperature 98.00 [degF] SatApr 18 09:4 0:06 EDT 2024 Respiratory rate 20.00 /min SatApr 18 09:4 0:06 EDT 2024 Systolic Blood Pressure 123.00 mm[Hg] Sat Apr 17 20:01:23 EDT 2024 Diastolic Blood Pressure 64.00 mm[Hg] Sat Apr 17 20:01:23 EDT 2024 Heart Rate 96.00 /min Sat Apr 17 20:01 :23 EDT 2024 Systolic Blood Pressure 123.00 mm[Hg] Sat Apr 17 20:00:38 EDT 2024 Diastolic Blood Pressure 64.00 mm[Hg] Sat Apr 17 20:00:38 EDT 2024 Pulse Oximetry 97.00 % SatApr 17 20:00 :38 EDT 2024 Heart Rate 96.00 /min SatApr 17 20:00 :38 EDT 2024 Body temperature 97.80 [degF] [facility] Apr 17 20:0 0:38 EDT 2024 Respiratory rate 18.00 /min [facility] Apr 17 20:0 0:38 EDT 2024 Systolic Blood Pressure 124.00 mm[Hg] SatApr 17 10:58:40 EDT 2024 Diastolic Blood Pressure 64.00 mm[Hg] Sat Apr 17 10:58:40 EDT 2024 Pulse Oximetry 94.00 % SatApr 17 10:58 :40 EDT 2024 Body weight 115.40 [lb_av] Sat Apr 17 10:58 :40 EDT 2024 Heart Rate 64.00 /min Sat Apr 17 10:58 :40 EDT 2024 Body temperature 98.00 [degF] Sat Apr 17 10:5 8:40 EDT 2024 Respiratory rate 18.00 /min SatApr 17 10:5 8:40 EDT 2024 Systolic Blood Pressure 124.00 mm[Hg] Sat Apr 17 10:07:35 EDT 2024 Diastolic Blood Pressure [...] 63.00 mm[Hg] SatApr 15 20:20:56 EDT 2024 Pulse Oximetry 95.00 % SatApr 15 20:20 :56 EDT 2024 Heart Rate 82.00 /min SatApr 15 20:20 :56 EDT 2024 Heart Rate 82.00 /min SatApr 15 20:20 :56 EDT 2024 Body temperature 97.80 [degF] SatApr 15 20:2 0:56 EDT 2024 Respiratory rate 18.00 /min SatApr 15 20:2 0:56 EDT 2024 Body weight 115.30 [lb_av] [facility] Apr 15 18:32 :23 EDT 2024 Systolic Blood Pressure 127.00 mm[Hg] [place] Apr 15 11:23:16 EDT 2024 Diastolic Blood Pressure 58.00 mm[Hg] [place] Apr 15 11:23:16 EDT 2024 Systolic Blood Pressure 127.00 mm[Hg] [place] Apr 15 11:23:16 EDT 2024 Diastolic Blood Pressure 58.00 mm[Hg] [place] Apr 15 11:23:16 EDT 2024 Pulse Oximetry 95.00 % [place] Apr 15 11:23 :16 EDT 2024 Heart Rate 98.00 /min [facility] Apr 15 11:23 :16 EDT 2024 Body temperature 97.80 [degF] [facility] Apr 15 11:2 3:16 EDT 2024 Respiratory rate 18.00 /min [facility] Apr 15 11:2 3:16 EDT 2024 Systolic Blood [...] EDT 2024 Systolic Blood Pressure 125.00 mm[Hg] [place] Apr 11 21:49:25 EDT 2024 Diastolic Blood Pressure 67.00 mm[Hg] [place] Apr 11 21:49:25 EDT 2024 Heart Rate 98.00 /min [place] Apr 11 21:49 :25 EDT 2024 Body weight 118.40 [lb_av] [place] Apr 11 12:56 :32 EDT 2024 Systolic Blood Pressure 135.00 mm[Hg] [place] Apr 11 09:37:00 EDT 2024 Diastolic Blood Pressure 50.00 mm[Hg] [place] Apr 11 09:37:00 EDT 2024 Pulse Oximetry 90.00 % [place] Apr 11 09:37 :00 EDT 2024 Heart Rate 77.00 /min [place] Apr 11 09:37 :00 EDT 2024 Body temperature 97.80 [degF] [place] Apr 11 09:3 7:00 EDT 2024 Respiratory rate 16.00 /min [place] Apr 11 09:3 7:00 EDT 2024 Systolic Blood Pressure 135.00 mm[Hg] [place] Apr 11 09:35:16 EDT 2024 Diastolic Blood Pressure 50.00 mm[Hg] [place] Apr 11 09:35:16 EDT 2024 Systolic Blood Pressure 118.00 mm[Hg] [facility] Apr 10 22:25:19 EDT 2024 Diastolic Blood Pressure 52.00 mm[Hg] [facility] Apr 10 22:25:19 EDT 2024 Pulse Oximetry 93.00 % [facility] Apr 10 22:25 :19 EDT 2024 Heart Rate 68.00 /min [facility] Apr 10 22:25 :19 EDT 2024 Body temperature 98.00 [degF] [facility] Apr 10 22:2 5:19 EDT 2024 Respiratory rate 16.00 /min [facility] Apr 10 22:2 5:19 EDT 2024 Systolic Blood Pressure 118.00 mm[Hg] Sat Apr 10 20:54:43 EDT 2024 Diastolic Blood Pressure 52.00 mm[Hg] [facility] Apr 10 20:54:43 EDT 2024 Heart Rate 68.00 /min [facility] Apr 10 20:54 :43 EDT 2024 Systolic Blood Pressure 99.00 mm[Hg] [facility] Apr 10 10:13:46 EDT 2024 Diastolic Blood Pressure 52.00 mm[Hg] [facility] Apr 10 10:13:46 EDT 2024 Pulse Oximetry 93.00 % SatApr 10 10:13 :46 EDT 2024 Body weight 119.00 [lb_av] SatApr 10 10:13 :46 EDT 5 Heart Rate 99.00 /min SatApr 10 10:13 :46 EDT 2024 Body temperature 98.20 [degF] SatApr 10 10:1 3:46 EDT 2024 Respiratory rate 20.00 /min SatApr 10 10:1 3:46 EDT 2024 Systolic Blood Pressure 99.00 mm[Hg] SatApr 10 09:31:17 EDT 2024 Diastolic Blood Pressure 52.00 mm[Hg] SatApr 10 09:31:17 EDT 5 Systolic Blood Pressure 116.00 mm[Hg] SatApr 09 [...] :00 EDT 2024 Heart Rate 98.00 /min [place] Apr 08 23:27 :00 EDT 2024 Body temperature [...]
--- OUTSIDE RECORDS SUMMARY | 2025-05-25 12:13 | XMS_ITS ---
Author Name Auto Generated, Auto Generated Organization [employer] [facility] ices Address [address] [place] [address] Phone [phone] Care Team Providers Care Ell Tutor Name Role Phone Christiano Bentley Unavailable Edna Carrion Unavailable [phone] Alice Oakes Unavailable [phone] Functional Status No Results Mental Status No Results Allergies and Intolerances Name Onset Date Reaction Severity Sulfa (Sulfonamide Antibiotics) (Allergy) [facility] 17:32:00 EDT 2024 Encounters Program Name Primary Diagnosis Admission Date/Time Dis charge Date/Time [facility] SatApr 08 12:31:00 EDT [...] 2024 * End Date: * Text: * 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 (12)* Code: * Start Date: SatApr 19 00:00:00 EDT 2024 * End Date: * Text: [id number] Daly receives a therapeutic diet. (12) * [...] are most important to her. Daly is [employer] and would like to attend weekly protestant services at [facility].* Code: * Start Date: SatApr 21 00:00:00 EDT 2024 * End Date: * Text: JENNIEActivities Naty Kauffman's quality of life is better when she is able to do things that are most important to her. Daly is [employer] and would like to attend weekly protestant services at [facility]. Vital Signs Vital Sign Measurement Date Systolic Blood Pressure 125.00 mm[Hg] [facility] May 13 09:16:41 EDT 2024 Diastolic Blood Pressure 69.00 mm[Hg] [facility] May 13 09:16:41 EDT 2024 Heart Rate 79.00 /min [facility] May 13 09:16 :41 EDT 2024 Systolic Blood Pressure 125.00 mm[Hg] [facility] May 13 09:15:00 EDT 2024 Diastolic Blood Pressure 69.00 mm[Hg] [facility] May 13 09:15:00 EDT 2024 Pulse Oximetry 93.00 % [facility] May 13 09:15 :00 EDT 2024 Heart Rate 79.00 /min [facility] May 13 09:15 :00 EDT 2024 Body temperature 97.60 [degF] [facility] May 13 09:1 5:00 EDT 2024 Respiratory rate 18.00 /min [facility] May 13 09:1 5:00 EDT 2024 Systolic [...] EDT 2024 Systolic Blood Pressure 150.00 mm[Hg] [place] [facility] May 09 21:43:23 EDT 2024 Diastolic Blood Pressure 66.00 mm[Hg] [facility] May 09 21:43:23 EDT 2024 Heart Rate 66.00 /min [facility] May 09 21:43 :23 EDT 2024 Systolic Blood Pressure 138.00 mm[Hg] [facility] May 09 10:09:13 EDT 2024 Diastolic Blood Pressure 73.00 mm[Hg] [facility] May 09 10:09:13 EDT 2024 Pulse Oximetry 93.00 % [facility] May 09 10:09 :13 EDT 2024 Body weight 113.80 [lb_av] [facility] May 09 10:09 :13 EDT 2024 Heart Rate 64.00 /min [facility] May 09 10:09 :13 EDT 2024 Body temperature 97.50 [degF] [facility] May 09 10:0 9:13 EDT 2024 Respiratory rate 19.00 /min [facility] May 09 10:0 9:13 EDT 2024 Systolic Blood Pressure 130.00 mm[Hg] [facility] May 08 23:54:14 EDT 2024 Diastolic Blood Pressure 81.00 mm[Hg] [facility] May 08 23:54:14 EDT 2024 Pulse Oximetry 98.00 % [facility] May 08 23:54 :14 EDT 2024 Heart Rate 81.00 /min [facility] May 08 23:54 :14 EDT 2024 Body temperature 97.10 [degF] [facility] May 08 23:5 4:14 EDT 2024 Respiratory rate 20.00 /min [facility] May 08 23:5 4:14 EDT 2024 Systolic Blood Pressure 130.00 mm[Hg] [facility] May 08 22:23:56 EDT 2024 Diastolic Blood Pressure 81.00 mm[Hg] [facility] May 08 22:23:56 EDT 2024 Heart Rate 81.00 /min [facility] May 08 22:23 :56 EDT 2024 Systolic Blood Pressure 135.00 mm[Hg] [facility] May 08 11:21:41 EDT 2024 Diastolic Blood Pressure 112.00 mm[Hg] [facility] May 08 11:21:41 EDT 2024 Pulse Oximetry 95.00 % [facility] May 08 11:21 :41 EDT 2024 Body weight 115.90 [lb_av] [facility] May 08 11:21 :41 EDT 2024 Heart Rate 82.00 /min [facility] May 08 11:21 :41 EDT 2024 Body [...] :36 EDT 2024 Body temperature 97.80 [degF] [facility] May 01 21:2 0:36 EDT 2024 Respiratory rate 18.00 /min SatMay 01 21:2 0:36 EDT 2024 Body weight 114.10 [lb_av] [facility] May 01 13:37 :33 EDT 2024 Systolic [...] :38 EDT 2024 Body temperature 97.80 [degF] [facility] Apr 17 20:0 0:38 EDT 2024 Respiratory rate 18.00 /min [facility] Apr 17 20:0 0:38 EDT 2024 Systolic [...] 0:56 EDT 2024 Body weight 115.30 [lb_av] [facility] Apr 15 18:32 :23 EDT 2024 Systolic [...] :16 EDT 2024 Heart Rate 98.00 /min [facility] Apr 15 11:23 :16 EDT 2024 Body temperature 97.80 [degF] [facility] Apr 15 11:2 3:16 EDT 2024 Respiratory rate 18.00 /min [facility] Apr 15 11:2 3:16 EDT 2024 Systolic [...] EDT 2024 Systolic Blood Pressure 125.00 mm[Hg] [facility] Apr 11 21:49:25 EDT 2024 Diastolic Blood Pressure 67.00 mm[Hg] [facility] Apr 11 21:49:25 EDT 2024 Heart Rate 98.00 /min [facility] Apr 11 21:49 :25 EDT 2024 Body weight 118.40 [lb_av] [facility] Apr 11 12:56 :32 EDT 2024 Systolic Blood Pressure 135.00 mm[Hg] [facility] Apr 11 09:37:00 EDT 2024 Diastolic Blood Pressure 50.00 mm[Hg] [facility] Apr 11 09:37:00 EDT 2024 Pulse Oximetry 90.00 % [facility] Apr 11 09:37 :00 EDT 2024 Heart Rate 77.00 /min [facility] Apr 11 09:37 :00 EDT 2024 Body temperature 97.80 [degF] [facility] Apr 11 09:3 7:00 EDT 2024 Respiratory rate 16.00 /min [facility] Apr 11 09:3 7:00 EDT 2024 Systolic Blood Pressure 135.00 mm[Hg] [facility] Apr 11 09:35:16 EDT 2024 Diastolic Blood Pressure 50.00 mm[Hg] [facility] Apr 11 09:35:16 EDT 2024 Systolic Blood Pressure 118.00 mm[Hg] [facility] Apr 10 22:25:19 EDT 2024 Diastolic Blood Pressure 52.00 mm[Hg] [facility] Apr 10 22:25:19 EDT 2024 Pulse Oximetry 93.00 % [facility] Apr 10 22:25 :19 EDT 2024 Heart Rate 68.00 /min [facility] Apr 10 22:25 :19 EDT 2024 Body temperature 98.00 [degF] [facility] Apr 10 22:2 5:19 EDT 2024 Respiratory rate 16.00 /min [facility] Apr 10 22:2 5:19 EDT 2024 Systolic Blood Pressure 118.00 mm[Hg] Sat Apr 10 20:54:43 EDT 2024 Diastolic Blood Pressure 52.00 mm[Hg] [facility] Apr 10 20:54:43 EDT 2024 Heart Rate 68.00 /min [facility] Apr 10 20:54 :43 EDT 2024 Systolic Blood Pressure 99.00 mm[Hg] [facility] Apr 10 10:13:46 EDT 2024 Diastolic Blood Pressure 52.00 mm[Hg] [facility] Apr 10 10:13:46 EDT 2024 Pulse Oximetry [...]
--- OUTSIDE RECORDS SUMMARY | 2025-05-25 12:14 | XMS_ITS | Clinical Summary ---
Author Organization [place] [id number] [facility] Address [address] [place] [address] Care Team Providers Care Middleware Systems Architect Name Role Phone Josiah Mccormick MD Primary [...] 02/2021 Assessment & Plan (09/18/2022 2:29 PM PARENT COACH): Irr Irr HR noted today, reports SOB and fatigue ER encouraged, son and patient in agreement Resolved Problems Problem Noted Date Diagnosed Date Resolved Date Weight loss, non-intentional 09/04/2022 01/11/2025 Assessment & Plan (09/04/2022 2:28 PM PARENT COACH): Will get CXR Records for recent hospitalization requested Left leg pain 09/04/2022 09/18/2022 Assessment & Plan (09/04/2022 2:31 PM PARENT COACH): Suspect some lumbar stenosis may be contributing, will try to obtain OSH records and go from there Will do MDP, advised she needs to eat with this Gait difficulty 07/10/2022 01/16/2024 Assessment & Plan (09/04/2022 2:28 PM PARENT COACH): Home PT/OT Unsteadiness on feet 07/10/2022 022 Overview (07/10/2022): order physical therapy for balance Parkinsonian tremor 07/11/2021 07/30/20 Assessment & Plan (09/04/2022 2:29 PM PARENT COACH): Has upcoming Neuro appt 09/21/22 Lupus anticoagulant [...] on file Legal Sex Female 7:53 AM PARENT COACH Gender Identity Not on file Sexual Orientation [...] 07/24/2021, 07/25/2020, Additional history exists Insurance MEDICARE [facility] [employer] MEDICARE [facility] [employer] [facility] [place] [address] MEDIC[employer] [facility] [place] [address] [facility] [employer] MEDICARE Care Teams Middleware Systems Architect Relationship Specialty Start Date End Date Josiah Mccormick MD PCP - General 10/06/17
--- OUTSIDE RECORDS SUMMARY | 2025-05-25 12:14 | XMS_ITS | Clinical Summary ---
Author Organization [facility] Address [address] [place] [address] Care Team Providers Care Litigation Support Analyst Name Role Phone StefaniKamryncarla Salazar PORTFOLIO ARCHITECT Primary Care Provider [phone] Encounters Date Type Department Care Team Description 05/18/2025 2:00 PM CDT - 05/18/2025 11:59 PM CDT Hospital Encounter [facility] Diagnostic Imaging [address] [place] [address] Magi Sanches NP Discharge Disposition: Home or Self Care (Routine Discharge) 05/18/2025 Travel from Last 3 Months Social History Tobacco Use Types Packs/Day Years Used Date Smoking Tobacco: Never Assessed Comments Unknown Sex and Gender Information Value Date Recorded Sex Assigned at Female 05/18/2025 1:47 PM CDT Legal Sex Female 1:45 PM CDT Gender Identity Not on file Sexual Orientation Not on file Plan of Treatment Health Maintenance Due Date Last Done Comments Annual Medicare Wellness Visit 2006 Dexa Scan (General) 2006 Zoster Vaccines (2 of 3) 11/28/2014 10/03/2014 COVID-19 Vaccine ( season) 2024 05/02/2022, 08/24/2021, 12/26/2020, Additional history exists DTaP, Tdap and Td Vaccines (2 - Td or Tdap) 03/14/2032 03/14/2022 RSV Immunization or 60+ Years Completed 08/22/2024 Pneumococcal Vaccine: 50+ Years Completed 01/19/2025 Meningococcal B Vaccine Aged Out No l onger eligible based on patient's age to complete this topic Meningococcal Vaccine Aged Out No matt shyam eligible based on patient's age to complete this topic RSV Immunizations Under 20 Months Aged Out No longer eligible based on patient's age to complete this topic Procedures Procedure Name Priority Date/Time Associated Diagnosis Comments XR LUMB SPINE 3V Routine 05/18/2025 2:38 PM CDT Low back pain XR THOR SPINE 2V Routine 05/18/2025 2:38 PM CDT Low back pain from Last 3 Months Results * XR THOR SPINE 2V (05/18/2025 2:38 PM CDT) Anatomical Region Laterality Modality Spine Radiographic Trena ging 05/19/2025 4:16 AM CDT Impressions 05/19/2025 4:17 AM CDT IMPRESSION: 1. Mid thoracic vertebral body level with approximately 50% height loss anteriorly of uncertain age. Consider MRI evaluation of the thoracic spine to assess for acuity and appropriateness of vertebroplasty. Referred By: Interpreted By: Kenroy Dunn MD, 05/19/2025 4:16 AM Narrative 05/19/2025 4:17 AM CDT [address] [address] Examination: Thoracic Spine 3 views Exam date/time: 05/18/2025 2:08 PM Reason For Exam: LOW BACK PAIN Comparison: None Technique: AP, lateral, and swimmer's views of the thoracic spine were obtained. Findings: Limited evaluation due to underpenetration. There is a mid thoracic vertebral body level with approximately 50% height loss anteriorly. Uncertain age. No convincing additional fracture identified within limitations of exam. Atherosclerotic aorta. Visualized lung simpson grossly clear. Procedure Note Kenroy Dunn MD - 05/19/2025 Health [facility] [address] [place], [place] [address] Examination: Thoracic Spine 3 views Exam date/time: 05/18/2025 2:08 PM Reason For Exam: LOW BACK PAIN Comparison: None Technique: AP, lateral, and swimmer's views of the thoracic spine wereobtained. Findings: Limited evaluation due to underpenetration. There is a midthoracic vertebral body level with approximately 50% height lossanteriorly. Uncertain age. No convincing additional fracture identifiedwithin limitations of exam. Atherosclerotic aorta. Visualized lungfields grossly clear. IMPRESSION: 1. Mid thoracic vertebral body level with approximately 50% height lossanteriorly of uncertain age. Consider MRI evaluation of the thoracicspine to assess for acuity and appropriateness of vertebroplasty. Referred By: Interpreted By: Kenroy Dunn MD, 05/19/2025 4:16 AM Magi Sanches NP GENERAL IMAGING Final Result * XR LUMB SPINE 3V (05/18/2025 2:38 PM CDT) Anatomical Region Laterality Modality Spine Radiographic Trena ging 05/19/2025 4:14 AM CDT Impressions 05/19/2025 4:16 AM CDT IMPRESSION: 1. Compression deformity of superior L3 endplate of unknown age. If there is clinical concern, consider MRI evaluation to assess for acuity and appropriateness of vertebroplasty. 2. 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 Consider CTA evaluation if not previously obtained elsewhere. Referred By: Interpreted By: Kenroy Dunn MD, 05/19/2025 4:14 AM Narrative 05/19/2025 4:16 AM CDT [address] [address] Examination: Lumbar Spine, 3 views Exam Date/Time: 05/18/2025 2:08 PM Reason For Exam: LOW BACK PAIN Fall 6 weeks ago. Comparison: None Technique: AP, lateral, and spot lumbosacral lateral views of the lumbar spine are obtained. Findings: There are 5 nonrib-bearing lumbar-type vertebral bodies. Compression deformity of superior L3 endplate of unknown age. Remainder vertebral body heights and alignment appear preserved. Multilevel facet disease. 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 Overlying bowel gas pattern nonobstructive. No destructive osseous lesions. No unexpected radiopaque foreign bodies. ===== Procedure Note Kenroy Dunn MD - 05/19/[address] [address] Examination: Lumbar Spine, 3 views Exam Date/Time: 05/18/2025 2:08 PM Reason For Exam: LOW BACK PAIN Fall 6 weeks ago. Comparison: None Technique: AP, lateral, and spot lumbosacral lateral views of the lumbarspine are obtained. Findings: There are 5 nonrib-bearing lumbar-type vertebral bodies.Compression deformity of superior L3 endplate of unknown age. Remaindervertebral body heights and alignment appear preserved. Multilevel facetdisease. Atherosclerotic aorta with aneurysmal dilatation measuring 3.4cm on lateral view. Overlying bowel gas pattern nonobstructive. Nodestructive osseous lesions. No unexpected radiopaque foreign bodies. ===== IMPRESSION: 1. Compression deformity of superior L3 endplate of unknown age. Ifthere is clinical concern, consider MRI evaluation to assess for acuityand appropriateness of vertebroplasty. 2. Atherosclerotic aorta with aneurysmal dilatation measuring 3.4 cm onlateral view. Consider CTA evaluation if not previously obtainedelsewhere. Referred By: Interpreted By: Kenroy Dunn MD, 05/19/2025 4:14 AM Magi Sanches NP GENERAL IMAGING Final Result from Last 3 Months Insurance MEDICARE [facility] [employer] [place] Care Teams Litigation Support Analyst Relationship Specialty Start Date End Date Karena Ko, PORTFOLIO ARCHITECT [address] [place] [address] PCP - General Nurse Practitioner Family 05/18/25
== END 2025-05-25 11:56 | disposition home or self-care (01) ==
LOC: ANHAUDIO 11:56
PROVIDERS: PCP Nurse Practitioner Family; Visit Provider Nurse Practitioner Family
DX: H90.3 Sensorineural hearing loss, bilateral (principal); H74.8X1 Other specified disorders of right middle ear and mastoid; H61.23 Impacted cerumen, bilateral; H61.891 Other specified disorders of right external ear
CPT/HCPCS: 92557; 92567

== ENCOUNTER 2025-07-14 13:40 | Outpatient (CLI) | payer MEDICARE, OTHER, SELFPAY ==
--- NOTE | ~2025-07-14 | DEXA_ITS ---
Bone Density Report Name: MADISON DE JESUS Age: 85 Sex: Female Ethnicity: White Date of : 1940 Indication: osteopenia; parental hip fracture; prior fracture; hysterectomy; Referring Provider: SHARONA SHELTON Study: Bone densitometry was performed. Exam Date: July 14, 2025 Accession number: [id number] Bone Density: Region BMD T-score Z-score Classification AP Spine(L1-L4) 0.733 -2.9 0.0 Osteoporosis Femoral Neck (Left) 0.543 -2.8 -0.3 Osteoporosis Total Hip (Left) 0.584 -2.9 -0.6 Osteoporosis World Health Organization criteria for BMD impression classify patients as: Normal (T-score at or above -1.0), Osteopenia (T-score between -1.0 and -2.5), or Osteoporosis (T-score at or below -2.5). 10-year Fracture Risk: FRAX not reported because: Some T-score for Spine Total or Hip Total or Femoral Neck at or below -2.5 Prior hip or vertebral fracture Previous Exams: -- Region Exam Age BMD T-score BMD Change BMD Change Date g/cm2 vs Baseline vs Previous -- AP Spine (L1-L4) 07/14/2025 85 0.733 -2.9 -8.9%* -8.9%* 12/24/2016 76 0.805 -2.2 Total Hip(Left) 07/14/2025 85 0.584 -2.9 -19.1%* -19.1%* 12/24/2016 76 0.721 -1.8 -- *Denotes significance at 95% confidence level, LSC for AP Spine = 0.022 g/cm2, LSC for Total Hip = 0.027 g/cm2 Clinical Information Provided by Patient: Have had a previous hip or vertebral fracture Has had a low trauma fracture Parent has had a hip fracture Has the following medical conditions: Hysterectomy Patient maximum height was 64 Menopause Age: 36 No regular weight bearing exercise Onset of menses at age 10 Number of children 2 Impression: The patient has established osteoporosis, based on the Total Spine T-score and the existence of a prior fracture. The patient has risk factors, including: parental hip fracture, previous fracture. The BMD for the AP Spine (L1-L4) decreased, changing by -8.9% since the last DXA exam. The BMD for the Total Hip(Left) decreased, changing by -19.1% since the last DXA exam. Discussion: HIGH RISK OF FRACTURE. BONE DENSITY IS UNDESIRABLY LOW AT ONE OR MORE SKELETAL SITES, CONSISTENT WITH POSTMENOPAUSAL OSTEOPOROSIS. This patient's lowest T-score, in a patient who has previously fractured, meets the World Health Organization's (WHO) criteria for severe osteoporosis. In untreated patients, the risk of osteoporotic fracture increases approximately two-fold for each 1.0 SD decrease in T-score. Low bone density is not the only risk factor for fracture; also consider factors such as patient's age, frailty or poor health, risk of falling, risk of injury, previous osteoporotic fracture, family history of osteoporosis, cigarette smoking, low body weight, etc. Not everyone with low bone mineral density has osteoporosis; osteomalacia and other metabolic bone disorders should also be considered. Patients who have osteoporosis should be evaluated for specific diseases and conditions (secondary causes) that may cause or contribute to bone loss. The [place] Association of Clinical Endocrinologists (AACE) and National Osteoporosis Foundation (NOF) recommend pharmacologic intervention for all postmenopausal women with a previous hip or vertebral fracture and a T-score in this range. The patient should follow a healthful lifestyle (good nutrition with adequate calcium and vitamin D, and appropriate weight-bearing exercise). Follow-Up: Consider a repeat BMD and Vertebral Fracture Assessment (VFA) exam in 2 years or sooner if medically necessary, to reassess this patient's status. Reported by: LION on 07/14/2025 2:08:00 PM. Reviewed, dictated and finalized at location A.
--- NOTE | ~2025-07-14 | MM_ITS ---
EXAMINATION: screening [facility] BI w simran INDICATION: Asymptomatic, referred for screening mammogram COMPARISON: None available TECHNIQUE: Digital Breast Tomosynthesis CC, MLO views of Both breasts were obtained with computer-aided detection to assist in interpretation of the study. FINDINGS: There are scattered areas of fibroglandular density. There is an asymmetry seen on the MLO view in the Superior left breast at posterior third. Elsewhere, there are no mammographic features of malignancy. IMPRESSION: 1. Left breast Asymmetry. 2. No evidence of malignancy in the Right breast. RECOMMENDATION: Left breast Diagnostic mammogram with true lateral, appropriate spot compression views and an ultrasound if needed. BI-RADS Category 0: Incomplete: Needs additional imaging evaluation. Reviewed, dictated and finalized at location B. IMPRESSION: 1. Left breast Asymmetry. 2. No evidence of malignancy in the Right breast. RECOMMENDATION: Left breast Diagnostic mammogram with true lateral, appropriate spot compressio n views and an ultrasound if needed. BI-RADS Category 0: Incomplete: Needs additional imaging evaluation.
== END 2025-07-14 13:41 | disposition home or self-care (01) ==
LOC: MICIMG 13:41
PROVIDERS: PCP Nurse Practitioner Family; Visit Provider Nurse Practitioner Family
DX: Z12.31 Encounter for screening mammogram for malignant neoplasm of breast (principal); R92.8 Other abnormal and inconclusive findings on diagnostic imaging of breast; M81.0 Age-related osteoporosis without current pathological fracture; Z78.0 Asymptomatic menopausal state
CPT/HCPCS: 77063; 77067; 77080